=== PATIENT | male | born 1955 | race Caucasian/White ===

== ENCOUNTER → 2017-01-24 | Outpatient (CLI) | payer MEDICARE ==
[2017-01-24 07:57] LABS: Appearance,Urine Clear (Clear); Bilirubin,Urine Negative (Negative); Glucose,Urine (UA) Negative (Negative); Ketones,Urine Negative (Negative); Leukocyte Esterase,Urine Negative (Negative); Nitrite,Urine Negative (Negative); PH, Urine 7.5 (5.0-8.0); Protein,Urine Negative (Negative); Specific Gravity,Urine 1.012 (1.001-1.035); UA Billing (MACRO vs. MICRO) CHEM; Urobilinogen,Urine <2.0 mg/dL (<2.0)
[2017-01-24 08:13] LABS: Basophils # (A) 0.1 k/uL (0-0.2); Basophils % (A) 1 %; CHCM 32.8; Eosinophils # (A) 0.2 k/uL (0-0.7); Eosinophils % (A) 4 %; HCT 47.5 % (39.0-53.0); HDW 2.64; HGB 15.2 gm/dL (13.0-17.5); Luc # (Auto) 0.15; Luc % (Auto) 2; Lymphocytes # (A) 1.6 k/uL (1.0-4.8); Lymphocytes % (A) 25 %; MCH 29.4 pg (25.0-35.0); MCV 92.1 fL (80.0-100.0); Mean Platelet Volume 7.5; Monocytes # (A) 0.5 k/uL (0-1.0); Monocytes % (A) 8 %; Neutrophils # (A) 3.8 k/uL (1.3-7.7); Neutrophils % (A) 60 %; RBC 5.15 m/uL (4.30-5.90); RDW 14.4 % (11.5-15.5); WBC 6.4 k/uL (3.8-10.6); WBC (Perox) 6.49
[2017-01-24 14:11] LABS: ALT 52 U/L (21-72); AST 39 U/L (17-59); Alkaline Phosphatase 119 U/L (38-126); Anion Gap 8 mmol/L; Blood Urea Nitrogen 16 mg/dL (9-20); Calcium 9.8 mg/dL (8.4-10.2); Carbon Dioxide 30 mmol/L (22-30); Chloride 105 mmol/L (98-107); Cholesterol 129 mg/dL (<200); Glucose 84 mg/dL (74-99); HDL Cholesterol 40 mg/dL (40-60); Non-African American GFR(MDRD) >60 (>60 ml/min/1.73 sqM); Potassium 4.9 mmol/L (3.5-5.1); Sodium 143 mmol/L (137-145); Total Bilirubin 0.8 mg/dL (0.2-1.3); Total Protein 6.6 g/dL (6.3-8.2); Triglycerides 141 mg/dL (<150)
[2017-01-24 15:31] LABS: Hepatitis B Surface Ag Index 0.07
[2017-01-24 15:36] LABS: Hepatitis B Core IgM Index 0.03
[2017-01-24 15:48] LABS: Hepatitis C Virus IgG Index 0.04
[2017-01-24 15:49] LABS: Hepatitis C Virus IgG Ab Negative (Negative)
[2017-01-25 06:36] LABS: HIV-1/HIV-2 Ab Screen NONREAC (NON REAC)
== END ==
LOC: LABWHC1 06:58
PROVIDERS: ATTEND Family Medicine
DX: E29.1 Testicular hypofunction (principal); E55.9 Vitamin D deficiency, unspecified; E78.00 Pure hypercholesterolemia, unspecified; N40.0 Benign prostatic hyperplasia without lower urinary tract symptoms; I10 Essential (primary) hypertension; Z11.59 Encounter for screening for other viral diseases
CPT/HCPCS: 80061; 80053; 80074; 84443; 85025; 81003; 84402; 84403; 87389; 82306; 36415; G0103

== ENCOUNTER → 2017-12-21 | Outpatient (CLI) | payer MEDICARE ==
[2017-12-21 07:42] LABS: Appearance,Urine Clear (Clear); Basophils # (A) 0.1 k/uL (0-0.2); Basophils % (A) 1 %; Bilirubin,Urine Negative (Negative); Blood,Urine Negative (Negative); Color,Urine Yellow; Eosinophils # (A) 0.3 k/uL (0-0.7); Eosinophils % (A) 3 %; Glucose,Urine (UA) Negative (Negative); HCT 48.9 % (39.0-53.0); HGB 15.9 gm/dL (13.0-17.5); Ketones,Urine Negative (Negative); Leukocyte Esterase,Urine Negative (Negative); Lymphocytes # (A) 1.9 k/uL (1.0-4.8); Lymphocytes % (A) 24 %; MCH 29.7 pg (25.0-35.0); MCHC 32.5 g/dL (31.0-37.0); MCV 91.3 fL (80.0-100.0); Mean Platelet Volume 7.5; Monocytes # (A) 0.5 k/uL (0-1.0); Monocytes % (A) 6 %; Neutrophils # (A) 4.9 k/uL (1.3-7.7); Neutrophils % (A) 63 %; PH, Urine 7.5 (5.0-8.0); Platelet Count 201 k/uL (150-450); Protein,Urine Negative (Negative); RBC 5.36 m/uL (4.30-5.90); RDW 13.8 % (11.5-15.5); Specific Gravity,Urine 1.014 (1.001-1.035); Urobilinogen,Urine <2.0 mg/dL (<2.0); WBC 7.8 k/uL (3.8-10.6)
[2017-12-21 10:47] LABS: Iron Saturation 32.69 (15.00-50.00)
[2017-12-21 11:01] LABS: Erythrocyte Sedimentation Rate 3 mm/hr (0-15)
[2017-12-21 11:25] LABS: ALT 44 U/L (21-72); AST 35 U/L (17-59); Albumin 3.8 g/dL (3.5-5.0); Alkaline Phosphatase 118 U/L (38-126); Anion Gap 10 mmol/L; Blood Urea Nitrogen 16 mg/dL (9-20); Calcium 9.9 mg/dL (8.4-10.2); Carbon Dioxide 29 mmol/L (22-30); Chloride 104 mmol/L (98-107); Cholesterol 138 mg/dL (<200); Creatine Kinase 51 U/L (55-170); Glucose 89 mg/dL (74-99); HDL Cholesterol 36 mg/dL (40-60); LDL Cholesterol,Calculated 68 mg/dL (0-99); Potassium 4.9 mmol/L (3.5-5.1); Sodium 143 mmol/L (137-145); Total Bilirubin 0.7 mg/dL (0.2-1.3); Total Protein 6.7 g/dL (6.3-8.2); Triglycerides 170 mg/dL (<150)
[2017-12-21 11:33] LABS: T4, Free (Free Thyroxine) 0.69 ng/dL (0.78-2.19)
[2017-12-21 11:47] LABS: Prostate Specific Antigen 1.11 ng/mL (0.00-4.00)
== END | disposition home or self-care (01) ==
LOC: LABWHC1 06:48
PROVIDERS: ATTEND Family Medicine
DX: N40.1 Benign prostatic hyperplasia with lower urinary tract symptoms (principal); E78.9 Disorder of lipoprotein metabolism, unspecified; D50.9 Iron deficiency anemia, unspecified; I10 Essential (primary) hypertension; E29.1 Testicular hypofunction
CPT/HCPCS: 36415; 80053; 80061; 81003; 82550; 82607; 82728; 83540; 83550; 84153; 84402; 84403; 84439; 84443; 85025; 85652

== ENCOUNTER → 2018-05-05 | Outpatient (CLI) | payer MEDICARE ==
--- NOTE | 2018-05-05 08:51 | US ---
EXAMINATION TYPE: US duplex aorta DATE OF EXAM: 05/05/2018 COMPARISON: NONE CLINICAL HISTORY: Z13.6 Screening for cardiovascular disorder. EXAM MEASUREMENTS: Abdominal Aorta: Proximal: 2.7 x 2.1 cm Mid: 2.1 x 2.1 cm Distal: 2.0 x 1.9 cm Bifurcation: rt, 1.7 x 1.7 cm lt, 1.5 x 1.4 cm aorta wnl. IMPRESSION: Visualized portions of the abdominal aorta demonstrate no evidence of abdominal aortic an eurysm.
== END | disposition home or self-care (01) ==
LOC: RADUSWWP 08:04
PROVIDERS: ATTEND Family Medicine
DX: Z13.6 Encounter for screening for cardiovascular disorders (principal)
CPT/HCPCS: 93979

== ENCOUNTER → 2019-04-07 | Outpatient (CLI) | payer MEDICARE | END | disposition home or self-care (01) | LOC: RADMRIMAIN 11:46 | PROVIDERS: ATTEND Family Medicine | DX: Z53.9 Procedure and treatment not carried out, unspecified reason (principal) ==

== ENCOUNTER 2021-03-23 06:31 | Emergency (ER) | payer MEDICARE ==
[2021-03-23 06:36] VITALS: TEMP 98.7
[2021-03-23] MEDS ORDERED: diphenhydrAMINE 50 MG/ML 1 ML VIAL IVP STA (06:45)
[2021-03-23] MEDS ORDERED: METOCLOPRAMIDE 5 MG/ML 2 ML VIAL IVP STA (06:45)
[2021-03-23] MEDS ORDERED: SODIUM CHLORIDE 0.9% 1,000 ML IV STA (06:47)
[2021-03-23] MEDS ORDERED: KETOROLAC 15 MG/ML 1 ML VIAL IVP STA (06:47)
--- NOTE | 2021-03-23 06:51 | ED ---
Abdominal Pain HPI - General Chief Complaint: Headache Stated Complaint: Vomiting Time Seen by Provider: 03/23/21 06:45 Source: patient Mode of arrival: wheelchair Limitations: no limitations - History of Present Illness Initial Comments: 66 -year-old male with history of migraines presents emergency Department with chief complaint of migraine nausea vomiting. Patient states this feels like his typical migraine headache that was gradual onset and not the worst headache of his life. States it is mostly localized to the left side of his head. He rep orts nausea with multiple episodes of nonbilious and nonbloody vomiting. States he typically has forceful vomiting when his migraines are not aborted with Imitrex.. Patient states he typically takes Imitrex at the onset of the headaches but did not catch it on time last night so he has been vomiting since. Reports mild photophobia but denies any visual changes. states a migraine cocktail typically works well for him. Denies any neck stiffness or pain. Denies any chest pain or shortness of breath. Denies one-sided weakness paresthesias. Patient states his current hypertensive because he did not take his lisinopril and clonidine due to the vomiting. - Related Data Home Medications Medication Instructions Recorded Confirmed Simvastatin [Zocor] 40 mg PO HS 01/28/15 03/23/21 Tamsulosin HCl [Flomax] 0.4 mg PO HS 01/28/15 03/23/21 cloNIDine HCL [Catapres] 0.1 mg PO TID 01/28/15 03/23/21 lisinopriL [Zestril] 10 mg PO DAILY 01/28/15 03/23/21 traMADol HCl [Ultram] 50 mg PO Q6H PRN 11/25/15 03/23/21 HYDROcodone/APAP 10-325MG [[place] 1 tab PO TID 03/23/21 03/23/21 10-325] QUEtiapine FUMARATE [SEROquel XR] 50 mg PO HS 03/23/21 03/23/21 SUMAtriptan SUCCINATE [Imitrex] 100 mg PO DAILY PRN 03/23/21 03/23/21 Previous Rx's Medication Instructions Recorded Ondansetron Odt [Zofran Odt] 4 mg PO Q8HR PRN #10 tab 03/23/21 Allergies Allergy/AdvReac Type Severity Reaction Status Date / Time No Known Allergies Allergy Verified 03/23/21 09:30 Review of Systems ROS Statement: Those systems with pertinent positive or pertinent negative responses have been documented in the HPI. ROS Other: All systems not noted in ROS Statement are negative. Past Medical History Past Medical History: Hyperlipidemia, Hypertension, Musculoskeletal Disorder, Osteoarthritis (OA), Prostate Disorder Additional Past Medical History / Comment(s): current cold sx. History of Any Multi-Drug Resistant Organisms: None Reported Past Surgical History: Back Surgery, Orthopedic Surgery, Tonsillectomy Additional Past Surgical History / Comment(s): left clavicle repaired, right ring finger tendon re-attached, left thumb surg. Past Anesthesia/Blood Transfusion Reactions: No Reported Reaction Past Psychological History: Depression Smoking Status: Never smoker Past Alcohol Use History: None Reported Past Drug Use History: None Reported - Past Family History Father Family Medical History: Cancer General Exam Limitations: no limitations General appearance: alert, in no apparent distress Head exam: Present: atraumatic, normocephalic, normal inspection Eye exam: Present: normal appearance, PERRL, EOMI Pupils: Present: normal accommodation ENT exam: Present: normal exam, normal oropharynx, mucous membranes moist, TM's normal bilaterally, normal external ear exam Neck exam: Present: normal inspection, full ROM. Absent: tenderness Respiratory exam: Present: normal lung sounds bilaterally. Absent: respiratory distress, wheezes, rales, rhonchi, stridor, chest wall tenderness, accessory muscle use Cardiovascular Exam: Present: regular rate, normal rhythm, normal heart sounds. Absent: systolic murmur GI/Abdominal exam: Present: soft. Absent: distended, tenderness, guarding, rebound, rigid Extremities exam: Present: normal inspection, full ROM, normal capillary refill. Absent: tenderness, pedal edema, joint swelling Back exam: Present: normal inspection, full ROM. Absent: tenderness, CVA tenderness (R), CVA tenderness (L), muscle spasm, paraspinal tenderness, vertebral tenderness Neurological exam: Present: alert, oriented X3, CN II-XII intact, normal gait Psychiatric exam: Present: normal affect, normal mood Skin exam: Present: warm, dry, intact, normal color Course Vital Signs 03/23/21 03/23/21 03/23/21 06:32 07:26 08:27 Temperature 98.7 F Pulse Rate 101 H 101 H 85 Respiratory 20 16 16 Rate Blood Pressure 214/99 217/99 210/96 O2 Sat by Pulse 98 98 96 Oximetry 03/23/21 09:25 Temperature Pulse Rate 80 Respiratory 16 Rate Blood Pressure 215/94 O2 Sat by Pulse 99 Oximetry Medical Decision Making - Medical Decision Making 66 -year-old male with history of migraines presents emergency Department with chief complaint of migraine nausea vomiting. She was initially hypertensive because he has not taken his lisinopril and clonidine due to the vomiting. Patient was given Reglan, Benadryl, Zofran and IV fluids. CT of the brain was initially obtained which showed no acute finding. He was given morphine for pain as well. CBC shows leukocytosis of 23K which I suspect is reactive to the forceful vomiting. Patient reassured me that it is typical for him to symptoms like this when the migraine is not reported on time. On reevaluation, he reports improvement of symptoms. He did request injectable Imitrex which was given to him. The rest of the laboratory work was unremarkable. His blood pressure still remained elevated but he denied any other symptoms. Patient was comfortable going home and will follow-up if his symptoms return. Return parameters were discussed with him who is understanding and agreeable. Case discussed with Dr. Brown. - Lab Data Result diagrams: 03/23/21 07:01 03/23/21 07:01 Lab Results 03/23/21 03/23/21 Range/Units 07:01 07:01 WBC 23.1 H (3.8-10.6) k/uL RBC 5.56 (4.30-5.90) m/uL Hgb 16.6 (13.0-17.5) gm/dL Hct 48.4 (39.0-53.0) % MCV 87.0 (80.0-100.0) fL MCH 29.8 (25.0-35.0) pg MCHC 34.3 (31.0-37.0) g/dL RDW 13.5 (11.5-15.5) % Plt Count 293 (150-450) k/uL MPV 7.8 Neutrophils % 89 % Lymphocytes % 5 % Monocytes % 4 % Eosinophils % 2 % Basophils % 0 % Neutrophils # 20.5 H (1.3-7.7) k/uL Lymphocytes # 1.2 (1.0-4.8) k/uL Monocytes # 0.9 (0-1.0) k/uL Eosinophils # 0.4 (0-0.7) k/uL Basophils # 0.1 (0-0.2) k/uL Sodium 143 (137-145) mmol/L Potassium 4.2 (3.5-5.1) mmol/L Chloride 106 (98-107) mmol/L Carbon Dioxide 23 (22-30) mmol/L Anion Gap 14 mmol/L BUN 19 (9-20) mg/dL Creatinine 0.95 (0.66-1.25) mg/dL Est GFR (CKD-EPI)AfAm >90 (>60 ml/min/1.73 sqM) Est GFR (CKD-EPI)NonAf 82 (>60 ml/min/1.73 sqM) Glucose 188 H (74-99) mg/dL Calcium 9.7 (8.4-10.2) mg/dL Total Bilirubin 0.7 (0.2-1.3) mg/dL AST 37 (17-59) U/L ALT 28 (4-49) U/L Alkaline Phosphatase 153 H (38-126) U/L Total Protein 7.8 (6.3-8.2) g/dL Albumin 4.8 (3.5-5.0) g/dL Lipase 71 (23-300) U/L Disposition Clinical Impression: Headache Disposition: HOME SELF-CARE Condition: Stable Instructions (If sedation given, give patient instructions): Acute Headache (ED) Additional Instructions: Please return to the Emergency Department if symptoms worsen or any other concerns. Prescriptions: Ondansetron Odt [Zofran Odt] 4 mg PO Q8HR PRN #10 tab PRN Reason: Nausea Is patient prescribed a controlled substance at d/c from ED?: No Referrals: Richi Clements MD [Primary Care Provider] - 1-2 days Time of Disposition: 09:41
[2021-03-23 07:12] LABS: Basophils # (A) 0.1 k/uL (0-0.2); Basophils % (A) 0 %; Eosinophils # (A) 0.4 k/uL (0-0.7); Eosinophils % (A) 2 %; HCT 48.4 % (39.0-53.0); HGB 16.6 gm/dL (13.0-17.5); Lymphocytes # (A) 1.2 k/uL (1.0-4.8); Lymphocytes % (A) 5 %; MCH 29.8 pg (25.0-35.0); MCHC 34.3 g/dL (31.0-37.0); Mean Platelet Volume 7.8; Monocytes # (A) 0.9 k/uL (0-1.0); Monocytes % (A) 4 %; Neutrophils # (A) 20.5 k/uL (1.3-7.7); Neutrophils % (A) 89 %; Platelet Count 293 k/uL (150-450); RBC 5.56 m/uL (4.30-5.90); RDW 13.5 % (11.5-15.5); WBC 23.1 k/uL (3.8-10.6)
[2021-03-23] MEDS ORDERED: ONDANSETRON 4 MG/2 ML VIAL IVP STA (07:20)
--- NOTE | 2021-03-23 07:25 | CT ---
EXAMINATION TYPE: CT brain wo con DATE OF EXAM: 03/23/2021 COMPARISON: None HISTORY: THOMAS CT DLP: 1094.4 mGycm, helical imaging through the brain. Automated exposure control for dose reduction was used. FINDINGS: There is no hemorrhage or hydrocephalus. The calvarium is intact. Mild inflammatory change present in the right maxillary sinus, ethmoid air cells. There are cerebral vascular calcifications present. Or bits show symmetric appearance. IMPRESSION: NO ACUTE BRAIN ABNORMALITY. SINUS DISEASE.
[2021-03-23 07:26] LABS: AST 37 U/L (17-59); African American GFR (CKD) >90 (>60 ml/min/1.73 sqM); Albumin 4.8 g/dL (3.5-5.0); Alkaline Phosphatase 153 U/L (38-126); Anion Gap 14 mmol/L; Blood Urea Nitrogen 19 mg/dL (9-20); Calcium 9.7 mg/dL (8.4-10.2); Carbon Dioxide 23 mmol/L (22-30); Chloride 106 mmol/L (98-107); Glucose 188 mg/dL (74-99); Lipase 71 U/L (23-300); Non-African American GFR(CKD) 82 (>60 ml/min/1.73 sqM); Potassium 4.2 mmol/L (3.5-5.1); Sodium 143 mmol/L (137-145); Total Bilirubin 0.7 mg/dL (0.2-1.3); Total Protein 7.8 g/dL (6.3-8.2)
[2021-03-23 07:27] VITALS: RESP 16
[2021-03-23 07:32] LABS: ALT 28 U/L (4-49)
[2021-03-23] MEDS ORDERED: MORPHINE SULFATE 4 MG/ML SYRINGE IVP STA (07:41)
[2021-03-23] MEDS ORDERED: lisinopriL 10 MG TAB PO STA (08:17)
[2021-03-23] MEDS ORDERED: cloNIDine HCL 0.1 MG TAB PO STA (08:18)
[2021-03-23] MEDS ORDERED: SUMAtriptan succinate 6 MG/0.5 ML VIAL SQ STA (08:55)
[2021-03-23] MEDS ORDERED: ONDANSETRON 4 MG ODT STARTER PACK 2 TAB BTL PO STA (08:56)
[2021-03-23 09:25] VITALS: BP 215/94; PULSE 80
== END 2021-03-23 09:55 | disposition home or self-care (01) ==
LOC: EC 06:31
DX: R51.9 Headache, unspecified (principal); E78.5 Hyperlipidemia, unspecified; I10 Essential (primary) hypertension; M19.90 Unspecified osteoarthritis, unspecified site; Z79.899 Other long term (current) drug therapy
CPT/HCPCS: 36415; 80053; 83690; 85025; 70450; 99284; 96374; 96375 ×3; 96376; 96361; 96372; J3030; J2270; J1200; J2765; J2405; S0119

== ENCOUNTER 2021-03-28 01:45 | Emergency (ER) | payer MEDICARE ==
[2021-03-28] MEDS ORDERED: METOCLOPRAMIDE 5 MG/ML 2 ML VIAL IVP STA (02:08)
[2021-03-28] MEDS ORDERED: diphenhydrAMINE 50 MG/ML 1 ML VIAL IVP STA (02:08)
[2021-03-28] MEDS ORDERED: DEXAMETHASONE SOD PHOSPHATE 10 MG/ML 1 ML VIAL IV STA (02:08)
[2021-03-28] MEDS ORDERED: KETOROLAC 15 MG/ML 1 ML VIAL IVP STA (02:08)
[2021-03-28] MEDS ORDERED: SODIUM CHLORIDE 0.9% 1,000 ML IV ONE (02:09)
--- NOTE | 2021-03-28 02:13 | ED ---
Headache HPI - General Chief Complaint: Headache Stated Complaint: Migraine Time Seen by Provider: 03/28/21 02:02 Mode of arrival: ambulatory Limitations: no limitations - History of Present Illness Initial Comments: 66 year-old male patient presents to the emergency department for evaluation of migraine headache with vomiting. States that he has had this particular headache on and off for the last week. States he does have history of migraines does have imitrex but feels that it does not work for him anymore. States he is generally able to relieve the headaches by going to the chiropractor which he did yesterday morning, but it did not help this time. States tonight the headache seemed to worsen and he again developed vomiting. He states the pain goes up through his neck and into the back of his head. Denies any light or sound sensitivity. Denies numbness, tingling, or weakness to the extremities. States symptoms are typical of his usual migraine pattern. Reports gradual onset and denies this being the worst headache of his life. Denies any recent head injury. Was seen in the ED for this last Tuesday, had negative CT scan, labs showed elevated WBC count, remainder of labs were unremarkable. Patient denies any recent rash, fever, chills, cough, shortness of breath, chest pain, abdominal pain, diarrhea, constipation, back pain, numbness, tingling, dizziness, w eakness, hematuria, dysuria, urinary urgency, urinary frequency, or any other complaints. - Related Data Home Medications Medication Instructions Recorded Confirmed Simvastatin [Zocor] 40 mg PO HS 01/28/15 03/23/21 Tamsulosin HCl [Flomax] 0.4 mg PO HS 01/28/15 03/23/21 cloNIDine HCL [Catapres] 0.1 mg PO TID 01/28/15 03/23/21 lisinopriL [Zestril] 10 mg PO DAILY 01/28/15 03/23/21 traMADol HCl [Ultram] 50 mg PO Q6H PRN 11/25/15 03/23/21 HYDROcodone/APAP 10-325MG [[place] 1 tab PO TID 03/23/21 03/23/21 10-325] QUEtiapine FUMARATE [SEROquel XR] 50 mg PO HS 03/23/21 03/23/21 SUMAtriptan SUCCINATE [Imitrex] 100 mg PO DAILY PRN 03/23/21 03/23/21 Previous Rx's Medication Instructions Recorded Ondansetron Odt [Zofran Odt] 4 mg PO Q8HR PRN #10 tab 03/23/21 Allergies Allergy/AdvReac Type Severity Reaction Status Date / Time No Known Allergies Allergy Verified 03/28/21 01:57 Review of Systems ROS Statement: Those systems with pertinent positive or pertinent negative responses have been documented in the HPI. ROS Other: All systems not noted in ROS Statement are negative. Past Medical History Past Medical History: Hyperlipidemia, Hypertension, Musculoskeletal Disorder, Osteoarthritis (OA), Prostate Disorder Additional Past Medical History / Comment(s): current cold sx. History of Any Multi-Drug Resistant Organisms: None Reported Past Surgical History: Back Surgery, Orthopedic Surgery, Tonsillectomy Additional Past Surgical History / Comment(s): left clavicle repaired, right ring finger tendon re-attached, left thumb surg. Past Anesthesia/Blood Transfusion Reactions: No Reported Reaction Past Psychological History: Depression Smoking Status: Never smoker Past Alcohol Use History: None Reported Past Drug Use History: None Reported - Past Family History Father Family Medical History: Cancer General Exam Limitations: no limitations General appearance: alert, in no apparent distress Eye exam: Present: normal appearance, PERRL, EOMI. Absent: scleral icterus, conjunctival injection, nystagmus, periorbital swelling ENT exam: Present: normal exam, normal oropharynx, mucous membranes moist Respiratory exam: Present: normal lung sounds bilaterally. Absent: respiratory distress, wheezes, rales, rhonchi, stridor Cardiovascular Exam: Present: regular rate, normal rhythm, normal heart sounds. Absent: systolic murmur, diastolic murmur, rubs, gallop, clicks GI/Abdominal exam: Present: soft, normal bowel sounds. Absent: distended, tenderness, guarding, rebound, rigid Neurological exam: Present: alert, oriented X3, CN II-XII intact Expanded Speech: Present: fluid speech Cranial nerves: EOM's Intact: Normal, Nystagmus: Normal Motor strength exam: RUE: 5, LUE: 5, RLE: 5, LLE: 5 Psychiatric exam: Present: normal affect, normal mood Skin exam: Present: warm, dry, intact, normal color. Absent: rash Course Vital Signs 03/28/21 01:55 Temperature 98.9 F Pulse Rate 69 Respiratory 18 Rate Blood Pressure 191/101 O2 Sat by Pulse 95 Oximetry Medical Decision Making - Medical Decision Making 66 year-old male patient presented with migraine headache. Upon arrival exhibited elevated blood pressure. Does have history of migraines. States symptoms are consistent with his usual migraine pattern. Did try zofran and imitrex at home. Physical exam was unremarkable. No neuro deficits. IV was started, he was given IV fluids, toradol reglan, benadryl, and decadron. Upon re-evaluation states headache is resolved, he feels much better. BP remains elevated. States he did take his BP meds today, but unsure if he kept them down due to vomiting. Will give dose of catapres 0.1mg. He will be discharged to follow up with the primary care physician. Instructed to follow-up with neurologist. Return parameters were discussed in detail. He verbalizes understanding and agrees with this plan. Case discussed with my attending Dr. Aviles. Disposition Clinical Impression: Migraine headache Disposition: HOME SELF-CARE Condition: Good Instructions (If sedation given, give patient instructions): Migraine Headache (ED) Additional Instructions: Follow-up with your primary care physician for recheck in 1-2 days. Consider following up with neurologist. Return for any new, worsening, or concerning symptoms. Is patient prescribed a controlled substance at d/c from ED?: No Referrals: Richi Clements MD [Primary Care Provider] - 1-2 days Time of Disposition: 03:31
[2021-03-28] MEDS ORDERED: cloNIDine HCL 0.1 MG TAB PO STA (03:30)
[2021-03-28 03:55] VITALS: BP 183/101; PULSE 84; RESP 17; TEMP 98.3
== END 2021-03-28 03:55 | disposition home or self-care (01) ==
LOC: EC 01:45
DX: G43.909 Migraine, unspecified, not intractable, without status migrainosus (principal); E78.5 Hyperlipidemia, unspecified; I10 Essential (primary) hypertension; M19.90 Unspecified osteoarthritis, unspecified site; F32.9 Major depressive disorder, single episode, unspecified
CPT/HCPCS: 99283; 96374; 96375 ×3; 96361 ×2; J1200; J1100; J2765; J1885

== ENCOUNTER → 2021-07-01 | Outpatient (CLI) | payer MEDICARE ==
[2021-07-01 09:15] VITALS: BP 137/96; PULSE 65; RESP 18; TEMP 98
--- NOTE | 2021-07-01 09:30 | P.PAINCN ---
History of Present Illness - Reason for Consult Consult date: 07/01/21 - History of Present Illness This 66 years old male with a chronic history of severe neck mostly on the left side he is diagnosed with left-sided occipital neuralgia, patient was evaluated by Dr. Parkinson and he was referred to [facility] for left-sided occipital nerve block, she reported that he had more than 20 years history of headache but the intensity of the headache increases over the last 6 months, mainly on the left side , he denies any visual changes he denies any motor or sensory deficit, tried different medication and he is currently on Imitrex and [place], patient had multiple admissions to the emergency room secondary to the headache, Past Medical History Past Medical History: Hyperlipidemia, Hypertension, Musculoskeletal Disorder, Osteoarthritis (OA), Prostate Disorder Additional Past Medical History / Comment(s): frequent headaches usually left side History of Any Multi-Drug Resistant Organisms: None Reported Past Surgical History: Back Surgery, Orthopedic Surgery, Tonsillectomy Additional Past Surgical History / Comment(s): left clavicle repaired, right ring finger tendon re-attached, left thumb surg. Past Anesthesia/Blood Transfusion Reactions: No Reported Reaction Past Psychological History: Depression Smoking Status: Never smoker Past Alcohol Use History: None Reported Past Drug Use History: None Reported - Past Family History Father Family Medical History: Cancer Medications and Allergies Home Medications Medication Instructions Recorded Confirmed Type Simvastatin [Zocor] 40 mg PO HS 01/28/15 06/24/21 History Tamsulosin HCl [Flomax] 0.4 mg PO HS 01/28/15 06/24/21 History cloNIDine HCL [Catapres] 0.1 mg PO HS 01/28/15 06/24/21 History lisinopriL [Zestril] 10 mg PO HS 01/28/15 06/24/21 History HYDROcodone/APAP 10-325MG [[place] 1 tab PO TID 03/23/21 06/24/21 History 10-325] Ondansetron Odt [Zofran Odt] 4 mg PO Q8HR PRN #10 tab 03/23/21 06/24/21 Rx QUEtiapine FUMARATE [SEROquel XR] 50 mg PO HS 03/23/21 06/24/21 History SUMAtriptan SUCCINATE [Imitrex] 100 mg PO DAILY PRN 03/23/21 06/24/21 History Allergies Allergy/AdvReac Type Severity Reaction Status Date / Time No Known Allergies Allergy Verified 06/24/21 15:48 Physical Exam Vitals: Vital Signs Temp Pulse Resp BP Pulse Ox 07/01/21 09:11 98.0 F 65 18 137/96 99 Physical Examinations : -Constitutiona : Cooperative , not in acute distress . -HEENT : nech : supple , no Lymphadenopathy , normal thyroid size . : eyes : no ptosis , no icterus, no photophobia . - neurologic : Cranial nerve II to XII intact , no focal neurological deffecit . -psychatric : alert , oriented X 3 , appropriate affect , intact judgment and insight . -Lymphatic : no Lymphadenopathy . - musculoskeltal : Cervical Spine motor stregnth in the deltoid and biceps, normal right side , normal Left side motor stregnth biceps and the wrist extensors normal right side ,normal left side . motor stregnth in the triceps muscle . normal Right side , normal Left side deep tendon reflexes normal at the biceps , normal at Brachioradialis , normal at triceps. cervical facet loading test: Positive Bilaterally Underlays over the occipital nerve bilaterally, Left > Right Lumber spine moter stegnth lower extremities ,thigh and legs 5/5 Right side , 5/5 Left side Results Comments: MRI of the brain= minimal nonspecific white matter changes and mild to moderate chronic right ethmoids sinusitis Assessment and Plan Plan: Assessment and plan=1-occipital neuralgia. 2-cervical spondylosis. Patient could benefit from left-sided occipital nerve block, seizures risks and benefits and alternatives discussed with the patient he agreed with proceeding Time with Patient: Greater than 30 PQRS Measure Charge Sheet Measure #130: Documentation of Current Meds in Medical Chart: Patient's medications documented in chart Measure #226: Tobacco Use: Screen & Cessation Intervention: Pt not a tobacco user Measure #111: Pneumonia Vaccination: Pneumococcal vaccine NOT administered or previously given Measure #47: Advance Care Plan: Advance care planning discussed & documented, pt chose/unable to give Measure #412: Opioid Treatment Agreement: No documentation of signed opioid treatment agreement Measure #408: Opioid Therapy Follow-up Evaluation: Patient had NO f/u eval minimum every 3 months during opioid therapy Measure #317: Preventitive Care & Scrn High Bld Press & F/U: Normal blood pressure, f/u not required Measure #128: Body Mass Index (BMI) Screening & Follow-up: BMI documented ABOVE normal parameters - f/u documented Measure #131: Pain Assessment & Follow-up: Pain positive & plan documented, Follow-up scheduled Measure #431: Unhealthy Alcohol Use Preventative Care & Scrn: Patient not identified as an unhealthy alcohol user PQRS Narrative: Smoking Status Never smoker Blood Pressure 137/96 Pain Intensity [Left Neck] 2 Scale Used Numeric (1 - 10) Hx Alcohol Use (MH) No Home Medications: Ambulatory Orders Simvastatin [Zocor] 40 mg PO HS 01/28/15 Tamsulosin HCl [Flomax] 0.4 mg PO HS 01/28/15 cloNIDine HCL [Catapres] 0.1 mg PO HS 01/28/15 lisinopriL [Zestril] 10 mg PO HS 01/28/15 HYDROcodone/APAP 10-325MG [[place] 10-325] 1 tab PO TID 03/23/21 Ondansetron Odt [Zofran Odt] 4 mg PO Q8HR PRN #10 tab 03/23/21 QUEtiapine FUMARATE [SEROquel XR] 50 mg PO HS 03/23/21 SUMAtriptan SUCCINATE [Imitrex] 100 mg PO DAILY PRN 03/23/21
== END ==
LOC: PNWHC3 08:54
PROVIDERS: ATTEND Specialist
DX: M54.81 Occipital neuralgia (principal); M47.812 Spondylosis without myelopathy or radiculopathy, cervical region; E78.5 Hyperlipidemia, unspecified; I10 Essential (primary) hypertension; M19.90 Unspecified osteoarthritis, unspecified site; F32.9 Major depressive disorder, single episode, unspecified; Z79.899 Other long term (current) drug therapy
CPT/HCPCS: 99211

== ENCOUNTER 2021-07-28 12:34 | Day surgery (SDC) | payer MEDICARE ==
[2021-07-27 09:59] VITALS: BMI 28.7
[2021-07-28 12:52] VITALS: TEMP 98.1
[2021-07-28] MEDS ORDERED: LACTATED RINGERS 1,000 ML IV ONE (12:56)
[2021-07-28] MEDS ORDERED: MIDAZOLAM 2 MG/2 ML VIAL ONE (13:49)
[2021-07-28] MEDS ORDERED: TRIAMCINOLONE ACETONIDE 40 MG/ML 1 ML VIAL ONE (13:49)
[2021-07-28] MEDS ORDERED: fentaNYL (PF) 50 MCG/ML 2 ML AMP ONE (13:49)
[2021-07-28] MEDS ORDERED: ROPIVACAINE 5MG/ML 20ML VIAL ONE (13:49)
[2021-07-28] MEDS ORDERED: IV FLUID CONTINUATION 800 ML IV ONE (14:03)
--- NOTE | 2021-07-28 14:07 | P.PCN ---
Date of Procedure: 07/28/21 Description of Procedure: PREOPERATIVE DIAGNOSIS: Occipital neuralgia, and headaches POSTOPERATIVE DIAGNOSIS: Occipital neuralgia, and headaches PROCEDURES: 1. left-sided Greater occipital nerve block SURGEON: Arcelia Dawson ANESTHESIA: Local and IV sedation : Versed 1 mg, and fentanyl 50 g EBL: None. Specimen removed: None PROCEDURE INDICATIONS: This patient with a history of chronic headaches, and occipital neuralgia. Patient tried conservative therapy. Came here for intervention management. Procedure and Findings: The patient was seen and examined and written informed consent was obtained after explaining the risks, benefits and alternative of the procedure to the patient. As per patient request for anxiety IV was started in the preoperative holding area for sedation. The patient was positioned in the sitting position with the head slightly flexed and forehead rested on a pillow. By palpation, the external occipital protuberance and mastoid process were identified and mid point in between was located. The target point for greater occipital nerve was just medial to the occipital artery pulsation. The skin preparation was done with ChloraPrep X1 and sterile technique was observed throughout the procedure. A 25-guage, 1.5 inch needle was used for the procedure. A 25-gauge 1.5 inch needle was placed vertically downward, bony contact was obtained, negative aspiration was confirmed and 8 ml solution was injected. The needle was redirected little medially and laterally in a fanning fashion and addition medication was injected after negative aspiration. The block solution containing 0.5% preservative-free bupivacaine 7 mL +40 MG of Depo-Medrol. The needle was removed, needle puncture sites were cleaned and pressure was applied. The patient tolerated the procedure very well. COMPLICATIONS: None. DISPOSITION / PLANS: The patient was placed in a supine position and transferred to the recovery area in a stable condition for observation and was discharged from the recovery room after meeting discharge criteria. Home discharge instructions given to the patient by the staff. The patient was reexamined prior to discharge. The patient will schedule for follow-up visit with the pain clinic in 2-4 weeks duration
[2021-07-28 14:08] VITALS: RESP 20
[2021-07-28] MEDS ORDERED: LACTATED RINGERS 1,000 ML IV SCH (14:15)
[2021-07-28 14:24] VITALS: BP 142/84; PULSE 59
== END 2021-07-28 14:33 | disposition home or self-care (01) ==
LOC: ORPAIN 12:34
DX: M54.81 Occipital neuralgia (principal); I10 Essential (primary) hypertension; M19.90 Unspecified osteoarthritis, unspecified site; G62.9 Polyneuropathy, unspecified
CPT/HCPCS: 64405; J2250; J3301; J3010; J2795

== ENCOUNTER → 2021-07-28 | Outpatient (CLI) | payer MEDICARE ==
[2021-07-28 08:51] LABS: Appearance,Urine Clear (Clear); Bilirubin,Urine Negative (Negative); Blood,Urine Negative (Negative); Color,Urine Yellow; Glucose,Urine (UA) Negative (Negative); Ketones,Urine Negative (Negative); Leukocyte Esterase,Urine Negative (Negative); Nitrite,Urine Negative (Negative); Protein,Urine Negative (Negative); Specific Gravity,Urine 1.022 (1.001-1.035); Urobilinogen,Urine <2.0 mg/dL (<2.0)
[2021-07-28 11:10] LABS: Basophils # (A) 0.07 X 10*3/uL (0.00-0.10); Basophils % (A) 0.7 %; Eosinophils # (A) 0.27 X 10*3/uL (0.04-0.35); Eosinophils % (A) 2.9 %; HCT 47.6 % (39.6-50.0); HGB 15.7 g/dL (13.0-17.0); Lymphocytes # (A) 2.28 X 10*3/uL (0.90-5.00); Lymphocytes % (A) 24.3 %; MCH 29.5 pg (27.0-32.0); MCV 89.3 fL (80.0-97.0); Mean Platelet Volume 10.9 fL (9.5-12.2); Monocytes # (A) 0.81 X 10*3/uL (0.20-1.00); Monocytes % (A) 8.6 %; Neutrophils # (A) 5.92 X 10*3/uL (1.80-7.70); Platelet Count 239 X 10*3/uL (140-440); RBC 5.33 X 10*6/uL (4.40-5.60); RDW 13.9 % (11.5-14.5)
[2021-07-28 13:54] LABS: Erythrocyte Sedimentation Rate 6 mm/Hr (0-20)
[2021-07-28 18:02] LABS: Prostate Specific Antigen 0.9 ng/mL (0.00-4.50)
[2021-07-28 18:28] LABS: African American GFR (CKD) 111.7 (60.0-200.0); Albumin 4.4 g/dL (3.8-4.9); Albumin/Globulin Ratio 1.68 (1.60-3.17); Anion Gap 14.9 mmol/L (4.00-12.00); BUN/Creat Ratio 21.66 Ratio (12.00-20.00); Blood Urea Nitrogen 15.4 mg/dL (9.0-27.0); Calcium 9.7 mg/dL (8.7-10.3); Carbon Dioxide 22.2 mmol/L (21.6-31.8); Globulin 2.6 g/dL (1.6-3.3); Non-African American GFR(CKD) 96.4 (60.0-200.0); Potassium 5.1 mmol/L (3.5-5.5); Total Bilirubin 0.7 mg/dL (0.30-1.20)
== END | disposition home or self-care (01) ==
LOC: LABWHC1 07:05
PROVIDERS: ATTEND Family Medicine
DX: Z12.5 Encounter for screening for malignant neoplasm of prostate (principal); I10 Essential (primary) hypertension
CPT/HCPCS: 36415; 80053; 81003; 82306; 82607; 84153; 84439; 84443; 85025; 85652

== ENCOUNTER → 2021-08-26 | Outpatient (CLI) | payer MEDICARE ==
[2021-08-26 10:38] VITALS: BP 164/96; PULSE 64; RESP 18; TEMP 97.8
--- NOTE | 2021-08-26 11:00 | P.PN ---
Subjective Progress Note Date: 08/26/21 Principal diagnosis: Occipital neuritis Hai is a 66-year-old male presenting to clinic today for follow-up appointment after a left occipital nerve block in July. 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 He reports today that he's had 100% relief with the nerve block. P rior to the injection and only has had headaches he had left-sided neck pain which has completely resolved. Reports now that he is significant decrease in headaches their frequency and severity. He has not had a headache since his intervention. He denies adverse effects or complications from the intervention. Objective - Vital Signs Vital signs: Vital Signs Temp 97.8 F 08/26/21 10:34 Pulse 64 08/26/21 10:34 Resp 18 08/26/21 10:34 BP 164/96 08/26/21 10:34 Pulse Ox 100 08/26/21 10:34 Intake & Output 08/25/21 08/26/21 08/26/21 18:59 06:59 18:59 Weight 88.451 kg - Exam Physical Examinations : -Constitutiona : Cooperative , not in acute distress . -HEENT : nech : supple , no Lymphadenopathy , normal thyroid size . : eyes : no ptosis , no icterus, no photophobia . - neurologic : Cranial nerve II to XII intact , no focal neurological deffecit . -psychatric : alert , oriented X 3 , appropriate affect , intact judgment and insight . -Lymphatic : no Lymphadenopathy . - musculoskeltal : Cervical Spine motor stregnth in the deltoid and biceps, normal right side , normal Left side motor stregnth biceps and the wrist extensors normal right side ,normal left side . motor stregnth in the triceps muscle . normal Right side , normal Left side deep tendon reflexes normal at the biceps , normal at Brachioradialis , normal at triceps. Assessment and Plan Assessment: Assessment and plan Assessment: Occipital neuritis Plan: Patient was advised to return to clinic as needed for repeat left-sided occipital nerve block if his headaches return. - PQRS measures = - Patient's medications are documented in the chart. -Tobacco use is negative -Patient's has not received pneumococcal vaccine. -Advanced care planning discussed, patient not eligible. -Opiate contract not signed. -Pain positive and follow-up visit/procedure is scheduled. -Patient's blood pressure measured [164/96 ] , and documented in the record ,and patient will follow up with the primary care. -Patient was not identified as an unhealthy alcohol user Time with Patient: Less than 30
== END ==
LOC: PNWHC3 10:15
PROVIDERS: ATTEND Student in an Organized Health Care Education/Training Program
DX: M54.81 Occipital neuralgia (principal)
CPT/HCPCS: 99211

== ENCOUNTER 2022-01-24 09:31 | Observation (INO) | payer MEDICARE ==
[2022-01-24] MEDS ORDERED: ONDANSETRON 4 MG/2 ML VIAL IVP STA (10:26)
[2022-01-24] MEDS ORDERED: HYDROmorphone 0.5 MG/0.5 ML SYRINGE IVP STA (10:26)
--- NOTE | 2022-01-24 10:37 | ED ---
General Adult HPI - General Chief complaint: Head Injury Stated complaint: Fall/NVD Time Seen by Provider: 01/24/22 10:10 Source: patient, family, RN notes reviewed, old records reviewed Mode of arrival: wheelchair Limitations: no limitations - History of Present Illness Initial comments: This is a 67-year-old male who resents to the emergency department today complaining of headache and nausea. Patient states on Tuesday he was running around some children he fell over and hit his head on the ground he states he did not lose consciousness he was not days. Patient states that time he had some neck pain in the next morning he woke up and started having pretty significant headache and started becoming nauseated and vomiting. Patient states he continues to have a headache at about 4-5 out of 10 neck pain is improved but is still a little bit on the right side. Patient also states he is very nauseated and can't stop vomiting. Patient denies any abdominal pain whatsoever. Patient denies any blood thinners. Patient denies any extremity injuries. Patient denies any other complaints at this time - Related Data Home Medications Medication Instructions Recorded Confirmed Simvastatin [Zocor] 40 mg PO HS 01/28/15 08/26/21 Tamsulosin HCl [Flomax] 0.4 mg PO HS 01/28/15 08/26/21 cloNIDine HCL [Catapres] 0.1 mg PO HS 01/28/15 08/26/21 lisinopriL [Zestril] 10 mg PO HS 01/28/15 08/26/21 HYDROcodone/APAP 10-325MG [[place] 1 tab PO TID 03/23/21 08/26/21 10-325] QUEtiapine FUMARATE [SEROquel XR] 50 mg PO HS 03/23/21 08/26/21 SUMAtriptan SUCCINATE [Imitrex] 100 mg PO DAILY PRN 03/23/21 08/26/21 Previous Rx's Medication Instructions Recorded Ondansetron Odt [Zofran Odt] 4 mg PO Q8HR PRN #10 tab 03/23/21 Allergies Allergy/AdvReac Type Severity Reaction Status Date / Time No Known Allergies Allergy Verified 01/24/22 10:09 Review of Systems ROS Statement: Those systems with pertinent positive or pertinent negative responses have been documented in the HPI. ROS Other: All systems not noted in ROS Statement are negative. Past Medical History Past Medical History: Hyperlipidemia, Hypertension, Musculoskeletal Disorder, Osteoarthritis (OA), Prostate Disorder Additional Past Medical History / Comment(s): Frequent headaches, usually left side. History of Any Multi-Drug Resistant Organisms: None Reported Past Surgical History: Back Surgery, Orthopedic Surgery, Tonsillectomy Additional Past Surgical History / Comment(s): Left clavicle repaired, right ring finger tendon re-attached, left thumb surgery, pain clinic procedures. Past Anesthesia/Blood Transfusion Reactions: No Reported Reaction Past Psychological History: Anxiety, Depression Smoking Status: Former smoker Past Alcohol Use History: None Reported Past Drug Use History: None Reported - Past Family History Father Family Medical History: Cancer General Exam - General Exam Comments Initial Comments: GENERAL: Patient is well-developed and well-nourished. Patient is nontoxic and well- hydrated and is in mild distress. ENT: Neck is soft and supple. No significant lymphadenopathy is noted. Oropharynx is clear. Moist mucous membranes. Patient has full range of motion of his neck with some pain to palpation in the right trapezius area. EYES: The sclera were anicteric and conjunctiva were pink and moist. Extraocular movements were intact and pupils were equal round and reactive to light. Eyelids were unremarkable. PULMONARY: Unlabored respirations. Good breath sounds bilaterally. No audible rales rhonchi or wheezing was noted. CARDIOVASCULAR: There is a regular rate and rhythm without any murmurs gallops or rubs. ABDOMEN: Soft and nontender with normal bowel sounds. SKIN: Patient has some scabs that are healing over with out any signs of infection on his face. NEUROLOGIC: Patient is alert and oriented x3. Cranial nerves II through XII are grossly intact. Motor and sensory are also intact. Normal speech, volume and content. Symmetrical smile. MUSCULOSKELETAL: Normal extremities with adequate strength and full range of motion. No lower extremity swelling or edema. No calf tenderness. LYMPHATICS: No significant lymphadenopathy is noted PSYCHIATRIC: Normal psychiatric evaluation. Limitations: no limitations Course Vital Signs 01/24/22 01/24/22 01/24/22 10:05 11:09 11:54 Temperature 99.0 F Pulse Rate 87 80 90 Respiratory 18 18 18 Rate Blood Pressure 207/121 174/90 213/122 O2 Sat by Pulse 97 98 98 Oximetry 01/24/22 01/24/22 11:59 14:27 Temperature 98.0 F Pulse Rate 117 H Respiratory 21 Rate Blood Pressure 183/106 179/107 O2 Sat by Pulse 96 Oximetry Medical Decision Making - Medical Decision Making CT of the brain shows no acute abnormality. CT of the C-spine shows no acute abnormality. EKG shows sinus rhythm with occasional PAC at 82 bpm [place] interval 232 QRS is 91 QT interval 408 QTC is 446. Patient's EKG shows no ST segment elevation or ST segment depression. I was called back into the room at 12:15 because the patient was having difficulty seeing. Patient appeared to have visual neglect when looking to the left. Patient's blood pressure came down after 20 hydralazine and the patient stated that his headache was improved however he continued to have a neglect when looking to the left at this time I called a code stroke. I also ordered a CT angiogram of head and neck. I spoke with Dr. Vasquez and he did not want to give any [place]ase for an NIH of 2 and also the patient didn't qualify because he recently had head trauma [address] angiogram of the head and neck show no acute abnormality. I went back in the room to reevaluate the patient he no longer had any symptoms. His NIH was 0 I spoke with sounds physicians and they agreed to admit the patient admitted the patient I wrote admitting orders I consult cardiology as well as neurology. - Lab Data Result diagrams: 01/24/22 11:49 01/24/22 11:48 Lab Results 01/24/22 01/24/22 01/24/22 Range/Units 11:48 11:48 11:49 WBC 18.7 H (3.8-10.6) k/uL RBC 5.60 (4.30-5.90) m/uL Hgb 17.0 (13.0-17.5) gm/dL Hct 50.8 (39.0-53.0) % MCV 90.6 (80.0-100.0) fL MCH 30.4 (25.0-35.0) pg MCHC 33.5 (31.0-37.0) g/dL RDW 14.9 (11.5-15.5) % Plt Count 300 (150-450) k/uL MPV 8.2 Neutrophils % 88 % Lymphocytes % 6 % Monocytes % 5 % Eosinophils % 0 % Basophils % 0 % Neutrophils # 16.4 H (1.3-7.7) k/uL Lymphocytes # 1.2 (1.0-4.8) k/uL Monocytes # 0.9 (0-1.0) k/uL Eosinophils # 0.0 (0-0.7) k/uL Basophils # 0.0 (0-0.2) k/uL Sodium 140 (137-145) mmol/L Potassium 4.3 (3.5-5.1) mmol/L Chloride 103 (98-107) mmol/L Carbon Dioxide 22 (22-30) mmol/L Anion Gap 15 mmol/L BUN 21 H (9-20) mg/dL Creatinine 1.01 (0.66-1.25) mg/dL Est GFR (CKD-EPI)AfAm 88 (>60 ml/min/1.73 sqM) Est GFR (CKD-EPI)NonAf 76 (>60 ml/min/1.73 sqM) Glucose 178 H (74-99) mg/dL Calcium 9.5 (8.4-10.2) mg/dL Magnesium 2.0 (1.6-2.3) mg/dL Total Bilirubin 1.0 (0.2-1.3) mg/dL AST 36 (17-59) U/L ALT 22 (4-49) U/L Alkaline Phosphatase 120 (38-126) U/L Troponin I 0.109 H* (0.000-0.034) ng/mL Total Protein 8.1 (6.3-8.2) g/dL Albumin 4.7 (3.5-5.0) g/dL Disposition Clinical Impression: Facial abrasion, Head injury, Thyroid nodule, Hypertensive urgency, Homonymous hemianopsia, Elevated troponin Disposition: ADMITTED IP TO THIS HOSP Referrals: Richi Clements MD [Primary Care Provider] - 1-2 days Time of Disposition: 14:31
--- NOTE | 2022-01-24 11:14 | CT ---
EXAMINATION TYPE: CT brain cspine wo con DATE OF EXAM: 01/24/2022 COMPARISON: Brain 03/23/2021 HISTORY: 67-year-old male with pain after Fall, trauma. Headache and vomiting, neck pain. CT DLP: 1522 mGycm Automated exposure control for dose reduction was used. Technique: Examination of the head was done in axial plane without intravenous contrast. Coronal and sagittal reconstructions performed. CT of the cervical spine was obtained in axial plane without intravenous injection of contrast mater ial. Coronal and sagittal reformatted images were obtained from the axial views for evaluation of f ractures, spinal alignment and canal. FINDINGS: Head: There is no evidence of acute intracranial hemorrhage, acute ischemic changes, mass, mass-effect, or extra-axial fluid collection. There is no effacement of cerebral sulci or basal subarachnoid cister ns. There is no hydrocephalus. There is no midline shift. Riddle-white matter distinction is preserv ed. Leftward nasal septal deviation. Mild mucosal thickening right maxillary sinus and moderate within th e ethmoid air cells. Orbits and globes appear intact. Mastoid air cells well pneumatized. No calvaria l fracture seen. Incidental dominant left vertebral artery. Either prominent perivascular space or old lacunar infarct right basal ganglia. There is 3 mm of right-sided cerebellar tonsillar ectopia without any tonsillar beaking. Findings sug gest benign tonsillar ectopia. Cervical spine: Prior plate and screw fixation of the left clavicular shaft. Emphysematous change in the visualized l ungs. There appears to be a 1.1 cm nodule left thyroid lobe that should be further evaluated with thyroid u ltrasound. No craniocervical junction abnormality, predental space widening, or prevertebral soft tissue swellin g. Some degenerative change of the C1 dens articulation. There is preserved alignment of the cervical spine. No acute fracture of the cervical spine. Moderate disc/endplate degenerative changes especially from C3 through T1 levels with disc space narr owing, endplate sclerosis/irregularity, and disc osteophyte complex formation. There appear to be jackelyn iable mild narrowing of the spinal canal especially mid to lower cervical spine. Assessment of the sp inal canal from C5-C6 and below is limited due to artifact from the patient's shoulders. Moderate to severe right neuroforaminal stenosis C4-C5 and C5-C6. Variable mild to moderate elsewhere in the cervical spine. Sagittal and coronal reformatted images confirm above findings. COMBINED IMPRESSION: 1. No acute intracranial abnormality seen. Incidental benign cerebellar tonsillar ectopia. Mild to mo derate chronic ethmoid and right maxillary sinus disease. 2. No acute fracture or malalignment of the cervical spine. Moderate multilevel spondylotic change as outlined above. 3. Nonemergent thyroid ultrasound recommended to assess the 1.1 cm nodule of the left thyroid gland. 4. COPD in the visualized upper lungs. Old plate and screw fixation of the left clavicle.
[2022-01-24] MEDS ORDERED: KETOROLAC 15 MG/ML 1 ML VIAL IVP STA (11:37)
[2022-01-24] MEDS ORDERED: METOCLOPRAMIDE 5 MG/ML 2 ML VIAL IVP STA (11:37)
[2022-01-24] MEDS ORDERED: diphenhydrAMINE 50 MG/ML 1 ML VIAL IVP STA (11:37)
[2022-01-24] MEDS ORDERED: hydrALAZINE HCL 20 MG/ML 1 ML VIAL IVP STA ×2 (11:45→15:12)
[2022-01-24 12:30] LABS: Albumin 4.7 g/dL (3.5-5.0); Calcium 9.5 mg/dL (8.4-10.2); Potassium 4.3 mmol/L (3.5-5.1); Total Protein 8.1 g/dL (6.3-8.2)
[2022-01-24 12:40] LABS: Basophils % (A) 0 %; Eosinophils % (A) 0 %; HCT 50.8 % (39.0-53.0); Lymphocytes # (A) 1.2 k/uL (1.0-4.8); Lymphocytes % (A) 6 %; MCH 30.4 pg (25.0-35.0); MCHC 33.5 g/dL (31.0-37.0); MCV 90.6 fL (80.0-100.0); Mean Platelet Volume 8.2; Monocytes # (A) 0.9 k/uL (0-1.0); Monocytes % (A) 5 %; Neutrophils # (A) 16.4 k/uL (1.3-7.7); Neutrophils % (A) 88 %; Platelet Count 300 k/uL (150-450); RDW 14.9 % (11.5-15.5); WBC 18.7 k/uL (3.8-10.6)
--- NOTE | 2022-01-24 14:00 | CT ---
EXAMINATION TYPE: CT angio head neck DATE OF EXAM: 01/24/2022 COMPARISON: CT brain same day HISTORY: 67-year-old male with left eye vision loss, acute neurologic deficit, head injury 2 days ago . TECHNIQUE: Contiguous axial scanning of the head and neck performed with IV Contrast, patient injecte d with 65 mL of Isovue 370. Coronal/sagittal MIP reconstructions performed. 3-D reconstructions gener ated on a dedicated independent workstation. CT DLP: 655.9 mGycm Automated exposure control for dose reduction was used. FINDINGS: NECK: There is conventional arterial vessel branching anatomy. Left thyroid lobe nodule described on CT cer vical spine today. Dominant left vertebral artery. Both vertebral arteries are patent throughout the course. Only minimal atherosclerotic change of the bilateral carotid bulbs. The right common and right internal carotid arteries are widely patent by NASCET criteria. There is s ome tortuosity of the upper cervical ICA. The left common and left internal carotid artery are widely patent by NASCET criteria. Tortuosity of the upper cervical ICA. HEAD: Again, right vertebral artery is nondominant. The V4 segment becomes diminutive and hypoplastic and a ppears to terminate as a right PICA branch. Otherwise, both vertebral and basilar arteries are patent. There is persistent origin of the left posterior cerebral artery. The P1 segment left TURN SUPERVISOR is ap lastic. Bilateral internal carotid arteries are patent. There is opacification seen within the bilateral common carotid arteries as well as the superior opht halmic veins. Remainder of the anterior circulation appears patent. No aneurysmal change is identified. IMPRESSION: 1. NECK: ONLY MINIMAL ATELECTATIC CHANGE AT THE BILATERAL CAROTID BULBS. DOMINANT LEFT VERTEBRAL KARISSA RY. OTHERWISE, WIDELY PATENT CAROTID AND VERTEBRAL ARTERIES OF THE NECK. 2. HEAD: SOME CONGENITAL VARIATION TO THE INTRACRANIAL ARTERIAL CIRCULATION MENTIONED ABOVE. NO LA RGE VESSEL INTRACRANIAL ARTERIAL OCCLUSION, SIGNIFICANT STENOSIS, OR ANEURYSMAL CHANGE IS SEEN.
--- NOTE | 2022-01-24 14:06 | XR ---
EXAMINATION TYPE: XR chest 2V DATE OF EXAM: 01/24/2022 COMPARISON: Thoracic spine radiograph 11/18/2015, chest radiograph 11/01/2011. HISTORY: Fall, nausea, vomiting, diarrhea TECHNIQUE: Frontal and lateral views of the chest are obtained. FINDINGS: There is no focal air space opacity, pleural effusion, or pneumothorax seen. The cardiac silhouette size is within normal limits. Stable postsurgical changes of the left clavicle. Multilevel degenerative changes of the thoracic spine. IMPRESSION: No acute cardiopulmonary process.
[2022-01-24] MEDS ORDERED: ASPIRIN 325 MG TAB PO STA (14:37)
[2022-01-24] MEDS ORDERED: cloNIDine HCL 0.1 MG TAB PO STA (15:15)
[2022-01-24] MEDS ORDERED: ONDANSETRON ODT 4 MG TAB PO PRN (15:52)
[2022-01-24] MEDS ORDERED: SUMAtriptan succinate 50 MG TAB PO PRN (15:52)
[2022-01-24] MEDS ORDERED: hydrALAZINE HCL 10 MG TAB PO PRN (15:54)
[2022-01-24] MEDS ORDERED: PROCHLORPERAZINE INJ 10 MG/2 ML VIAL IVP PRN (16:15)
--- NOTE | 2022-01-24 16:16 | P.HPIM ---
History of Present Illness H&P Date: 01/24/22 Chief Complaint: Syncopal episode, nausea, vomiting 67-year-old man with medical history of depression, hypertension, hyperlipidemia, insomnia, migraines, BPH presented for evaluation of syncopal episode as well as nausea and vomiting. Patient tells me that he had an episode where he fell onto his face on Tuesday causing damage to his right side of his face. Since that time, he's had nausea and vomiting, and could not keep anything down over the weekend. He denies any associated abdominal pain, constipation, diarrhea. He further denies fevers, chills, chest pain, pa lpitations, cough, dyspnea, abdominal pain, constipation, diarrhea, dysuria, dyschezia, numbness/weakness of extremities. In the emergency room, patient was afebrile, hypertensive to 213/122, heart rate 90, 98% on room air. Patient was given IV hydralazine for this reason, which improved his blood pressure to 183/106, however, patient then developed hemianopsia, prompting a code stroke to be called while in the room. The neuro logistics planning engineer advised against TPA. At this point, patient had already had a CT of the head which was negative, CT of the head and neck with IV contrast was also negative except for chronic changes. Labs demonstrated an elevated white blood cell count of 18.7. Chemistries show mild BUN elevation to 21. LFTs are otherwise unremarkable. Troponin initial is 0.109. EKG demonstrates normal sinus rhythm with short AR interval as well as multiple premature atrial co ntractions. Chest x-ray was negative for an acute cardiopulmonary process. All Systems reviewed and pertinent positives and negatives noted in HPI, all other symptoms are negative Gen: awake, alert HEENT: normocephalic, atraumatic, good hearing acuity, moist mucous membranes Resp: good air exchange, breathing comfortably with no accessory muscle use, clear to auscultation bilaterally CVS: good distal perfusion x 4, regular rate and rhythm without murmurs GI: soft, NTTP, ND : no SPT, no CVAT, flanagan catheter not present MSK: no pitting edema, no clubbing Neuro: non-focal, moving all extremities, 5 out of 5 motor strength in all ha, no sensory deficits, cranial nerves II through XII are intact Psych: cooperative, euthymic mood Labs and imaging reviewed as above Assessment/plan: Hypertensive urgency Syncope Elevated troponin -Admit to inpatient, telemetry -Restart patient's home blood pressure medications -Hydralazine when necessary by mouth for SBP greater than 160 or DBP greater than 100 -Cardiology consulted by ER -Trend troponins -PT consult -Orthostatics twice a day -Echo, pending Brief episode of Hemianopsia -Neurology consult -Aspirin, statin -TSH, A1c, lipid panel -MRI of the brain without, pending -Echo as above -Neurochecks Nausea and vomiting -Zofran/Compazine when necessary -Patient says this is improved Hyperlipidemia Insomnia Migraines BPH -Home medications reviewed and reconciled, changes noted above Patient is a DO NOT RESUSCITATE/DO NOT INTUBATE DVT prophylaxis with enoxaparin Past Medical History Past Medical History: Hyperlipidemia, Hypertension, Musculoskeletal Disorder, Osteoarthritis (OA), Prostate Disorder Additional Past Medical History / Comment(s): Frequent headaches, usually left side. History of Any Multi-Drug Resistant Organisms: None Reported Past Surgical History: Back Surgery, Orthopedic Surgery, Tonsillectomy Additional Past Surgical History / Comment(s): Left clavicle repaired, right ring finger tendon re-attached, left thumb surgery, pain clinic procedures. Past Anesthesia/Blood Transfusion Reactions: No Reported Reaction Past Psychological History: Anxiety, Depression Smoking Status: Former smoker Past Alcohol Use History: None Reported Past Drug Use History: None Reported - Past Family History Father Family Medical History: Cancer Medications and Allergies Home Medications Medication Instructions Recorded Confirmed Type Simvastatin [Zocor] 40 mg PO HS 01/28/15 01/24/22 History Tamsulosin HCl [Flomax] 0.8 mg PO HS 01/28/15 01/24/22 History cloNIDine HCL [Catapres] 0.1 mg PO TID 01/28/15 01/24/22 History lisinopriL [Zestril] 10 mg PO HS 01/28/15 01/24/22 History HYDROcodone/APAP 10-325MG [[place] 1 tab PO TID 03/23/21 01/24/22 History 10-325] Ondansetron Odt [Zofran Odt] 4 mg PO Q8HR PRN #10 tab 03/23/21 01/24/22 Rx QUEtiapine FUMARATE [SEROquel XR] 100 mg PO HS 03/23/21 01/24/22 History SUMAtriptan SUCCINATE [Imitrex] 50 mg PO DAILY PRN 03/23/21 01/24/22 History RX: Citalopram Hydrobromide 20 mg PO HS 01/24/22 01/24/22 History [CeleXA] Rizatriptan Odt [[employer]isher] 10 mg PO DAILY PRN 01/24/22 01/24/22 History Allergies Allergy/AdvReac Type Severity Reaction Status Date / Time No Known Allergies Allergy Verified 01/24/22 15:31 Physical Exam Osteopathic Statement: *. No significant issues noted on an osteopathic struct ural exam other than those noted in the History and Physical/Consult. Vitals: Vital Signs Temp Pulse Resp BP Pulse Ox 01/24/22 15:35 98.7 F 98 20 189/105 98 01/24/22 14:30 99 18 186/105 97 01/24/22 14:27 98.0 F 117 H 21 179/107 96 01/24/22 14:00 96 20 190/110 98 01/24/22 13:30 95 20 189/110 97 01/24/22 13:00 87 20 178/96 97 01/24/22 12:30 90 18 168/95 99 01/24/22 12:00 108 H 20 178/99 98 01/24/22 11:59 183/106 01/24/22 11:54 90 18 213/122 98 01/24/22 11:09 80 18 174/90 98 01/24/22 10:05 99.0 F 87 18 207/121 97 Intake and Output 01/24/22 01/24/22 01/24/22 06:59 14:59 22:59 Other: Weight 95.254 kg Results CBC & Chem 7: 01/24/22 11:49 01/24/22 11:48 Labs: Abnormal Lab Results - Last 24 Hours (Table) 01/24/22 01/24/22 01/24/22 Range/Units 11:48 11:48 11:49 WBC 18.7 H (3.8-10.6) k/uL Neutrophils # 16.4 H (1.3-7.7) k/uL BUN 21 H (9-20) mg/dL Glucose 178 H (74-99) mg/dL Troponin I 0.109 H* (0.000-0.034) ng/mL
[2022-01-24] MEDS: cloNIDine HCL 0.1 MG TAB PO SCH ×2 (19:26→22:47)
[2022-01-24] MEDS: HYDROcodone/APAP 10-325MG 1 EACH TAB PO SCH ×2 (19:26→22:46)
[2022-01-24] MEDS: SUMAtriptan succinate 50 MG TAB PO PRN (19:27)
[2022-01-24] MEDS: TAMSULOSIN 0.4 MG CAP.ER.24H PO SCH (20:46)
[2022-01-24] MEDS: CITALOPRAM HYDROBROMIDE 20 MG TAB PO SCH (20:46)
[2022-01-24] MEDS: lisinopriL 10 MG TAB PO SCH (20:46)
[2022-01-24] MEDS: QUEtiapine 50 MG TAB PO SCH (20:46)
[2022-01-24] MEDS: ATORVASTATIN 20 MG TAB PO SCH (20:46)
[2022-01-25] MEDS: SUMAtriptan succinate 50 MG TAB PO PRN (06:24)
[2022-01-25] MEDS: ENOXAPARIN 40 MG/0.4 ML SYRINGE SQ SCH (08:52)
[2022-01-25] MEDS: cloNIDine HCL 0.1 MG TAB PO SCH ×3 (08:53→21:24)
[2022-01-25] MEDS: ASPIRIN 81 MG PO SCH (08:53)
[2022-01-25] MEDS: QUEtiapine 50 MG TAB PO SCH ×2 (08:53→19:58)
[2022-01-25] MEDS: HYDROcodone/APAP 10-325MG 1 EACH TAB PO SCH ×3 (08:53→21:24)
[2022-01-25] MEDS ORDERED: ASPIRIN 325 MG TAB PO SCH (09:00)
--- NOTE | 2022-01-25 11:09 | P.CRDCN ---
History of Present Illness History of present illness: HISTORY OF PRESENTING ILLNESS This is a pleasant 67-year-old male past medical history significant for hypertension, dyslipidemia, former smoker, anxiety/depression, Migraine headaches. He used to follow with Dr. Phoeinx in 2014, does not currently follow with a maintenance helper. We have been asked to see in consultation for elevated troponin and hypertensive urgency. Patient presents emergency department with complaints of headache and nausea. Recent mechanical fall while playing with kids next door, he states he was running around with his kids, he tripped avoiding to fall on one of the kids and fell on his right side of his face. He woke up the next morning with significant headache, nausea, vomiting, could not keep anything down over the weekend. He did not lose consciousness. He denies any lightheadedness, dizziness, syncope, palpitations. No chest pain, shortness of breath, symptoms of orthopnea or PND. He states he has been missing couple doses of his mid day clonidine due to forgetting to take it. He does frequently get migraine headaches with nausea and vomiting and takes PRN Imitrex. Denies history of CAD, VT, Stroke or diabetes. He is currently a non-smoker. No family history of CAD. In the ER yesterday patient had difficulty seeing, which was new. Patient a pparently appeared to have visual neglect when looking to the left. Patient's blood pressure came down after 20 hydralazine and the patient headache improved however he continued to have a neglect when looking to the left. Code stroke called and Neurology consulted. Patient's BP was elevated with BP 200/100s. DIAGNOSTICS EKG reveals sinus rhythm, PACs, heart rate 82, nonspecific ST ST-T wave ab normalities in inferior lateral leads. No Prior EKG to compare Telemetry tracings indicate sinus mechanism heart rate 60s/80s Most recent stress test known was in 2013 Cardiolyte in the office which was negative for reversible ischemia. Most recent echocardiogram 09/2011- Normal LV size and function. No significant wall motion abnormalities Chest xray no acute cardiopulmonary process CT brain with no acute intracranial process CT angiography of head and neck revealed only minimal atelectatic change at the bilateral carotid bulbs, no large vessel intracranial artery occlusion, no significant stenosis no aneurysm changes seen Laboratory reviewed, WBC 2.7, hemoglobin 17, platelets 300, troponin 0.1 0.0 0.14, sodium 140, potassium 4.3, P1 21, serum creatinine 1.0, magnesium 2.0, TSH within normal limits Current home medications include lisinopril 10 mg nightly, clonidine 0.1 mg 3 times a day, simvastatin 40 mg nightly, Imitrex, REVIEW OF SYSTEMS At the time of my exam: CONSTITUTIONAL: Denies fever or chills. CARDIOVASCULAR: Denies chest pain, shortness of breath, orthopnea, PND or p alpitations. RESPIRATORY: Denies cough. GASTROINTESTINAL: Denies abdominal pain, diarrhea, constipation, nausea or vomiting. MUSCULOSKELETAL: Denies myalgias. NEUROLOGIC: Denies numbness, tingling, headache or weakness. ENDOCRINE: Denies fatigue, weight change, polydipsia or polyurina. GENITOURINARY: Denies burning, hematuria or urgency with micturation. HEMATOLOGIC: Denies history of anemia or bleeding. PHYSICAL EXAMINATION Blood pressure 131/73, heart rate 80, afebrile, oxygen saturation greater than 90% room air CONSTITUTIONAL: No apparent distress. HEENT: Scab and some bruising right orbital. Head is normocephalic. Pupils are equal, round. Sclerae anicteric. Mucous membranes of the mouth are moist. No JVD. No carotid bruit. CHEST EXAMINATION: Lungs are clear to auscultation. No chest wall tenderness is noted on palpation or with deep breathing. HEART EXAMINATION: Regular rate and rhythm. S1, S2 heard. No murmurs, gallops or rub. ABDOMEN: Soft, nontender. Positive bowel sounds. EXTREMITIES: 2+ peripheral pulses, no lower extremity edema and no calf tenderness. SKIN: Warm, dry NEUROLOGIC EXAMINATION: Patient is awake, alert and oriented x3. ASSESSMENT Hypertensive urgency Nausea, Vomiting Mechanical Fall at home Headache Episode of Hemianopsia History of hypertension History of migraines PLAN Repeat troponin Obtain 2D echocardiogram and doppler study to assess cardiac structure and function. Continue current antihypertensives with lisinopril, clonidine. Continue aspirin and statin NPO after midnight for possible stress testing tomorrow vs intervention based on above workup Neurology consulted Further recommendations based medical collections clinical course Thank you kindly for this consultation. Nurse practitioner note has been reviewed by physician. Signing provider agrees with the documented findings, assessment, and plan of care. Past Medical History Past Medical History: Hyperlipidemia, Hypertension, Musculoskeletal Disorder, Osteoarthritis (OA), Prostate Disorder Additional Past Medical History / Comment(s): Frequent headaches, usually left side. History of Any Multi-Drug Resistant Organisms: None Reported Past Surgical History: Back Surgery, Orthopedic Surgery, Tonsillectomy Additional Past Surgical History / Comment(s): Left clavicle repaired, right ring finger tendon re-attached, left thumb surgery, pain clinic procedures. Past Anesthesia/Blood Transfusion Reactions: No Reported Reaction Past Psychological History: Anxiety, Depression Smoking Status: Former smoker Past Alcohol Use History: None Reported Past Drug Use History: None Reported - Past Family History Father Family Medical History: Cancer Medications and Allergies Home Medications Medication Instructions Recorded Confirmed Type Simvastatin [Zocor] 40 mg PO HS 01/28/15 01/24/22 History Tamsulosin HCl [Flomax] 0.8 mg PO HS 01/28/15 01/24/22 History cloNIDine HCL [Catapres] 0.1 mg PO TID 01/28/15 01/24/22 History lisinopriL [Zestril] 10 mg PO HS 01/28/15 01/24/22 History HYDROcodone/APAP 10-325MG [Camp 1 tab PO TID 03/23/21 01/24/22 History 10-325] Ondansetron Odt [Zofran Odt] 4 mg PO Q8HR PRN #10 tab 03/23/21 01/24/22 Rx QUEtiapine FUMARATE [SEROquel XR] 100 mg PO HS 03/23/21 01/24/22 History SUMAtriptan SUCCINATE [Imitrex] 50 mg PO DAILY PRN 03/23/21 01/24/22 History Citalopram Hydrobromide [CeleXA] 20 mg PO HS 01/24/22 01/24/22 History Rizatriptan Odt [Maxalt Box Printing Machine Operator] 10 mg PO DAILY PRN 01/24/22 01/24/22 History Allergies Allergy/AdvReac Type Severity Reaction Status Date / Time No Known Allergies Allergy Verified 01/24/22 15:31 Physical Exam Vitals: Vital Signs Temp Pulse Pulse Pulse Resp BP BP 01/25/22 04:00 98.4 F 72 18 105/64 01/24/22 23:49 98.4 F 71 16 108/55 01/24/22 20:00 98.2 F 84 18 180/91 01/24/22 16:21 99.1 F 85 16 186/86 01/24/22 15:55 99.1 F 85 16 186/86 01/24/22 15:35 98.7 F 98 20 189/105 01/24/22 14:30 99 18 186/105 01/24/22 14:27 98.0 F 117 H 21 179/107 01/24/22 14:00 96 20 190/110 01/24/22 13:30 95 20 189/110 01/24/22 13:00 87 20 178/96 01/24/22 12:30 90 18 168/95 01/24/22 12:00 108 H 20 178/99 01/24/22 11:59 183/106 01/24/22 11:54 90 18 213/122 01/24/22 11:09 80 18 174/90 01/24/22 10:05 99.0 F 87 18 207/121 Pulse Ox 01/25/22 04:00 96 01/24/22 23:49 94 L 01/24/22 20:00 96 01/24/22 16:21 95 01/24/22 15:55 95 01/24/22 15:35 98 01/24/22 14:30 97 01/24/22 14:27 96 01/24/22 14:00 98 01/24/22 13:30 97 01/24/22 13:00 97 01/24/22 12:30 99 01/24/22 12:00 98 01/24/22 11:59 01/24/22 11:54 98 01/24/22 11:09 98 01/24/22 10:05 97 Intake and Output 01/24/22 01/25/22 01/25/22 22:59 06:59 14:59 Intake Total 360 240 Balance 360 240 Intake: Oral 360 240 Other: # Voids 1 2 Weight 95.254 kg Results 01/24/22 11:49 01/24/22 11:48 Cardiac Enzymes 01/24/22 01/24/22 01/24/22 Range/Units 11:48 11:48 18:10 AST 36 (17-59) U/L Troponin I 0.109 H* 0.148 H* (0.000-0.034) ng/mL CBC 01/24/22 Range/Units 11:49 WBC 18.7 H (3.8-10.6) k/uL RBC 5.60 (4.30-5.90) m/uL Hgb 17.0 (13.0-17.5) gm/dL Hct 50.8 (39.0-53.0) % Plt Count 300 (150-450) k/uL Comprehensive Metabolic Panel 01/24/22 Range/Units 11:48 Sodium 140 (137-145) mmol/L Potassium 4.3 (3.5-5.1) mmol/L Chloride 103 (98-107) mmol/L Carbon Dioxide 22 (22-30) mmol/L BUN 21 H (9-20) mg/dL Creatinine 1.01 (0.66-1.25) mg/dL Glucose 178 H (74-99) mg/dL Calcium 9.5 (8.4-10.2) mg/dL AST 36 (17-59) U/L ALT 22 (4-49) U/L Alkaline Phosphatase 120 (38-126) U/L Total Protein 8.1 (6.3-8.2) g/dL Albumin 4.7 (3.5-5.0) g/dL Current Medications Generic Name Dose Route Start Last Admin Trade Name Freq PRN Reason Stop Dose Admin Hydrocodone Bitart/Acetaminophen 1 each 01/24/22 16:00 01/24/22 22:46 Hydrocodone/Apap 10-325mg 1 Each Tab PO 1 each TID PARRISH Administration Aspirin 81 mg 01/25/22 09:00 Aspirin 81 Mg PO DAILY PARRISH Atorvastatin Calcium 20 mg 01/24/22 21:00 01/24/22 20:46 Atorvastatin 20 Mg Tab PO 20 mg HS PARRISH Administration Citalopram Hydrobromide 20 mg 01/24/22 21:00 01/24/22 20:46 Citalopram Hydrobromide 20 Mg Tab PO 20 mg HS PARRISH Administration Clonidine 0.1 mg 01/24/22 16:00 01/24/22 22:47 Clonidine Hcl 0.1 Mg Tab PO Not Given TID PARRISH Enoxaparin Sodium 40 mg 01/25/22 09:00 Enoxaparin 40 Mg/0.4 Ml Syringe SQ DAILY PARRISH Hydralazine HCl 20 mg 01/24/22 15:54 01/24/22 20:53 Hydralazine Hcl 10 Mg Tab PO 20 mg QID PRN Administration Blood Pressure - High Lisinopril 10 mg 01/24/22 21:00 01/24/22 20:46 Lisinopril 10 Mg Tab PO 10 mg HS PARRISH Administration Ondansetron HCl 4 mg 01/24/22 15:52 01/24/22 20:53 Ondansetron Odt 4 Mg Tab PO 4 mg Q8HR PRN Administration Nausea Prochlorperazine Edisylate 5 mg 01/24/22 16:15 Prochlorperazine Inj 10 Mg/2 Ml Vial IVP Q4HR PRN Nausea And Vomiting Quetiapine Fumarate 50 mg 01/24/22 21:00 01/24/22 20:46 Quetiapine 50 Mg Tab PO 50 mg BID PARRISH Administration Sumatriptan Succinate 50 mg 01/24/22 15:52 01/25/22 06:24 Sumatriptan Succinate 50 Mg Tab PO 50 mg DAILY PRN Administration Migraine Headache Tamsulosin HCl 0.8 mg 01/24/22 21:00 01/24/22 20:46 Tamsulosin 0.4 Mg Cap.Er.24h PO 0.8 mg HS PARRISH Administration Intake and Output 01/24/22 01/25/22 01/25/22 22:59 06:59 14:59 Intake Total 360 240 Balance 360 240 Intake: Oral 360 240 Other: # Voids 1 2 Weight 95.254 kg 01/24/22 11:49 01/24/22 11:48
--- NOTE | 2022-01-25 11:16 | P.PN ---
Subjective Progress Note Date: 01/25/22 Pt is doing well today. No further complaints. BPs now well controlled on home meds. PT consult, echo, MRI are pending. NPO at midnight for ischemic eval tomorrow AM per cardiology. Gen: awake, alert HEENT: normocephalic, atraumatic, good hearing acuity, moist mucous membranes Resp: good air exchange, breathing comfortably with no accessory muscle use, clear to auscultation bilaterally CVS: good distal perfusion x 4, regular rate and rhythm without murmurs GI: soft, NTTP, ND : no SPT, no CVAT, flanagan catheter not present MSK: no pitting edema, no clubbing Neuro: non-focal, moving all extremities, 5 out of 5 motor strength in all ha, no sensory deficits, cranial nerves II through XII are intact Psych: cooperative, euthymic mood Assessment/plan: Hypertensive urgency Syncope Elevated troponin -Admit to inpatient, telemetry -Restart patient's home blood pressure medications -Hydralazine when necessary by mouth for SBP greater than 160 or DBP greater than 100 -Cardiology consulted by ER -Trend troponins -PT consult -Orthostatics twice a day -Echo, pending Brief episode of Hemianopsia -Neurology consult -Aspirin, statin -TSH, A1c, lipid panel -MRI of the brain without, pending -Echo as above -Neurochecks Nausea and vomiting -Zofran/Compazine when necessary -Patient says this is improved Hyperlipidemia Insomnia Migraines BPH -Home medications reviewed and reconciled, changes noted above Patient is a DO NOT RESUSCITATE/DO NOT INTUBATE DVT prophylaxis with enoxaparin Objective - Vital Signs Vital signs: Vital Signs Temp 98.4 F 01/25/22 08:00 Pulse 80 01/25/22 08:00 Resp 18 01/25/22 08:00 BP 131/73 01/25/22 08:00 Pulse Ox 96 01/25/22 08:00 Intake & Output 01/24/22 01/25/22 01/25/22 18:59 06:59 18:59 Intake Total 600 120 Balance 600 120 Weight 95.254 kg Intake: Oral 600 120 Other: # Voids 2 - Labs CBC & Chem 7: 01/24/22 11:49 01/24/22 11:48 Labs: Abnormal Lab Results - Last 24 Hours (Table) 01/24/22 01/24/22 01/24/22 Range/Units 11:48 11:48 11:49 WBC 18.7 H (3.8-10.6) k/uL Neutrophils # 16.4 H (1.3-7.7) k/uL BUN 21 H (9-20) mg/dL Glucose 178 H (74-99) mg/dL Troponin I 0.109 H* (0.000-0.034) ng/mL 01/24/22 Range/Units 18:10 WBC (3.8-10.6) k/uL Neutrophils # (1.3-7.7) k/uL BUN (9-20) mg/dL Glucose (74-99) mg/dL Troponin I 0.148 H* (0.000-0.034) ng/mL
--- NOTE | 2022-01-25 12:01 | ECHOF ---
Referral Reason:TIA MEASUREMENTS -------- HEIGHT: 177.8 cm WEIGHT: 95.3 kg BP: 105/64 RVIDd: 2.8 cm (< 3.3) IVSd: 1.6 cm (0.6 - 1.1) LVIDd: 4.3 cm (3.9 - 5.3) LVPWd: 1.6 cm (0.6 - 1.1) IVSs: 2.2 cm LVIDs: 2.9 cm LVPWs: 1.8 cm LAESV Index (A-L): 34.96 ml/m Ao Diam: 3.7 cm (2.0 - 3.7) AV Cusp: 2.4 cm (1.5 - 2.6) LA Diam: 3.8 cm (2.7 - 3.8) MV EXCURSION: 18.162 mm (> 18.000) MV EF SLOPE: 58 mm/s (70 - 150) EPSS: 0.5 cm MV E Andres: 0.64 m/s MV DecT: 268 ms MV A Andres: 0.75 m/s MV E/A Ratio: 0.86 RAP: 5.00 mmHg RVSP: 26.04 mmHg FINDINGS -------- Sinus rhythm. This was a technically adequate study. The left ventricular size is normal. There is moderate concentric left ventricular hypertrophy. O verall left ventricular systolic function is normal with, an EF between 55 - 60 %. The diastolic fi lling pattern is normal for the age of the patient 12.07. The right ventricle is normal in size. LA is midly dilated 29-33ml/m2. The right atrial size is normal. Interatrial and interventricular septum intact. The aortic valve is trileaflet, and appears structurally normal. No aortic stenosis or regurgitation. The mitral valve is normal. Mild mitral regurgitation is present. The tricuspid valve appears structurally normal. Mild tricuspid regurgitation present. Right vent ricular systolic pressure is normal at < 35 mmHg. The right ventricular systolic pressure, as measu red by Doppler, is 26.04mmHg. There is no pulmonic regurgitation present. The aortic root size is normal. IVC Not well visulized. There is no pericardial effusion. CONCLUSIONS -------- 1. There is moderate concentric left ventricular hypertrophy. 2. Overall left ventricular systolic function is normal with, an EF between 55 - 60 %. 3. The diastolic filling pattern is normal for the age of the patient 12.07 4. LA is midly dilated 29-33ml/m2. 5. The aortic valve is trileaflet, and appears structurally normal. No aortic stenosis or regurgitati on. 6. Mild mitral regurgitation is present. 7. Mild tricuspid regurgitation present. TRADING FLOOR OPERATOR: Dalila Luong RDCS
[2022-01-25] MEDS ORDERED: BUTALB/APAP/CAFF 50-325-40MG TAB PO PRN (12:37)
--- NOTE | 2022-01-25 14:03 | P.CNNES ---
History of Present Illness Consult date: 01/25/22 Requesting physician: Errol Leiva Reason for Consult: Hemianopsia History of Present Illness: Patient is a 67-year-old male came to the hospital yesterday at 9:31 AM for evaluation of headache nausea and vomiting that started after a fall due to tripping. Patient has long-standing history of migraine since he was very young. He remembers that his first migraine occurred when he was a teenager. Then did not happen until he was in late 20s, when he started having migraine headaches more regularly. Sometimes it may not occur for 6-8 months, and then sometimes may happen on a weekly basis. Patient follows up with Dr. Everett, and receives Imitrex or Maxalt as needed. Patient states that on Tuesday, 2 days prior to arrival, at 4 PM patient fell forward on his face. He was playing tag with a cane and when he tripped on the kid and fell forwards, striking his front and right side of the head on the floor. He was fine afterwards. The next day on Tuesday he started having headaches at 9 AM. He was having a throbbing headache rating 10/10 involving back of the head and he vomited many times. As the headache persisted, therefore he came to the hospital yesterday which is Tuesday. While he was in the ER, he started having dizziness, with visual disturbance as he was having loss of peripheral vision both sides, left worse than right. He could not count fingers well, could not see his sitting on the right side of his visual field. Even when the nurse was taking him to the bathroom, she felt that he was helping "a blind person". Patient's dizziness and visual disturbance resolved within 1 hour. Patient underwent workup as below. Patient was started on medications to control the blood pressure and aspirin 325 mg loading dose and started on aspirin 81 mg. Patient was not taking any antiplatelet medication at home prior to arrival. He denied any slurred speech facial droop or any focal numbness tingling. At present the headache is gone, although symptoms have resolved. Vital signs on arrival blood pressure 207/121, pulse rate 87 temperature 99.0. The blood pressure improved to 174/90 but then went up to 213/122. Most recent blood pressure is 131/73. Computed tomography scan of head showed no acute intracranial process. Incidental benign cerebellar tonsillar ectopia. Mild to moderate chronic ethmoid and right maxillary sinus disease. On my review, there is no acute intracranial process noted. CT of the cervical spine showed no acute process. Moderate multilevel spondylotic changes. Thyroid nodule, which will be addressed by IM. COPD. 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 No large vessel intracranial arterial occlusion, significant stenosis or aneurysmal changes. CTA of the neck showed only minimal atelectatic change at the bilateral carotid bulbs. Dominant left vertebral artery. Otherwise widely patent carotid and vertebral arteries of the neck. Chest x-ray showed no acute cardio Judith process. EKG with sinus rhythm with occasional's supraventricular premature complexes. Patient has history of hypertension for 30 years, denies diabetes. He does have hyperlipidemia. Nonsmoker and does not drink alcohol. Current medications include Maxalt, Celexa 20 mg, Zofran, [place] 10, Seroquel XR 100 mg at bedtime, Imitrex as needed, lisinopril 10 mg, simvastatin 40 mg, clonidine 0.1 mg 3 times a day and Flomax. Patient does not take any antiplatelet medication. Patient states that he usually takes Imitrex for the migraine, but if he vomits, that he takes ODT Maxalt tablet. Patient says his he has undergone occipital nerve block for bed migraine. It did help for couple months then the headaches came back. Review of Systems As mentioned above in detail. Patient denies any chest pain shortness of breath wheezing or cough. Denies abdominal pain or bowel control issues. He did have some nausea vomiting, which now has resolved. All other 14 point of review of systems reviewed and remarkable. Past Medical History Past Medical History: Hyperlipidemia, Hypertension, Musculoskeletal Disorder, Osteoarthritis (OA), Prostate Disorder Additional Past Medical History / Comment(s): Frequent headaches, usually left side. History of Any Multi-Drug Resistant Organisms: None Reported Past Surgical History: Back Surgery, Orthopedic Surgery, Tonsillectomy Additional Past Surgical History / Comment(s): Left clavicle repaired, right ring finger tendon re-attached, left thumb surgery, pain clinic procedures. Past Anesthesia/Blood Transfusion Reactions: No Reported Reaction Past Psychological History: Anxiety, Depression Smoking Status: Former smoker Past Alcohol Use History: None Reported Past Drug Use History: None Reported - Past Family History Father Family Medical History: Cancer Medications and Allergies Home Medications Medication Instructions Recorded Confirmed Type Simvastatin [Zocor] 40 mg PO HS 01/28/15 01/24/22 History Tamsulosin HCl [Flomax] 0.8 mg PO HS 01/28/15 01/24/22 History cloNIDine HCL [Catapres] 0.1 mg PO TID 01/28/15 01/24/22 History lisinopriL [Zestril] 10 mg PO HS 01/28/15 01/24/22 History HYDROcodone/APAP 10-325MG [[place] 1 tab PO TID 03/23/21 01/24/22 History 10-325] Ondansetron Odt [Zofran Odt] 4 mg PO Q8HR PRN #10 tab 03/23/21 01/24/22 Rx QUEtiapine FUMARATE [SEROquel XR] 100 mg PO HS 03/23/21 01/24/22 History SUMAtriptan SUCCINATE [Imitrex] 50 mg PO DAILY PRN 03/23/21 01/24/22 History Citalopram Hydrobromide [CeleXA] 20 mg PO HS 01/24/22 01/24/22 History Rizatriptan Odt [Maxalt Hair Machine Operator] 10 mg PO DAILY PRN 01/24/22 01/24/22 History Allergies Allergy/AdvReac Type Severity Reaction Status Date / Time No Known Allergies Allergy Verified 01/24/22 15:31 Physical Examination - Vital Signs Vital Signs: Vital Signs Temp Pulse Pulse Pulse Resp BP BP 01/25/22 08:00 98.4 F 80 18 131/73 01/25/22 04:00 98.4 F 72 18 105/64 01/24/22 23:49 98.4 F 71 16 108/55 01/24/22 20:00 98.2 F 84 18 180/91 01/24/22 16:21 99.1 F 85 16 186/86 01/24/22 15:55 99.1 F 85 16 186/86 01/24/22 15:35 98.7 F 98 20 189/105 01/24/22 14:30 99 18 186/105 01/24/22 14:27 98.0 F 117 H 21 179/107 01/24/22 14:00 96 20 190/110 01/24/22 13:30 95 20 189/110 01/24/22 13:00 87 20 178/96 01/24/22 12:30 90 18 168/95 01/24/22 12:00 108 H 20 178/99 01/24/22 11:59 183/106 01/24/22 11:54 90 18 213/122 01/24/22 11:09 80 18 174/90 Pulse Ox 01/25/22 08:00 96 01/25/22 04:00 96 01/24/22 23:49 94 L 01/24/22 20:00 96 01/24/22 16:21 95 01/24/22 15:55 95 01/24/22 15:35 98 01/24/22 14:30 97 01/24/22 14:27 96 01/24/22 14:00 98 01/24/22 13:30 97 01/24/22 13:00 97 01/24/22 12:30 99 01/24/22 12:00 98 01/24/22 11:59 01/24/22 11:54 98 01/24/22 11:09 98 Intake and Output 01/24/22 01/25/22 01/25/22 22:59 06:59 14:59 Intake Total 360 240 120 Balance 360 240 120 Intake: Oral 360 240 120 Other: # Voids 1 2 Weight 95.254 kg Patient is an elderly male, very pleasant, in no acute distress. Patient does have some scabs from the fall over the right bridge of the nose and right cheek region. Patient is alert awake oriented to time place and person. Speech and language functions are normal. Patient can name and repeat very well. Attention, con centration and fund of knowledge is adequate. On cranial examination, pupils are equal, round and reacting to light, visual ha are full on confrontation in both eyes in all 9 quadrants. There is no neglect on double simultaneous stimulation. His extraocular muscles are intact with no nystagmus. Face is symmetric, tongue protrudes to the midline. Palatal elevation and sensation normal, hearing and shoulder shrug normal, facial sensation normal. Shoulder shrug normal. On muscle strength testing, there is no pronator drift and the strength is normal in arms and legs distally and proximally. Deep tendon reflexes are 1+ in the upper limbs at biceps, brachioradialis, 1+ at the knee, 1 at ankles and plantars downgoing bilaterally. Sensory to touch is equal with no neglect. Cerebellar function showed no ataxia for [id number] testing. No dysdiadochokinesia. Tone and bulk of muscles normal. Gait normal. On general examination, there is no carotid bruit or murmur, S1-S2 audible. Abdomen is soft nontender. Bowel sounds present. No organomegaly. Chest is clear. Peripheral pulses are present. Mild peripheral edema. Results - Laboratory Findings CBC and BMP: 01/26/22 08:49 01/24/22 11:48 Abnormal Lab Findings: Abnormal Labs 01/24/22 01/24/22 01/24/22 11:48 11:48 11:49 WBC 18.7 H Neutrophils # 16.4 H BUN 21 H Glucose 178 H Troponin I 0.109 H* 01/24/22 18:10 WBC Neutrophils # BUN Glucose Troponin I 0.148 H* Assessment and Plan Assessment: * Transient episode of visual disturbance, dizziness, that lasted for about 1 hour. Rule out TIA versus related to uncontrolled blood pressure. Current examination is normal. All symptoms have resolved. * Status post fall due to tripping on 01/22/2022 with subsequent headache, which appears like his usual migraine. * Long-standing history of migraine headaches. * Hypertension, recently uncontrolled. * Hyperlipidemia * Mildly elevated cardiac enzymes, cardiology on board. Plan: * Agree with starting aspirin 81 mg daily for stroke prevention. Patient has received aspirin 325 mg in the ER. * CTA of head and neck showed no significant stenosis. * 2-D echo showed moderate concentric LVH. Overall left ventricular systolic function is normal with EF between 55-60%. Left atrium is mildly dilated. Mi ld MR. * Fasting a.m. lipid panel and hemoglobin A1c still pending. * Discontinue Imitrex and Maxalt, as these medications are contraindicated with uncontrolled blood pressure. Patient states that his blood pressure always goes high with his migraines. Patient was recommended to follow up with the n eurologist to try alternate medication, which do not have cardiovascular risk factors. Such medications like Ubrelvy or Nurtec ODT. He may be a candidate for preventative medication. * Optimize control of blood pressure to target <130/80. Cardiology on board for elevated cardiac enzymes. * Awaiting MRI of the brain to rule out acute CVA. If negative, will be clear for discharge. * Continue telemetry monitoring for now. * Thank you for the consult. Time with Patient: Greater than 30
--- NOTE | 2022-01-25 14:59 | MR ---
EXAMINATION TYPE: MR brain wo con DATE OF EXAM: 01/25/2022 COMPARISON: CT brain 1 day earlier. HISTORY: Possible stroke. Acute onset neuro deficit on admission 1 day earlier, left-sided vision los s. TECHNIQUE: Multiplanar, multisequence imaging of the brain and brainstem is performed without IV cont rast. FINDINGS: Diffusion weighted images demonstrate no evidence of a recent infarct or other diffusion abnormality. The ventricular system and cisternal spaces are normal in size and appearance. The brain volume is a ge appropriate. Occasional scattered focus of T2 hyperintensity seen throughout the white matter bila terally. Lesions are nonspecific in appearance and distribution. Slightly more prominent T2 signal wi th sulcal effacement over the bilateral occipital lobes axial image 19 for reference. In addition the re is heterogeneous increased T2-weighted and FLAIR signal in the bhupendra, there is mass effect along th e right ventral surface near site of prominent basilar artery. T2*weighted images show no suspicious intraparenchymal blood product. Midline structures demonstrate normal morphology. The craniocervical junction appears within normal limits. Normal vascular flow voids are present. [id number] mucosal thickening involving ethmoid sinuses bilaterally and right maxillary sinus. Nasal septum is deviated to left of midline. IMPRESSION: 1. No MRI evidence for a recent infarct. 2. Moderate nonspecific white matter changes given MRI appearance posterior reversible encephalopathy syndrome must be considered among possible etiologies.
[2022-01-25 15:23] LABS: Chol/HDL Ratio 3.75 Ratio
[2022-01-25] MEDS: TAMSULOSIN 0.4 MG CAP.ER.24H PO SCH (19:58)
[2022-01-25] MEDS: ATORVASTATIN 20 MG TAB PO SCH (19:58)
[2022-01-25] MEDS: CITALOPRAM HYDROBROMIDE 20 MG TAB PO SCH (19:58)
[2022-01-25] MEDS: lisinopriL 10 MG TAB PO SCH (19:58)
[2022-01-26 03:41] VITALS: RESP 16
[2022-01-26] MEDS: ENOXAPARIN 40 MG/0.4 ML SYRINGE SQ SCH (08:44)
[2022-01-26] MEDS: HYDROcodone/APAP 10-325MG 1 EACH TAB PO SCH (08:44)
[2022-01-26] MEDS: QUEtiapine 50 MG TAB PO SCH (08:45)
[2022-01-26] MEDS: cloNIDine HCL 0.1 MG TAB PO SCH (08:45)
[2022-01-26] MEDS: ASPIRIN 81 MG PO SCH (08:45)
[2022-01-26 09:16] LABS: Basophils # (A) 0.1 k/uL (0-0.2); Basophils % (A) 1 %; Eosinophils # (A) 0.2 k/uL (0-0.7); Eosinophils % (A) 2 %; HCT 44.2 % (39.0-53.0); HGB 14.3 gm/dL (13.0-17.5); Lymphocytes # (A) 1.9 k/uL (1.0-4.8); Lymphocytes % (A) 20 %; MCH 30.2 pg (25.0-35.0); MCHC 32.5 g/dL (31.0-37.0); MCV 93.1 fL (80.0-100.0); Mean Platelet Volume 7.9; Monocytes # (A) 0.7 k/uL (0-1.0); Monocytes % (A) 7 %; Neutrophils # (A) 6.4 k/uL (1.3-7.7); Neutrophils % (A) 68 %; Platelet Count 184 k/uL (150-450); RBC 4.74 m/uL (4.30-5.90); RDW 14.5 % (11.5-15.5); WBC 9.3 k/uL (3.8-10.6)
[2022-01-26 10:03] LABS: African American GFR (CKD) >90 (>60 ml/min/1.73 sqM); Anion Gap 6 mmol/L; Blood Urea Nitrogen 26 mg/dL (9-20); Calcium 8.4 mg/dL (8.4-10.2); Carbon Dioxide 29 mmol/L (22-30); Chloride 106 mmol/L (98-107); Glucose 94 mg/dL (74-99); Magnesium 2.4 mg/dL (1.6-2.3); Non-African American GFR(CKD) 83 (>60 ml/min/1.73 sqM); Potassium 4.2 mmol/L (3.5-5.1); Sodium 141 mmol/L (137-145)
[2022-01-26] MEDS ORDERED: CAFFEINE CITRATE 60 MG/3 ML VIAL IV PRN (10:12)
[2022-01-26] MEDS ORDERED: REGADENOSON 0.4 MG/5 ML SYRINGE IV PRN (10:12)
[2022-01-26] MEDS ORDERED: AMINOPHYLLINE 500 MG/20 ML VIAL IV PRN (10:12)
--- NOTE | 2022-01-26 13:24 | P.PN ---
Subjective This is a pleasant 67-year-old male past medical history significant for hypertension, dyslipidemia, former smoker, anxiety/depression, Migraine head aches. He used to follow with Dr. Phoenix in 2015, does not currently follow with a mobile equipment mechanic. We have been asked to see in consultation for elevated troponin and hypertensive urgency. Patient presents emergency department with complaints of headache and nausea. Recent mechanical fall while playing with kids next door, he states he was running around with his kids, he tripped avoiding to fall on one of the kids and fell on his right side of his face. He woke up the next morning with significant headache, nausea, vomiting, could not keep anything down over the weekend. He did not lose consciousness. He denies any lightheadedness, dizziness, syncope, palpitations. No chest pain, shortness of breath, symptoms of orthopnea or PND. He states he has been missing couple doses of his mid day clonidine due to forgetting to take it. He does frequently get migraine headaches with nausea and vomiting and takes PRN Imitrex. Denies history of CAD, [place], Stroke or diabetes. He is currently a non-smoker. No family history of CAD. In the ER yesterday patient had difficulty seeing, which was new. Patient apparently appeared to have visual neglect when looking to the left. Patient's blood pressure came down after 20 hydralazine and the patient headache improved however he continued to have a neglect when looking to the left. Code stroke called and Neurology consulted. Patient's BP was elevated with BP 200/100s. DIAGNOSTICS EKG reveals sinus rhythm, PACs, heart rate 82, nonspecific ST ST-T wave abnormalities in inferior lateral leads. No Prior EKG to compare Laboratory reviewed, troponin 0.1 0.0 0.14 Most recent stress test known was in 2013 Cardiolyte in the office which was negative for reversible ischemia. Most recent echocardiogram 09/2011- Normal LV size and function. No significant wall motion abnormalities CT brain with no acute intracranial process CT angiography of head and neck revealed only minimal atelectatic change at the bilateral carotid bulbs, no large vessel intracranial artery occlusion, no significant stenosis no aneurysm changes seen 01/26/2022 Patient seen and examined at bedside, no acute distress. No complaints. No chest pain or shortness of breath. No further visual changes. Vitals are stable. BP 127/76. HR 98. Currently is maintained on his home cardiac medications, aspirin 80 mg daily, atorvastatin 20 mg nightly, clonidine 0.1 mg 3 times a day, lisinopril 10 mg nightly PHYSICAL EXAMINATION Vitals reviewed CONSTITUTIONAL: No apparent distress. HEENT: Neck Supple. No JVD. CHEST EXAMINATION: Lungs are clear to auscultation. No chest wall tenderness is noted on palpation or with deep breathing. HEART EXAMINATION: Regular rate and rhythm. S1, S2 heard. No murmurs, gallops or rub. ABDOMEN: Soft, nontender. Positive bowel sounds. EXTREMITIES: 2+ peripheral pulses, no lower extremity edema and no calf tender ness. SKIN: Warm, dry NEUROLOGIC EXAMINATION: Patient is awake, alert and oriented x3. ASSESSMENT Hypertensive urgency Elevated troponins, rule out ischemia Nausea, Vomiting Mechanical Fall at home Headache Episode of Hemianopsia History of hypertension History of migraines PLAN Repeat troponin 0.06. Echo revealed 55-60%, with no significant wall motion abnormalities. Continue current antihypertensives with lisinopril, clonidine. Continue aspirin and statin Plan for cardiolyte stress test to rule out ischemia given elevated troponins. If stress test is abnormal will consider angiography. If stress test is negative, ok to discharge from a cardiology standpoint. Nurse practitioner note has been reviewed by physician. Signing provider agrees with the documented findings, assessment, and plan of care. Objective - Vital Signs Vital signs: Vital Signs Temp 97.8 F 01/26/22 08:00 Pulse 98 01/26/22 08:00 Resp 16 01/26/22 08:00 BP 127/76 01/26/22 08:00 Pulse Ox 98 01/26/22 08:00 Intake & Output 01/25/22 01/26/22 01/26/22 18:59 06:59 18:59 Intake Total 600 Output Total 200 Balance 600 -200 Weight 95.25 kg Intake: Oral 600 Output: Urine 200 Other: # Voids 1 1 - Labs CBC & Chem 7: 01/26/22 08:49 01/26/22 08:49 Labs: Abnormal Lab Results - Last 24 Hours (Table) 01/25/22 01/25/22 01/26/22 Range/Units 09:27 15:42 08:49 BUN 26 H (9-20) mg/dL Magnesium 2.4 H (1.6-2.3) mg/dL Troponin I 0.061 H* (0.000-0.034) ng/mL HDL Cholesterol 35.20 L (40.00-60.00) mg/dL
--- NOTE | 2022-01-26 14:18 | NM ---
EXAMINATION TYPE: NM stress cardiolite complete DATE OF EXAM: 01/26/2022 COMPARISON: NONE HISTORY: Elevated troponin, rule out ischemia TECHNIQUE: After the intravenous administration of 11.0 mCi Tc 99m Sestamibi - Cardiolite resting SP ECT images acquired 60 minutes post injection. At peak stress 24.3 mCi Tc 99m Sestamibi - Stress images obtained 30 minutes post injection The patient was stressed with 0.4mg Lexiscan. FINDINGS: No fixed defects are evident No reversible stress defects on Spect images There is some dyskinesia of the cardiac apex Ejection fraction is calculated to be 53 %. IMPRESSION: 1. No stress-induced ischemic changes. 2. Dyskinesia of the cardiac apex
--- NOTE | 2022-01-26 14:59 | P.DS ---
Providers Date of admission: 01/24/22 14:32 Expected date of discharge: 01/26/22 Attending physician: Prateek Castillo MD Consults: 01/24/22 14:34 Consult Physician Routine Consulting Provider: Paul Champagne Consult Reason/Comments: Hemianopsia Do you want consulting provider notified?: Yes Consult Physician Routine Consulting Provider: [facility] Consult Reason/Comments: Elevated troponin, hypertensive urgency Do you want consulting provider notified?: Yes Primary care physician: Richi Clements MD Hospital Course: 67-year-old man with medical history of depression, hypertension, hyperlipidemia, insomnia, migraines, BPH presented for evaluation of syncopal episode as well as nausea and vomiting. In the emergency room, patient was afebrile, hypertensive to 213/122, heart rate 90, 98% on room air. Patient was given IV hydralazine for this reason, which improved his blood pressure to 183/106, however, patient then developed hemianopsia, prompting a code stroke to be called while in the room. The neuro editor farm journal advised against TPA. At this point, patient had already had a CT of the head which was negative, CT of the head and neck with IV contrast was also negative except for chronic changes. Labs demonstrated an elevated white blood cell count of 18.7. Chemistries show mild BUN elevation to 21. LFTs are otherwise unremarkable. Troponin initial is 0.109. EKG demonstrates normal sinus rhythm with short IL interval as well as multiple premature atrial contractions. Chest x-ray was negative for an acute cardiopulmonary process. Hypertensive urgency Syncope Elevated troponin -Admitted to inpatient, telemetry. Restarted patient's home blood pressure medications, which resolved patient's hypertension. He did have elevated troponin due to hypertensive urgency, cardiology was consulted. They recommended stress test, which was completed on 01/26 and was negative. Echo showed good EF without WMA. Brief episode of Hemianopsia -Neurology consulted, treated with Aspirin, statin. MRI brain was negative for stroke. Echo as above. TSH, A1c were normal. Pt was on atorvastatin. -TSH, A1c, lipid panel -MRI of the brain without, pending -Echo as above -Neurochecks Nausea and vomiting -Zofran/Compazine when necessary. Patient's N/V resolved Hyperlipidemia Insomnia Migraines BPH -Home medications reviewed and reconciled, changes noted above I spent 38 minutes coordinating this complex discharge. Gen: awake, alert HEENT: normocephalic, atraumatic, good hearing acuity, moist mucous membranes Resp: good air exchange, breathing comfortably with no accessory muscle use, clear to auscultation bilaterally CVS: good distal perfusion x 4, regular rate and rhythm without murmurs GI: soft, NTTP, ND : no SPT, no CVAT, flanagan catheter not present MSK: no pitting edema, no clubbing Neuro: non-focal, moving all extremities, 5 out of 5 motor strength in all ha, no sensory deficits, cranial nerves II through XII are intact Psych: cooperative, euthymic mood Patient Condition at Discharge: Good Plan - Discharge Summary Discharge Rx Participant: No New Discharge Prescriptions: New Aspirin 81 mg PO DAILY #30 Continue Tamsulosin HCl [Flomax] 0.8 mg PO HS cloNIDine HCL [Catapres] 0.1 mg PO TID Simvastatin [Zocor] 40 mg PO HS lisinopriL [Zestril] 10 mg PO HS SUMAtriptan SUCCINATE [Imitrex] 50 mg PO DAILY PRN PRN Reason: Migraine Headache Citalopram Hydrobromide [CeleXA] 20 mg PO HS Rizatriptan Odt [Maxalt FLOW SPECIALIST] 10 mg PO DAILY PRN PRN Reason: Migraine Headache QUEtiapine FUMARATE [SEROquel XR] 100 mg PO HS HYDROcodone/APAP 10-325MG [[place] 10-325] 1 tab PO TID Ondansetron Odt [Zofran ODT] 4 mg PO Q8HR PRN #10 tab PRN Reason: Nausea Discharge Medication List Simvastatin [Zocor] 40 mg PO HS 01/28/15 [History] Tamsulosin HCl [Flomax] 0.8 mg PO HS 01/28/15 [History] cloNIDine HCL [Catapres] 0.1 mg PO TID 01/28/15 [History] lisinopriL [Zestril] 10 mg PO HS 01/28/15 [History] HYDROcodone/APAP 10-325MG [[place] 10-325] 1 tab PO TID 03/23/21 [History] Ondansetron Odt [Zofran ODT] 4 mg PO Q8HR PRN #10 tab 03/23/21 [Rx] QUEtiapine FUMARATE [SEROquel XR] 100 mg PO HS 03/23/21 [History] SUMAtriptan SUCCINATE [Imitrex] 50 mg PO DAILY PRN 03/23/21 [History] Citalopram Hydrobromide [CeleXA] 20 mg PO HS 01/24/22 [History] Rizatriptan Odt [Maxalt FLOW SPECIALIST] 10 mg PO DAILY PRN 01/24/22 [History] Aspirin 81 mg PO DAILY #30 01/26/22 [Rx] Follow up Appointment(s)/Referral(s): Richi Clements MD [Primary Care Provider] - 1-2 days Kathleen Mark MD [STAFF PHYSICIAN] - 1 Week Discharge Disposition: HOME SELF-CARE
[2022-01-26 15:11] VITALS: BP 127/80; PULSE 72; TEMP 97.7
--- NOTE | 2022-01-26 15:56 | EST ---
EXERCISE STRESS AGE: 67 SEX: M HT: 5'10" WT: 209 lbs. PROTOCOL: Nando STAGE: 3 DURATION OF EXERCISE: 7:20 HEART RATE REST: 55 BLOOD PRESSURE REST: 124/87 MAXIMUM HEART RATE ACHIEVED: 144 MAXIMUM BLOOD PRESSURE: 165/93 85% MPHR: 128 100% MPHR: 151 METS: 9.5 INDICATIONS: Elevated Troponin CLINICAL INFORMATION: Baseline rhythm is sinus mechanism, rate of 55, normal axis and intervals, normal electrocardiogram. Baseline blood pressure 124/87 mmHg. Patient exercised on Nando protocol for 7 minutes 20 seconds, reaching a peak rate of 144 beats per minute, which is equal to 95% of maximum predicted heart rate. Peak blood pressure 165/93 mmHg. Test for terminated secondary to fatigue. There was no chest pain. Electrocardiograph monitoring revealed occasional PVCs. There was 0.[address]-segment depression that resolved gradually in recovery. FINDINGS: 1. Average exercise tolerance with occasional PVCs. 2. Borderline positive electrocardiographic stress testing with 0.[address]-segment depression that resolved in recovery. If clinically indicated, an imaging stress test will be helpful. MMODL / IJN: [id number] /
--- NOTE | 2022-02-01 12:16 | P.PN ---
Subjective Progress Note Date: 01/26/22 Patient was seen for a follow-up. Patient denies any neurological symptoms. Patient is sitting in the recliner. Denies headache. No visual symptoms. Objective - Vital Signs Vital signs: Vital Signs Temp 97.8 F 01/26/22 08:00 Pulse 98 01/26/22 08:00 Resp 16 01/26/22 08:00 BP 127/76 01/26/22 08:00 Pulse Ox 98 01/26/22 08:00 Intake & Output 01/25/22 01/26/22 01/26/22 18:59 06:59 18:59 Intake Total 600 Output Total 200 Balance 600 -200 Intake: Oral 600 Output: Urine 200 Other: # Voids 1 1 - Exam Patient's mental status, speech and language functions are normal. Cranial nerves are normal. Visual ha are full. Face is symmetric. Sensations equal. Muscle strength normal. - Labs CBC & Chem 7: 01/26/22 08:49 01/26/22 08:49 Labs: Abnormal Lab Results - Last 24 Hours (Table) 01/25/22 01/25/22 01/26/22 Range/Units 09:27 15:42 08:49 BUN 26 H (9-20) mg/dL Magnesium 2.4 H (1.6-2.3) mg/dL Troponin I 0.061 H* (0.000-0.034) ng/mL HDL Cholesterol 35.20 L (40.00-60.00) mg/dL Assessment and Plan Assessment: * Transient episode of visual disturbance, dizziness, that lasted for about 1 hour. Rule out TIA versus related to uncontrolled blood pressure. Current examination is normal. All symptoms have resolved. * Status post fall due to tripping on 01/22/2022 with subsequent headache, which appears like his usual migraine. * Long-standing history of migraine headaches. * Hypertension, recently uncontrolled. * Hyperlipidemia * Mildly elevated cardiac enzymes, cardiology on board. Plan: * Agree with starting aspirin 81 mg daily for stroke prevention. Patient has received aspirin 325 mg in the ER. * CTA of head and neck showed no significant stenosis. * 2-D echo showed moderate concentric LVH. Overall left ventricular systolic function is normal with EF between 55-60%. Left atrium is mildly dilated. Mild MR. * Fasting a.m. lipid panel with cholesterol 132, LDL 69, HDL 35 and triglycerides 139. Continue Zocor 40 mg. * Hemoglobin A1c normal 5.7. * Discontinue Imitrex and Maxalt, as these medications are contraindicated with uncontrolled blood pressure. Patient states that his blood pressure always goes high with his migraines. Patient was recommended to follow up with the neurologist to try alternate medication, which do not have cardiovascular risk factors. Such medications like Ubrelvy or Nurtec ODT. He may be a candidate for preventative medication. * Optimize control of blood pressure to target <130/80. Most recent blood pressure 127/80. * Cardiac Stress test revealed no stress induced ischemic changes. Dyskinesia of the cardiac apex. Exercise stress test showed borderline positive electrocardiographic stress test with 0.[address] segment depression that resolved in recovery. Cardiology on board. * MRI of the brain revealed no acute infarct. Moderate nonspecific white matter changes. Given MRI appearance posterior reversible encephalopathy syndrome must be considered among possible etiologies. I personally reviewed MRI of the brain, agree with evidence of abnormal flare signal in the occipital region bilaterally consistent with PRES. No abnormal signal noted on DWI. * Neurologically clear for discharge.
== END 2022-01-26 15:40 | disposition home or self-care (01) ==
LOC: EC 09:31 → 3SCARD 14:32 → INTOOBSV 14:32 → 3SCARD 15:01 → UNDODISIN 01-26 15:40
PROVIDERS: ADMIT Internal Medicine; ATTEND Internal Medicine
DX: I16.0 Hypertensive urgency (principal); R55 Syncope and collapse; R77.8 Other specified abnormalities of plasma proteins; G43.909 Migraine, unspecified, not intractable, without status migrainosus; H53.469 Homonymous bilateral field defects, unspecified side; E04.1 Nontoxic single thyroid nodule; E78.5 Hyperlipidemia, unspecified; F32.A Depression, unspecified; G47.00 Insomnia, unspecified; N40.0 Benign prostatic hyperplasia without lower urinary tract symptoms; I49.1 Atrial premature depolarization; F41.9 Anxiety disorder, unspecified; M19.90 Unspecified osteoarthritis, unspecified site; S00.81XA Abrasion of other part of head, initial encounter; I08.1 Rheumatic disorders of both mitral and tricuspid valves; J43.9 Emphysema, unspecified; I10 Essential (primary) hypertension; J32.2 Chronic ethmoidal sinusitis; J32.0 Chronic maxillary sinusitis; R74.8 Abnormal levels of other serum enzymes; R42 Dizziness and giddiness; M54.2 Cervicalgia; D72.829 Elevated white blood cell count, unspecified; Z66 Do not resuscitate; Z87.891 Personal history of nicotine dependence; Y93.02 Activity, running; W01.0XXA Fall on same level from slipping, tripping and stumbling without subsequent striking against object, initial encounter; Z79.899 Other long term (current) drug therapy; Z79.891 Long term (current) use of opiate analgesic; Y92.009 Unspecified place in unspecified non-institutional (private) residence as the place of occurrence of the external cause
CPT/HCPCS: 96372 ×2; 96374; 96375; 99285; 36415; 93005; 93017; 93306; 97161; 80061; 80053; 80048; 84443; 83735 ×2; 84484 ×2; 85025 ×2; 83036; 71046; 72125; 70496; 70450; 70498; 70551; 78452; G0378 ×3; A9500; J0360; J1200; J2765; J2405; J1650 ×2; J1885; J1170; Q9967

== ENCOUNTER 2022-09-19 14:12 | Inpatient (IN) | payer MEDICARE ==
[2022-09-19] MEDS ORDERED: SODIUM CHLORIDE 0.9% 1,000 ML IV STA (14:38)
[2022-09-19] MEDS ORDERED: FAMOTIDINE 20 MG/2 ML VIAL IV STA (14:39)
[2022-09-19] MEDS ORDERED: ONDANSETRON 4 MG/2 ML VIAL IVP STA (14:39)
[2022-09-19] MEDS ORDERED: MORPHINE SULFATE 4 MG/ML SYRINGE IVP STA ×2 (14:39→15:34)
[2022-09-19] MEDS ORDERED: LABETALOL SYRINGE 5 MG/ML IVP STA (14:40)
--- NOTE | 2022-09-19 14:46 | ED ---
General Adult HPI - General Chief complaint: Back Pain/Injury Stated complaint: Covid+, back pain,High BP Time Seen by Provider: 09/19/22 14:31 Source: patient, RN notes reviewed Mode of arrival: ambulatory Limitations: no limitations - History of Present Illness Initial comments: Patient is a pleasant 67-year-old male presenting to the emergency department with concerns with upper back pain. Onset of symptoms was just the past hour or so. Discomfort is somewhat severe and in the middle. Patient took a positive home test diagnosed for COVID-19 infection yesterday. Patient did have fatigue and nausea and vomiting onset of yesterday. No dyspnea. No chest pain. Patient does have history of hypertension however states normally is well controlled. - Related Data Home Medications Medication Instructions Recorded Confirmed Simvastatin [Zocor] 40 mg PO HS 01/28/15 01/24/22 Tamsulosin HCl [Flomax] 0.8 mg PO HS 01/28/15 01/24/22 cloNIDine HCL [Catapres] 0.1 mg PO TID 01/28/15 01/24/22 lisinopriL [Zestril] 10 mg PO HS 01/28/15 01/24/22 HYDROcodone/APAP 10-325MG [[place] 1 tab PO TID 03/23/21 01/24/22 10-325] QUEtiapine FUMARATE [SEROquel XR] 100 mg PO HS 03/23/21 01/24/22 SUMAtriptan succinate [Imitrex] 50 mg PO DAILY PRN 03/23/21 01/24/22 Citalopram Hydrobromide [CeleXA] 20 mg PO HS 01/24/22 01/24/22 Rizatriptan Odt [Maxalt DEPUTY COMMISSIONER] 10 mg PO DAILY PRN 01/24/22 01/24/22 Previous Rx's Medication Instructions Recorded Ondansetron Odt [Zofran ODT] 4 mg PO Q8HR PRN #10 tab 03/23/21 Aspirin 81 mg PO DAILY #30 01/26/22 Allergies Allergy/AdvReac Type Severity Reaction Status Date / Time No Known Allergies Allergy Verified 09/19/22 16:23 Review of Systems ROS Statement: Those systems with pertinent positive or pertinent negative responses have been documented in the HPI. ROS Other: All systems not noted in ROS Statement are negative. Constitutional: Denies: fever Eyes: Denies: eye pain ENT: Denies: ear pain Respiratory: Denies: cough, dyspnea Cardiovascular: Denies: chest pain Endocrine: Denies: fatigue Gastrointestinal: Reports: nausea, vomiting. Denies: abdominal pain Genitourinary: Denies: dysuria Musculoskeletal: Reports: as per HPI Skin: Denies: rash Neurological: Reports: headache Past Medical History Past Medical History: Hyperlipidemia, Hypertension, Musculoskeletal Disorder, Osteoarthritis (OA), Prostate Disorder Additional Past Medical History / Comment(s): Frequent headaches, usually left side. History of Any Multi-Drug Resistant Organisms: None Reported Past Surgical History: Back Surgery, Orthopedic Surgery, Tonsillectomy Additional Past Surgical History / Comment(s): Left clavicle repaired, right ring finger tendon re-attached, left thumb surgery, pain clinic procedures. Past Anesthesia/Blood Transfusion Reactions: No Reported Reaction Past Psychological History: Anxiety, Depression Smoking Status: Former smoker Past Alcohol Use History: None Reported Past Drug Use History: None Reported - Past Family History Father Family Medical History: Cancer General Exam Limitations: no limitations General appearance: alert Head exam: Present: normocephalic Eye exam: Present: normal appearance Neck exam: Present: normal inspection Respiratory exam: Present: normal lung sounds bilaterally Cardiovascular Exam: Present: tachycardia, irregular rhythm Expanded Peripheral pulses: 2+: Radial (R), Radial (L), Posterior Tibialis (R), Posterior Tibialis (L), Dorsalis Pedis (R), Dorsalis Pedis (L) GI/Abdominal exam: Present: soft. Absent: tenderness Extremities exam: Present: normal inspection Back exam: Present: normal inspection, other (No tenderness and area of discomfort of the upper thoracic region). Absent: tenderness Neurological exam: Present: alert. Absent: motor sensory deficit Psychiatric exam: Present: normal affect, normal mood Skin exam: Present: normal color Course Vital Signs 09/19/22 09/19/22 09/19/22 14:24 14:40 15:15 Temperature 98.6 F Pulse Rate 117 H 107 H 80 Respiratory 24 24 20 Rate Blood Pressure 219/118 199/131 159/103 O2 Sat by Pulse 96 97 95 Oximetry 09/19/22 09/19/22 09/19/22 15:30 15:45 16:00 Temperature 98.8 F Pulse Rate 78 86 79 Respiratory 20 20 16 Rate Blood Pressure 153/104 177/118 194/129 O2 Sat by Pulse 95 95 95 Oximetry 09/19/22 16:15 Temperature Pulse Rate 78 Respiratory 16 Rate Blood Pressure 188/129 O2 Sat by Pulse 95 Oximetry EKG Findings - EKG Results: EKG: interpreted by ERMD, sinus rhythm, normal axis, normal QRS, normal ST/T Medical Decision Making - Medical Decision Making Patient reevaluated. Patient states discomfort has improved however still having pain. Blood pressure had improved previously however starting to creep up again. Patient will be ordered additional medication. Patient and family updated on results and plan. Case was discussed in detail with Dr. concepcion, who will admit covering Dr. Quevedo. - Lab Data Result diagrams: 09/19/22 14:42 09/19/22 14:42 Lab Results 09/19/22 09/19/22 09/19/22 Range/Units 14:42 14:42 14:42 WBC 20.3 H (3.8-10.6) k/uL RBC 5.81 (4.30-5.90) m/uL Hgb 17.9 H (13.0-17.5) gm/dL Hct 50.9 (39.0-53.0) % MCV 87.5 (80.0-100.0) fL MCH 30.9 (25.0-35.0) pg MCHC 35.3 (31.0-37.0) g/dL RDW 13.6 (11.5-15.5) % Plt Count 275 (150-450) k/uL MPV 8.4 Neutrophils % 87 % Lymphocytes % 5 % Monocytes % 6 % Eosinophils % 1 % Basophils % 0 % Neutrophils # 17.7 H (1.3-7.7) k/uL Lymphocytes # 0.9 L (1.0-4.8) k/uL Monocytes # 1.3 H (0-1.0) k/uL Eosinophils # 0.1 (0-0.7) k/uL Basophils # 0.1 (0-0.2) k/uL PT 11.1 (9.0-12.0) sec INR 1.0 (<1.2) APTT 22.7 (22.0-30.0) sec Sodium 140 (137-145) mmol/L Potassium 4.1 (3.5-5.1) mmol/L Chloride 102 (98-107) mmol/L Carbon Dioxide 21 L (22-30) mmol/L Anion Gap 17 mmol/L BUN 24 H (9-20) mg/dL Creatinine 1.08 (0.66-1.25) mg/dL Est GFR (CKD-EPI)AfAm 81 (>60 ml/min/1.73 sqM) Est GFR (CKD-EPI)NonAf 70 (>60 ml/min/1.73 sqM) Glucose 243 H (74-99) mg/dL Calcium 9.6 (8.4-10.2) mg/dL Magnesium 1.9 (1.6-2.3) mg/dL Total Bilirubin 0.6 (0.2-1.3) mg/dL AST 56 (17-59) U/L ALT 35 (4-49) U/L Alkaline Phosphatase 163 H (38-126) U/L Troponin I (0.000-0.034) ng/mL Total Protein 7.9 (6.3-8.2) g/dL Albumin 4.8 (3.5-5.0) g/dL TSH 2.050 (0.465-4.680) mIU/L Free T4 0.90 (0.78-2.19) ng/dL Free T3 pg/mL 3.4 (2.8-5.3) pg/ml 09/19/22 Range/Units 14:42 WBC (3.8-10.6) k/uL RBC (4.30-5.90) m/uL Hgb (13.0-17.5) gm/dL Hct (39.0-53.0) % MCV (80.0-100.0) fL MCH (25.0-35.0) pg MCHC (31.0-37.0) g/dL RDW (11.5-15.5) % Plt Count (150-450) k/uL MPV Neutrophils % % Lymphocytes % % Monocytes % % Eosinophils % % Basophils % % Neutrophils # (1.3-7.7) k/uL Lymphocytes # (1.0-4.8) k/uL Monocytes # (0-1.0) k/uL Eosinophils # (0-0.7) k/uL Basophils # (0-0.2) k/uL PT (9.0-12.0) sec INR (<1.2) APTT (22.0-30.0) sec Sodium (137-145) mmol/L Potassium (3.5-5.1) mmol/L Chloride (98-107) mmol/L Carbon Dioxide (22-30) mmol/L Anion Gap mmol/L BUN (9-20) mg/dL Creatinine (0.66-1.25) mg/dL Est GFR (CKD-EPI)AfAm (>60 ml/min/1.73 sqM) Est GFR (CKD-EPI)NonAf (>60 ml/min/1.73 sqM) Glucose (74-99) mg/dL Calcium (8.4-10.2) mg/dL Magnesium (1.6-2.3) mg/dL Total Bilirubin (0.2-1.3) mg/dL AST (17-59) U/L ALT (4-49) U/L Alkaline Phosphatase (38-126) U/L Troponin I 0.088 H* (0.000-0.034) ng/mL Total Protein (6.3-8.2) g/dL Albumin (3.5-5.0) g/dL TSH (0.465-4.680) mIU/L Free T4 (0.78-2.19) ng/dL Free T3 pg/mL (2.8-5.3) pg/ml - Radiology Data Radiology results: report reviewed (Computed tomography scan of the aorta shows no aneurysm or dissection. That he liver. Pericolic fluid or wall bladder thickening. No pulmonary embolism.) Critical Care Time Critical Care Time: Yes Total Critical Care Time: 34 Disposition Clinical Impression: Hypertensive urgency, Back pain, Vomiting, COVID-19 Disposition: ADMITTED IP TO THIS [facility] Condition: Serious Is patient prescribed a controlled substance at d/c from ED?: No Referrals: Tyler Quevedo MD [Primary Care Provider] - 1-2 days Time of Disposition: 16:30
[2022-09-19 14:53] LABS: Basophils # (A) 0.1 k/uL (0-0.2); Basophils % (A) 0 %; Eosinophils # (A) 0.1 k/uL (0-0.7); Eosinophils % (A) 1 %; HCT 50.9 % (39.0-53.0); HGB 17.9 gm/dL (13.0-17.5); Lymphocytes # (A) 0.9 k/uL (1.0-4.8); Lymphocytes % (A) 5 %; MCH 30.9 pg (25.0-35.0); MCHC 35.3 g/dL (31.0-37.0); MCV 87.5 fL (80.0-100.0); Mean Platelet Volume 8.4; Monocytes # (A) 1.3 k/uL (0-1.0); Monocytes % (A) 6 %; Neutrophils # (A) 17.7 k/uL (1.3-7.7); Neutrophils % (A) 87 %; Platelet Count 275 k/uL (150-450); RBC 5.81 m/uL (4.30-5.90); RDW 13.6 % (11.5-15.5); WBC 20.3 k/uL (3.8-10.6)
[2022-09-19 15:07] LABS: Albumin 4.8 g/dL (3.5-5.0); Calcium 9.6 mg/dL (8.4-10.2); Magnesium 1.9 mg/dL (1.6-2.3); Potassium 4.1 mmol/L (3.5-5.1); Total Bilirubin 0.6 mg/dL (0.2-1.3); Total Protein 7.9 g/dL (6.3-8.2)
[2022-09-19 15:13] LABS: Partial Thromboplastin Time 22.7 sec (22.0-30.0); Prothrombin Time 11.1 sec (9.0-12.0)
[2022-09-19 15:23] LABS: T4, Free (Free Thyroxine) 0.9 ng/dL (0.78-2.19)
--- NOTE | 2022-09-19 15:29 | CT ---
EXAMINATION TYPE: CT angio thor/abd pel aorta DATE OF EXAM: 09/19/2022 COMPARISON: None HISTORY: high bp, chest and back pain CT DLP: 1695.5 mGycm Automated exposure control for dose reduction was used. CONTRAST: Performed with IV Contrast, patient injected with 100ml mL of Isovue 370. Images obtained from the thoracic inlet to the floor the pelvis without and with the IV contrast. The re are Three-D postprocessed images. The lungs are clear of infiltrate. Liver spleen and stomach pancreas appear intact. There is some flu id around the gallbladder. There is likely gallbladder wall thickening. There is no adrenal mass. Kidneys show satisfactory contrast opacification. No hydronephrosis. No ret roperitoneal adenopathy. There is a 4 cm fat-containing umbilical hernia. Bladder distends smoothly. There is fat-containing left inguinal hernia. No evidence of a pelvic mass. No mesenteric edema. No ascites or free air. No sign of a bowel obstruction. There is decreased densi ty in the liver consistent with fatty infiltration. The thoracic aorta is intact. No aneurysm or dissection. The ascending aorta measures 3.9 cm. Abdominal aorta is intact. There is arterial flow in the celiac artery and superior mesenteric artery . There is arterial flow in the renal and iliac and femoral arteries. No evidence of hemodynamic mary rial stenosis. No aneurysm or neovascularity. No evidence of contrast extravasation. IMPRESSION: No evidence of arterial aneurysm or dissection. Fatty infiltration of the liver. Fat-containing umbilical hernia. Pericholecystic fluid or wall thick ening suggestive of cholecystitis. No evidence of pulmonary embolism.
[2022-09-19] MEDS ORDERED: LABETALOL 5 MG/ML VIAL MDV IVP STA (15:34)
[2022-09-19] MEDS ORDERED: ENALAPRILAT 1.25 MG/ML 1 ML VIAL IVP STA (16:24)
[2022-09-19] MEDS ORDERED: NALOXONE 0.4 MG/ML 1 ML VIAL IV PRN (16:30)
[2022-09-19] MEDS: SODIUM CHLORIDE 0.9% 1,000 ML IV SCH ×2 (17:12→19:44)
[2022-09-19] MEDS: PANTOPRAZOLE 40 MG/10 ML VIAL IV SCH (17:19)
[2022-09-19] MEDS: hydrALAZINE HCL 20 MG/ML 1 ML VIAL IVP PRN ×2 (17:20→21:15)
[2022-09-19] MEDS ORDERED: HYDROmorphone 1 MG/ML 1 ML SYRINGE IVP STA (17:41)
--- NOTE | 2022-09-19 17:46 | US ---
EXAMINATION TYPE: US gallbladder DATE OF EXAM: 09/19/2022 COMPARISON: CLINICAL HISTORY: back pain. Back pain. CT showed wall thickening and fluid around GB. TECHNIQUE: Multiple sonographic images of the right upper quadrant are obtained. FINDINGS: EXAM MEASUREMENTS: Liver Length: 19.3 cm Gallbladder Wall: 0.4 cm CBD: 0.4 cm Right Kidney: 11.1 x 4.4 x 5.2 cm STORES DESPATCH HAND NOTES: Limited due to bowel gas Pancreas: Obscured by bowel gas Liver: Increased attenuation, decreased visualization of vessels suggestive of fatty infiltrate. En larged in size. Coarse. Gallbladder: Wall thickening visualized. No stones seen. Trace amount of fluid seen adjacent to GB . Evidence for sonographic Galeano's sign: neg CBD: Limited visualization due to bowel gas Right Kidney: No hydronephrosis or masses seen IMPRESSION: No gallstones. Gallbladder wall thickening suggestive of cholecystitis. No dilated ducts. Mild perich olecystic fluid.
[2022-09-19] MEDS: MORPHINE SULFATE 4 MG/ML SYRINGE IV PRN ×2 (17:54→21:57)
[2022-09-19] MEDS ORDERED: ASPIRIN 81 MG PO STA (18:37)
[2022-09-19] MEDS: ACETAMINOPHEN TAB 325 MG TAB PO PRN (20:47)
[2022-09-19] MEDS: ONDANSETRON 4 MG/2 ML VIAL IVP PRN (21:16)
[2022-09-20] MEDS: MORPHINE SULFATE 4 MG/ML SYRINGE IV PRN ×2 (02:03→07:59)
[2022-09-20] MEDS: ACETAMINOPHEN TAB 325 MG TAB PO PRN (03:39)
[2022-09-20] MEDS: hydrALAZINE HCL 20 MG/ML 1 ML VIAL IVP PRN ×3 (03:42→20:16)
[2022-09-20] MEDS ORDERED: HYDROmorphone 1 MG/ML 1 ML SYRINGE IVP STA (04:35)
[2022-09-20] MEDS: ONDANSETRON 4 MG/2 ML VIAL IVP PRN (07:55)
[2022-09-20] MEDS: PANTOPRAZOLE 40 MG/10 ML VIAL IV SCH (07:59)
[2022-09-20] MEDS ORDERED: ONDANSETRON ODT 4 MG TAB PO PRN (08:06)
[2022-09-20] MEDS: TAMSULOSIN 0.4 MG CAP.ER.24H PO SCH (08:12)
[2022-09-20] MEDS: cloNIDine HCL 0.1 MG TAB PO SCH ×3 (08:12→21:07)
[2022-09-20] MEDS ORDERED: lisinopriL 10 MG TAB PO STA (08:30)
[2022-09-20] MEDS ORDERED: lisinopriL 10 MG TAB PO SCH (09:00)
[2022-09-20] MEDS ORDERED: NON FORMULARY DRUG (Omeprazole [Omeprazole] 40 MG Capsule.Dr) PO SCH (09:00)
[2022-09-20 10:14] LABS: Basophils # (A) 0.1 k/uL (0-0.2); Basophils % (A) 0 %; Eosinophils % (A) 0 %; HCT 49.7 % (39.0-53.0); HGB 16.3 gm/dL (13.0-17.5); Lymphocytes # (A) 1.5 k/uL (1.0-4.8); Lymphocytes % (A) 6 %; MCH 29.3 pg (25.0-35.0); MCHC 32.9 g/dL (31.0-37.0); MCV 89.2 fL (80.0-100.0); Mean Platelet Volume 8.6; Monocytes # (A) 1.7 k/uL (0-1.0); Monocytes % (A) 7 %; Neutrophils # (A) 19.9 k/uL (1.3-7.7); Neutrophils % (A) 84 %; Platelet Count 281 k/uL (150-450); RBC 5.57 m/uL (4.30-5.90); RDW 14.3 % (11.5-15.5); WBC 23.7 k/uL (3.8-10.6)
[2022-09-20 10:20] LABS: Albumin 4.2 g/dL (3.5-5.0); Calcium 8.9 mg/dL (8.4-10.2); Potassium 4.4 mmol/L (3.5-5.1); Total Bilirubin 0.6 mg/dL (0.2-1.3)
[2022-09-20 11:57] LABS: Glucose,Whole Blood 131 mg/dL (70-110)
[2022-09-20] MEDS: traMADol 50 MG TAB PO PRN ×2 (12:01→21:55)
[2022-09-20] MEDS: SUMAtriptan succinate 50 MG TAB PO PRN (12:51)
[2022-09-20] MEDS: HYDROmorphone 0.5 MG/0.5 ML SYRINGE IVP PRN ×3 (13:07→21:07)
[2022-09-20] MEDS: CYCLOBENZAPRINE 5 MG TAB PO PRN (14:01)
--- NOTE | 2022-09-20 15:06 | P.CRDCN ---
History of Present Illness Consult date: 09/20/22 History of present illness: HISTORY OF PRESENTING ILLNESS This is a 67-year-old male patient [facility] with past medical history significant for hypertension, dyslipidemia, former smoker, anxiety/depression, Migraine headaches. Patient states that he had onset of headache on Tuesday with vomiting and unable to take any of his blood pressure medications on the weekend. He presented with blood pressure of 219/118 with continued vomiting. He was provided IV Vasotec, labetalol as well as morphine and Dilaudid for headache. Patient is also complaining of some upper back pain between shoulder blades rating to his neck and urinary retention. He denies any chest pain or shortness of breath. He denies any abdominal pain, no diarrhea. Patient states that he did a home Covid testing which was positive. DIAGNOSTICS EKG reveals sinus rhythm, heart rate 99 CT angiogram of the thorax abdomen and pelvis aortogram revealed no evidence of arterial aneurysm or dissection. Fatty infiltration of the liver. Fat- containing umbilical hernia.. Cholecystic fluid or wall thickening suggestive cholecystitis. No evidence of pulmonary embolism. Gallbladder ultrasound revealed no gallstones. Gallbladder wall thickening suggestive cholecystitis. No dilated ducts. Mild. Cholecystic fluid. Most recent Cardiolite stress test 01/2022 revealed no stress-induced ischemic changes. Most recent echocardiogram 01/2022 revealed moderate concentric left hypertrophy, EF 5560 percent, mild aortic regurgitation, mild tricuspid regurgitation. Laboratory studies: Troponin is 0.088, 0.135, 0.178. WBC 23.7, hemoglobin 16.3, platelet count 281. BUN 26 and creatinine 1.04.Coronavirus PCR positive Current home medications include lisinopril 10 mg nightly, clonidine 0.1 mg 3 times a day, simvastatin 40 mg nightly, Imitrex, REVIEW OF SYSTEMS At the time of my exam: CONSTITUTIONAL: Denies fever or chills. Reports headache. CARDIOVASCULAR: Denies chest pain, shortness of breath, orthopnea, PND or palpitations. RESPIRATORY: Denies cough. GASTROINTESTINAL: Denies abdominal pain, denies diarrhea, constipation, reports mild nausea, vomiting improved. MUSCULOSKELETAL: Denies myalgias. NEUROLOGIC: Denies numbness, tingling, headache or weakness. ENDOCRINE: Denies fatigue, weight change, polydipsia or polyurina. GENITOURINARY: Denies burning, hematuria or urgency with micturation. Reports urinary retention HEMATOLOGIC: Denies history of anemia or bleeding. PHYSICAL EXAMINATION Blood pressure 173/96, heart rate 104, afebrile, pulse ox 93% on room air CONSTITUTIONAL: Mild generalized discomfort/distress. HEENT: Scab and some bruising right orbital. Head is normocephalic. Pupils are equal, round. Sclerae anicteric. Mucous membranes of the mouth are moist. No JVD. No carotid bruit. CHEST EXAMINATION: Lungs are clear to auscultation. No chest wall tenderness is noted on palpation or with deep breathing. HEART EXAMINATION: Regular rate and rhythm. S1, S2 heard. No murmurs, gallops or rub. ABDOMEN: Soft. EXTREMITIES: 2+ peripheral pulses, no lower extremity edema and no calf tenderness. SKIN: Warm, dry NEUROLOGIC EXAMINATION: Patient is awake, alert and oriented x3. ASSESSMENT Hypertensive urgency Nausea, Vomiting Headache Elevated troponins not consistent with acute coronary syndrome but will consider stress testing once patient's condition is stable History of hypertension History of migraines PLAN Continue current antihypertensives with lisinopril increased to 20 mg daily, continue clonidine 0.1 mg 3 times daily. Continue statin Further recommendations based vocational psychologist clinical course Thank you kindly for this consultation. Nurse practitioner note has been reviewed by physician. Signing provider agrees with the documented findings, assessment, and plan of care. Past Medical History Past Medical History: Hyperlipidemia, Hypertension, Musculoskeletal Disorder, Osteoarthritis (OA), Prostate Disorder Additional Past Medical History / Comment(s): Frequent headaches, usually left side. History of Any Multi-Drug Resistant Organisms: None Reported Past Surgical History: Back Surgery, Orthopedic Surgery, Tonsillectomy Additional Past Surgical History / Comment(s): Left clavicle repaired, right ring finger tendon re-attached, left thumb surgery, pain clinic procedures. Past Anesthesia/Blood Transfusion Reactions: No Reported Reaction Past Psychological History: Anxiety, Depression Smoking Status: Former smoker Past Alcohol Use History: None Reported Additional Past Alcohol Use History / Comment(s): Quit smoking at age 21. Past Drug Use History: None Reported - Past Family History Father Family Medical History: Cancer Medications and Allergies Home Medications Medication Instructions Recorded Confirmed Type Simvastatin [Zocor] 40 mg PO HS 01/28/15 09/19/22 History Tamsulosin HCl [Flomax] 0.8 mg PO HS 01/28/15 09/19/22 History cloNIDine HCL [Catapres] 0.1 mg PO TID 01/28/15 09/19/22 History lisinopriL [Zestril] 10 mg PO HS 01/28/15 09/19/22 History Ondansetron Odt [Zofran ODT] 4 mg PO Q8HR PRN #10 tab 03/23/21 09/19/22 Rx QUEtiapine FUMARATE [SEROquel XR] 50 mg PO HS 03/23/21 09/19/22 History Citalopram Hydrobromide [CeleXA] 20 mg PO HS 01/24/22 09/19/22 History Omeprazole 40 mg PO DAILY 09/19/22 09/19/22 History SUMAtriptan succinate [Imitrex] 50 mg PO DAILY PRN 09/19/22 09/19/22 History traMADol HCL 50 mg PO Q8H PRN 09/19/22 09/19/22 History Allergies Allergy/AdvReac Type Severity Reaction Status Date / Time No Known Allergies Allergy Verified 09/19/22 16:42 Physical Exam Vitals: Vital Signs Temp Pulse Pulse Resp BP BP Pulse Ox 09/20/22 04:45 90 18 157/76 94 L 09/20/22 03:44 88 18 159/96 93 L 09/20/22 02:06 90 18 157/74 93 L 09/20/22 01:25 18 09/19/22 23:40 89 18 156/77 95 09/19/22 21:10 87 18 164/96 94 L 09/19/22 20:00 18 09/19/22 19:46 97.8 F 87 18 152/82 95 09/19/22 19:15 98.4 F 84 12 149/97 95 09/19/22 19:10 86 18 155/96 94 L 09/19/22 19:00 88 12 171/108 95 09/19/22 18:45 93 12 162/102 95 09/19/22 18:30 89 12 160/104 95 09/19/22 18:15 92 12 181/122 93 L 09/19/22 18:00 101 H 12 190/125 95 09/19/22 17:50 96 14 190/125 93 L 09/19/22 17:40 93 19 186/119 94 L 09/19/22 17:30 20 176/117 95 09/19/22 17:10 86 22 183/121 94 L 09/19/22 17:00 156/95 09/19/22 16:50 92 18 187/124 93 L 09/19/22 16:20 81 17 177/123 95 09/19/22 16:15 78 16 188/129 95 09/19/22 16:00 79 16 194/129 95 09/19/22 15:45 98.8 F 86 20 177/118 95 09/19/22 15:30 78 20 153/104 95 09/19/22 15:15 80 20 159/103 95 09/19/22 14:40 107 H 24 199/131 97 09/19/22 14:24 98.6 F 117 H 24 219/118 96 Intake and Output 09/19/22 09/20/22 09/20/22 22:59 06:59 14:59 Other: Voiding Method Toilet Toilet # Voids 1 2 Weight 98.883 kg Results 09/20/22 09:47 09/20/22 09:47 Cardiac Enzymes 09/19/22 09/19/22 09/19/22 Range/Units 14:42 14:42 17:49 AST 56 (17-59) U/L Troponin I 0.088 H* 0.135 H* (0.000-0.034) ng/mL 09/19/22 Range/Units 20:41 AST (17-59) U/L Troponin I 0.178 H* (0.000-0.034) ng/mL Coagulation 09/19/22 Range/Units 14:42 PT 11.1 (9.0-12.0) sec APTT 22.7 (22.0-30.0) sec CBC 09/19/22 Range/Units 14:42 WBC 20.3 H (3.8-10.6) k/uL RBC 5.81 (4.30-5.90) m/uL Hgb 17.9 H (13.0-17.5) gm/dL Hct 50.9 (39.0-53.0) % Plt Count 275 (150-450) k/uL Comprehensive Metabolic Panel 09/19/22 Range/Units 14:42 Sodium 140 (137-145) mmol/L Potassium 4.1 (3.5-5.1) mmol/L Chloride 102 (98-107) mmol/L Carbon Dioxide 21 L (22-30) mmol/L BUN 24 H (9-20) mg/dL Creatinine 1.08 (0.66-1.25) mg/dL Glucose 243 H (74-99) mg/dL Calcium 9.6 (8.4-10.2) mg/dL AST 56 (17-59) U/L ALT 35 (4-49) U/L Alkaline Phosphatase 163 H (38-126) U/L Total Protein 7.9 (6.3-8.2) g/dL Albumin 4.8 (3.5-5.0) g/dL Current Medications Generic Name Dose Route Start Last Admin Trade Name Freq PRN Reason Stop Dose Admin Acetaminophen 650 mg 09/19/22 16:30 09/20/22 03:39 Acetaminophen Tab 325 Mg Tab PO 650 mg Q6HR PRN Administration Mild Pain or Fever > 100.5 Hydralazine HCl 20 mg 09/19/22 16:24 09/20/22 03:42 Hydralazine Hcl 20 Mg/Ml 1 Ml Vial IVP 20 mg Q4HR PRN Administration Blood Pressure - High Sodium Chloride 1,000 mls @ 75 mls/hr 09/19/22 16:30 09/19/22 19:44 Saline 0.9% IV 75 mls/hr .[id number] PARRISH Administration Morphine Sulfate 4 mg 09/19/22 16:30 09/20/22 07:59 Morphine Sulfate 4 Mg/Ml Syringe IV 4 mg Q4HR PRN Administration Severe Pain (Scale 7 to 10) Naloxone HCl 0.2 mg 09/19/22 16:30 Naloxone 0.4 Mg/Ml 1 Ml Vial IV Q2M PRN Opioid Reversal Ondansetron HCl 4 mg 09/19/22 16:30 09/20/22 07:55 Ondansetron 4 Mg/2 Ml Vial IVP 4 mg Q8HR PRN Administration Nausea And Vomiting Pantoprazole Sodium 40 mg 09/19/22 16:45 09/20/22 07:59 Pantoprazole 40 Mg/10 Ml Vial IV 40 mg DAILY PARRISH Administration Intake and Output 09/19/22 09/20/22 09/20/22 22:59 06:59 14:59 Other: Voiding Method Toilet Toilet # Voids 1 2 Weight 98.883 kg 09/19/22 14:42 09/19/22 14:42
[2022-09-20] MEDS: SODIUM CHLORIDE 0.9% 1,000 ML IV SCH (15:47)
[2022-09-20 17:08] LABS: Glucose,Whole Blood 133 mg/dL (70-110)
[2022-09-20] MEDS: CITALOPRAM HYDROBROMIDE 20 MG TAB PO SCH (20:16)
[2022-09-20] MEDS: ATORVASTATIN 20 MG TAB PO SCH (20:16)
[2022-09-20] MEDS: QUEtiapine 25 MG TAB PO SCH (20:16)
[2022-09-20] MEDS: METOPROLOL SUCCINATE (ER) 50 MG TAB.ER.24H PO SCH (21:55)
[2022-09-20] MEDS: VALSARTAN 160 MG TAB PO SCH (22:00)
[2022-09-21] MEDS: CYCLOBENZAPRINE 5 MG TAB PO PRN (00:04)
[2022-09-21] MEDS ORDERED: NITROGLYCERIN SL TABS 0.4 MG TAB SUBLINGUAL ONE (00:32)
[2022-09-21] MEDS: HYDROmorphone 0.5 MG/0.5 ML SYRINGE IVP PRN (00:46)
[2022-09-21] MEDS: HYDROcodone/APAP 10-325MG 1 EACH TAB PO PRN ×4 (01:24→20:03)
[2022-09-21] MEDS: AMPICILLIN-SULBACTAM 3 GM in SODIUM CHLORIDE 0.9% 100 ML IVPB SCH ×4 (01:26→18:51)
[2022-09-21 02:58] LABS: Basophils % (A) 0 %; Eosinophils % (A) 0 %; HGB 15.4 gm/dL (13.0-17.5); Lymphocytes # (A) 1.1 k/uL (1.0-4.8); Lymphocytes % (A) 6 %; MCH 29.4 pg (25.0-35.0); MCHC 32.8 g/dL (31.0-37.0); MCV 89.7 fL (80.0-100.0); Mean Platelet Volume 8.2; Monocytes # (A) 1.2 k/uL (0-1.0); Monocytes % (A) 6 %; Neutrophils # (A) 15.7 k/uL (1.3-7.7); Neutrophils % (A) 85 %; Platelet Count 244 k/uL (150-450); RBC 5.24 m/uL (4.30-5.90); RDW 14.5 % (11.5-15.5); WBC 18.6 k/uL (3.8-10.6)
[2022-09-21 03:01] LABS: ALT 51 U/L (4-49); AST 130 U/L (17-59); African American GFR (CKD) >90 (>60 ml/min/1.73 sqM); Albumin 3.9 g/dL (3.5-5.0); Alkaline Phosphatase 107 U/L (38-126); Amylase 120 U/L (30-110); Anion Gap 8 mmol/L; Blood Urea Nitrogen 25 mg/dL (9-20); Calcium 8.6 mg/dL (8.4-10.2); Carbon Dioxide 23 mmol/L (22-30); Chloride 106 mmol/L (98-107); Glucose 134 mg/dL (74-99); LDH 914 U/L (313-618); Lipase 55 U/L (23-300); Non-African American GFR(CKD) 90 (>60 ml/min/1.73 sqM); Potassium 4.1 mmol/L (3.5-5.1); Sodium 137 mmol/L (137-145); Total Bilirubin 0.6 mg/dL (0.2-1.3); Total Protein 6.6 g/dL (6.3-8.2)
[2022-09-21] MEDS: HYDROmorphone 1 MG/ML 1 ML SYRINGE IVP PRN ×5 (04:20→21:25)
[2022-09-21 06:12] LABS: Glucose,Whole Blood 113 mg/dL (70-110)
[2022-09-21] MEDS: SODIUM CHLORIDE 0.9% 1,000 ML IV SCH (07:42)
[2022-09-21] MEDS: QUEtiapine 25 MG TAB PO SCH ×2 (07:51→20:02)
[2022-09-21] MEDS: cloNIDine HCL 0.1 MG TAB PO SCH ×3 (07:51→21:26)
[2022-09-21] MEDS: ENOXAPARIN 40 MG/0.4 ML SYRINGE SQ SCH (07:51)
[2022-09-21] MEDS: TAMSULOSIN 0.4 MG CAP.ER.24H PO SCH (07:51)
[2022-09-21] MEDS: PANTOPRAZOLE 40 MG/10 ML VIAL IV SCH (07:51)
[2022-09-21] MEDS: VALSARTAN 160 MG TAB PO SCH ×2 (07:54→20:02)
[2022-09-21] MEDS: amLODIPine 5 MG TAB PO SCH (08:39)
[2022-09-21] MEDS ORDERED: lisinopriL 20 MG TAB PO SCH (09:00)
[2022-09-21 09:22] LABS: Basophils % (A) 0 %; Eosinophils # (A) 0.1 k/uL (0-0.7); Eosinophils % (A) 0 %; HCT 45.7 % (39.0-53.0); HGB 15.1 gm/dL (13.0-17.5); Lymphocytes # (A) 1.2 k/uL (1.0-4.8); Lymphocytes % (A) 8 %; MCH 29.5 pg (25.0-35.0); MCV 89.3 fL (80.0-100.0); Mean Platelet Volume 8.2; Monocytes % (A) 6 %; Neutrophils # (A) 12.6 k/uL (1.3-7.7); Neutrophils % (A) 84 %; Platelet Count 232 k/uL (150-450); RBC 5.11 m/uL (4.30-5.90); WBC 15.1 k/uL (3.8-10.6)
[2022-09-21 09:33] LABS: ALT 53 U/L (4-49); AST 124 U/L (17-59); African American GFR (CKD) >90 (>60 ml/min/1.73 sqM); Albumin 3.6 g/dL (3.5-5.0); Alkaline Phosphatase 94 U/L (38-126); Anion Gap 9 mmol/L; Blood Urea Nitrogen 24 mg/dL (9-20); Calcium 8.2 mg/dL (8.4-10.2); Carbon Dioxide 23 mmol/L (22-30); Chloride 105 mmol/L (98-107); Glucose 132 mg/dL (74-99); Non-African American GFR(CKD) >90 (>60 ml/min/1.73 sqM); Sodium 137 mmol/L (137-145); Total Bilirubin 0.7 mg/dL (0.2-1.3); Total Protein 6.3 g/dL (6.3-8.2)
[2022-09-21] MEDS: hydrALAZINE HCL 20 MG/ML 1 ML VIAL IVP PRN (10:55)
[2022-09-21 12:06] LABS: Glucose,Whole Blood 107 mg/dL (70-110)
--- NOTE | 2022-09-21 12:21 | P.GSCN ---
History of Present Illness Consult date: 09/21/22 History of present illness: CHIEF COMPLAINT: Upper back pain HISTORY OF PRESENT ILLNESS: This is a 67-year-old male who initially presented to the ER with complaints of upper and mid back pain. He had a positive Covid at home test. Patient had elevated blood pressure with hypertensive urgency. He has been evaluated by cardiology. Blood pressure medications adjusted. Patient reports having nausea and vomiting that started Tuesday with a fever of 102. He reports she did have some epigastric pain after the vomiting. At this time he has no abdominal pain. And he is tolerating a regular diet. He denies any right upper quadrant abdominal pain. Patient does have an umbilical hernia that is soft and reducible. It is tender with palpation. Patient had a CAT scan and gallbladder ultrasound had shown evidence of pericholecystic fluid with gallbladder wall thickening suggestive cholecystitis. Surgical service consulted in regards to possible cholecystitis. Patient does have mildly elevated LFTs. Did have elevated white count on admission. He is currently on antibiotics. Patient does report having flatus. It has been a couple days since last bowel movement. Today he complains mostly of neck and upper back pain. Denies any abdominal surgical history. PAST MEDICAL HISTORY: See below and migraines PAST SURGICAL HISTORY: See below MEDICATIONS: See below ALLERGIES: See below SOCIAL HISTORY: No illicit drug use. REVIEW OF SYSTEMS: CONSTITUTIONAL: Denies fever or chills. HEENT: Denies blurred vision, vision changes, or eye pain. Denies hemoptysis CARDIOVASCULAR: Denies chest pain or pressure. RESPIRATORY: No shortness of breath. GASTROINTESTINAL: See HPI for pertinent findings HEMATOLOGIC: Denies bleeding disorders. GENITOURINARY: Denies any blood in urine or increased urinary frequency. SKIN: Denies pruitis. Denies rash. PHYSICAL EXAM: VITAL SIGNS: Reviewed GENERAL: Well-developed in no acute distress. HEENT: No sclera icterus. Extraocular movements grossly intact. Moist buccal mucosa. Head is atraumatic, normocephalic. No nasal drainage. ABDOMEN: Soft. Nondistended. Nontender in the right upper quadrant. Umbilical hernia soft, reducible. hernia tender with palpation. NEUROLOGIC: Alert and oriented. Cranial nerves II through XII grossly intact. LABORATORY DATA: WBC 23.7 down to 15.1 hgb 15.1 platelets 232 Sodium 137 potassium 4.0 creatinine 0.77 Lactic acid 1.1 Total bilirubin 0.7 AST elevated at 124 ALT up at 53 LDH 914 troponins 0.178 0.093 Lipase 55 COVID-19 detected IMAGING: Thoracic aorta CT no evidence of arterial aneurysm or dissection. Fatty infiltration of the liver. Fat-containing umbilical hernia. Pericholecystic fluid or wall thickening suggestive cholecystitis. No evidence of PE. Gallbladder ultrasound no gallstones. Gallbladder wall thickening suggestive cholecystitis. No dilated ducts. Mild pericholecystic fluid. ASSESSMENT: 1. Gallbladder wall thickening with pericholecystic fluid noted on abdominal ultrasound and CT. Denies RUQ abdominal pain 2. Covid 19 positive 3. Fat-containing umbilical hernia 4. Hypertensive urgency managed by cardiology PLAN: -Further recommendations forthcoming per surgeon -Continue antibiotics -Continue regular, low fat diet -Continue supportive care Thank you for this consultation Physician Bobbin Hauler note has been reviewed by physician. Signing provider agrees with the documented findings, assessment, and plan of care. I have personally seen and examined the patient, reviewed the [employer] /PAs history, exam and MDM and agree with the assessment and plan as written. Based on total visit time, I have performed more than 50% of the visit. As above: We were consulted to see this patient for possible cholecystitis. Patient has no tenderness on examination and denies abdominal pain. He was nauseated but that has resolved. Ultrasound and CAT scan reviewed. Mild gallbladder wall thickening noted without obvious stones seen. The patient is having back pain however the pain is in the upper back and it hurts when he moves his neck forward. This does not seem consistent with cholecystitis. Findings could be on the basis of acute viral illness with the underlying Covid diagnosis. Continue to follow with you. Continue diet as tolerated. Past Medical History Past Medical History: Hyperlipidemia, Hypertension, Musculoskeletal Disorder, Osteoarthritis (OA), Prostate Disorder Additional Past Medical History / Comment(s): Frequent headaches, usually left side. History of Any Multi-Drug Resistant Organisms: None Reported Past Surgical History: Back Surgery, Orthopedic Surgery, Tonsillectomy Additional Past Surgical History / Comment(s): Left clavicle repaired, right ring finger tendon re-attached, left thumb surgery, pain clinic procedures. Past Anesthesia/Blood Transfusion Reactions: No Reported Reaction Past Psychological History: Anxiety, Depression Smoking Status: Former smoker Past Alcohol Use History: None Reported Additional Past Alcohol Use History / Comment(s): Quit smoking at age 21. Past Drug Use History: None Reported - Past Family History Father Family Medical History: Cancer Medications and Allergies Home Medications Medication Instructions Recorded Confirmed Type RX: Simvastatin [Zocor] 40 mg PO HS 01/28/15 09/19/22 History RX: Tamsulosin HCl [Flomax] 0.8 mg PO HS 01/28/15 09/19/22 History RX: cloNIDine HCL [Catapres] 0.1 mg PO TID 01/28/15 09/19/22 History RX: lisinopriL [Zestril] 10 mg PO HS 01/28/15 09/19/22 History RX: Ondansetron Odt [Zofran ODT] 4 mg PO Q8HR PRN #10 tab 03/23/21 09/19/22 Rx RX: QUEtiapine FUMARATE [SEROquel 50 mg PO HS 03/23/21 09/19/22 History XR] RX: Citalopram Hydrobromide 20 mg PO HS 01/24/22 09/19/22 History [CeleXA] RX: Omeprazole 40 mg PO DAILY 09/19/22 09/19/22 History RX: traMADol HCL 50 mg PO Q8H PRN 09/19/22 09/19/22 History SUMAtriptan succinate [Imitrex] 50 mg PO DAILY PRN 09/19/22 09/19/22 History Allergies Allergy/AdvReac Type Severity Reaction Status Date / Time No Known Allergies Allergy Verified 09/19/22 16:42 Surgical - Exam Vital Signs Temp Pulse Resp BP Pulse Ox 98.6 F 117 H 24 219/118 96 09/19/22 14:24 09/19/22 14:24 09/19/22 14:24 09/19/22 14:24 09/19/22 14:24 Results - Labs 09/21/22 08:52 09/21/22 08:52 Abnormal Lab Results - Last 24 Hours (Table) 09/20/22 09/20/22 09/20/22 Range/Units 11:56 12:00 17:07 WBC (3.8-10.6) k/uL Neutrophils # (1.3-7.7) k/uL Monocytes # (0-1.0) k/uL BUN (9-20) mg/dL Glucose (74-99) mg/dL POC Glucose (mg/dL) 131 H 133 H (70-110) mg/dL Calcium (8.4-10.2) mg/dL AST (17-59) U/L ALT (4-49) U/L Lactate Dehydrogenase (313-618) U/L Troponin I (0.000-0.034) ng/mL Amylase (30-110) U/L Coronavirus (PCR) Detected A (Not Detectd) 09/21/22 09/21/22 09/21/22 Range/Units 01:58 01:58 01:58 WBC 18.6 H (3.8-10.6) k/uL Neutrophils # 15.7 H (1.3-7.7) k/uL Monocytes # 1.2 H (0-1.0) k/uL BUN 25 H (9-20) mg/dL Glucose 134 H (74-99) mg/dL POC Glucose (mg/dL) (70-110) mg/dL Calcium (8.4-10.2) mg/dL AST 130 H (17-59) U/L ALT 51 H (4-49) U/L Lactate Dehydrogenase 914 H (313-618) U/L Troponin I 0.093 H* (0.000-0.034) ng/mL Amylase 120 H (30-110) U/L Coronavirus (PCR) (Not Detectd) 09/21/22 09/21/22 09/21/22 Range/Units 06:10 08:52 08:52 WBC 15.1 H (3.8-10.6) k/uL Neutrophils # 12.6 H (1.3-7.7) k/uL Monocytes # (0-1.0) k/uL BUN 24 H (9-20) mg/dL Glucose 132 H (74-99) mg/dL POC Glucose (mg/dL) 113 H (70-110) mg/dL Calcium 8.2 L (8.4-10.2) mg/dL AST 124 H (17-59) U/L ALT 53 H (4-49) U/L Lactate Dehydrogenase (313-618) U/L Troponin I (0.000-0.034) ng/mL Amylase (30-110) U/L Coronavirus (PCR) (Not Detectd) Diabetes panel 09/21/22 09/21/22 Range/Units 01:58 08:52 Sodium 137 137 (137-145) mmol/L Potassium 4.1 4.0 (3.5-5.1) mmol/L Chloride 106 105 (98-107) mmol/L Carbon Dioxide 23 23 (22-30) mmol/L BUN 25 H 24 H (9-20) mg/dL Creatinine 0.83 0.77 (0.66-1.25) mg/dL Glucose 134 H 132 H (74-99) mg/dL Calcium 8.6 8.2 L (8.4-10.2) mg/dL AST 130 H 124 H (17-59) U/L ALT 51 H 53 H (4-49) U/L Alkaline Phosphatase 107 94 (38-126) U/L Total Protein 6.6 6.3 (6.3-8.2) g/dL Albumin 3.9 3.6 (3.5-5.0) g/dL Calcium panel 09/21/22 09/21/22 Range/Units 01:58 08:52 Calcium 8.6 8.2 L (8.4-10.2) mg/dL Albumin 3.9 3.6 (3.5-5.0) g/dL Pituitary panel 09/21/22 09/21/22 Range/Units 01:58 08:52 Sodium 137 137 (137-145) mmol/L Potassium 4.1 4.0 (3.5-5.1) mmol/L Chloride 106 105 (98-107) mmol/L Carbon Dioxide 23 23 (22-30) mmol/L BUN 25 H 24 H (9-20) mg/dL Creatinine 0.83 0.77 (0.66-1.25) mg/dL Glucose 134 H 132 H (74-99) mg/dL Calcium 8.6 8.2 L (8.4-10.2) mg/dL Adrenal panel 09/21/22 09/21/22 Range/Units 01:58 08:52 Sodium 137 137 (137-145) mmol/L Potassium 4.1 4.0 (3.5-5.1) mmol/L Chloride 106 105 (98-107) mmol/L Carbon Dioxide 23 23 (22-30) mmol/L BUN 25 H 24 H (9-20) mg/dL Creatinine 0.83 0.77 (0.66-1.25) mg/dL Glucose 134 H 132 H (74-99) mg/dL Calcium 8.6 8.2 L (8.4-10.2) mg/dL Total Bilirubin 0.6 0.7 (0.2-1.3) mg/dL AST 130 H 124 H (17-59) U/L ALT 51 H 53 H (4-49) U/L Alkaline Phosphatase 107 94 (38-126) U/L Total Protein 6.6 6.3 (6.3-8.2) g/dL Albumin 3.9 3.6 (3.5-5.0) g/dL
--- NOTE | 2022-09-21 12:38 | P.PN ---
Subjective Progress Note Date: 09/21/22 HISTORY OF PRESENTING ILLNESS This is a 67-year-old male patient [facility] with past medical history significant for hypertension, dyslipidemia, former smoker, anxiety/depression, Migraine headaches. Patient states that he had onset of headache on Tuesday with vomiting and unable to take any of his blood pressure medications on the weekend. He presented with blood pressure of 219/118 with continued vomiting. He was provided IV Vasotec, labetalol as well as morphine and Dilaudid for headache. Patient is also complaining of some upper back pain between shoulder blades rating to his neck and urinary retention. He denies any chest pain or shortness of breath. He denies any abdominal pain, no diarrhea. Patient states that he did a home Covid testing which was positive. DIAGNOSTICS EKG reveals sinus rhythm, heart rate 99 CT angiogram of the thorax abdomen and pelvis aortogram revealed no evidence of arterial aneurysm or dissection. Fatty infiltration of the liver. Fat- containing umbilical hernia.. Cholecystic fluid or wall thickening suggestive cholecystitis. No evidence of pulmonary embolism. Gallbladder ultrasound revealed no gallstones. Gallbladder wall thickening suggestive cholecystitis. No dilated ducts. Mild. Cholecystic fluid. Most recent Cardiolite stress test 01/2022 revealed no stress-induced ischemic changes. Most recent echocardiogram 01/2022 revealed moderate concentric left hypertrophy, EF 5560 percent, mild aortic regurgitation, mild tricuspid regurgitation. Laboratory studies: Troponin is 0.088, 0.135, 0.178. WBC 23.7, hemoglobin 16.3, platelet count 281. BUN 26 and creatinine 1.04.Coronavirus PCR positive Current home medications include lisinopril 10 mg nightly, clonidine 0.1 mg 3 times a day, simvastatin 40 mg nightly, Imitrex, 09/21 Patient is seen and examined. Patient complains of continued back pain between shoulder blades radiating to his neck. He continued to have hypertension throughout the night and multiple medication changes were made by his attending. Aldactone was added this morning. Urinary retention has resolved. Repeat blood work reveals WBC 15.1, hemoglobin 15.1. BUN 24 creatinine 0.77. AST 124 and ALT 53. Echocardiogram will be ordered. Consult was added for general surgery regarding cholecystitis vital signs reviewed PHYSICAL EXAMINATION Blood pressure 173/96, heart rate 104, afebrile, pulse ox 93% on room air CONSTITUTIONAL: Mild generalized discomfort/distress. HEENT: Scab and some bruising right orbital. Head is normocephalic. Pupils are equal, round. Sclerae anicteric. Mucous membranes of the mouth are moist. No JVD. No carotid bruit. CHEST EXAMINATION: Lungs are clear to auscultation. No chest wall tenderness is noted on palpation or with deep breathing. HEART EXAMINATION: Regular rate and rhythm. S1, S2 heard. No murmurs, gallops or rub. ABDOMEN: Soft. EXTREMITIES: 2+ peripheral pulses, no lower extremity edema and no calf tenderness. SKIN: Warm, dry NEUROLOGIC EXAMINATION: Patient is awake, alert and oriented x3. ASSESSMENT Hypertensive urgency Nausea, Vomiting Headache Elevated troponins not consistent with acute coronary syndrome but will consider stress testing once patient's condition is stable History of hypertension History of migraines PLAN Continue current antihypertensives:, Valsartan 160 mg twice daily, Toprol-XL 50 mg at bedtime, amlodipine 5 mg daily clonidine 0.1 mg 3 times daily. Continue statin Further recommendations based chief of production clinical course Thank you kindly for this consultation. Nurse practitioner note has been reviewed by physician. Signing provider agrees with the documented findings, assessment, and plan of care. Objective - Vital Signs Vital signs: Vital Signs Temp 97.4 F L 09/21/22 07:48 Pulse 92 09/21/22 07:48 Resp 20 09/21/22 07:48 BP 196/96 09/21/22 07:48 Pulse Ox 96 09/21/22 07:52 FiO2 Intake & Output 09/20/22 09/21/22 09/21/22 18:59 06:59 18:59 Output Total 1450 1100 Balance -1450 -1100 Output: Urine 1450 1100 Straight 600 Other: Voiding Method Toilet Toilet - Labs CBC & Chem 7: 09/21/22 08:52 09/21/22 08:52 Labs: Abnormal Lab Results - Last 24 Hours (Table) 09/20/22 09/20/22 09/20/22 Range/Units 09:47 09:47 11:56 WBC 23.7 H (3.8-10.6) k/uL Neutrophils # 19.9 H (1.3-7.7) k/uL Monocytes # 1.7 H (0-1.0) k/uL Chloride 109 H (98-107) mmol/L BUN 26 H (9-20) mg/dL Glucose 147 H (74-99) mg/dL POC Glucose (mg/dL) 131 H (70-110) mg/dL AST 99 H (17-59) U/L ALT (4-49) U/L Lactate Dehydrogenase (313-618) U/L Troponin I (0.000-0.034) ng/mL Amylase (30-110) U/L Coronavirus (PCR) (Not Detectd) 09/20/22 09/20/22 09/21/22 Range/Units 12:00 17:07 01:58 WBC 18.6 H (3.8-10.6) k/uL Neutrophils # 15.7 H (1.3-7.7) k/uL Monocytes # 1.2 H (0-1.0) k/uL Chloride (98-107) mmol/L BUN (9-20) mg/dL Glucose (74-99) mg/dL POC Glucose (mg/dL) 133 H (70-110) mg/dL AST (17-59) U/L ALT (4-49) U/L Lactate Dehydrogenase (313-618) U/L Troponin I (0.000-0.034) ng/mL Amylase (30-110) U/L Coronavirus (PCR) Detected A (Not Detectd) 09/21/22 09/21/22 09/21/22 Range/Units 01:58 01:58 06:10 WBC (3.8-10.6) k/uL Neutrophils # (1.3-7.7) k/uL Monocytes # (0-1.0) k/uL Chloride (98-107) mmol/L BUN 25 H (9-20) mg/dL Glucose 134 H (74-99) mg/dL POC Glucose (mg/dL) 113 H (70-110) mg/dL AST 130 H (17-59) U/L ALT 51 H (4-49) U/L Lactate Dehydrogenase 914 H (313-618) U/L Troponin I 0.093 H* (0.000-0.034) ng/mL Amylase 120 H (30-110) U/L Coronavirus (PCR) (Not Detectd)
--- NOTE | 2022-09-21 15:26 | P.HPIM ---
History of Present Illness H&P Date: 09/20/22 HISTORY OF PRESENT ILLNESS This is a 67-year-old male patient with past mental history of hyperlipidemia, hypertension, enlarged prostate, migraine headaches with aura, recurrent depression, neuropathy. Patient gives history that he developed significant headache and vomiting over the weekend and was unable to take his medications and unable to control his symptoms with worsening, subsequently developed pain in his shoulder blades radiating up into his neck. Patient also presented with urinary retention.EKG reveals sinus rhythm, heart rate 99. CT angiogram of the thorax abdomen and pelvis aortogram revealed no evidence of arterial aneurysm or dissection. Fatty infiltration of the liver. Fat-containing umbilical hernia.. Cholecystic fluid or wall thickening suggestive cholecystitis. No evidence of pulmonary embolism. Gallbladder ultrasound revealed no gallstones. Gallbladder wall thickening suggestive cholecystitis. No dilated ducts. Mild. Cholecystic fluid. Laboratory studies: Troponin is 0.088, 0.135, 0.178. WBC 23.7, hemoglobin 16.3, platelet count 281. BUN 26 and creatinine 1.04.Coronavirus PCR positive Patient was started on IV pain medications as well as IV antihypertensive with only minimal brief improvement of blood pressure. He continues to have pain in the shoulder blades and neck as well as urinary retention. Home medications will be resumed as patient is now able to take oral medications after Zofran which is been effective. Cardiology consult is in place for elevated troponins. REVIEW OF SYSTEMS Constitutional: No fever, no chills, no night sweats. No weight change. No weakness, fatigue or lethargy. No daytime sleepiness. EENT: Reports headache. No blurred vision or double vision, no loss of vision. No loss of Hearing, no ringing in the ears, no dizziness. No nasal drainage or congestion. No epistaxis. No sore throat. Lungs: No shortness of breath, cough, no sputum production. No wheezing. Cardiovascular: No chest pain, no lower extremity edema. No palpitations. No paroxysmal nocturnal dyspnea. No orthopnea. No lightheadedness or dizziness. No syncopal episodes. Abdominal: No abdominal pain. Reports nausea, reports vomiting. No diarrhea. No constipation. No bloody or tarry stools. No loss of appetite. Genitourinary: No dysuria, increased frequency, urgency. Reports urinary retention. Musculoskeletal: No myalgias. No muscle weakness, no gait dysfunction, no frequent falls. Reports upper back and neck pain. Integumentary: No wounds, no lesions. No rash or pruritus. No unusual bruising. Neurologic: No aphasia. No facial droop. No change in mentation. No head injury. No headache. No paralysis. No paresthesia. Psychiatric: No depression. No anxiety. No mood swings. Endocrine: No abnormal blood sugars. No weight change. No excessive sweating or thirst. No cold intolerance. MEDICAL HISTORY Hyperlipidemia Hypertension Enlarged prostate Migraine headaches with aura Recurrent depression Neuropathy Gastroesophageal reflux disease Sinus bradycardia SURGICAL HISTORY PLDF L3-S1 2011 Colonoscopy 2017 Vasectomy Left clavicle repair Right finger tendon repair Left thumb repair after circular saw injury Tonsillectomy SOCIAL HISTORY Patient is a nonsmoker, no alcohol abuse, no illicit drug use. FAMILY HISTORY Father at age 61 from bone cancer. Mother at age 89 from heart failure. Patient has 4 brothers and one older brother had an CA at age 61 and he is now 72 years old. Patient has 2 younger brothers that are twins at age 62 with tachycardia. Patient has one daughter with scoliosis and one daughter with no major medical problems. PHYSICAL EXAMINATION Gen: This is a 67-year-old male. He sitting recliner appears to be somewhat uncomfortable. HEENT: Head is atraumatic, normocephalic. Pupils equal, round. Sclerae is anicteric. Oral mucous membranes somewhat dry. NECK: Supple. No JVD. No lymphadenopathy. No thyromegaly. LUNGS: Clear to auscultation. No wheezes or rhonchi. No intercostal retractions. HEART: Regular rate and rhythm. No murmur. ABDOMEN: Soft. Bowel sounds are present. No masses. No tenderness. Palpable bladder distention. EXTREMITIES: No pedal edema. No calf tenderness. Dorsalis pedis +2 bilaterally. NEUROLOGICAL: Patient is awake, alert and oriented x3. Cranial nerves 2 through 12 are grossly intact. ASSESSMENT AND PLAN 1. Hypertensive urgency. Patient resumed on lisinopril increased to 20 mg daily, continue patient on clonidine 0.1 mg 3 times daily, hydralazine available IV push as needed for systolic blood pressure greater than 160, cardiology consult. 2. Migraine headache with nausea and vomiting. Patient is continued on pain medication and Zofran as needed for nausea 3. Urinary retention. Patient have straight catheterization, monitor with bladder scans every shift and straight cath if greater than 300, continue Flomax 0.8 mg daily 4. Elevated troponins. Acute coronary syndrome ruled out by cardiology. Recommend possible stress testing once patient is stable. 5. Hypertension. Continue medications as in #1 6. Acute cholecystitis. Patient started on Unasyn 3 g IV piggyback every 6 hours, consult with general surgery. 7. Gastroesophageal reflux disease and GI prophylaxis. Protonix 40 mg daily. 8. DVT prophylaxis. Lovenox 40 mg subcu daily. 9. Recurrent depression. Continue Seroquel 25 mg twice daily. 10. COVID-19 testing positive. Patient will be admitted to the hospital for a minimum of 2 night stay. CODE STATUS: No code per patient request DISCHARGE PLAN Return home. Impression and plan of care have been directed as dictated by the signing physi cian. Yoselin Horner nurse practitioner acting as scribe for signing physician. Past Medical History Past Medical History: Hyperlipidemia, Hypertension, Musculoskeletal Disorder, Osteoarthritis (OA), Prostate Disorder Additional Past Medical History / Comment(s): Frequent headaches, usually left side. History of Any Multi-Drug Resistant Organisms: None Reported Past Surgical History: Back Surgery, Orthopedic Surgery, Tonsillectomy Additional Past Surgical History / Comment(s): Left clavicle repaired, right ring finger tendon re-attached, left thumb surgery, pain clinic procedures. Past Anesthesia/Blood Transfusion Reactions: No Reported Reaction Past Psychological History: Anxiety, Depression Smoking Status: Former smoker Past Alcohol Use History: None Reported Additional Past Alcohol Use History / Comment(s): Quit smoking at age 21. Past Drug Use History: None Reported - Past Family History Father Family Medical History: Cancer Medications and Allergies Home Medications Medication Instructions Recorded Confirmed Type Simvastatin [Zocor] 40 mg PO HS 01/28/15 09/19/22 History Tamsulosin HCl [Flomax] 0.8 mg PO HS 01/28/15 09/19/22 History cloNIDine HCL [Catapres] 0.1 mg PO TID 01/28/15 09/19/22 History lisinopriL [Zestril] 10 mg PO HS 01/28/15 09/19/22 History Ondansetron Odt [Zofran ODT] 4 mg PO Q8HR PRN #10 tab 03/23/21 09/19/22 Rx QUEtiapine FUMARATE [SEROquel XR] 50 mg PO HS 03/23/21 09/19/22 History Citalopram Hydrobromide [CeleXA] 20 mg PO HS 01/24/22 09/19/22 History Omeprazole 40 mg PO DAILY 09/19/22 09/19/22 History SUMAtriptan succinate [Imitrex] 50 mg PO DAILY PRN 09/19/22 09/19/22 History traMADol HCL 50 mg PO Q8H PRN 09/19/22 09/19/22 History Allergies Allergy/AdvReac Type Severity Reaction Status Date / Time No Known Allergies Allergy Verified 09/19/22 16:42 Physical Exam Vitals: Vital Signs Temp Pulse Pulse Resp BP BP Pulse Ox 09/20/22 04:45 90 18 157/76 94 L 09/20/22 03:44 88 18 159/96 93 L 09/20/22 02:06 90 18 157/74 93 L 09/20/22 01:25 18 09/19/22 23:40 89 18 156/77 95 09/19/22 21:10 87 18 164/96 94 L 09/19/22 20:00 18 09/19/22 19:46 97.8 F 87 18 152/82 95 09/19/22 19:15 98.4 F 84 12 149/97 95 09/19/22 19:10 86 18 155/96 94 L 09/19/22 19:00 88 12 171/108 95 09/19/22 18:45 93 12 162/102 95 09/19/22 18:30 89 12 160/104 95 09/19/22 18:15 92 12 181/122 93 L 09/19/22 18:00 101 H 12 190/125 95 09/19/22 17:50 96 14 190/125 93 L 09/19/22 17:40 93 19 186/119 94 L 09/19/22 17:30 20 176/117 95 09/19/22 17:10 86 22 183/121 94 L 09/19/22 17:00 156/95 09/19/22 16:50 92 18 187/124 93 L 09/19/22 16:20 81 17 177/123 95 09/19/22 16:15 78 16 188/129 95 09/19/22 16:00 79 16 194/129 95 09/19/22 15:45 98.8 F 86 20 177/118 95 09/19/22 15:30 78 20 153/104 95 09/19/22 15:15 80 20 159/103 95 09/19/22 14:40 107 H 24 199/131 97 09/19/22 14:24 98.6 F 117 H 24 219/118 96 Intake and Output 09/19/22 09/20/22 09/20/22 22:59 06:59 14:59 Other: Voiding Method Toilet Toilet # Voids 1 2 Weight 98.883 kg Results CBC & Chem 7: 09/21/22 08:52 09/21/22 08:52 Labs: Abnormal Lab Results - Last 24 Hours (Table) 09/19/22 09/19/22 09/19/22 Range/Units 14:42 14:42 14:42 WBC 20.3 H (3.8-10.6) k/uL Hgb 17.9 H (13.0-17.5) gm/dL Neutrophils # 17.7 H (1.3-7.7) k/uL Lymphocytes # 0.9 L (1.0-4.8) k/uL Monocytes # 1.3 H (0-1.0) k/uL Carbon Dioxide 21 L (22-30) mmol/L BUN 24 H (9-20) mg/dL Glucose 243 H (74-99) mg/dL Alkaline Phosphatase 163 H (38-126) U/L Troponin I 0.088 H* (0.000-0.034) ng/mL 09/19/22 09/19/22 Range/Units 17:49 20:41 WBC (3.8-10.6) k/uL Hgb (13.0-17.5) gm/dL Neutrophils # (1.3-7.7) k/uL Lymphocytes # (1.0-4.8) k/uL Monocytes # (0-1.0) k/uL Carbon Dioxide (22-30) mmol/L BUN (9-20) mg/dL Glucose (74-99) mg/dL Alkaline Phosphatase (38-126) U/L Troponin I 0.135 H* 0.178 H* (0.000-0.034) ng/mL Thrombosis Risk Factor Assmnt - Choose All That Apply Each Risk Factor Represents 2 Points: Age 61-74 years Thrombosis Risk Factor Assessment Total Risk Factor Score: 2 Thrombosis Risk Factor Assessment Level: Low Risk
--- NOTE | 2022-09-21 15:32 | P.PN ---
Subjective Progress Note Date: 09/21/22 HISTORY OF PRESENT ILLNESS This is a 67-year-old male patient with past mental history of hyperlipidemia, hypertension, enlarged prostate, migraine headaches with aura, recurrent depres robert, neuropathy. Patient gives history that he developed significant headache and vomiting over the weekend and was unable to take his medications and unable to control his symptoms with worsening, subsequently developed pain in his shoulder blades radiating up into his neck. Patient also presented with urinary retention.EKG reveals sinus rhythm, heart rate 99. CT angiogram of the thorax abdomen and pelvis aortogram revealed no evidence of arterial aneurysm or dissection. Fatty infiltration of the liver. Fat-containing umbilical hernia.. Cholecystic fluid or wall thickening suggestive cholecystitis. No evidence of pulmonary embolism. Gallbladder ultrasound revealed no gallstones. Gallbladder wall thickening suggestive cholecystitis. No dilated ducts. Mild. Cholecystic fluid. Laboratory studies: Troponin is 0.088, 0.135, 0.178. WBC 23.7, hemoglobin 16.3, platelet count 281. BUN 26 and creatinine 1.04.Coronavirus PCR positive Patient was started on IV pain medications as well as IV antihypertensive with only minimal brief improvement of blood pressure. He continues to have pain in the shoulder blades and neck as well as urinary retention. Home medications will be resumed as patient is now able to take oral medications after Zofran which is been effective. Cardiology consult is in place for elevated troponins. 09/21 Patient continued to have significant upper back pain radiating to the shoulder blades and neck as well as hypertension through the night medication changes were made to add in valsartan, discontinue lisinopril, and in Toprol-XL. We will add in amlodipine this morning. Patient has been able to void on his own and urinary retention is resolved. Repeat blood work reveals WBC 15.1, hemoglobin 15.1. BUN 24 creatinine 0.77. AST 124 and ALT 53. Patient has been seen by general surgery with plan to continue antibiotics, low-fat diet and supportive care. Patient has been afebrile, heart rate 70, blood pressure 157/94, pulse ox 97% on 2 L nasal cannula. REVIEW OF SYSTEMS Constitutional: No fever, no chills, no night sweats. No weight change. No weakness, fatigue or lethargy. No daytime sleepiness. EENT: Reports headache. No blurred vision or double vision, no loss of vision. No loss of Hearing, no ringing in the ears, no dizziness. No nasal drainage or congestion. No epistaxis. No sore throat. Lungs: No shortness of breath, cough, no sputum production. No wheezing. Cardiovascular: No chest pain, no lower extremity edema. No palpitations. No paroxysmal nocturnal dyspnea. No orthopnea. No lightheadedness or dizziness. No syncopal episodes. Abdominal: No abdominal pain. Reports nausea, reports vomiting resolved. No diarrhea. No constipation. No bloody or tarry stools. No loss of appetite. Genitourinary: No dysuria, increased frequency, urgency. Reports urinary retention, resolved. Musculoskeletal: No myalgias. No muscle weakness, no gait dysfunction, no frequent falls. Reports upper back and neck pain. Integumentary: No wounds, no lesions. No rash or pruritus. No unusual bruising. Neurologic: No aphasia. No facial droop. No change in mentation. No head injury. No headache. No paralysis. No paresthesia. Psychiatric: No depression. No anxiety. No mood swings. Endocrine: No abnormal blood sugars. No weight change. No excessive sweating or thirst. No cold intolerance. PHYSICAL EXAMINATION Gen: This is a 67-year-old male. He sitting recliner appears to be somewhat uncomfortable. HEENT: Head is atraumatic, normocephalic. Pupils equal, round. Sclerae is anicteric. Oral mucous membranes somewhat dry. NECK: Supple. No JVD. No lymphadenopathy. No thyromegaly. LUNGS: Clear to auscultation. No wheezes or rhonchi. No intercostal retractions. HEART: Regular rate and rhythm. No murmur. ABDOMEN: Soft. Bowel sounds are present. No masses. No tenderness. EXTREMITIES: No pedal edema. No calf tenderness. Dorsalis pedis +2 bilaterally. NEUROLOGICAL: Patient is awake, alert and oriented x3. Cranial nerves 2 through 12 are grossly intact. ASSESSMENT AND PLAN 1. Hypertensive urgency. Continue patient on Norvasc 5 mg daily, clonidine 0.1 mg 3 times daily, Toprol-XL 50 mg at bedtime, valsartan 160 mg twice daily, hydralazine available IV push as needed for systolic blood pressure greater than 160, cardiology consult appreciated. 2. Migraine headache with nausea and vomiting. Patient is continued on Dilaudid 1 mg every 3 hours as needed and Zofran as needed for nausea 3. Urinary retention. Patient is status post recath 1, monitor bladder scans as necessary and straight cath if greater than 300, continue Flomax 0.8 mg daily 4. Elevated troponins. Acute coronary syndrome ruled out by cardiology. Recommend possible stress testing once patient is stable. 5. Hypertension. Continue medications as in #1 6. Acute cholecystitis. Continue patient on Unasyn 3 g IV piggyback every 6 hours, consult with general surgery appreciated. 7. Gastroesophageal reflux disease and GI prophylaxis. Protonix 40 mg daily. 8. DVT prophylaxis. Lovenox 40 mg subcu daily. 9. Recurrent depression. Continue Seroquel 25 mg twice daily. 10. COVID-19 testing positive. CODE STATUS: No code per patient request DISCHARGE PLAN Return home. Impression and plan of care have been directed as dictated by the signing physician. Yoselin Horner nurse practitioner acting as scribe for signing physician. Objective - Vital Signs Vital signs: Vital Signs Temp 97.4 F L 09/21/22 07:48 Pulse 92 09/21/22 07:48 Resp 20 09/21/22 07:48 BP 196/96 09/21/22 07:48 Pulse Ox 96 09/21/22 07:52 FiO2 Intake & Output 09/20/22 09/21/22 09/21/22 18:59 06:59 18:59 Output Total 1450 1100 Balance -1450 -1100 Output: Urine 1450 1100 Straight 600 Other: Voiding Method Toilet Toilet - Labs CBC & Chem 7: 09/21/22 08:52 09/21/22 08:52 Labs: Abnormal Lab Results - Last 24 Hours (Table) 09/20/22 09/20/22 09/20/22 Range/Units 09:47 09:47 11:56 WBC 23.7 H (3.8-10.6) k/uL Neutrophils # 19.9 H (1.3-7.7) k/uL Monocytes # 1.7 H (0-1.0) k/uL Chloride 109 H (98-107) mmol/L BUN 26 H (9-20) mg/dL Glucose 147 H (74-99) mg/dL POC Glucose (mg/dL) 131 H (70-110) mg/dL AST 99 H (17-59) U/L ALT (4-49) U/L Lactate Dehydrogenase (313-618) U/L Troponin I (0.000-0.034) ng/mL Amylase (30-110) U/L Coronavirus (PCR) (Not Detectd) 09/20/22 09/20/22 09/21/22 Range/Units 12:00 17:07 01:58 WBC 18.6 H (3.8-10.6) k/uL Neutrophils # 15.7 H (1.3-7.7) k/uL Monocytes # 1.2 H (0-1.0) k/uL Chloride (98-107) mmol/L BUN (9-20) mg/dL Glucose (74-99) mg/dL POC Glucose (mg/dL) 133 H (70-110) mg/dL AST (17-59) U/L ALT (4-49) U/L Lactate Dehydrogenase (313-618) U/L Troponin I (0.000-0.034) ng/mL Amylase (30-110) U/L Coronavirus (PCR) Detected A (Not Detectd) 09/21/22 09/21/22 09/21/22 Range/Units 01:58 01:58 06:10 WBC (3.8-10.6) k/uL Neutrophils # (1.3-7.7) k/uL Monocytes # (0-1.0) k/uL Chloride (98-107) mmol/L BUN 25 H (9-20) mg/dL Glucose 134 H (74-99) mg/dL POC Glucose (mg/dL) 113 H (70-110) mg/dL AST 130 H (17-59) U/L ALT 51 H (4-49) U/L Lactate Dehydrogenase 914 H (313-618) U/L Troponin I 0.093 H* (0.000-0.034) ng/mL Amylase 120 H (30-110) U/L Coronavirus (PCR) (Not Detectd)
[2022-09-21 17:00] LABS: Glucose,Whole Blood 113 mg/dL (70-110)
[2022-09-21] MEDS: ATORVASTATIN 20 MG TAB PO SCH (20:02)
[2022-09-21] MEDS: CITALOPRAM HYDROBROMIDE 20 MG TAB PO SCH (20:02)
[2022-09-21] MEDS: METOPROLOL SUCCINATE (ER) 50 MG TAB.ER.24H PO SCH (20:03)
[2022-09-21 20:25] LABS: Glucose,Whole Blood 123 mg/dL (70-110)
[2022-09-22] MEDS: SODIUM CHLORIDE 0.9% 1,000 ML IV SCH ×2 (00:55→11:28)
[2022-09-22] MEDS: AMPICILLIN-SULBACTAM 3 GM in SODIUM CHLORIDE 0.9% 100 ML IVPB SCH ×4 (00:55→21:16)
[2022-09-22] MEDS: HYDROmorphone 1 MG/ML 1 ML SYRINGE IVP PRN ×6 (01:33→19:00)
[2022-09-22] MEDS: HYDROcodone/APAP 10-325MG 1 EACH TAB PO PRN ×4 (04:12→23:31)
[2022-09-22 06:23] LABS: Glucose,Whole Blood 114 mg/dL (70-110)
[2022-09-22] MEDS: PANTOPRAZOLE 40 MG TABLET PO SCH (06:46)
[2022-09-22] MEDS: VALSARTAN 160 MG TAB PO SCH ×2 (09:15→21:17)
[2022-09-22] MEDS: QUEtiapine 25 MG TAB PO SCH ×2 (09:15→21:17)
[2022-09-22] MEDS: cloNIDine HCL 0.1 MG TAB PO SCH ×3 (09:15→21:17)
[2022-09-22] MEDS: CYCLOBENZAPRINE 5 MG TAB PO PRN (09:15)
[2022-09-22] MEDS: amLODIPine 5 MG TAB PO SCH ×2 (09:16→21:17)
[2022-09-22] MEDS: ENOXAPARIN 40 MG/0.4 ML SYRINGE SQ SCH (09:16)
[2022-09-22] MEDS: TAMSULOSIN 0.4 MG CAP.ER.24H PO SCH (09:16)
[2022-09-22 10:14] LABS: HCT 43.1 % (39.0-53.0); HGB 14.2 gm/dL (13.0-17.5); MCH 29.5 pg (25.0-35.0); MCV 89.5 fL (80.0-100.0); Mean Platelet Volume 8.7; Platelet Count 170 k/uL (150-450); RBC 4.82 m/uL (4.30-5.90); RDW 14.3 % (11.5-15.5); WBC 10.5 k/uL (3.8-10.6)
[2022-09-22 10:37] LABS: ALT 48 U/L (4-49); AST 77 U/L (17-59); African American GFR (CKD) >90 (>60 ml/min/1.73 sqM); Albumin 3.3 g/dL (3.5-5.0); Alkaline Phosphatase 87 U/L (38-126); Anion Gap 5 mmol/L; Blood Urea Nitrogen 18 mg/dL (9-20); Calcium 7.8 mg/dL (8.4-10.2); Carbon Dioxide 25 mmol/L (22-30); Chloride 104 mmol/L (98-107); Glucose 156 mg/dL (74-99); Non-African American GFR(CKD) >90 (>60 ml/min/1.73 sqM); Sodium 134 mmol/L (137-145); Total Bilirubin 0.7 mg/dL (0.2-1.3); Total Protein 5.8 g/dL (6.3-8.2)
[2022-09-22 10:51] LABS: Potassium 3.8 mmol/L (3.5-5.1)
[2022-09-22 11:42] LABS: Glucose,Whole Blood 151 mg/dL (70-110)
--- NOTE | 2022-09-22 12:40 | P.PN ---
Subjective Progress Note Date: 09/22/22 HISTORY OF PRESENTING ILLNESS This is a 67-year-old male patient [facility] with past medical history significant for hypertension, dyslipidemia, former smoker, anxiety/depression, Migraine headaches. Patient states that he had onset of headache on Tuesday with vomiting and unable to take any of his blood pressure medications on the weekend. He presented with blood pressure of 219/118 with continued vomiting. He was provided IV Vasotec, labetalol as well as morphine and Dilaudid for headache. Patient is also complaining of some upper back pain between shoulder blades rating to his neck and urinary retention. He denies any chest pain or shortness of breath. He denies any abdominal pain, no diarrhea. Patient states that he did a home Covid testing which was positive. DIAGNOSTICS EKG reveals sinus rhythm, heart rate 99 CT angiogram of the thorax abdomen and pelvis aortogram revealed no evidence of arterial aneurysm or dissection. Fatty infiltration of the liver. Fat- containing umbilical hernia.. Cholecystic fluid or wall thickening suggestive cholecystitis. No evidence of pulmonary embolism. Gallbladder ultrasound revealed no gallstones. Gallbladder wall thickening suggestive cholecystitis. No dilated ducts. Mild. Cholecystic fluid. Most recent Cardiolite stress test 01/2022 revealed no stress-induced ischemic changes. Most recent echocardiogram 01/2022 revealed moderate concentric left hypertrophy, EF 5560 percent, mild aortic regurgitation, mild tricuspid regurgitation. Laboratory studies: Troponin is 0.088, 0.135, 0.178. WBC 23.7, hemoglobin 16.3, platelet count 281. BUN 26 and creatinine 1.04.Coronavirus PCR positive Current home medications include lisinopril 10 mg nightly, clonidine 0.1 mg 3 times a day, simvastatin 40 mg nightly, Imitrex, 09/21 Patient is seen and examined. Patient complains of continued back pain between shoulder blades radiating to his neck. He continued to have hypertension throughout the night and multiple medication changes were made by his attending. Aldactone was added this morning. Urinary retention has resolved. Repeat blood work reveals WBC 15.1, hemoglobin 15.1. BUN 24 creatinine 0.77. AST 124 and ALT 53. Echocardiogram will be ordered. Consult was added for general surgery regarding cholecystitis vital signs reviewed. 09/22 Patient continues to have significant pain between shoulder blades radiating up into his neck as well as headache for which he is on Dilaudid and started on Flexeril. He denies abdominal pain. Blood pressure remains elevated despite medication adjustments. patient monitor is a sinus rhythm. Heart rate is running in the 60s, blood pressure 181/95. Repeat blood work is normal CBC, creatinine 0.77. AST 77 other liver enzymes normal. PHYSICAL EXAMINATION CONSTITUTIONAL: Mild generalized discomfort/distress. HEENT: Scab and some bruising right orbital. Head is normocephalic. Pupils are equal, round. Sclerae anicteric. Mucous membranes of the mouth are moist. No JVD. No carotid bruit. CHEST EXAMINATION: Lungs are clear to auscultation. No chest wall tenderness is noted on palpation or with deep breathing. HEART EXAMINATION: Regular rate and rhythm. S1, S2 heard. No murmurs, gallops or rub. ABDOMEN: Soft. EXTREMITIES: 2+ peripheral pulses, no lower extremity edema and no calf tenderness. SKIN: Warm, dry NEUROLOGIC EXAMINATION: Patient is awake, alert and oriented x3. ASSESSMENT Hypertensive urgency Nausea, Vomiting Headache Elevated troponins not consistent with acute coronary syndrome but will consider stress testing once patient's condition is stable History of hypertension History of migraines PLAN Continue current antihypertensives: Valsartan 160 mg twice daily, Toprol-XL 50 mg at bedtime, clonidine 0.1 mg 3 times daily. Amlodipine has been increased by Dr. Quevedo to 5 mg twice daily Continue statin Further recommendations based on clinical course Thank you kindly for this consultation. Nurse practitioner note has been reviewed by physician. Signing provider agrees with the documented findings, assessment, and plan of care. Objective - Vital Signs Vital signs: Vital Signs Temp 98.2 F 09/22/22 08:00 Pulse 65 09/22/22 08:00 Resp 18 09/22/22 08:00 BP 181/95 09/22/22 08:00 Pulse Ox 94 L 09/22/22 08:00 FiO2 Intake & Output 09/21/22 09/22/22 09/22/22 18:59 06:59 18:59 Intake Total 540 Output Total 475 600 Balance -475 -60 Intake: Oral 540 Output: Urine 475 600 Other: Voiding Method Toilet Toilet Toilet - Labs CBC & Chem 7: 09/22/22 08:23 09/22/22 08:23 Labs: Abnormal Lab Results - Last 24 Hours (Table) 09/21/22 09/21/22 09/22/22 Range/Units 16:59 20:24 06:15 POC Glucose (mg/dL) 113 H 123 H 114 H (70-110) mg/dL
--- NOTE | 2022-09-22 12:46 | P.PN ---
Subjective Progress Note Date: 09/22/22 HISTORY OF PRESENT ILLNESS This is a 67-year-old male patient with past mental history of hyperlipidemia, hypertension, enlarged prostate, migraine headaches with aura, recurrent depres robert, neuropathy. Patient gives history that he developed significant headache and vomiting over the weekend and was unable to take his medications and unable to control his symptoms with worsening, subsequently developed pain in his shoulder blades radiating up into his neck. Patient also presented with urinary retention.EKG reveals sinus rhythm, heart rate 99. CT angiogram of the thorax abdomen and pelvis aortogram revealed no evidence of arterial aneurysm or dissection. Fatty infiltration of the liver. Fat-containing umbilical hernia.. Cholecystic fluid or wall thickening suggestive cholecystitis. No evidence of pulmonary embolism. Gallbladder ultrasound revealed no gallstones. Gallbladder wall thickening suggestive cholecystitis. No dilated ducts. Mild. Cholecystic fluid. Laboratory studies: Troponin is 0.088, 0.135, 0.178. WBC 23.7, hemoglobin 16.3, platelet count 281. BUN 26 and creatinine 1.04.Coronavirus PCR positive Patient was started on IV pain medications as well as IV antihypertensive with only minimal brief improvement of blood pressure. He continues to have pain in the shoulder blades and neck as well as urinary retention. Home medications will be resumed as patient is now able to take oral medications after Zofran which is been effective. Cardiology consult is in place for elevated troponins. 09/21 Patient continued to have significant upper back pain radiating to the shoulder blades and neck as well as hypertension through the night medication changes were made to add in valsartan, discontinue lisinopril, and in Toprol-XL. We will add in amlodipine this morning. Patient has been able to void on his own and urinary retention is resolved. Repeat blood work reveals WBC 15.1, hemoglobin 15.1. BUN 24 creatinine 0.77. AST 124 and ALT 53. Patient has been seen by general surgery with plan to continue antibiotics, low-fat diet and supportive care. Patient has been afebrile, heart rate 70, blood pressure 157/94, pulse ox 97% on 2 L nasal cannula. 09/22 Patient continues to have significant pain between shoulder blades radiating up into his neck as well as headache for which he is on Dilaudid and started on Flexeril. Flexeril will be changed to Robaxin 500 mg 3 times daily. He denies abdominal pain. Urinary retention has resolved. Blood pressure remains elevated despite medication adjustments. library monitor is a sinus rhythm. Heart rate is running in the 60s, blood pressure 181/95. Amlodipine increased to 5 mg twice daily. Repeat blood work is normal CBC, creatinine 0.77. AST 77 other liver enzymes normal. REVIEW OF SYSTEMS Constitutional: No fever, no chills, no night sweats. No weight change. No weakness, fatigue or lethargy. No daytime sleepiness. EENT: Reports headache. No blurred vision or double vision, no loss of vision. No loss of Hearing, no ringing in the ears, no dizziness. No nasal drainage or congestion. No epistaxis. No sore throat. Lungs: No shortness of breath, cough, no sputum production. No wheezing. Cardiovascular: No chest pain, no lower extremity edema. No palpitations. No paroxysmal nocturnal dyspnea. No orthopnea. No lightheadedness or dizziness. No syncopal episodes. Abdominal: No abdominal pain. Reports nausea improved, reports vomiting resolved. No diarrhea. No constipation. No bloody or tarry stools. No loss of appetite. Genitourinary: No dysuria, increased frequency, urgency. Reports urinary retention, resolved. Musculoskeletal: No myalgias. No muscle weakness, no gait dysfunction, no frequent falls. Reports upper back and neck pain. Integumentary: No wounds, no lesions. No rash or pruritus. No unusual bruising. Neurologic: No aphasia. No facial droop. No change in mentation. No head injury. No headache. No paralysis. No paresthesia. Psychiatric: No depression. No anxiety. No mood swings. Endocrine: No abnormal blood sugars. No weight change. No excessive sweating or thirst. No cold intolerance. PHYSICAL EXAMINATION Gen: This is a 67-year-old male. He resting in bed appears to be in no acute distress HEENT: Head is atraumatic, normocephalic. Pupils equal, round. Sclerae is anicteric. Oral mucous membranes somewhat dry. NECK: Supple. No JVD. LUNGS: Clear to auscultation. No wheezes or rhonchi. No intercostal retractions. HEART: Regular rate and rhythm. No murmur. ABDOMEN: Soft. Bowel sounds are present. No masses. No tenderness. EXTREMITIES: No pedal edema. No calf tenderness. Dorsalis pedis +2 bilaterally. NEUROLOGICAL: Patient is awake, alert and oriented x3. Cranial nerves 2 through 12 are grossly intact. ASSESSMENT AND PLAN 1. Hypertensive urgency. Continue patient on Norvasc 5 mg increased frequency to twice daily, clonidine 0.1 mg 3 times daily, Toprol-XL 50 mg at bedtime, valsartan 160 mg twice daily, hydralazine available IV push as needed for systolic blood pressure greater than 160, cardiology consult appreciated. 2. Upper back pain/spasm and Migraine headache with nausea and vomiting. Patient is continued on Dilaudid 1 mg every 3 hours as needed and Zofran as needed for nausea. Flexeril will be discontinued and patient started on Roxanol 500 mg 3 times daily. 3. Urinary retention, resolved. Patient is status post recath 1, monitor carolyn dder scans as necessary and straight cath if greater than 300, continue Flomax 0.8 mg daily 4. Elevated troponins. Acute coronary syndrome ruled out by cardiology. Recommend possible stress testing once patient is stable. 5. Hypertension. Continue medications as in #1 6. Acute cholecystitis. Continue patient on Unasyn 3 g IV piggyback every 6 hours, consult with general surgery appreciated. 7. Gastroesophageal reflux disease and GI prophylaxis. Protonix 40 mg daily. 8. DVT prophylaxis. Lovenox 40 mg subcu daily. 9. Recurrent depression. Continue Seroquel 25 mg twice daily. 10. COVID-19 testing positive. CODE STATUS: No code per patient request DISCHARGE PLAN Return home. Impression and plan of care have been directed as dictated by the signing physician. Yoselin Horner nurse practitioner acting as scribe for signing physician. Objective - Vital Signs Vital signs: Vital Signs Temp 98.2 F 09/22/22 08:00 Pulse 65 09/22/22 08:00 Resp 18 09/22/22 08:00 BP 181/95 09/22/22 08:00 Pulse Ox 94 L 09/22/22 08:00 FiO2 Intake & Output 09/21/22 09/22/22 09/22/22 18:59 06:59 18:59 Intake Total 540 Output Total 475 600 Balance -475 -60 Intake: Oral 540 Output: Urine 475 600 Other: Voiding Method Toilet Toilet Toilet - Labs CBC & Chem 7: 09/22/22 08:23 11/30/22 08:23 Labs: Abnormal Lab Results - Last 24 Hours (Table) 09/21/22 09/21/22 09/22/22 Range/Units 16:59 20:24 06:15 POC Glucose (mg/dL) 113 H 123 H 114 H (70-110) mg/dL
--- NOTE | 2022-09-22 12:48 | P.PN ---
Subjective Progress Note Date: 09/22/22 CHIEF COMPLAINT: Back pain HISTORY OF PRESENT ILLNESS: Surgical service is following in regards to possible cholecystitis. Patient denies any abdominal pain or right upper quadrant pain. Denies any nausea or vomiting. He tolerated sausage and pancakes for breakfast this morning. He is still complaining of a headache, neck pain and shoulder pain and upper back pain. He does report improvement and this pain with the Dilaudid. He is having flatus. Afebrile. WBC has normalized from 15.1-10.5 sodium 134 potassium 3.8 creatinine 0.77 glucose 151 AST is down from 124-77 ALT 53 down to 48 alk phos 87 total bilirubin 0.7 PHYSICAL EXAM: VITAL SIGNS: Reviewed. GENERAL: Well-developed in no acute distress. HEENT: No sclera icterus. Extraocular movements grossly intact. Moist buccal mucosa. Head is atraumatic, normocephalic. ABDOMEN: Soft. Nondistended. Nontender. NEUROLOGIC: Alert and oriented. Cranial nerves II through XII grossly intact. ASSESSMENT: 1. Gallbladder wall thickening with pericholecystic fluid noted on abdominal ultrasound and CT. Denies RUQ abdominal pain 2. Covid 19 positive 3. Fat-containing umbilical hernia 4. Hypertensive urgency managed by cardiology 5. Headache, neck, shoulder and back pain PLAN: -Patient's symptoms not consistent with cholecystitis -Continue supportive care -No surgical intervention planned Physician Activity Coordinator note has been reviewed by physician. Signing provider agrees with the documented findings, assessment, and plan of care. Patient doing well today. Denies abdominal pain. Tolerating diet. The myalgias that he was experiencing have improved somewhat. Labs are improved as well. Continue regular diet. We will follow. Objective - Vital Signs Vital signs: Vital Signs Temp 98.2 F 09/22/22 08:00 Pulse 65 09/22/22 08:00 Resp 18 09/22/22 08:00 BP 181/95 09/22/22 08:00 Pulse Ox 94 L 09/22/22 08:00 FiO2 Intake & Output 09/21/22 09/22/22 09/22/22 18:59 06:59 18:59 Intake Total 540 Output Total 475 600 Balance -475 -60 Intake: Oral 540 Output: Urine 475 600 Other: Voiding Method Toilet Toilet Toilet - Labs CBC & Chem 7: 09/22/22 08:23 09/22/22 08:23 Labs: Abnormal Lab Results - Last 24 Hours (Table) 09/21/22 09/21/22 09/22/22 Range/Units 16:59 20:24 06:15 Sodium (137-145) mmol/L Glucose (74-99) mg/dL POC Glucose (mg/dL) 113 H 123 H 114 H (70-110) mg/dL Calcium (8.4-10.2) mg/dL AST (17-59) U/L Total Protein (6.3-8.2) g/dL Albumin (3.5-5.0) g/dL 09/22/22 09/22/22 Range/Units 08:23 11:40 Sodium 134 L (137-145) mmol/L Glucose 156 H (74-99) mg/dL POC Glucose (mg/dL) 151 H (70-110) mg/dL Calcium 7.8 L (8.4-10.2) mg/dL AST 77 H (17-59) U/L Total Protein 5.8 L (6.3-8.2) g/dL Albumin 3.3 L (3.5-5.0) g/dL
[2022-09-22] MEDS: methocarbamoL 500 MG TAB PO SCH ×3 (12:50→21:42)
[2022-09-22 16:55] LABS: Glucose,Whole Blood 147 mg/dL (70-110)
[2022-09-22] MEDS: hydrALAZINE HCL 20 MG/ML 1 ML VIAL IVP PRN ×2 (19:00→23:31)
[2022-09-22 20:47] LABS: Glucose,Whole Blood 125 mg/dL (70-110)
[2022-09-22] MEDS: METOPROLOL SUCCINATE (ER) 50 MG TAB.ER.24H PO SCH (21:17)
[2022-09-22] MEDS: CITALOPRAM HYDROBROMIDE 20 MG TAB PO SCH (21:17)
[2022-09-22] MEDS: SUMAtriptan succinate 50 MG TAB PO PRN (21:17)
[2022-09-22] MEDS: ATORVASTATIN 20 MG TAB PO SCH (21:17)
[2022-09-22] MEDS: MORPHINE SULFATE 4 MG/ML SYRINGE IVP PRN (21:18)
[2022-09-23] MEDS: KETOROLAC 15 MG/ML 1 ML VIAL IVP PRN ×3 (00:20→12:38)
[2022-09-23] MEDS: diazePAM 5 MG TAB PO SCH ×3 (00:20→21:25)
[2022-09-23] MEDS: MORPHINE SULFATE 4 MG/ML SYRINGE IVP PRN ×3 (01:25→10:15)
[2022-09-23] MEDS: hydrALAZINE HCL 20 MG/ML 1 ML VIAL IVP PRN ×2 (01:26→18:30)
[2022-09-23] MEDS: SODIUM CHLORIDE 0.9% 1,000 ML IV SCH ×2 (03:43→21:32)
[2022-09-23] MEDS: AMPICILLIN-SULBACTAM 3 GM in SODIUM CHLORIDE 0.9% 100 ML IVPB SCH ×4 (04:21→21:22)
[2022-09-23 06:29] LABS: Glucose,Whole Blood 130 mg/dL (70-110)
[2022-09-23 08:08] LABS: Glucose,Whole Blood 112 mg/dL (70-110)
[2022-09-23] MEDS: TAMSULOSIN 0.4 MG CAP.ER.24H PO SCH (10:13)
[2022-09-23] MEDS: ENOXAPARIN 40 MG/0.4 ML SYRINGE SQ SCH (10:13)
[2022-09-23] MEDS: cloNIDine HCL 0.2 MG TAB PO SCH ×3 (10:14→21:21)
[2022-09-23] MEDS: QUEtiapine 25 MG TAB PO SCH ×2 (10:14→21:21)
[2022-09-23] MEDS: amLODIPine 5 MG TAB PO SCH ×2 (10:14→21:21)
[2022-09-23] MEDS: VALSARTAN 160 MG TAB PO SCH ×2 (10:16→21:23)
[2022-09-23] MEDS: PANTOPRAZOLE 40 MG TABLET PO SCH (10:18)
--- NOTE | 2022-09-23 11:24 | P.PN ---
Subjective Progress Note Date: 09/23/22 CHIEF COMPLAINT: Back pain HISTORY OF PRESENT ILLNESS: Patient reports that his neck and upper back pain are worse. He is unable to lift his left arm. Medical service has ordered an MRI of the C-spine and thoracic spine and consult for neurology. Patient denies any abdominal pain. Denies any nausea or vomiting. He is tolerating regular diet. Afebrile. PHYSICAL EXAM: VITAL SIGNS: Reviewed. GENERAL: Well-developed in no acute distress. ABDOMEN: Soft. Nondistended. Nontender. NEUROLOGIC: Alert and oriented. Cranial nerves II through XII grossly intact. ASSESSMENT: 1. Gallbladder wall thickening with pericholecystic fluid noted on abdominal ultrasound and CT. Denies RUQ abdominal pain 2. Covid 19 positive 3. Fat-containing umbilical hernia 4. Hypertensive urgency managed by cardiology 5. Headache, neck, shoulder and back pain PLAN: -Patient's symptoms are not consistent with cholecystitis -Continue supportive care -No surgical intervention planned Physician Help Desk Rep note has been reviewed by physician. Signing provider agrees with the documented findings, assessment, and plan of care. I have personally seen and examined the patient, reviewed the [employer]PAs history, exam and MDM and agree with the assessment and plan as written. Based on total visit time, I have performed more than 50% of the visit. As above: Patient today says his upper back and neck pain are worse than they were yesterday. He is now having some limited movement of the left upper extremity. Patient states it's both because of pain and weakness. Workup is ongoing. He still has no abdominal pain. Epidural abscess being evaluated for at this time. We'll follow. Objective - Vital Signs Vital signs: Vital Signs Temp 97.7 F 09/23/22 08:00 Pulse 96 09/23/22 08:00 Resp 22 09/23/22 08:00 BP 178/96 09/23/22 08:00 Pulse Ox 96 09/23/22 08:00 FiO2 Intake & Output 09/22/22 09/23/22 09/23/22 18:59 06:59 18:59 Intake Total 180 Output Total 1050 Balance -1050 180 Intake: Oral 180 Output: Urine 1050 Straight 700 Other: Voiding Method Toilet Toilet Toilet # Voids 1 - Labs CBC & Chem 7: 09/22/22 08:23 09/22/22 08:23 Labs: Abnormal Lab Results - Last 24 Hours (Table) 09/22/22 09/22/22 09/22/22 Range/Units 11:40 16:54 20:45 POC Glucose (mg/dL) 151 H 147 H 125 H (70-110) mg/dL 09/23/22 09/23/22 Range/Units 06:28 08:06 POC Glucose (mg/dL) 130 H 112 H (70-110) mg/dL
[2022-09-23 11:52] LABS: Glucose,Whole Blood 122 mg/dL (70-110)
[2022-09-23] MEDS ORDERED: LORazepam 2 MG/ML INJ IV ONE (13:20)
--- NOTE | 2022-09-23 15:08 | MR ---
EXAMINATION TYPE: MR ran/melvin wo con DATE OF EXAM: 09/23/2022 2:50 PM COMPARISON: NONE HISTORY: Neck pain into mid back and shoulder, Left upper ext weakness, Possible transverse myelitis Multiplanar MultiSpin echo imaging of the cervical spine was performed. Examination is limited by pa tient motion. Comparison: none C2-C3: No evidence for degenerative disc disease. No disc bulge/herniation or protrusion. No Canal stenosis. Foramina are patent bilaterally. C3-C4: Moderate disc desiccation. Posterior disc bulge. Patient motion limits study however I cannot exclude moderate central stenosis. C4-C5: Moderate disc desiccation. Posterior disc bulge. Patient motion limits study however I cannot exclude moderate central stenosis. C5-C6: Moderate disc desiccation. Posterior disc bulge. Patient motion limits study however I cannot exclude moderate central stenosis. C6-C7: No evidence for degenerative disc disease. No disc bulge/herniation or protrusion. No Canal stenosis. Foramina are patent bilaterally. C7-T1: No evidence for degenerative disc disease. No disc bulge/herniation or protrusion. No Canal stenosis. Foramina are patent bilaterally. Cervical segments are intact. There is normal alignment. Cervical spinal cord signal is difficult to evaluate given motion. Underlying myelopathy not excluded. Craniovertebral junction relationships ar e within normal limits. IMPRESSION: 1. Technically suboptimal study given patient motion. There appears to be central stenosis at least m oderate in degree extending from C3-4 through C5-6. Poor characterization of the cervical spinal cord signal however underlying myelopathy difficult to exclude. EXAMINATION TYPE: MR ran/melvin wo con DATE OF EXAM: 09/23/2022 2:50 PM COMPARISON: NONE HISTORY: Neck pain into mid back and shoulder, Left upper ext weakness, Possible transverse myelitis Multiplanar MultiSpin echo imaging of the thoracic spine was performed. Patient motion limits evalua tion. Disc spaces: Moderate multilevel disc desiccation noted. Posterior disc bulge noted at T9-T11-T12. Mi ld effacement ventral thecal sac. Spinal canal: No evidence for canal stenosis. No intrinsic or extrinsic lesion. Thoracic spinal cord: Limited evaluation of the thoracic spinal cord given patient motion. Paraspinal soft tissues: No evidence for paraspinal mass. No destructive lesions seen. Vertebral segments: No evidence for fracture or bony lesion. IMPRESSION: 1. Limited study given patient motion. 2. Multilevel degenerative disc disease with posterior disc bulge. Consider reevaluation of the cervical and thoracic spines following appropriate sedation.
--- NOTE | 2022-09-23 16:06 | P.CNOR ---
History of Present Illness - HPI Consult date: 09/23/22 Consult reason: other (weakness) History of present illness: 67 yo male presented with c/o feeling ill. He was admitted and found to have COVID. He states on Tuesday he started feeling ill and went to lunch. He states came back and then he was feeling very sick. He is being worked up for multiple different issues by treatment team. He was found to have possible kiarra and was planning on having this removed, however he work up this AM with essentially flaccid weakness in his LUE and profound weakness in his LLE. He states it seemed to start yesterday late and has progressively gotten worse. He states some neck pain. States fevers and chills. States SOB. No chest pain. Denies any numbness/tingling in his hand or arm. Denies any numbness tingling in leg, groin, genitals or buttock region. States no other issues. Review of Systems 16 point ROS completed and as stated in HPI All systems: negative Past Medical History Past Medical History: Hyperlipidemia, Hypertension, Musculoskeletal Disorder, Osteoarthritis (OA), Prostate Disorder Additional Past Medical History / Comment(s): Frequent headaches, usually left side. History of Any Multi-Drug Resistant Organisms: None Reported Past Surgical History: Back Surgery, Orthopedic Surgery, Tonsillectomy Additional Past Surgical History / Comment(s): Left clavicle repaired, right ring finger tendon re-attached, left thumb surgery, pain clinic procedures. Past Anesthesia/Blood Transfusion Reactions: No Reported Reaction Past Psychological History: Anxiety, Depression Smoking Status: Former smoker Past Alcohol Use History: None Reported Additional Past Alcohol Use History / Comment(s): Quit smoking at age 21. Past Drug Use History: None Reported - Past Family History Father Family Medical History: Cancer Medications and Allergies Home Medications Medication Instructions Recorded Confirmed Type Simvastatin [Zocor] 40 mg PO HS 01/28/15 09/19/22 History Tamsulosin HCl [Flomax] 0.8 mg PO HS 01/28/15 09/19/22 History cloNIDine HCL [Catapres] 0.1 mg PO TID 01/28/15 09/19/22 History lisinopriL [Zestril] 10 mg PO HS 01/28/15 09/19/22 History Ondansetron Odt [Zofran ODT] 4 mg PO Q8HR PRN #10 tab 03/23/21 09/19/22 Rx QUEtiapine FUMARATE [SEROquel XR] 50 mg PO HS 03/23/21 09/19/22 History Citalopram Hydrobromide [CeleXA] 20 mg PO HS 01/24/22 09/19/22 History Omeprazole 40 mg PO DAILY 09/19/22 09/19/22 History SUMAtriptan succinate [Imitrex] 50 mg PO DAILY PRN 09/19/22 09/19/22 History traMADol HCL 50 mg PO Q8H PRN 09/19/22 09/19/22 History Allergies Allergy/AdvReac Type Severity Reaction Status Date / Time No Known Allergies Allergy Verified 09/19/22 16:42 Physical Examination Osteopathic Statement: *. No significant issues noted on an osteopathic structural exam other than those noted in the History and Physical/Consult. PHYSICAL EXAMINATION: Vitals: febrile tachycardic General: Awake, alert, appears ill, falls asleep during exam. HEENT: No unusual neck masses around region of lateral neck triangle, thyroid, supraclavicular groove. Extremities: Skin warm and dry without no acute lesions, coloration, temperature, skin intact, no tenderness or erythema. Integument: Diaphoretic Palpation: Please see Pain drawing on Intake sheet for further detail. (Tenderness = T, Nontender = NT, Swelling = S, Ecchymosis = E) Findings on Midline and paraspinal palpation and percussion: Cervical: mild tenderness to palpation Thoracic: NT Lumbar: NT Sacral: NT VASCULAR STATUS : Wrist Pulses: [2/4 bilateral radial and ulnar] Pedal Pulses: [2/4 bilateral DP and PT] Color: [Normal] Edema: left hand 1+ NEUROLOGIC EXAMINATION: Mental Status: Awake and alert, fully oriented, with normal attention, concentration and memory, and fluent, appropriate speech. Cranial Nerves: I: Olfactory not tested. II: Visual acuity normal, no visual field deficit noted with confrontation. III,IV: Normal pupillary reflexes & intact extraocular movements without nystagmus. V,: Intact symmetrical facial sensation. VII: Intact symmetrical facial motor movement VIII: Hearing intact. IX,X: Intact gag, swallow, & normal voice. XI: Sternocleidomastoid, trapezius function intact. XII: Tongue midline with normal movements. Special Tests: L'hermitte's Sign: Absent Spurling'Sign: Absent Bilateral Cubital percussion test: Absent Bilateral Lalo-Tinel sign - Carpal region: Absent Bilateral Straight Leg Raising: Absent Bilateral Motor Exam (0-5/5, N/T) STRENGTH UPPER EXTREMITY [5]/5 in all major muscle groups of the UE b/l except for left upper extremity in which she has 2 out of 5 strength in shoulder abduction biceps triceps wrist extension and intrinsics with 3 out of 5 stationary engineer apprentice strength LOWER EXTREMITY [5]/5 in all major muscle groups of the LE b/l left lower extremity 3/5 strength in all major muscle groups including knee flexion extension dorsif lexion plantar flexion and hip flexion which is only 2 out of 5 REFLEXES Upper Extremity: diminished bilaterally 1 out of 4 Lower Extremity: diminished bilaterally 1 out of 4 Pathological Reflexes Frazier's: RIGHT [Absent] LEFT [Absent] Babinski: RIGHT [Absent] LEFT [Absent] Clonus: RIGHT [None] LEFT [None] SENSORY Pain and LT sense [Intact C5-T1 and L2-S1] Dermatomal deficit [None] Gait and Functional Evaluation: Ambulatory aids: walker at this time acutely Results MRIs completed without contrast of the cervical spine which is essentially nondiagnostic as the motion artifact. When looking at the sagittal at C2 C3 C4 C5 C5 C6 there is what appears to be stenotic lesions with possible myomalacia changes which would account for the patient's weakness. Still difficult to tell secondary to begin the artifact and motion. Epidural abscess or epidural mass is not ruled out at this time and a MRI with sedation with and without contrast needs to be completed stat. Stat CT at stat MRI with and without contrast are ordered of the cervical spine - Labs Labs: Abnormal Lab Results - Last 24 Hours (Table) 09/22/22 09/22/22 09/23/22 Range/Units 16:54 20:45 06:28 POC Glucose (mg/dL) 147 H 125 H 130 H (70-110) mg/dL 09/23/22 09/23/22 Range/Units 08:06 11:51 POC Glucose (mg/dL) 112 H 122 H (70-110) mg/dL H & H 09/19/22 09/20/22 09/21/22 Range/Units 14:42 09:47 01:58 Hgb 17.9 H 16.3 15.4 (13.0-17.5) gm/dL Hct 50.9 49.7 47.0 (39.0-53.0) % 09/21/22 09/22/22 Range/Units 08:52 08:23 Hgb 15.1 14.2 (13.0-17.5) gm/dL Hct 45.7 43.1 (39.0-53.0) % Coagulation 09/19/22 Range/Units 14:42 INR 1.0 (<1.2) Result Diagrams: 09/22/22 08:23 09/22/22 08:23 Assessment and Plan Assessment: 67-year-old male with acute left upper extremity and left lower extremity weakness COVID+ complex medical patient Plan: - stat MRI with and without contrast cervical spine - stat CT cervical spine - nothing by mouth - await stat imaging to determine if cervical spine is the cause of his acute upper showing lower extremity weakness. Patient is very ill appearing on the differential diagnosis is epidural abscess given his acute weakness neck pain and clinical status. We will await imaging to make final decision
--- NOTE | 2022-09-23 17:01 | CT ---
EXAMINATION TYPE: CT cervical spine wo con DATE OF EXAM: 09/23/2022 COMPARISON: 01/24/2022 HISTORY: acute RUE weakness CT DLP: 633.1 mGycm Automated exposure control for dose reduction was used. Images obtained from the skull base to T1 vertebra with no contrast. The cervical vertebra have normal alignment. There is degenerative disc space narrowing from C3 to T1 with spurring of the endplates. The facet joints are intact no compression fracture. The prevertebra l soft tissues are intact. The skull base is intact. There is normal aeration of the mastoid sinuses. IMPRESSION: Multilevel mild spondylotic changes. No fracture. No change compared to the old exam.
--- NOTE | 2022-09-23 19:33 | P.PN ---
Progress Note - Text Progress Note Date: 09/23/22 Attempted new MRI w/wo contrast C spine. Pt was unable to lay still once again. He was given 10 of IV valium, 2 of IV dilaudid and PO sedative meds and still was unable to lay still for MRI. CT was done. There is a shadow behind C4 that is poorly characterized on CT scan. Comparing to MRI there is question of mass behind C4 extending from C3 down to C6. Sagittal T2 and T1 however do not provide enough visualization of this. We do not have sedation MRI capabilities as this facility and pt needs a STAT MRI brain and C spine w/wo contrast with sedation. Due to this the pt needs to be immediately transferred to a facility that has Ortho spine or Neurosx along with these MRI capabilities. Per report and pt, he started with weakness in his LUE and LLE which has rapidly progressed since this AM. He was able to lift his shoulder this AM and now he has essentially flaccid paralysis of the LUE with only 2/5 wrist extension and dry heat room attendant. His LLE is also progressively become weaker with 3/5 strength in all major muscle groups except HF which is 2/5. DTR are diminished through 10/27. NO clonus. Neg babinski and neg hoffmans b/l Sensation is still intact at this time C5-T1 and L2-S2 with some minor changes in LUE around C4-5. Due to this clinical presentation, the fact that he was septic when he arrived and continues to appear very ill with these progressive neurologic changes there is suspicion for epidural abscess or mass causing severe stenosis and myelopathy. Recommend immediate transfer to tertiary facility for eval. I spoke with the pt again about this and what to expect and he is on board with plan for transfer, MRI sedated and possibility of surgical intervention.
[2022-09-23 20:25] LABS: Glucose,Whole Blood 98 mg/dL (70-110)
--- NOTE | 2022-09-23 20:44 | PN ---
PROGRESS NOTE HISTORY OF PRESENT ILLNESS: This is a 67-year-old gentleman who is admitted to hospital with coronavirus infection that we were consulted on because of elevated blood pressures. The patient's predominant symptom is in the form of discomfort in the interscapular area and pain involving left upper extremity and not feeling well. The patient had right upper abdominal discomfort and had an abdominal ultrasound for the same. On his initial presentation, he underwent a CT scan of the aorta that was negative for pulmonary embolism and there was no evidence of aortic aneurysm or dissection. PHYSICAL EXAMINATION: VITAL SIGNS: This morning, he is afebrile. Heart rate is 90 beats per minute, blood pressure is 160/70, respiratory rate is 20, O2 saturation is 95% on room air. NECK: There is no jugular venous distention. CHEST: Reveals good air entry bilaterally. HEART: Reveals first and second heart sounds. No gallop. No murmur. ABDOMEN: Soft. EXTREMITIES: Did not reveal any edema. Peripheral pulses are palpable. LABORATORY DATA: Show potassium of 3.8, creatinine is 0.7, hemoglobin is 14.2, platelet count is 170. ASSESSMENT AND PLAN: 1. Neck and left arm pain and interscapular discomfort, management per primary. 2. Uncontrolled hypertension. I am going to increase the dose of Catapres to 0.2 t.i.d. and continue rest of the medications. MMODL / IJN: [id number] /
[2022-09-23] MEDS: METOPROLOL SUCCINATE (ER) 50 MG TAB.ER.24H PO SCH (21:21)
[2022-09-23] MEDS: ATORVASTATIN 20 MG TAB PO SCH (21:21)
[2022-09-23] MEDS: CITALOPRAM HYDROBROMIDE 20 MG TAB PO SCH (21:22)
[2022-09-23 21:36] LABS: Basophils % (A) 0 %; Eosinophils % (A) 0 %; HCT 42.5 % (39.0-53.0); HGB 14.7 gm/dL (13.0-17.5); Lymphocytes # (A) 0.9 k/uL (1.0-4.8); Lymphocytes % (A) 9 %; MCH 30.2 pg (25.0-35.0); MCHC 34.6 g/dL (31.0-37.0); MCV 87.4 fL (80.0-100.0); Mean Platelet Volume 8.7; Monocytes # (A) 0.7 k/uL (0-1.0); Monocytes % (A) 6 %; Neutrophils # (A) 8.4 k/uL (1.3-7.7); Neutrophils % (A) 82 %; Platelet Count 150 k/uL (150-450); RBC 4.87 m/uL (4.30-5.90); WBC 10.2 k/uL (3.8-10.6)
[2022-09-23 22:10] LABS: ALT 41 U/L (4-49); AST 42 U/L (17-59); African American GFR (CKD) >90 (>60 ml/min/1.73 sqM); Albumin 3.2 g/dL (3.5-5.0); Alkaline Phosphatase 85 U/L (38-126); Anion Gap 7 mmol/L; Blood Urea Nitrogen 23 mg/dL (9-20); C Reactive Protein 4.6 mg/dL (<1.0); Carbon Dioxide 25 mmol/L (22-30); Chloride 102 mmol/L (98-107); Glucose 99 mg/dL (74-99); Non-African American GFR(CKD) >90 (>60 ml/min/1.73 sqM); Potassium 3.1 mmol/L (3.5-5.1); Sodium 134 mmol/L (137-145); Total Bilirubin 0.9 mg/dL (0.2-1.3); Total Protein 5.6 g/dL (6.3-8.2)
--- NOTE | 2022-09-23 22:46 | P.CNNES ---
History of Present Illness Consult date: 09/23/22 Requesting physician: Tyler Quevedo Reason for Consult: Increasing left upper extremity weakness History of Present Illness: Patient is a 67-year-old right-handed male with history of lower back surgery in 2011, states that he developed neck pain involving base of the neck extending across the shoulder, that started on 08/30/2022 at 2 PM. The pain was quite sudden. The pain started radiating to both arms, left arm much worse started. Yesterday around noon, he developed weakness of the arms, left side much worse than right. Patient states his left arm pain is 10/10, and he cannot move it at all. The right arm pain is 6/10. Patient states that his both arms feels numb. Denies any symptoms in the lower extremities. Patient has developed bladder control problem. Patient was recently diagnosed with Covid infection. He also complained of fatigue, nausea and vomiting. Patient was also having uncontrolled blood pressure, diagnosed with hypertensive urgency. Patient underwent MRI of the cervical spine without contrast, which revealed technically limited study because of patient motion. There appears to be central stenosis at least moderate in degree extending from C3 4 through C5 6. Poor characterization of the cervical spinal cord, however underlying myelopathy difficult to exclude. MRI of the thoracic spine was limited study given patient motion. Multilevel degenerative disc disease with posterior disc bulge. Patient's blood test shows normal CBC with differential. Sodium is 134, renal functions are normal. AST 77, ALT 48. Troponin was mildly elevated 0.093 TFTs normal. Thoracic aortic CTA revealed no evidence of arterial aneurysm or dissection. Fatty infiltration of the liver. Fat-containing plical hernia. Pericholecystic fluid or wall thickening suggestive of cholecystitis. No evidence of PE. Patient at present appears very uncomfortable, laying in the bed, diagonally. He wants to get up, but his left arm is almost flaccid. Patient has been catheterized. Orthopedic surgery has seen the patient. Review of Systems Not able to assess details because of severe pain, patient uncomfortable, did not cooperate. Most of the review of systems positives mentioned in HPI. Patient denies any symptoms in the lower extremities or genital region. Past Medical History Past Medical History: Hyperlipidemia, Hypertension, Musculoskeletal Disorder, Osteoarthritis (OA), Prostate Disorder Additional Past Medical History / Comment(s): Frequent headaches, usually left side. History of Any Multi-Drug Resistant Organisms: None Reported Past Surgical History: Back Surgery, Orthopedic Surgery, Tonsillectomy Additional Past Surgical History / Comment(s): Left clavicle repaired, right ring finger tendon re-attached, left thumb surgery, pain clinic procedures. Past Anesthesia/Blood Transfusion Reactions: No Reported Reaction Past Psychological History: Anxiety, Depression Smoking Status: Former smoker Past Alcohol Use History: None Reported Additional Past Alcohol Use History / Comment(s): Quit smoking at age 21. Past Drug Use History: None Reported - Past Family History Father Family Medical History: Cancer Medications and Allergies Home Medications Medication Instructions Recorded Confirmed Type Simvastatin [Zocor] 40 mg PO HS 01/28/15 09/19/22 History Tamsulosin HCl [Flomax] 0.8 mg PO HS 01/28/15 09/19/22 History cloNIDine HCL [Catapres] 0.1 mg PO TID 01/28/15 09/19/22 History lisinopriL [Zestril] 10 mg PO HS 01/28/15 09/19/22 History Ondansetron Odt [Zofran ODT] 4 mg PO Q8HR PRN #10 tab 03/23/21 09/19/22 Rx QUEtiapine FUMARATE [SEROquel XR] 50 mg PO HS 03/23/21 09/19/22 History Citalopram Hydrobromide [CeleXA] 20 mg PO HS 01/24/22 09/19/22 History Omeprazole 40 mg PO DAILY 09/19/22 09/19/22 History SUMAtriptan succinate [Imitrex] 50 mg PO DAILY PRN 09/19/22 09/19/22 History traMADol HCL 50 mg PO Q8H PRN 09/19/22 09/19/22 History Allergies Allergy/AdvReac Type Severity Reaction Status Date / Time No Known Allergies Allergy Verified 09/19/22 16:42 Physical Examination - Vital Signs Vital Signs: Vital Signs Temp Pulse Resp BP BP Pulse Ox 09/23/22 18:55 156/86 09/23/22 16:15 98.8 F 95 20 191/101 96 09/23/22 12:00 98.0 F 93 20 177/86 96 09/23/22 08:00 97.7 F 96 22 178/96 96 09/23/22 04:00 98.1 F 91 24 160/79 95 09/23/22 02:00 88 22 09/22/22 23:23 97.9 F 88 22 188/90 95 Intake and Output 09/23/22 09/23/22 09/23/22 06:59 14:59 22:59 Intake Total 360 Output Total 1050 650 Balance -1050 -290 Intake: Oral 360 Output: Urine 1050 650 Straight 700 Uretheral (Wu) 650 Other: Voiding Method Toilet Indwelling Catheter Patient is an elderly male, appears to be in moderate distress because of pain and acute weakness of the left arm. Patient is alert awake oriented to time place and person. Speech and language functions are normal. Patient can name and repeat very well. No aphasia or dysarthria. Attention, concentration is slightly decreased and fund of knowledge is adequate. On cranial nerve examination, pupils are equal, round and reacting to light, visual ha are full on confrontation, with no neglect on double simultaneous stimulation. Extraocular muscles are intact with no nystagmus. Face is symmetr ic, tongue protrudes to the midline. Palatal elevation and sensation normal, hearing and shoulder shrug normal, facial sensation normal. On muscle strength testing, his left arm is flaccid. Muscle strength is (right/left) deltoid 2/0, biceps 3+/1-2, triceps 4+/1-2, turkey egg gatherer 4+5/1, hip flexion 5/4-, knee extension 5/5, ankle dorsiflexion 5/5 adduction 5/5, abduction 5/5. Deep tendon reflexes are symmetric biceps 0, brachioradialis 0, knees 3, ankles 1 and plantars are flat bilaterally. Sensory to touch is decreased in bilateral upper limbs, left worse than right. Sensations equal in the lower limbs. Cerebellar function could not be performed, because of patient's noncooperation. Tone is decreased in the left arm and bulk of muscles normal. Gait deferred.. On general examination, there is no carotid bruit or murmur, S1-S2 audible. Chest is clear on consultation. Abdomen is soft nontender. No organomegaly, bowel sounds present. Peripheral pulses are present. No edema. Results - Laboratory Findings CBC and BMP: 09/23/22 20:36 09/23/22 20:36 Abnormal Lab Findings: Abnormal Labs 1109/19/22 09/19/22 14:42 14:42 14:42 WBC 20.3 H Hgb 17.9 H Neutrophils # 17.7 H Lymphocytes # 0.9 L Monocytes # 1.3 H Sodium Chloride Carbon Dioxide 21 L BUN 24 H Glucose 243 H POC Glucose (mg/dL) Calcium AST ALT Alkaline Phosphatase 163 H Lactate Dehydrogenase Troponin I 0.088 H* Total Protein Albumin Amylase Coronavirus (PCR) 09/19/22 09/19/22 09/20/22 17:49 20:41 09:47 WBC 23.7 H Hgb Neutrophils # 19.9 H Lymphocytes # Monocytes # 1.7 H Sodium Chloride Carbon Dioxide BUN Glucose POC Glucose (mg/dL) Calcium AST ALT Alkaline Phosphatase Lactate Dehydrogenase Troponin I 0.135 H* 0.178 H* Total Protein Albumin Amylase Coronavirus (PCR) 09/20/22 09/20/22 09/20/22 09:47 11:56 12:00 WBC Hgb Neutrophils # Lymphocytes # Monocytes # Sodium Chloride 109 H Carbon Dioxide BUN 26 H Glucose 147 H POC Glucose (mg/dL) 131 H Calcium AST 99 H ALT Alkaline Phosphatase Lactate Dehydrogenase Troponin I Total Protein Albumin Amylase Coronavirus (PCR) Detected A 09/20/22 09/21/22 09/21/22 17:07 01:58 01:58 WBC 18.6 H Hgb Neutrophils # 15.7 H Lymphocytes # Monocytes # 1.2 H Sodium Chloride Carbon Dioxide BUN 25 H Glucose 134 H POC Glucose (mg/dL) 133 H Calcium AST 130 H ALT 51 H Alkaline Phosphatase Lactate Dehydrogenase 914 H Troponin I Total Protein Albumin Amylase 120 H Coronavirus (PCR) 09/21/22 09/21/22 09/21/22 01:58 06:10 08:52 WBC 15.1 H Hgb Neutrophils # 12.6 H Lymphocytes # Monocytes # Sodium Chloride Carbon Dioxide BUN Glucose POC Glucose (mg/dL) 113 H Calcium AST ALT Alkaline Phosphatase Lactate Dehydrogenase Troponin I 0.093 H* Total Protein Albumin Amylase Coronavirus (PCR) 09/21/22 09/21/22 09/21/22 08:52 16:59 20:24 WBC Hgb Neutrophils # Lymphocytes # Monocytes # Sodium Chloride Carbon Dioxide BUN 24 H Glucose 132 H POC Glucose (mg/dL) 113 H 123 H Calcium 8.2 L AST 124 H ALT 53 H Alkaline Phosphatase Lactate Dehydrogenase Troponin I Total Protein Albumin Amylase Coronavirus (PCR) 09/22/22 09/22/22 09/22/22 06:15 08:23 11:40 WBC Hgb Neutrophils # Lymphocytes # Monocytes # Sodium 134 L Chloride Carbon Dioxide BUN Glucose 156 H POC Glucose (mg/dL) 114 H 151 H Calcium 7.8 L AST 77 H ALT Alkaline Phosphatase Lactate Dehydrogenase Troponin I Total Protein 5.8 L Albumin 3.3 L Amylase Coronavirus (PCR) 09/22/22 09/22/22 09/23/22 16:54 20:45 06:28 WBC Hgb Neutrophils # Lymphocytes # Monocytes # Sodium Chloride Carbon Dioxide BUN Glucose POC Glucose (mg/dL) 147 H 125 H 130 H Calcium AST ALT Alkaline Phosphatase Lactate Dehydrogenase Troponin I Total Protein Albumin Amylase Coronavirus (PCR) 09/23/22 09/23/22 09/23/22 08:06 11:51 20:36 WBC Hgb Neutrophils # 8.4 H Lymphocytes # 0.9 L Monocytes # Sodium Chloride Carbon Dioxide BUN Glucose POC Glucose (mg/dL) 112 H 122 H Calcium AST ALT Alkaline Phosphatase Lactate Dehydrogenase Troponin I Total Protein Albumin Amylase Coronavirus (PCR) Assessment and Plan Assessment: * Acute onset of neck pain and bilateral shoulder pain followed by progressive muscle weakness of bilateral upper limbs, left much worse than right. Reflexes are diminished in the upper limbs. MRI of the cervical spine without contrast revealed significant cord edema extending from middle of the body of C2 vertebra down to the lower level of C7 vertebra. Possibility of secondary syrinx also noticed. Imaging is highly suggestive of possible epidural abscess versus epidural hematoma versus transverse myelitis. Patient's temperature and WBC count are normal, which are against infectious process. * History of back surgery. * Acute Covid-19 infection. * Hypertension * Hyperlipidemia * History of migraines Plan: * Patient needs stat MRI of the cervical spine with and without contrast. Patient may need MRI under sedation. Orthopedic surgery has seen the patient, recommending transfer to a higher level of care for MRI under sedation, and for neurosurgical consultation. * Patient currently on Unasyn 3 g IV PB every 6 hours. * ESR, CRP * Suggest urgent consultation with infectious disease. * Discussed with Dr. Hampton. As patient not able to have MRI of the cervical spine with and without contrast, he wants to transfer patient to high er level of care. Discussed about adding vancomycin and possibility of Decadron. * Checked axillary temperature, was 98.8, with oral temperature 97.6. We will empirically give Decadron 10 mg stat and then 4 mg every 6 hours. This is because of significant cord swelling noted on the MRI, and benefits outweigh the risks. Will add vancomycin, pharmacy to dose. * Patient is a high fall risk. * DVT prophylaxis: Patient on Lovenox. * Patient awaiting transfer to higher level of care. Neurology will follow. Thank you for the consult. Time with Patient: Greater than 30
[2022-09-23] MEDS ORDERED: DEXAMETHASONE SOD PHOSPHATE 10 MG/ML 1 ML VIAL IVP STA (22:50)
[2022-09-23] MEDS ORDERED: VANCOMYCIN 1,500 MG in SODIUM CHLORIDE 0.9% 500 ML 500 ML IVPB ONE (23:00)
[2022-09-23] MEDS ORDERED: VANCOMYCIN IV PER PHARMACY 1 EACH MISC MISCELLANE SCH (23:00)
[2022-09-24] MEDS: AMPICILLIN-SULBACTAM 3 GM in SODIUM CHLORIDE 0.9% 100 ML IVPB SCH ×3 (02:08→14:04)
[2022-09-24] MEDS: MORPHINE SULFATE 4 MG/ML SYRINGE IVP PRN ×3 (04:35→17:41)
[2022-09-24 06:09] LABS: Glucose,Whole Blood 112 mg/dL (70-110)
[2022-09-24] MEDS: SODIUM CHLORIDE 0.9% 1,000 ML IV SCH ×2 (06:26→19:00)
[2022-09-24] MEDS: DEXAMETHASONE SOD PHOSPHATE 4 MG/ML 1 ML VIAL IVP SCH ×3 (06:33→17:41)
[2022-09-24] MEDS: PANTOPRAZOLE 40 MG TABLET PO SCH (06:35)
[2022-09-24 08:19] LABS: ALT 42 U/L (4-49); AST 40 U/L (17-59); African American GFR (CKD) >90 (>60 ml/min/1.73 sqM); Albumin 3.2 g/dL (3.5-5.0); Alkaline Phosphatase 81 U/L (38-126); Anion Gap 7 mmol/L; Blood Urea Nitrogen 21 mg/dL (9-20); Calcium 7.8 mg/dL (8.4-10.2); Carbon Dioxide 24 mmol/L (22-30); Chloride 104 mmol/L (98-107); Creatine Kinase 83 U/L (55-170); Glucose 113 mg/dL (74-99); Non-African American GFR(CKD) >90 (>60 ml/min/1.73 sqM); Potassium 3.3 mmol/L (3.5-5.1); Sodium 135 mmol/L (137-145); Total Bilirubin 0.9 mg/dL (0.2-1.3); Total Protein 5.6 g/dL (6.3-8.2)
[2022-09-24 08:40] LABS: Basophils % (A) 0 %; Eosinophils % (A) 0 %; HCT 42.4 % (39.0-53.0); HGB 14.6 gm/dL (13.0-17.5); Lymphocytes # (A) 0.6 k/uL (1.0-4.8); Lymphocytes % (A) 8 %; MCHC 34.4 g/dL (31.0-37.0); MCV 87.2 fL (80.0-100.0); Mean Platelet Volume 8.4; Monocytes # (A) 0.2 k/uL (0-1.0); Monocytes % (A) 3 %; Neutrophils # (A) 6.8 k/uL (1.3-7.7); Neutrophils % (A) 88 %; Platelet Count 164 k/uL (150-450); RBC 4.86 m/uL (4.30-5.90); RDW 13.9 % (11.5-15.5); WBC 7.7 k/uL (3.8-10.6)
--- NOTE | 2022-09-24 10:06 | P.PN ---
Subjective Progress Note Date: 09/24/22 Principal diagnosis: mid/low back pain Left upper extremity weakness Left lower extremity weakness Patient seen and examined at bedside. Patient is resting in bed. He states bre t he feels his symptoms have progressed, unable to lift left arm and unable to tell if he is gripping your hand. He is able to bring left knee up in bed, but unable to lift leg off of bed. Patient does confirm sensation to both left upper and left lower extremities. Patient states that he was notified he was being transferred to [facility], currently awaiting bed. Patient denies any fever/chills, nausea/vomiting, or chest pain. Objective - Vital Signs Vital signs: Vital Signs Temp 98.7 F 09/24/22 04:00 Pulse 82 09/24/22 04:00 Resp 22 09/24/22 04:00 BP 165/89 09/24/22 04:00 Pulse Ox 94 L 09/24/22 04:00 FiO2 Intake & Output 09/23/22 09/24/22 09/24/22 18:59 06:59 18:59 Intake Total 360 Output Total 650 800 Balance -290 -800 Intake: Oral 360 Output: Urine 650 800 Uretheral (Wu) 650 Other: Voiding Method Indwelling Catheter Indwelling Catheter - Exam Patient states he started with weakness in his LUE and LLE which has rapidly progressed since yesterday morning 09/23/22. He is unable to lift his shoulder this AM and now he has essentially flaccid paralysis of the LUE with only 1/5 wrist extension and senior field engineer. His LLE is also progressively become weaker with 3/5 strength in all major muscle groups except HF which is 2/5. DTR are diminished through 10/27. NO clonus, Neg babinski, and Neg hoffmans bilateral. Sensation is still intact at this time C5-T1 and L2-S2 with some minor changes in LUE around C4-5. - Labs CBC & Chem 7: 09/24/22 07:33 09/24/22 07:33 Labs: Abnormal Lab Results - Last 24 Hours (Table) 09/23/22 09/23/22 09/23/22 Range/Units 11:51 20:36 20:36 Neutrophils # 8.4 H (1.3-7.7) k/uL Lymphocytes # 0.9 L (1.0-4.8) k/uL Sodium 134 L (137-145) mmol/L Potassium 3.1 L (3.5-5.1) mmol/L BUN 23 H (9-20) mg/dL Glucose (74-99) mg/dL POC Glucose (mg/dL) 122 H (70-110) mg/dL Calcium 8.0 L (8.4-10.2) mg/dL C-Reactive Protein 4.6 H (<1.0) mg/dL Total Protein 5.6 L (6.3-8.2) g/dL Albumin 3.2 L (3.5-5.0) g/dL 09/24/22 09/24/22 Range/Units 06:07 07:33 Neutrophils # (1.3-7.7) k/uL Lymphocytes # (1.0-4.8) k/uL Sodium 135 L (137-145) mmol/L Potassium 3.3 L (3.5-5.1) mmol/L BUN 21 H (9-20) mg/dL Glucose 113 H (74-99) mg/dL POC Glucose (mg/dL) 112 H (70-110) mg/dL Calcium 7.8 L (8.4-10.2) mg/dL C-Reactive Protein (<1.0) mg/dL Total Protein 5.6 L (6.3-8.2) g/dL Albumin 3.2 L (3.5-5.0) g/dL Assessment and Plan Assessment: Mid to low back pain Left upper extremity weakness Left lower extremity weakness Plan: Plan: -Appreciate clothing consultant and team management. -Pain control: Adequate at this time -Dispo: Recommend immediate transfer to tertiary facility for evaluation *I reviewed and discussed this case with my attending Dr. Hampton, whom has reviewed this chart and films and is in agreement with assessment and plan of care as outlined above. I have personally seen and examined the patient, performed the documentation and the assessment and plan as written. Number of minutes spent on the visit: 15m.
[2022-09-24] MEDS: VALSARTAN 160 MG TAB PO SCH ×2 (10:21→21:05)
[2022-09-24] MEDS: TAMSULOSIN 0.4 MG CAP.ER.24H PO SCH (10:21)
[2022-09-24] MEDS: cloNIDine HCL 0.2 MG TAB PO SCH ×3 (10:21→21:04)
[2022-09-24] MEDS: diazePAM 5 MG TAB PO SCH ×2 (10:21→21:12)
[2022-09-24] MEDS: amLODIPine 5 MG TAB PO SCH ×2 (10:21→21:04)
[2022-09-24] MEDS: ENOXAPARIN 40 MG/0.4 ML SYRINGE SQ SCH (10:22)
[2022-09-24] MEDS: VANCOMYCIN 1,500 MG in SODIUM CHLORIDE 0.9% 500 ML 500 ML IVPB SCH ×2 (10:22→21:03)
[2022-09-24] MEDS: QUEtiapine 25 MG TAB PO SCH ×2 (10:22→21:04)
--- NOTE | 2022-09-24 11:01 | P.PN ---
Subjective Progress Note Date: 09/24/22 CHIEF COMPLAINT: Back pain HISTORY OF PRESENT ILLNESS: Patient reports worsening neck and back pain. He has difficulty neck and back pain. He continues to have worsening mobility in the left arm. He is now having difficulty moving the left leg. Patient has been seen by spinal service. They're recommending transfer to a tertiary care center due to possible epidural abscess/mass. Patient denies any abdominal pain. Denies any nausea or vomiting. Afebrile. WBC is 7.7 Hgb 14.6 platelets 164 sodium is 135 potassium 3.3 creatinine 0.71 PHYSICAL EXAM: VITAL SIGNS: Reviewed. GENERAL: Well-developed in no acute distress. ABDOMEN: Soft. Nondistended. Nontender. NEUROLOGIC: Alert and oriented. Cranial nerves II through XII grossly intact. ASSESSMENT: 1. Gallbladder wall thickening with pericholecystic fluid noted on abdominal ultrasound and CT. Denies RUQ abdominal pain 2. Covid 19 positive 3. Fat-containing umbilical hernia 4. Hypertensive urgency managed by cardiology 5. Headache, neck, shoulder and back pain PLAN: -Agree with transfer to tertiary care center -Appreciate spinal service recommendations -Patient's symptoms are not consistent with cholecystitis -Continue supportive care -No surgical intervention planned Physician Dye And Chemical Coordinator note has been reviewed by physician. Signing provider agrees with the documented findings, assessment, and plan of care. I have personally seen and examined the patient, reviewed the BODY DIE MAKER /PAs history, exam and MDM and agree with the assessment and plan as written. Based on total visit time, I have performed more than 50% of the visit. As above: Patient's MRI yesterday and unfortunately was nondiagnostic. [facility] advising tertiary care transfer. No abdominal discomfort. No general surgery intervention required at this time. We'll sign off. Please call if needed. Objective - Vital Signs Vital signs: Vital Signs Temp 98.7 F 09/24/22 04:00 Pulse 82 09/24/22 04:00 Resp 22 09/24/22 04:00 BP 165/89 09/24/22 04:00 Pulse Ox 94 L 09/24/22 04:00 FiO2 Intake & Output 09/23/22 09/24/22 09/24/22 18:59 06:59 18:59 Intake Total 360 Output Total 650 800 Balance -290 -800 Intake: Oral 360 Output: Urine 650 800 Uretheral (Wu) 650 Other: Voiding Method Indwelling Catheter Indwelling Catheter - Labs CBC & Chem 7: 09/24/22 07:33 09/24/22 07:33 Labs: Abnormal Lab Results - Last 24 Hours (Table) 09/23/22 09/23/22 09/23/22 Range/Units 11:51 20:36 20:36 Neutrophils # 8.4 H (1.3-7.7) k/uL Lymphocytes # 0.9 L (1.0-4.8) k/uL Sodium 134 L (137-145) mmol/L Potassium 3.1 L (3.5-5.1) mmol/L BUN 23 H (9-20) mg/dL Glucose (74-99) mg/dL POC Glucose (mg/dL) 122 H (70-110) mg/dL Calcium 8.0 L (8.4-10.2) mg/dL C-Reactive Protein 4.6 H (<1.0) mg/dL Total Protein 5.6 L (6.3-8.2) g/dL Albumin 3.2 L (3.5-5.0) g/dL 09/24/22 09/24/22 09/24/22 Range/Units 06:07 07:33 07:33 Neutrophils # (1.3-7.7) k/uL Lymphocytes # 0.6 L (1.0-4.8) k/uL Sodium 135 L (137-145) mmol/L Potassium 3.3 L (3.5-5.1) mmol/L BUN 21 H (9-20) mg/dL Glucose 113 H (74-99) mg/dL POC Glucose (mg/dL) 112 H (70-110) mg/dL Calcium 7.8 L (8.4-10.2) mg/dL C-Reactive Protein (<1.0) mg/dL Total Protein 5.6 L (6.3-8.2) g/dL Albumin 3.2 L (3.5-5.0) g/dL
[2022-09-24 11:46] LABS: Glucose,Whole Blood 108 mg/dL (70-110)
[2022-09-24 16:25] LABS: Glucose,Whole Blood 102 mg/dL (70-110)
[2022-09-24] MEDS: cloNIDine HCL 0.1 MG TAB PO SCH (19:00)
[2022-09-24 20:08] LABS: Glucose,Whole Blood 103 mg/dL (70-110)
[2022-09-24] MEDS: METOPROLOL SUCCINATE (ER) 50 MG TAB.ER.24H PO SCH (21:04)
[2022-09-24] MEDS: ATORVASTATIN 20 MG TAB PO SCH (21:04)
[2022-09-24] MEDS: CITALOPRAM HYDROBROMIDE 20 MG TAB PO SCH (21:04)
[2022-09-24] MEDS: KETOROLAC 15 MG/ML 1 ML VIAL IVP PRN (21:04)
--- NOTE | 2022-09-24 23:19 | P.CONS ---
History of Present Illness - Reason for Consult Consult date: 09/24/22 - History of Present Illness Patient is a 67-year-old male presenting to the ER 6 days ago on 09/19/2022 with concern for neck pain and left arm pain radiation patient also complaining of feeling fatigued did have an episode of nausea vomiting and apparently the patient also have a positive COVID test at home with the symptom the patient was evaluated by ER physician on arrival to the ER the patient was afebrile and the patient did not have any fever afterwards patient did have white count of 20,000 on admission however the patient white count has subsequent normalized did have elevated BUN/creatinine was normal liver enzymes are normal did have a positive COVID test no blood culture was done patient did have thoracic aorta CT no evidence of arterial aneurysm or dissection gallbladder ultrasound no gallstones or gallbladder wall thickening suggestive cholecystitis no dilated duct patient has been evaluated by general surgery with no surgical intervention planned patient noticed to have worsening left upper extremity weakness and start developing weakness to the right arm for the patient was evaluated by neurology and spine surgery patient did have a cervical and thoracic spine MRI however was limited because of motion artifact multilevel degenerative disc disease cervical spine CT multilevel mild spondylitic changes no fracture patient is currently empirically treated with Unasyn and vancomycin infectious disease was consulted with concern for possible cervical spine hematoma versus abscess, patient mention his symptoms started the day of presentation to the hospital and denies having any history of any trauma never have similar episode in the past, mostly complaining of pain to the neck radiating to the left upper arm along with weakness to the left arm describing the pain to be more of a dull aching to sharp almost 7-8 out of 10 on a blood work the patient did have a sed rate of 6 and a CRP of 4.6 Past Medical History Past Medical History: Hyperlipidemia, Hypertension, Musculoskeletal Disorder, Osteoarthritis (OA), Prostate Disorder Additional Past Medical History / Comment(s): Frequent headaches, usually left side. History of Any Multi-Drug Resistant Organisms: None Reported Past Surgical History: Back Surgery, Orthopedic Surgery, Tonsillectomy Additional Past Surgical History / Comment(s): Left clavicle repaired, right ring finger tendon re-attached, left thumb surgery, pain clinic procedures. Past Anesthesia/Blood Transfusion Reactions: No Reported Reaction Past Psychological History: Anxiety, Depression Smoking Status: Former smoker Past Alcohol Use History: None Reported Additional Past Alcohol Use History / Comment(s): Quit smoking at age 21. Past Drug Use History: None Reported - Past Family History Father Family Medical History: Cancer Medications and Allergies Home Medications Medication Instructions Recorded Confirmed Type Simvastatin [Zocor] 40 mg PO HS 01/28/15 09/19/22 History Tamsulosin HCl [Flomax] 0.8 mg PO HS 01/28/15 09/19/22 History cloNIDine HCL [Catapres] 0.1 mg PO TID 01/28/15 09/19/22 History lisinopriL [Zestril] 10 mg PO HS 01/28/15 09/19/22 History Ondansetron Odt [Zofran ODT] 4 mg PO Q8HR PRN #10 tab 03/23/21 09/19/22 Rx QUEtiapine FUMARATE [SEROquel XR] 50 mg PO HS 03/23/21 09/19/22 History Citalopram Hydrobromide [CeleXA] 20 mg PO HS 01/24/22 09/19/22 History Omeprazole 40 mg PO DAILY 09/19/22 09/19/22 History SUMAtriptan succinate [Imitrex] 50 mg PO DAILY PRN 09/19/22 09/19/22 History traMADol HCL 50 mg PO Q8H PRN 09/19/22 09/19/22 History Allergies Allergy/AdvReac Type Severity Reaction Status Date / Time No Known Allergies Allergy Verified 09/19/22 16:42 Physical Exam Vitals: Vital Signs Temp Pulse Resp BP Pulse Ox 09/24/22 04:00 98.7 F 82 22 165/89 94 L 09/24/22 02:00 26 H 09/24/22 00:00 80 26 H 161/78 96 09/23/22 22:49 97.9 F 09/23/22 20:00 98.2 F 80 26 H 170/77 95 09/23/22 18:55 156/86 09/23/22 16:15 98.8 F 95 20 191/101 96 Intake and Output 09/23/22 09/24/22 09/24/22 22:59 06:59 14:59 Output Total 800 500 Balance -800 -500 Output: Urine 800 500 Other: Voiding Method Indwelling Catheter Indwelling Catheter Results CBC & Chem 7: 09/24/22 07:33 09/24/22 07:33 Labs: Abnormal Lab Results - Last 24 Hours (Table) 09/23/22 09/23/22 09/24/22 Range/Units 20:36 20:36 06:07 Neutrophils # 8.4 H (1.3-7.7) k/uL Lymphocytes # 0.9 L (1.0-4.8) k/uL Sodium 134 L (137-145) mmol/L Potassium 3.1 L (3.5-5.1) mmol/L BUN 23 H (9-20) mg/dL Glucose (74-99) mg/dL POC Glucose (mg/dL) 112 H (70-110) mg/dL Calcium 8.0 L (8.4-10.2) mg/dL C-Reactive Protein 4.6 H (<1.0) mg/dL Total Protein 5.6 L (6.3-8.2) g/dL Albumin 3.2 L (3.5-5.0) g/dL 09/24/22 09/24/22 Range/Units 07:33 07:33 Neutrophils # (1.3-7.7) k/uL Lymphocytes # 0.6 L (1.0-4.8) k/uL Sodium 135 L (137-145) mmol/L Potassium 3.3 L (3.5-5.1) mmol/L BUN 21 H (9-20) mg/dL Glucose 113 H (74-99) mg/dL POC Glucose (mg/dL) (70-110) mg/dL Calcium 7.8 L (8.4-10.2) mg/dL C-Reactive Protein (<1.0) mg/dL Total Protein 5.6 L (6.3-8.2) g/dL Albumin 3.2 L (3.5-5.0) g/dL Assessment and Plan Plan: 1patient presented to hospital with a neck pain with radiation to the left arm and now with development of left arm weakness concerning for possible cervical spine disease possible compression could be related to mass hematoma in this patient clinically not behaving as an abscess with no fever patient did have a normal sed rate and CRP not significantly elevated. 2patient will benefit from urgent surgery for the patient is currently awaiting transfer to [facility] as per discussion with the patient nurse as well as admitting physician. 3we will obtain blood cultures and may continue empiric antibiotics while waiting for the work-up to be completed. We will follow on clinical condition and cultures to further adjust medication if needed Thank you for this consultation will follow this patient along with you Time with Patient: Greater than 30
--- NOTE | 2022-09-24 23:42 | PN ---
PROGRESS NOTE SUBJECTIVE: Hai is a 67-year-old gentleman who is awaiting transfer to [facility] for possible epidural abscess, they have not been able to do an MRI because of sedation related issues. Blood pressure is still poorly controlled, but seems to be mostly related to pain. If necessary, increase the dose of Catapres to 0.3 t.i.d. I am going to follow the patient on an as-needed basis at this time. MMODL / IJN: [id number] /
[2022-09-25] MEDS: DEXAMETHASONE SOD PHOSPHATE 4 MG/ML 1 ML VIAL IVP SCH ×4 (00:01→17:40)
[2022-09-25] MEDS: AMPICILLIN-SULBACTAM 3 GM in SODIUM CHLORIDE 0.9% 100 ML IVPB SCH ×4 (00:01→13:36)
[2022-09-25] MEDS: KETOROLAC 15 MG/ML 1 ML VIAL IVP PRN ×3 (02:59→15:12)
[2022-09-25 04:31] VITALS: RESP 18
[2022-09-25 06:14] LABS: Glucose,Whole Blood 116 mg/dL (70-110)
[2022-09-25] MEDS ORDERED: Potassium Replacement Protocol 1 EACH MISC MISCELLANE PRN (06:36)
[2022-09-25] MEDS: SODIUM CHLORIDE 0.9% 1,000 ML IV SCH (06:42)
[2022-09-25] MEDS: PANTOPRAZOLE 40 MG TABLET PO SCH (06:42)
[2022-09-25] MEDS: amLODIPine 5 MG TAB PO SCH (08:33)
[2022-09-25] MEDS: ENOXAPARIN 40 MG/0.4 ML SYRINGE SQ SCH (08:33)
[2022-09-25] MEDS: TAMSULOSIN 0.4 MG CAP.ER.24H PO SCH (08:33)
[2022-09-25] MEDS: POTASSIUM CHLORIDE ER 20 MEQ TAB.ER PO SCH ×2 (08:33→09:25)
[2022-09-25] MEDS: VALSARTAN 160 MG TAB PO SCH (08:33)
[2022-09-25] MEDS: cloNIDine HCL 0.2 MG TAB PO SCH ×2 (08:33→15:13)
[2022-09-25] MEDS: QUEtiapine 25 MG TAB PO SCH (08:33)
[2022-09-25] MEDS: diazePAM 5 MG TAB PO SCH (08:33)
[2022-09-25] MEDS: MORPHINE SULFATE 4 MG/ML SYRINGE IVP PRN ×3 (09:24→17:40)
[2022-09-25] MEDS: VANCOMYCIN 1,500 MG in SODIUM CHLORIDE 0.9% 500 ML 500 ML IVPB SCH (09:25)
--- NOTE | 2022-09-25 10:54 | P.PN ---
Subjective Progress Note Date: 09/23/22 HISTORY OF PRESENT ILLNESS This is a 67-year-old male patient with past mental history of hyperlipidemia, hypertension, enlarged prostate, migraine headaches with aura, recurrent depres robert, neuropathy. Patient gives history that he developed significant headache and vomiting over the weekend and was unable to take his medications and unable to control his symptoms with worsening, subsequently developed pain in his shoulder blades radiating up into his neck. Patient also presented with urinary retention.EKG reveals sinus rhythm, heart rate 99. CT angiogram of the thorax abdomen and pelvis aortogram revealed no evidence of arterial aneurysm or dissection. Fatty infiltration of the liver. Fat-containing umbilical hernia.. Cholecystic fluid or wall thickening suggestive cholecystitis. No evidence of pulmonary embolism. Gallbladder ultrasound revealed no gallstones. Gallbladder wall thickening suggestive cholecystitis. No dilated ducts. Mild. Cholecystic fluid. Laboratory studies: Troponin is 0.088, 0.135, 0.178. WBC 23.7, hemoglobin 16.3, platelet count 281. BUN 26 and creatinine 1.04.Coronavirus PCR positive Patient was started on IV pain medications as well as IV antihypertensive with only minimal brief improvement of blood pressure. He continues to have pain in the shoulder blades and neck as well as urinary retention. Home medications will be resumed as patient is now able to take oral medications after Zofran which is been effective. Cardiology consult is in place for elevated troponins. 09/21 Patient continued to have significant upper back pain radiating to the shoulder blades and neck as well as hypertension through the night medication changes were made to add in valsartan, discontinue lisinopril, and in Toprol-XL. We will add in amlodipine this morning. Patient has been able to void on his own and urinary retention is resolved. Repeat blood work reveals WBC 15.1, hemoglobin 15.1. BUN 24 creatinine 0.77. AST 124 and ALT 53. Patient has been seen by general surgery with plan to continue antibiotics, low-fat diet and supportive care. Patient has been afebrile, heart rate 70, blood pressure 157/94, pulse ox 97% on 2 L nasal cannula. 09/22 Patient continues to have significant pain between shoulder blades radiating up into his neck as well as headache for which he is on Dilaudid and started on Flexeril. Flexeril will be changed to Robaxin 500 mg 3 times daily. He denies abdominal pain. Urinary retention has resolved. Blood pressure remains elevated despite medication adjustments. cardiac monitor technician is a sinus rhythm. Heart rate is running in the 60s, blood pressure 181/95. Amlodipine increased to 5 mg twice daily. Repeat blood work is normal CBC, creatinine 0.77. AST 77 other liver enzymes normal. 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 Hampton which he feels that the patient need to be moved out as soon as possible patient was seen in consultation by infectious disease Dr. Mercado who recommended to continue vancomycin along with Unasyn and he was seen in consultation by neurology who started the patient on Decadron 6 g IV push 1 followed by 6 mg IV push every 6 hours, unfortunately patient is getting worse, he had a Wu catheter placed and due to his urinary retention as well, REVIEW OF SYSTEMS Constitutional: No fever, no chills, no night sweats. No weight change. significant weakness in the left upper and lower extremities fatigue or lethargy. No daytime sleepiness. HEENT: Reports headache. No blurred vision or double vision, no loss of vision. No loss of Hearing, no ringing in the ears, no dizziness. No nasal drainage or congestion. No epistaxis. No sore throat. Lungs: No shortness of breath, cough, no sputum production. No wheezing. Cardiovascular: No chest pain, positive for lower extremity edema. No palpitations. No paroxysmal nocturnal dyspnea. No orthopnea. No lightheadedness or dizziness. No syncopal episodes. Abdominal: No abdominal pain. Reports nausea improved, reports vomiting resolved. No diarrhea. positive for constipation. No bloody or tarry stools. No loss of appetite. Genitourinary: No dysuria, increased frequency, urgency. Reports urinary retention, resolved. Musculoskeletal: No myalgias. left upper extremity and left lower extremity weakness, positive for gait dysfunction, no frequent falls. Reports upper back and neck pain. Integumentary: No wounds, no lesions. No rash or pruritus. No unusual bruising. Neurologic: No aphasia. No facial droop. No change in mentation. No head injury. No headache. No paralysis. No paresthesia. Psychiatric: positive for depression. No anxiety. No mood swings. Endocrine: No abnormal blood sugars. No weight change. No excessive sweating or thirst. No cold intolerance. PHYSICAL EXAMINATION Gen: This is a 67-year-old male. He resting in bed appears to be in mild distress HEENT: Head is atraumatic, normocephalic. Pupils equal, round. Sclerae is anicteric. Oral mucous membranes somewhat dry. NECK: Supple. No JVD. LUNGS: Decreased breath sounds at the bases, few rhonchi, no expiratory wheezes, no chest wall tenderness, no intercostal retractions. HEART: first heart sound is depressed, second heart sound is normal, there is no gallop. ABDOMEN: Soft, moderate distention, no significant tenderness, no rebound or guarding, positive bowel sounds. EXTREMITIES: +1 pedal edema. No calf tenderness. Dorsalis pedis +2 bilaterally. NEUROLOGICAL: Patient is awake, alert and oriented x3, left upper extremity weakness, left lower extremity weakness, decreased if tender flexes, right upper extremity weakness right lower extremity with good muscle strength 5 out of 5, ASSESSMENT AND PLAN 1. Accelerated Hypertension. Continue patient on Norvasc 5 mg twice daily, clonidine 0.1 mg 3 times daily, Toprol-XL 50 mg at bedtime, valsartan 160 mg twice daily, hydralazine available IV push as needed for systolic blood pressure greater than 160, cardiology consult appreciated. 2. Cervical spine cord edema between C2 and C7 and possible epidural abscess versus hematoma. With secondary syrinx. Continue patient on Decadron 6 mg IV push every 6 hours, continue vancomycin with pharmacy to dose its peak and trough, continue Unasyn 3 g IV piggyback every 6 hours, a consultation with the [facility] neurosurgery was obtained over the last 48 hours, patient will need to be moved as soon as possible to a tertiary care center for intervention since he would need to be seen by spine surgeon based on the recommendation of our local physician we are still awaiting the bed availability at this time. 3. Urinary retention. 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 Continue Wu catheter for now. 4. type II myocardial injury likely related to sepsis due to possible epidural abscess versus COVID-19 .patient was seen in consultation by cardiology continue patient on Toprol XL 50 mg orally once every day, patient will need to be seen as an outpatient for possible stress testing. 5. Acute cholecystitis. Continue patient on Unasyn 3 g IV piggyback every 6 hours, patient was seen by general surgery Dr. Whitehead at this point patient is not requiring any surgical intervention. 6. Gastroesophageal reflux disease. Continue Protonix 40 mg orally once every day. 7. DVT prophylaxis. Lovenox 40 mg subcu daily. 8. Recurrent depression. Continue Seroquel 25 mg twice daily along with citalopram 20 mg orally once every day. 9. COVID-19 testing positive. patient does not have any significant respiratory distress due to that. 10. Patient is no code per his request. Objective - Vital Signs Vital signs: Vital Signs Temp 98.8 F 09/23/22 16:15 Pulse 95 09/23/22 16:15 Resp 20 09/23/22 16:15 BP 156/86 09/23/22 18:55 Pulse Ox 96 09/23/22 16:15 FiO2 Intake & Output 09/23/22 09/23/22 09/24/22 06:59 18:59 06:59 Intake Total 360 Output Total 1050 650 Balance -1050 -290 Intake: Oral 360 Output: Urine 1050 650 Straight 700 Uretheral (Wu) 650 Other: Voiding Method Toilet Indwelling Catheter # Voids 1 - Labs CBC & Chem 7: 09/24/22 07:33 09/24/22 07:33 Labs: Abnormal Lab Results - Last 24 Hours (Table) 09/22/22 09/23/22 09/23/22 Range/Units 20:45 06:28 08:06 POC Glucose (mg/dL) 125 H 130 H 112 H (70-110) mg/dL 09/23/22 Range/Units 11:51 POC Glucose (mg/dL) 122 H (70-110) mg/dL
--- NOTE | 2022-09-25 10:56 | P.PN ---
Subjective Progress Note Date: 09/24/22 HISTORY OF PRESENT ILLNESS This is a 67-year-old male patient with past mental history of hyperlipidemia, hypertension, enlarged prostate, migraine headaches with aura, recurrent depres robert, neuropathy. Patient gives history that he developed significant headache and vomiting over the weekend and was unable to take his medications and unable to control his symptoms with worsening, subsequently developed pain in his shoulder blades radiating up into his neck. Patient also presented with urinary retention.EKG reveals sinus rhythm, heart rate 99. CT angiogram of the thorax abdomen and pelvis aortogram revealed no evidence of arterial aneurysm or dissection. Fatty infiltration of the liver. Fat-containing umbilical hernia.. Cholecystic fluid or wall thickening suggestive cholecystitis. No evidence of pulmonary embolism. Gallbladder ultrasound revealed no gallstones. Gallbladder wall thickening suggestive cholecystitis. No dilated ducts. Mild. Cholecystic fluid. Laboratory studies: Troponin is 0.088, 0.135, 0.178. WBC 23.7, hemoglobin 16.3, platelet count 281. BUN 26 and creatinine 1.04.Coronavirus PCR positive Patient was started on IV pain medications as well as IV antihypertensive with only minimal brief improvement of blood pressure. He continues to have pain in the shoulder blades and neck as well as urinary retention. Home medications will be resumed as patient is now able to take oral medications after Zofran which is been effective. Cardiology consult is in place for elevated troponins. 09/21 Patient continued to have significant upper back pain radiating to the shoulder blades and neck as well as hypertension through the night medication changes were made to add in valsartan, discontinue lisinopril, and in Toprol-XL. We will add in amlodipine this morning. Patient has been able to void on his own and urinary retention is resolved. Repeat blood work reveals WBC 15.1, hemoglobin 15.1. BUN 24 creatinine 0.77. AST 124 and ALT 53. Patient has been seen by general surgery with plan to continue antibiotics, low-fat diet and supportive care. Patient has been afebrile, heart rate 70, blood pressure 157/94, pulse ox 97% on 2 L nasal cannula. 09/22 Patient continues to have significant pain between shoulder blades radiating up into his neck as well as headache for which he is on Dilaudid and started on Flexeril. Flexeril will be changed to Robaxin 500 mg 3 times daily. He denies abdominal pain. Urinary retention has resolved. Blood pressure remains elevated despite medication adjustments. animal stunner is a sinus rhythm. Heart rate is running in the 60s, blood pressure 181/95. Amlodipine increased to 5 mg twice daily. Repeat blood work is normal CBC, creatinine 0.77. AST 77 other liver enzymes normal. 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 Hampton which he feels that the patient need to be moved out as soon as possible patient was seen in consultation by infectious disease Dr. Mercado who recommended to continue vancomycin along with Unasyn and he was seen in consultation by neurology who started the patient on Decadron 6 g IV push 1 followed by 6 mg IV push every 6 hours, unfortunately patient is getting worse, he had a Wu catheter placed and due to his urinary retention as well. 09/24: I had a long conversation with Dr. Martino intervention of neurosurgery at yesterday and we had accelerated the transfer process and he is going to the ICU intervention of neurology hopefully in the next 24 hours according to the transfer team, patient meanwhile will be maintained on Unasyn and vancomycin, he has been followed by spine surgery and infectious disease, and neurology, continue with current treatment plan with Decadron 64 mg IV push every 6 hours, continue to monitor the patient very closely, patient does appear to have a significant weakness of the right upper extremity along with his flaccid paralysis of the left upper and lower extremities at this time, patient is getting worse by the minute and I expressed my concern to to the transfer team but unfortunately there is no bed as of yet. REVIEW OF SYSTEMS Constitutional: No fever, no chills, no night sweats. No weight change. significant weakness in the left upper and lower extremities fatigue or lethargy. No daytime sleepiness. HEENT: Reports headache. No blurred vision or double vision, no loss of vision. No loss of Hearing, no ringing in the ears, no dizziness. No nasal drainage or congestion. No epistaxis. No sore throat. Lungs: No shortness of breath, cough, no sputum production. No wheezing. Cardiovascular: No chest pain, positive for lower extremity edema. No palpitations. No paroxysmal nocturnal dyspnea. No orthopnea. No lighthead edness or dizziness. No syncopal episodes. Abdominal: No abdominal pain. Reports nausea improved, reports vomiting resolved. No diarrhea. positive for constipation. No bloody or tarry stools. No loss of appetite. Genitourinary: No dysuria, increased frequency, urgency. Reports urinary retention, resolved. Musculoskeletal: No myalgias. left upper extremity and left lower extremity weakness, positive for gait dysfunction, no frequent falls. Reports upper back and neck pain. Integumentary: No wounds, no lesions. No rash or pruritus. No unusual bruising. Neurologic: No aphasia. No facial droop. No change in mentation. No head injury. No headache. No paralysis. No paresthesia. Psychiatric: positive for depression. No anxiety. No mood swings. Endocrine: No abnormal blood sugars. No weight change. No excessive sweating or thirst. No cold intolerance. PHYSICAL EXAMINATION Gen: This is a 67-year-old male. He resting in bed appears to be in m ild distress HEENT: Head is atraumatic, normocephalic. Pupils equal, round. Sclerae is anicteric. Oral mucous membranes somewhat dry. NECK: Supple. No JVD. LUNGS: Decreased breath sounds at the bases, few rhonchi, no expiratory wheezes, no chest wall tenderness, no intercostal retractions. HEART: first heart sound is depressed, second heart sound is normal, there is no gallop. ABDOMEN: Soft, moderate distention, no significant tenderness, no rebound or guarding, positive bowel sounds. EXTREMITIES: +1 pedal edema. No calf tenderness. Dorsalis pedis +2 bilaterally. NEUROLOGICAL: Patient is awake, alert and oriented x3, , flaccid paralysis of the left upper and lower extremity decreased if tender flexes, right upper extremity weakness right lower extremity with good muscle strength 5 out of 5, ASSESSMENT AND PLAN 1. Accelerated Hypertension. Continue patient on Norvasc 5 mg twice daily, clonidine 0.1 mg 3 times daily, Toprol-XL 50 mg at bedtime, valsartan 160 mg twice daily, hydralazine available IV push as needed for systolic blood pressure greater than 160, cardiology consult appreciated. 2. Cervical spine cord edema between C2 and C7 and possible epidural abscess versus hematoma. With secondary syrinx. Continue patient on Decadron 6 mg IV push every 6 hours, continue vancomycin with pharmacy to dose its peak and trough, continue Unasyn 3 g IV piggyback every 6 hours, a consultation with the [facility] was obtained over the last 48 hours, patient will need to be moved as soon as possible to a tertiary care center for intervention since he would need to be seen by spine surgeon based on the recommendation of our local physician we are still awaiting the bed availability at this time. 3. Urinary retention. 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 Continue Wu catheter for now. 4. type II myocardial injury likely related to sepsis due to possible epidural abscess versus COVID-19 .patient was seen in consultation by cardiology continue patient on Toprol XL 50 mg orally once every day, patient will need to be seen as an outpatient for possible stress testing. 5. Acute cholecystitis. Continue patient on Unasyn 3 g IV piggyback every 6 hours, patient was seen by general surgery Dr. Whitehead at this point patient is not requiring any surgical intervention. 6. Gastroesophageal reflux disease. Continue Protonix 40 mg orally once every day. 7. DVT prophylaxis. Lovenox 40 mg subcu daily. 8. Recurrent depression. Continue Seroquel 25 mg twice daily along with c italopram 20 mg orally once every day. 9. COVID-19 testing positive. patient does not have any significant respiratory distress due to that. 10. Patient is no code per his request. Objective - Vital Signs Vital signs: Vital Signs Temp 98.7 F 09/24/22 04:00 Pulse 82 09/24/22 04:00 Resp 22 09/24/22 04:00 BP 165/89 09/24/22 04:00 Pulse Ox 94 L 09/24/22 04:00 FiO2 Intake & Output 09/23/22 09/24/22 09/24/22 18:59 06:59 18:59 Intake Total 360 Output Total 650 800 500 Balance -290 -800 -500 Intake: Oral 360 Output: Urine 650 800 500 Uretheral (Wu) 650 Other: Voiding Method Indwelling Catheter Indwelling Catheter - Labs CBC & Chem 7: 09/24/22 07:33 09/24/22 07:33 Labs: Abnormal Lab Results - Last 24 Hours (Table) 09/23/22 09/23/22 09/24/22 Range/Units 20:36 20:36 06:07 Neutrophils # 8.4 H (1.3-7.7) k/uL Lymphocytes # 0.9 L (1.0-4.8) k/uL Sodium 134 L (137-145) mmol/L Potassium 3.1 L (3.5-5.1) mmol/L BUN 23 H (9-20) mg/dL Glucose (74-99) mg/dL POC Glucose (mg/dL) 112 H (70-110) mg/dL Calcium 8.0 L (8.4-10.2) mg/dL C-Reactive Protein 4.6 H (<1.0) mg/dL Total Protein 5.6 L (6.3-8.2) g/dL Albumin 3.2 L (3.5-5.0) g/dL 09/24/22 09/24/22 Range/Units 07:33 07:33 Neutrophils # (1.3-7.7) k/uL Lymphocytes # 0.6 L (1.0-4.8) k/uL Sodium 135 L (137-145) mmol/L Potassium 3.3 L (3.5-5.1) mmol/L BUN 21 H (9-20) mg/dL Glucose 113 H (74-99) mg/dL POC Glucose (mg/dL) (70-110) mg/dL Calcium 7.8 L (8.4-10.2) mg/dL C-Reactive Protein (<1.0) mg/dL Total Protein 5.6 L (6.3-8.2) g/dL Albumin 3.2 L (3.5-5.0) g/dL
[2022-09-25 11:11] LABS: Basophils % (A) 0 %; Eosinophils % (A) 0 %; HCT 44.7 % (39.0-53.0); HGB 15.3 gm/dL (13.0-17.5); Lymphocytes # (A) 0.8 k/uL (1.0-4.8); Lymphocytes % (A) 7 %; MCH 29.9 pg (25.0-35.0); MCHC 34.3 g/dL (31.0-37.0); MCV 87.3 fL (80.0-100.0); Mean Platelet Volume 9.5; Monocytes # (A) 0.5 k/uL (0-1.0); Monocytes % (A) 4 %; Neutrophils # (A) 10.4 k/uL (1.3-7.7); Neutrophils % (A) 88 %; Platelet Count 189 k/uL (150-450); RBC 5.12 m/uL (4.30-5.90); RDW 13.6 % (11.5-15.5); WBC 11.9 k/uL (3.8-10.6)
--- NOTE | 2022-09-25 11:16 | P.PN ---
Subjective Progress Note Date: 09/24/22 Patient was seen for a follow-up. Patient states his left arm and left leg are completely weak. He states the right arm is fine. Still has pain, but not as severe. Objective - Vital Signs Vital signs: Vital Signs Temp 98.5 F 09/24/22 12:00 Pulse 89 09/24/22 16:00 Resp 18 09/24/22 16:00 BP 167/90 09/24/22 16:00 Pulse Ox 95 09/24/22 16:00 FiO2 Intake & Output 09/24/22 09/24/22 09/25/22 06:59 18:59 06:59 Output Total 800 500 Balance -800 -500 Output: Urine 800 500 Other: Voiding Method Indwelling Catheter Indwelling Catheter - Exam Patient's mental status, speech and language functions, cranial nerves are normal. On muscle strength testing: Left upper extremity is entirely 0. Right upper extremity deltoid 1-2, biceps 4, triceps 4+, wildlife protector 4+5-. Lower extremities (right/left) hip flexion 5/3 to 3-, ankle dorsiflexion 5/5. - Labs CBC & Chem 7: 09/24/22 07:33 09/24/22 07:33 Labs: Abnormal Lab Results - Last 24 Hours (Table) 09/23/22 09/23/22 09/24/22 Range/Units 20:36 20:36 06:07 Neutrophils # 8.4 H (1.3-7.7) k/uL Lymphocytes # 0.9 L (1.0-4.8) k/uL Sodium 134 L (137-145) mmol/L Potassium 3.1 L (3.5-5.1) mmol/L BUN 23 H (9-20) mg/dL Glucose (74-99) mg/dL POC Glucose (mg/dL) 112 H (70-110) mg/dL Calcium 8.0 L (8.4-10.2) mg/dL C-Reactive Protein 4.6 H (<1.0) mg/dL Total Protein 5.6 L (6.3-8.2) g/dL Albumin 3.2 L (3.5-5.0) g/dL 09/24/22 09/24/22 Range/Units 07:33 07:33 Neutrophils # (1.3-7.7) k/uL Lymphocytes # 0.6 L (1.0-4.8) k/uL Sodium 135 L (137-145) mmol/L Potassium 3.3 L (3.5-5.1) mmol/L BUN 21 H (9-20) mg/dL Glucose 113 H (74-99) mg/dL POC Glucose (mg/dL) (70-110) mg/dL Calcium 7.8 L (8.4-10.2) mg/dL C-Reactive Protein (<1.0) mg/dL Total Protein 5.6 L (6.3-8.2) g/dL Albumin 3.2 L (3.5-5.0) g/dL Assessment and Plan Assessment: * Acute onset of lower neck and upper thoracic pain and bilateral shoulder pain followed by progressive muscle weakness of bilateral upper limbs, left much worse than right. Reflexes are diminished in the upper limbs. MRI of the cervical spine without contrast revealed significant cord edema extending from middle of the body of C2 vertebra down to the lower level of C7 vertebra. Possibility of secondary syrinx also noticed. Imaging is highly suggestive of possible epidural abscess versus epidural hematoma versus transverse myelitis. Patient's temperature, WBC count and ESR are all normal, which are against infectious process. * History of back surgery. * Acute Covid-19 infection. * Hypertension * Hyperlipidemia * History of migraines Plan: * Await transferred to higher level of care for neurosurgical consultation. * Patient needs stat MRI of the cervical spine with and without contrast. Patient may need MRI under sedation. Orthopedic surgery has seen the patient, recommending transfer to a higher level of care for MRI under sedation, and for neurosurgical consultation. * Patient currently on Unasyn 3 g IV PB every 6 hours, and also on vancomycin. * * ESR 11, CRP borderline 4.6. WBC count is completely normal 7.7 with no left shift. Patient continues to be completely afebrile. Does not appear epidural abscess with lack of signs of infection. Possible epidural hematoma versus transverse myelitis. * Infectious disease input appreciated. * Orthopedic spine also closely following the patient. * Patient is a high fall risk. * DVT prophylaxis: Patient on Lovenox. * Patient awaiting transfer to higher level of care. Discussed with primary physician in detail.
[2022-09-25 11:22] LABS: ALT 32 U/L (4-49); AST 26 U/L (17-59); African American GFR (CKD) >90 (>60 ml/min/1.73 sqM); Albumin 2.7 g/dL (3.5-5.0); Alkaline Phosphatase 73 U/L (38-126); Anion Gap 4 mmol/L; Blood Urea Nitrogen 33 mg/dL (9-20); Calcium 7.4 mg/dL (8.4-10.2); Carbon Dioxide 24 mmol/L (22-30); Chloride 104 mmol/L (98-107); Glucose 259 mg/dL (74-99); Non-African American GFR(CKD) 89 (>60 ml/min/1.73 sqM); Potassium 3.4 mmol/L (3.5-5.1); Sodium 132 mmol/L (137-145); Total Bilirubin 0.7 mg/dL (0.2-1.3); Total Protein 5.2 g/dL (6.3-8.2)
[2022-09-25 11:52] LABS: Glucose,Whole Blood 241 mg/dL (70-110)
[2022-09-25] MEDS: HYDROcodone/APAP 10-325MG 1 EACH TAB PO PRN (11:59)
[2022-09-25 13:10] LABS: Erythrocyte Sedimentation Rate 10 mm/hr (0-15)
[2022-09-25] MEDS ORDERED: POTASSIUM CHLORIDE ER 20 MEQ TAB.ER PO STA (14:55)
--- NOTE | 2022-09-25 14:57 | P.PN ---
Subjective Progress Note Date: 09/25/22 HISTORY OF PRESENT ILLNESS This is a 67-year-old male patient with past mental history of hyperlipidemia, hypertension, enlarged prostate, migraine headaches with aura, recurrent depres robert, neuropathy. Patient gives history that he developed significant headache and vomiting over the weekend and was unable to take his medications and unable to control his symptoms with worsening, subsequently developed pain in his shoulder blades radiating up into his neck. Patient also presented with urinary retention.EKG reveals sinus rhythm, heart rate 99. CT angiogram of the thorax abdomen and pelvis aortogram revealed no evidence of arterial aneurysm or dissection. Fatty infiltration of the liver. Fat-containing umbilical hernia.. Cholecystic fluid or wall thickening suggestive cholecystitis. No evidence of pulmonary embolism. Gallbladder ultrasound revealed no gallstones. Gallbladder wall thickening suggestive cholecystitis. No dilated ducts. Mild. Cholecystic fluid. Laboratory studies: Troponin is 0.088, 0.135, 0.178. WBC 23.7, hemoglobin 16.3, platelet count 281. BUN 26 and creatinine 1.04.Coronavirus PCR positive Patient was started on IV pain medications as well as IV antihypertensive with only minimal brief improvement of blood pressure. He continues to have pain in the shoulder blades and neck as well as urinary retention. Home medications will be resumed as patient is now able to take oral medications after Zofran which is been effective. Cardiology consult is in place for elevated troponins. 09/21 Patient continued to have significant upper back pain radiating to the shoulder blades and neck as well as hypertension through the night medication changes were made to add in valsartan, discontinue lisinopril, and in Toprol-XL. We will add in amlodipine this morning. Patient has been able to void on his own and urinary retention is resolved. Repeat blood work reveals WBC 15.1, hemoglobin 15.1. BUN 24 creatinine 0.77. AST 124 and ALT 53. Patient has been seen by general surgery with plan to continue antibiotics, low-fat diet and supportive care. Patient has been afebrile, heart rate 70, blood pressure 157/94, pulse ox 97% on 2 L nasal cannula. 09/22 Patient continues to have significant pain between shoulder blades radiating up into his neck as well as headache for which he is on Dilaudid and started on Flexeril. Flexeril will be changed to Robaxin 500 mg 3 times daily. He denies abdominal pain. Urinary retention has resolved. Blood pressure remains elevated despite medication adjustments. wellness director is a sinus rhythm. Heart rate is running in the 60s, blood pressure 181/95. Amlodipine increased to 5 mg twice daily. Repeat blood work is normal CBC, creatinine 0.77. AST 77 other liver enzymes normal. 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 Hampton which he feels that the patient need to be moved out as soon as possible patient was seen in consultation by infectious disease Dr. Mercado who recommended to continue vancomycin along with Unasyn and he was seen in consultation by neurology who started the patient on Decadron 6 g IV push 1 followed by 6 mg IV push every 6 hours, unfortunately patient is getting worse, he had a Wu catheter placed and due to his urinary retention as well. 09/24: I had a long conversation with Dr. Martino intervention of neurosurgery at [facility] yesterday and we had accelerated the transfer process and he is going to the ICU intervention of neurology hopefully in the next 24 hours according to the transfer team, patient meanwhile will be maintained on Unasyn and vancomycin, he has been followed by spine surgery and infectious disease, and neurology, continue with current treatment plan with Decadron 64 mg IV push every 6 hours, continue to monitor the patient very closely, patient does appear to have a significant weakness of the right upper extremity along with his flaccid paralysis of the left upper and lower extremities at this time, patient is getting worse by the minute and I expressed my concern to to the transfer team but unfortunately there is no bed as of yet. 09/25: Patient is sitting up in bed he continues to have pain in the cervical spine area, he continues to be flaccid in the left upper extremity, he is having some movement in the left lower extremity, he does appear to be weaker on the right upper extremity, is able to swallow his food at this time, he continues to retain the urine he continues to have a Wu catheter in place, his labs were reviewed except for mild hypokalemia is about the same he is having significant swelling in the left upper extremity at this time, I spoke with his daughter at the bedside and they were updated about the current situation, I'm still awaiting for [facility] to accept the patient at this time, so far no called back yet, I've made numerous attempts to try to push the patient to go down to [facility] unfortunately so far no beds available, trying to [place] search for different hospitals that have a neurosurgery program. REVIEW OF SYSTEMS Constitutional: No fever, no chills, no night sweats. No weight change. significant weakness in the left upper and lower extremities fatigue or lethargy. No daytime sleepiness. HEENT: Reports headache. No blurred vision or double vision, no loss of vision. No loss of Hearing, no ringing in the ears, no dizziness. No nasal drainage or congestion. No epistaxis. No sore throat. Lungs: No shortness of breath, cough, no sputum production. No wheezing. Cardiovascular: No chest pain, positive for lower extremity edema. No palpitations. No paroxysmal nocturnal dyspnea. No orthopnea. No lightheadedness or dizziness. No syncopal episodes. Abdominal: No abdominal pain. Reports nausea improved, reports vomiting resolved. No diarrhea. positive for constipation. No bloody or tarry stools. No loss of appetite. Genitourinary: No dysuria, increased frequency, urgency. Reports urinary retention, resolved. Musculoskeletal: No myalgias. left upper extremity and left lower extremity weakness, positive for gait dysfunction, no frequent falls. Reports upper back and neck pain. Integumentary: No wounds, no lesions. No rash or pruritus. No unusual bruis ing. Neurologic: No aphasia. No facial droop. No change in mentation. No head injury. No headache. No paralysis. No paresthesia. Psychiatric: positive for depression. No anxiety. No mood swings. Endocrine: No abnormal blood sugars. No weight change. No excessive sweating or thirst. No cold intolerance. PHYSICAL EXAMINATION Gen: This is a 67-year-old male. He resting in bed appears to be in mild distress HEENT: Head is atraumatic, normocephalic. Pupils equal, round. Sclerae is anicteric. Oral mucous membranes somewhat dry. NECK: Supple. No JVD. LUNGS: Decreased breath sounds at the bases, few rhonchi, no expiratory wheezes, no chest wall tenderness, no intercostal retractions. HEART: first heart sound is depressed, second heart sound is normal, there is no gallop. ABDOMEN: Soft, moderate distention, no significant tenderness, no rebound or guarding, positive bowel sounds. EXTREMITIES: +1 pedal edema. No calf tenderness. Dorsalis pedis +2 bilaterally. NEUROLOGICAL: Patient is awake, alert and oriented x3, , flaccid paralysis of the left upper and lower extremity decreased if tender flexes, right upper extremity weakness right lower extremity with good muscle strength 5 out of 5, ASSESSMENT AND PLAN 1. Accelerated Hypertension. Continue patient on Norvasc 5 mg twice daily, clonidine 0.1 mg 3 times daily, Toprol-XL 50 mg at bedtime, valsartan 160 mg twice daily, hydralazine available IV push as needed for systolic blood pressure greater than 160, cardiology consult appreciated. 2. Cervical spine cord edema between C2 and C7 and possible epidural abscess versus hematoma. With secondary syrinx. Continue patient on Decadron 4 mg IV push every 6 hours, continue vancomycin with pharmacy to dose its peak and trough, continue Unasyn 3 g IV piggyback every 6 hours, a consultation with the [facility] neurosurgery was obtained over the last 48 hours, patient will need to be moved as soon as possible to a tertiary care center for intervention since he would need to be seen by spine surgeon based on the recommendation of our local physician we are still awaiting the bed availability at this time. 3. Urinary retention. 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 Con tinue Wu catheter for now. 4. type II myocardial injury likely related to sepsis due to possible epidural abscess versus COVID-19 .patient was seen in consultation by cardiology continue patient on Toprol XL 50 mg orally once every day, patient will need to be seen as an outpatient for possible stress testing. 5. Acute cholecystitis. Continue patient on Unasyn 3 g IV piggyback every 6 hours, patient was seen by general surgery Dr. Whitehead at this point patient is not requiring any surgical intervention. 6. Gastroesophageal reflux disease. Continue Protonix 40 mg orally once every day. 7. DVT prophylaxis. Lovenox 40 mg subcu daily. 8. Recurrent depression. Continue Seroquel 25 mg twice daily along with citalopram 20 mg orally once every day. 9. COVID-19 testing positive. patient does not have any significant respiratory distress due to that. 10. Patient is no code per his request. Objective - Vital Signs Vital signs: Vital Signs Temp 97.6 F 09/25/22 08:00 Pulse 75 09/25/22 08:00 Resp 18 09/25/22 08:00 BP 126/80 09/25/22 08:00 Pulse Ox 96 09/25/22 08:00 FiO2 Intake & Output 09/24/22 09/25/22 09/25/22 18:59 06:59 18:59 Intake Total 700 Output Total 500 1000 Balance -500 -1000 700 Intake: Oral 700 Output: Urine 500 1000 Other: Voiding Method Indwelling Catheter Indwelling Catheter Indwelling Catheter - Labs CBC & Chem 7: 09/25/22 10:50 09/25/22 10:50 Labs: Abnormal Lab Results - Last 24 Hours (Table) 09/24/22 09/25/22 Range/Units 23:23 06:10 POC Glucose (mg/dL) 116 H (70-110) mg/dL C-Reactive Protein 4.8 H (<1.0) mg/dL
[2022-09-25 16:38] VITALS: BP 103/66; PULSE 63; TEMP 98
[2022-09-25 17:08] LABS: Glucose,Whole Blood 162 mg/dL (70-110)
[2022-09-25] MEDS ORDERED: VANCOMYCIN TROUGH DUE 1 EACH MISC MISCELLANE ONE (21:00)
--- NOTE | 2022-09-26 13:01 | P.DS ---
Providers Date of admission: 09/21/22 08:27 Expected date of discharge: 09/25/22 Attending physician: Tyler Quevedo Consults: 09/19/22 16:30 Consult Physician Urgent Consulting Provider: Froylan Acevedo Consult Reason/Comments: Hypertensive urgency, cardiac evaluation and treatment Do you want consulting provider notified?: Yes 09/23/22 08:35 Consult Physician Urgent Consulting Provider: Travis Pillai Consult Reason/Comments: INCREASING LEFT UPPER EXTREMITY WEAKNESS Do you want consulting provider notified?: Yes 09/23/22 13:29 Consult Physician Routine Consulting Provider: Desean Hampton Consult Reason/Comments: L arm pain/weakness Do you want consulting provider notified?: Yes 09/24/22 10:39 Consult Physician Urgent Consulting Provider: Jeanmarie Mercado Consult Reason/Comments: Possible epidural abscess vs ??hematoma Do you want consulting provider notified?: Yes 09/24/22 14:03 Consult Physician Stat Consulting Provider: Jeanmarie Mercado Consult Reason/Comments: possible epidural Abscess Do you want consulting provider notified?: Yes Primary care physician: Tyler Quevedo [facility] Course: HISTORY OF PRESENT ILLNESS This is a 67-year-old male patient with past mental history of hyperlipidemia, hypertension, enlarged prostate, migraine headaches with aura, recurrent depression, neuropathy. Patient gives history that he developed significant headache and vomiting over the weekend and was unable to take his medications and unable to control his symptoms with worsening, subsequently developed pain in his shoulder blades radiating up into his neck. Patient also presented with urinary retention.EKG reveals sinus rhythm, heart rate 99. CT angiogram of the thorax abdomen and pelvis aortogram revealed no evidence of arterial aneurysm or dissection. Fatty infiltration of the liver. Fat-containing umbilical hernia.. Cholecystic fluid or wall thickening suggestive cholecystitis. No evidence of pulmonary embolism. Gallbladder ultrasound revealed no gallstones. Gallbladder wall thickening suggestive cholecystitis. No dilated ducts. Mild. Cholecystic fluid. Laboratory studies: Troponin is 0.088, 0.135, 0.178. WBC 23.7, hemoglobin 16.3, platelet count 281. BUN 26 and creatinine 1.04.Coronavirus PCR positive Patient was started on IV pain medications as well as IV antihypertensive with only minimal brief improvement of blood pressure. He continues to have pain in the shoulder blades and neck as well as urinary retention. Home medications will be resumed as patient is now able to take oral medications after Zofran which is been effective. Cardiology consult is in place for elevated troponins. 09/21 Patient continued to have significant upper back pain radiating to the shoulder blades and neck as well as hypertension through the night medication changes were made to add in valsartan, discontinue lisinopril, and in Toprol-XL. We will add in amlodipine this morning. Patient has been able to void on his own and urinary retention is resolved. Repeat blood work reveals WBC 15.1, hemoglobin 15.1. BUN 24 creatinine 0.77. AST 124 and ALT 53. Patient has been seen by general surgery with plan to continue antibiotics, low-fat diet and supportive care. Patient has been afebrile, heart rate 70, blood pressure 157/94, pulse ox 97% on 2 L nasal cannula. 09/22 Patient continues to have significant pain between shoulder blades radiating up into his neck as well as headache for which he is on Dilaudid and started on Flexeril. Flexeril will be changed to Robaxin 500 mg 3 times daily. He denies abdominal pain. Urinary retention has resolved. Blood pressure remains elevated despite medication adjustments. pot fluxer is a sinus rhythm. Heart rate is running in the 60s, blood pressure 181/95. Amlodipine increased to 5 mg twice daily. Repeat blood work is normal CBC, creatinine 0.77. AST 77 other liver enzymes normal. 09/23: Patient is sitting up in bed he continues to have significant pain between his shoulder blades, he continued to have significant weakness in the left upper extremity as well as left lower extremity, he has limited range of motion of the right upper extremity as well, patient is seen in consultation by spine surgery and attempted MRI of the cervical spine and thoracic spine which was canceled because of the patient movement however it did show evidence of cervical edema between C2 and C7 and possible secondary syrinx ruing the possibility of hematoma versus epidural abscess ,we have contacted the transfer team at the [facility] regarding the acceleration of excepting the patient because he may need to be seen by neurosurgery based on the recommendation of our local spine surgeon Dr. Hampton which he feels that the patient need to be moved out as soon as possible patient was seen in consultation by infectious disease Dr. Mercado who recommended to continue vancomycin along with Unasyn and he was se en in consultation by neurology who started the patient on Decadron 6 g IV push 1 followed by 6 mg IV push every 6 hours, unfortunately patient is getting worse, he had a Wu catheter placed and due to his urinary retention as well. 09/24: I had a long conversation with Dr. Martino intervention of neurosurgery at [facility] yesterday and we had accelerated the transfer process and he is going to the ICU intervention of neurology hopefully in the next 24 hours according to the transfer team, patient meanwhile will be maintained on Unasyn and vancomycin, he has been followed by spine surgery and infectious disease, and neurology, continue with current treatment plan with Decadron 64 mg IV push every 6 hours, continue to monitor the patient very closely, patient does appear to have a significant weakness of the right upper extremity along with his flaccid paralysis of the left upper and lower extremities at this time, patient is getting worse by the minute and I expressed my concern to to the transfer team but unfortunately there is no bed as of yet. 09/25: Patient is sitting up in bed he continues to have pain in the cervical spine area, he continues to be flaccid in the left upper extremity, he is having some movement in the left lower extremity, he does appear to be weaker on the right upper extremity, is able to swallow his food at this time, he continues to retain the urine he continues to have a Wu catheter in place, his labs were reviewed except for mild hypokalemia is about the same he is having significant swelling in the left upper extremity at this time, I spoke with his daughter at the bedside and they were updated about the current situation, I'm still awaiting for [facility] to accept the patient at this time, so far no called back yet, I've made numerous attempts to try to push the patient to go down to [facility] unfortunately so far no beds available, trying to [place] search for different hospitals that have a neurosurgery program. Discharge diagnoses: 1. Accelerated Hypertension. 2. Cervical spine cord edema between C2 and C7 and possible epidural abscess versus hematoma. With secondary syrinx, rule out transverse myelitis due to COVID-19 3. Urinary retention. 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 4. type II myocardial injury likely related to sepsis due to possible epidural abscess versus COVID-19 5. Acute cholecystitis. Patient Condition at Discharge: Serious Plan - Discharge Summary Discharge Rx Participant: No New Discharge Prescriptions: No Action Tamsulosin HCl [Flomax] 0.8 mg PO HS cloNIDine HCL [Catapres] 0.1 mg PO TID Simvastatin [Zocor] 40 mg PO HS lisinopriL [Zestril] 10 mg PO HS Citalopram Hydrobromide [CeleXA] 20 mg PO HS Omeprazole 40 mg PO DAILY QUEtiapine FUMARATE [SEROquel XR] 50 mg PO HS Ondansetron Odt [Zofran ODT] 4 mg PO Q8HR PRN #10 tab PRN Reason: Nausea SUMAtriptan succinate [Imitrex] 50 mg PO DAILY PRN PRN Reason: Migraine Headache traMADol HCL 50 mg PO Q8H PRN PRN Reason: Pain Discharge Medication List Simvastatin [Zocor] 40 mg PO HS 01/28/15 [History] Tamsulosin HCl [Flomax] 0.8 mg PO HS 01/28/15 [History] cloNIDine HCL [Catapres] 0.1 mg PO TID 01/28/15 [History] lisinopriL [Zestril] 10 mg PO HS 01/28/15 [History] Ondansetron Odt [Zofran ODT] 4 mg PO Q8HR PRN #10 tab 03/23/21 [Rx] QUEtiapine FUMARATE [SEROquel XR] 50 mg PO HS 03/23/21 [History] Citalopram Hydrobromide [CeleXA] 20 mg PO HS 01/24/22 [History] Omeprazole 40 mg PO DAILY 09/19/22 [History] SUMAtriptan succinate [Imitrex] 50 mg PO DAILY PRN 09/19/22 [History] traMADol HCL 50 mg PO Q8H PRN 09/19/22 [History] Follow up Appointment(s)/Referral(s): Tyler Quevedo MD [Primary Care Provider] - 1-2 days Discharge Disposition: DC/[facility] IP HOSP W/[facility] IP READ
== END 2022-09-25 19:57 | disposition short-term general hospital (02) | DRG 280 ==
LOC: EC 14:12 → 3SCARD 16:30 → OBSVTOIN 09-21 08:27
PROVIDERS: ADMIT Internal Medicine; ATTEND Internal Medicine
DX: I16.0 Hypertensive urgency (principal); A41.9 Sepsis, unspecified organism; I21.A1 Myocardial infarction type 2; U07.1 COVID-19; G06.1 Intraspinal abscess and granuloma; I62.1 Nontraumatic extradural hemorrhage; F33.9 Major depressive disorder, recurrent, unspecified; K81.0 Acute cholecystitis; M51.04 Intervertebral disc disorders with myelopathy, thoracic region; G12.20 Motor neuron disease, unspecified; M50.023 Cervical disc disorder at C6-C7 level with myelopathy; I10 Essential (primary) hypertension; R79.89 Other specified abnormal findings of blood chemistry; R33.8 Other retention of urine; K42.9 Umbilical hernia without obstruction or gangrene; M47.892 Other spondylosis, cervical region; M19.90 Unspecified osteoarthritis, unspecified site; I08.2 Rheumatic disorders of both aortic and tricuspid valves; K76.0 Fatty (change of) liver, not elsewhere classified; E78.5 Hyperlipidemia, unspecified; G62.9 Polyneuropathy, unspecified; K21.9 Gastro-esophageal reflux disease without esophagitis; N40.1 Benign prostatic hyperplasia with lower urinary tract symptoms; G43.909 Migraine, unspecified, not intractable, without status migrainosus; F41.9 Anxiety disorder, unspecified; Z79.82 Long term (current) use of aspirin; Z79.899 Other long term (current) drug therapy; Z87.891 Personal history of nicotine dependence; Z82.49 Family history of ischemic heart disease and other diseases of the circulatory system
CPT/HCPCS: 36415; 71275; 72125; 72141; 72146; 74174; 76705; 80053; 82085; 82150; 82550; 83605; 83615; 83690; 83735; 84439; 84443; 84481; 84484; 85025; 85027; 85610; 85652; 85730; 86038; 86140; 87040; 87635; 93005; 94760; 96361; 96374; 96375; 96376; 99291

== ENCOUNTER → 2023-03-07 | Outpatient (CLI) | payer MEDICARE ==
[2023-03-08 02:16] LABS: African American GFR (CKD) 102.7 (60.0-200.0); Anion Gap 9.3 mmol/L (10.00-18.00); BUN/Creat Ratio 24.91 Ratio (12.00-20.00); Calcium 9.6 mg/dL (8.7-10.3); Carbon Dioxide 28.6 mmol/L (20.0-27.5); Magnesium 2.1 mg/dL (1.5-2.4); Non-African American GFR(CKD) 88.6 (60.0-200.0); Potassium 4.7 mmol/L (3.5-5.5)
== END | disposition home or self-care (01) ==
LOC: LABWHC1 12:21
PROVIDERS: ATTEND Internal Medicine Clinical Cardiac Electrophysiology
DX: I10 Essential (primary) hypertension (principal); R73.03 Prediabetes
CPT/HCPCS: 36415; 80048; 83036; 83735

== ENCOUNTER 2023-05-17 14:03 | Emergency (ER) | payer MEDICARE ==
[2023-05-17 14:08] VITALS: TEMP 97.9
[2023-05-17] MEDS ORDERED: MORPHINE SULFATE 4 MG/ML SYRINGE IM STA (15:08)
--- NOTE | 2023-05-17 15:13 | ED ---
Fall HPI - General Chief Complaint: Fall Stated Complaint: fall, Left arm pain Time Seen by Provider: 05/17/23 14:55 Source: patient Mode of arrival: ambulatory - History of Present Illness Initial Comments: This patient is a 68-year-old man who presents to have evaluation after a fall. The patient states she was sitting on the bed at home he attempted to stand, loss of his footing and fell landing mainly on the left shoulder but also striking his head. The patient complains of pain at the left shoulder, left forearm and headache. He states left shoulder is worse. The pain gets worse when he attempts to lift his left arm. 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 The patient states that he can usually move his left arm using the right to lift it but now he has severe pain when he attempts to move the arm. Patient denies weakness or numbness into the hand MD Complaint: fall Onset/Timin -: hour(s) Fall From: out of bed When Fall Occurred: 1-[address] FORMER [address] Fall Occurred: home Loss of Consciousness: none Prolonged Down Time?: no Symptoms Prior to Fall: none Location - Extremities: Left: Shoulder Severity: severe Quality: sharp Context: tripped/slipped Associated Symptoms: denies - Related Data Home Medications Medication Instructions Recorded Confirmed Simvastatin [Zocor] 40 mg PO HS 01/28/15 09/19/22 Tamsulosin HCl [Flomax] 0.8 mg PO HS 01/28/15 09/19/22 cloNIDine HCL [Catapres] 0.1 mg PO TID 01/28/15 09/19/22 lisinopriL [Zestril] 10 mg PO HS 01/28/15 09/19/22 QUEtiapine FUMARATE [SEROquel XR] 50 mg PO HS 03/23/21 09/19/22 Citalopram Hydrobromide [CeleXA] 20 mg PO HS 01/24/22 09/19/22 Omeprazole 40 mg PO DAILY 09/19/22 09/19/22 SUMAtriptan succinate [Imitrex] 50 mg PO DAILY PRN 09/19/22 09/19/22 traMADol HCL 50 mg PO Q8H PRN 09/19/22 09/19/22 Previous Rx's Medication Instructions Recorded Ondansetron Odt [Zofran ODT] 4 mg PO Q8HR PRN #10 tab 03/23/21 HYDROcodone/APAP 10-325MG [[place] 1 tab PO Q4HR PRN 3 Days #18 tab 05/17/23 10-325] Ibuprofen [Motrin] 600 mg PO Q8HR PRN #20 tab 05/17/23 Allergies Allergy/AdvReac Type Severity Reaction Status Date / Time No Known Allergies Allergy Verified 05/17/23 14:08 Review of Systems ROS Statement: Those systems with pertinent positive or pertinent negative responses have been documented in the HPI. ROS Other: All systems not noted in ROS Statement are negative. Constitutional: Denies: weakness Eyes: Denies: vision change ENT: Denies: hearing loss, epistaxis Respiratory: Denies: cough, dyspnea Cardiovascular: Denies: chest pain, syncope Gastrointestinal: Denies: abdominal pain, vomiting, diarrhea Genitourinary: Denies: dysuria Musculoskeletal: Reports: as per HPI, arthralgia Skin: Denies: lesions Neurological: Denies: headache, weakness, numbness Hematological/Lymphatic: Reports: other (Taking L Aquinas) Past Medical History Past Medical History: Hyperlipidemia, Hypertension, Musculoskeletal Disorder, Osteoarthritis (OA), Prostate Disorder Additional Past Medical History / Comment(s): Frequent headaches, usually left side. History of Any Multi-Drug Resistant Organisms: None Reported Past Surgical History: Back Surgery, Orthopedic Surgery, Tonsillectomy Additional Past Surgical History / Comment(s): Left clavicle repaired, right ring finger tendon re-attached, left thumb surgery, pain clinic procedures. Past Anesthesia/Blood Transfusion Reactions: No Reported Reaction Past Psychological History: Anxiety, Depression Smoking Status: Former smoker Past Alcohol Use History: None Reported Past Drug Use History: None Reported - Past Family History Father Family Medical History: Cancer General Exam Limitations: no limitations General appearance: alert, in no apparent distress Head exam: Present: atraumatic, normocephalic Eye exam: Present: normal appearance. Absent: scleral icterus, conjunctival injection Neck exam: Present: normal inspection, full ROM. Absent: tenderness, meningismus Respiratory exam: Present: normal lung sounds bilaterally. Absent: respiratory distress, wheezes, rales, rhonchi, stridor, chest wall tenderness, accessory muscle use Cardiovascular Exam: Present: regular rate, normal rhythm, normal heart sounds. Absent: systolic murmur, diastolic murmur, rubs, gallop GI/Abdominal exam: Present: soft. Absent: distended, tenderness, guarding, rebound, rigid, mass Extremities exam: Present: normal inspection, tenderness, normal capillary refill. Absent: full ROM, pedal edema Back exam: Present: normal inspection. Absent: CVA tenderness (R), CVA tenderness (L), vertebral tenderness Neurological exam: Present: alert, oriented X3, CN II-XII intact. Absent: motor sensory deficit Skin exam: Present: warm, dry, intact, normal color. Absent: rash Course Vital Signs 05/17/23 05/17/23 14:05 17:02 Temperature 97.9 F Pulse Rate 92 85 Respiratory 18 16 Rate Blood Pressure 141/85 140/80 O2 Sat by Pulse 94 L 96 Oximetry Medical Decision Making - Medical Decision Making This patient is 68-year-old man who had fall, striking head and is taking L Aquinas, therefore computed tomography scan obtained The patient had computed tomography scan of the brain which I interpreted as being negative for acute fracture/acute intracranial hemorrhage. The patient had x-ray of forearm which I interpreted as being negative for acute bony injury The patient had x-ray of the shoulder which I interpreted as showing proximal humerus fracture Was pt. sent in by a medical professional or institution (, PA, GO GO DANCER, urgent care, hospital, or intermediate...) When possible be specific @ -[No] Did you speak to anyone other than the patient for history (EMS, parent, family, police, friend...)? What history was obtained from this source @ -[No] Did you review nursing and triage notes (agree or disagree)? Why? @ -[I reviewed and agree with nursing and triage notes] Were old charts reviewed (outside hosp., previous admission, EMS record, old EKG, old radiological studies, urgent care reports/EKG's, intermediate records)? Report findings @ -[No old charts were reviewed] Differential Diagnosis (chest pain, altered mental status, abdominal pain women, abdominal pain men, vaginal bleeding, weakness, fever, dyspnea, syncope, he adache, dizziness, GI bleed, back pain, seizure, CVA, palpatations, mental health, musculoskeletal)? @ -[Differential Musculoskeletal Muscular strain, contusion, ligament sprain, fracture, arthritis, septic arthritis, bursitis, cellulitis, muscle spasm, nerve compression, DVT, arterial occlusion, herpes zoster, electrolyte abnormality, tumor.... This is not meant to be in all inclusive list EKG interpreted by me (3pts min.). @ -[As above] X-rays interpreted by me (1pt min.). @ -[As above CT interpreted by me (1pt min.). @ -[As above U/S interpreted by me (1pt. min.). @ -[None done] What testing was considered but not performed or refused? (CT, X-rays, U/S, labs)? Why? @ -[None] What meds were considered but not given or refused? Why? @ -[None] Did you discuss the management of the patient with other professionals (professionals i.e. , PA, [employer] GO D[employer]ER, lab, RT, psych nurse, social service coordinator, informix developer, teacher, public service officer, mattress spring encaser)? Give summary @ -[No] Was smoking cessation discussed for >3mins.? @ -[No] Was critical care preformed (if so, how long)? @ -[No] Were there social determinants of health that impacted care today? How? (Homelessness, low income, unemployed, alcoholism, drug addiction, transpor tation, low edu. Level, literacy, decrease access to med. care, mcc, rehab)? @ -[No] Was there de-escalation of care discussed even if they declined (Discuss DNR or withdrawal of care, Hospice)? DNR status @ -[No] What co-morbidities impacted this encounter? (DM, HTN, Smoking, COPD, CAD, Cancer, CVA, ARF, Chemo, Hep., AIDS, mental health diagnosis, sleep apnea, morbid obesity)? @ -[None] Was patient admitted / discharged? Hospital course, mention meds given and route, prescriptions, significant lab abnormalities, going to OR and other pertinent info. @ -[The patient is given shoulder immobilizer for comfort, will follow with orthopedic surgery, discussed appropriate further care and follow-up as well as return parameters. Undiagnosed new problem with uncertain prognosis? @ -[No] Drug Therapy requiring intensive monitoring for toxicity (Heparin, Nitro, Insulin, Cardizem)? @ -[No] Were any procedures done? @ -[No] Diagnosis/symptom? @ -[ Acute fall on blood thinners, with head injury Acute proximal humerus fracture, initial visit Acute, or Chronic, or Acute on Chronic? @ -[Acute Uncomplicated (without systemic symptoms) or Complicated (systemic symptoms)? @ -[Uncomplicated Side effects of treatment? @ -[No] Exacerbation, Progression, or Severe Exacerbation? @ -[No] Poses a threat to life or bodily function? How? (Chest pain, [place], [place], pneumonia, PE, COPD, DKA, ARF, appy, cholecystitis, CVA, Diverticulitis, Homicidal, Suicidal, threat to staff... and all critical care pts) @ -[No] Disposition Clinical Impression: Humerus fracture Disposition: HOME SELF-CARE Condition: Good Instructions (If sedation given, give patient instructions): Proximal Humerus Fracture (ED) Prescriptions: Ibuprofen [Motrin] 600 mg PO Q8HR PRN #20 tab PRN Reason: Pain HYDROcodone/APAP 10-325MG [[place] 10-325] 1 tab PO Q4HR PRN 3 Days #18 tab PRN Reason: Pain Is patient prescribed a controlled substance at d/c from ED?: Yes When asked, does pt state using other controlled substances?: No If prescribed controlled substance>3 days was MAPS reviewed?: Prescribed <3 Days If opioid is for acute pain is fill amount 7 days or less?: Yes If Rx opioid, was Start Talking consent form obtained?: Yes Referrals: Tyler Quevedo MD [Primary Care Provider] - 1-2 days
--- NOTE | 2023-05-17 15:35 | CT ---
EXAMINATION TYPE: CT brain wo con CT DLP: 1202.4 mGycm, Automated exposure control for dose reduction was used. DATE OF EXAM: 05/17/2023 3:28 PM COMPARISON: None. Prior CT Brain from 01/24/2022. CLINICAL INDICATION:Male, 68 years old with history of fall, Fall TECHNIQUE: Brain: Multiple axial CT images of the brain were obtained without IV contrast. Coronal and sagittal reformats reviewed. FINDINGS: Brain: Extra-axial spaces: No abnormal extra-axial fluid collections. Ventricular system: Within normal limits Cerebral parenchyma: No acute intraparenchymal hemorrhage or mass effect. The hernandez-white junction is well differentiated. Similar prominent perivascular space or remote lacunar infarct of the right bas al ganglia. Cerebellum: Incidental benign cerebellar tonsillar ectopia. Mass effect: No evidence of midline shift. Intracranial vasculature: unremarkable Soft tissues: Normal. Calvarium/osseous structures: No depressed skull fracture. Paranasal sinuses and mastoid air cells: Mastoid air cells are clear. 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 Nasal septal deviation the left. Visualized orbits: Orbital contents are intact. IMPRESSION: No acute intracranial process.
--- NOTE | 2023-05-17 15:43 | XR ---
EXAMINATION TYPE: XR forearm LT DATE OF EXAM: 05/17/2023 3:36 PM INDICATION: Patient age:Male; 68 years old; Reason for study: fall injury; PHH. COMPARISON: None TECHNIQUE: The left forearm was examined in AP and lateral projections. FINDINGS: No acute fracture or dislocation. No soft tissue edema or radiopaque foreign body. No join t effusion. Degenerative changes of the radiocarpal joint. IMPRESSION: 1. No evidence of acute fracture. 2. Degenerative changes of the radiocarpal joint.
--- NOTE | 2023-05-17 15:48 | XR ---
EXAMINATION TYPE: XR shoulder complete 3 views LT DATE OF EXAM: 05/17/2023 Comparison: None Clinical History: 68-year-old male with pain, limited range of motion, fall injury Findings: There is prior plate and screw fixation of the left clavicle. Moderate degenerative change at the AC joint. Inferior acromial spurring may been an direct sign of underlying rotator cuff tear. Suspect so me inferior pseudosubluxation of the glenohumeral joint, possibly secondary to neuromuscular insuffic iency or underlying joint effusion or bursal effusion. On the AP internal rotation view, unable to exclude a nondisplaced oblique fracture at the end just b elow the surgical neck. Marked osteopenia. Old healed fracture deformities of multiple left-sided rib s. Posterior cervical fusion hardware. Impression: 1. Unable to exclude a nondisplaced oblique fracture at and just below the level of the surgical neck . 2. Inferior spurring from the acromion may be an indirect sign of chronic rotator cuff tear. 3. Inferior pseudosubluxation at the glenohumeral joint. This could be secondary to underlying joint or bursal effusion.
[2023-05-17] MEDS ORDERED: HYDROmorphone 0.5 MG/0.5 ML SYRINGE IM STA (16:23)
[2023-05-17] MEDS ORDERED: ONDANSETRON ODT 4 MG TAB PO STA (16:35)
[2023-05-17 17:03] VITALS: BP 140/80; PULSE 85; RESP 16
== END 2023-05-17 17:03 | disposition home or self-care (01) ==
LOC: EC 14:03
DX: S42.202A Unspecified fracture of upper end of left humerus, initial encounter for closed fracture (principal); S09.90XA Unspecified injury of head, initial encounter; E78.5 Hyperlipidemia, unspecified; I10 Essential (primary) hypertension; M19.90 Unspecified osteoarthritis, unspecified site; F41.9 Anxiety disorder, unspecified; F32.A Depression, unspecified; Z87.891 Personal history of nicotine dependence; Z79.899 Other long term (current) drug therapy; W06.XXXA Fall from bed, initial encounter; Y92.009 Unspecified place in unspecified non-institutional (private) residence as the place of occurrence of the external cause
CPT/HCPCS: 73030; 73090; 70450; 99284; 96372 ×2; L3670; J2270; J1170

== ENCOUNTER → 2023-06-20 | Outpatient (CLI) | payer MEDICARE ==
--- NOTE | 2023-06-20 14:13 | NM ---
EXAMINATION TYPE: NM bone scan whole body DATE OF EXAM: 06/20/2023 COMPARISON: NONE CLINICAL INDICATION: Male, 68 years old with history of M25.512 pain L shouldere; Delayed whole-body scanning was performed following the injection of 23.2 mCi Tc 99m MDP. Images acq uired 3 hours post injection. FINDINGS: There is intense uptake of radiotracer noted about the humeral head on the left. Review of the outsid e films demonstrated underlying fracture. No additional areas of intense uptake are seen. There is de generative uptake about both shoulders, sternoclavicular joints, throughout the lumbar spine, knees a nd the great toes. IMPRESSION: There is intense uptake of radiotracer noted about the humeral head on the left. Review of the outsid e films demonstrated underlying fracture.
== END | disposition home or self-care (01) ==
LOC: RADNMMAIN 10:08
PROVIDERS: ATTEND Orthopaedic Surgery
DX: M25.512 Pain in left shoulder (principal); M85.612 Other cyst of bone, left shoulder
CPT/HCPCS: 78306; A9503

== ENCOUNTER → 2023-07-13 | Outpatient (CLI) | payer MEDICARE ==
[2023-07-13 13:15] VITALS: BP 147/90; PULSE 80; RESP 15; TEMP 98.2
--- NOTE | 2023-07-13 14:18 | P.PAINPG ---
PQRS Measure Charge Sheet Comment: A 68 yr old L paraplegic male with a history of severe and chronic L sided neck pain x > 20 yrs secondary to occipital neuralgia, cervicogenic headache presents today for evaluation. Pain level is provoked at 9/10 in intensity, constant, localized in the cervical spine, stiff, achy in character w shooting towards the L shoulder. Pain is provoked by . Pain is alleviated with PT inpatient in 2020, then outpatient PT x 16 wks in February 2023, physician guided home exercises/ stretches since February 2023, medications, repositioning and rest. He is taking Ione 10/325mg 5 times daily and wants to ween himself down from it with the help of additional medications. Oswestry axial pain score at 14. Interventional pain procedures completed include L TAYO x1 Patient is currently on Ione 10/325mg, Neurontin, Imitrex, Ibu Patient denies any side effects of the medication(s), denies excessive drowsiness or sleepiness, denies suicidal ideation and reports that the current pain medication is helping to control the pain and improve activities of daily living. Patient denies any motor or sensory deficits. Patient denies any fever or night sweats, denies any change in the bowel movements or urination. Physical Examination: -Constitutional: Cooperative. Not in acute distress . - Neurologic: Cranial nerve II to XII intact. No focal neurological deficits. - Psychatric: Alert & oriented x 3. Matching mood & appropriate affect. Judgment and insight intact. - Musculoskeletal: Cervical spine: +BL TAYO TTP Muscle bulk/ tone/ strength in the bilateral upper extremities normal Vertebral body tenderness to palpation over Spurling test positive Distraction test positive Facet loading test positive TTP Thoracic spine Muscle bulk / tone/ strength in the bilateral paraspinal muscles normal Vertebral body tender to palpation over Facet loading test positive TTP Lumbar spine: Motor bulk/ tone/ strength lower extremities , thigh and legs : 5/5 Deep tendon reflexes : Normal Knee Jerk. Normal Ankle Jerk . Vertebral body tenderness to palpation over Lumbar Facet Loading Test positive Straight Leg Raise: positive at 30 degrees right side/ left side Gaenslen's Test positive Sacral spine : Severe tenderness over the Sacroiliac joint: right side / left side Range of motion: Flexion of the lumbar spine <60 degrees Range of motion: Extension of the lumbar spine <20 degrees Gaenslen's Test positive R / L Jennifer test: positive right side / left side Thigh Thrust Test positive R / L Sacral Thrust Test positive R/ L Assessment and plan: Chronic neck pain secondary to cervical DDD, spondylosis with facet arthropathy without myelopathy Recommendation of BL TAYO injections. May need a series for optimal pain relief. Risks, benefits of procedure discussed and pt verbalized understanding. Admits to anticoagulant use or medical history of diabetes. Protocol for discontinuation/ continuation of medications brandon procedure discussed. Minimal anesthesia provided, if clinically indicated, consisting of Versed and Fentanyl. Robaxin 500mg #90 w 1 RF. Use, side effects, adverse reactions and safe storage discussed. Will not prescribe Suboxone or Norepinephrine per pt request due to severe drug interactions. All questions answered. I have spent less than 30 minutes on patient care today. Dr Shaw was available by phone for the evaluation of this patient. The time was used to review the medical records including relevant urine studies and Prescription history (MAPs), review of the available imaging, evaluation and examination of the patient, coordination of care with the medical staff and if applicable referring physicians, as well as creation of the medical record - Pain Location Bilateral Neck Non-Pharmacological Interventions: Ice, Inactivity, Position/Reposition Pharmacological Interventions: Scheduled Medication PQRS Narrative: Smoking Status Never smoker Hx Alcohol Use (MH) No Home Medications: Ambulatory Orders Simvastatin [Zocor] 40 mg PO HS 01/28/15 Tamsulosin HCl [Flomax] 0.8 mg PO HS 01/28/15 cloNIDine HCL [Catapres] 0.1 mg PO TID 01/28/15 lisinopriL [Zestril] 10 mg PO HS 01/28/15 Ondansetron Odt [Zofran ODT] 4 mg PO Q8HR PRN #10 tab 03/23/21 QUEtiapine FUMARATE [SEROquel XR] 50 mg PO HS 03/23/21 Citalopram Hydrobromide [CeleXA] 20 mg PO HS 01/24/22 Omeprazole 40 mg PO DAILY 09/19/22 SUMAtriptan succinate [Imitrex] 50 mg PO DAILY PRN 09/19/22 traMADol HCL 50 mg PO Q8H PRN 09/19/22 HYDROcodone/APAP 10-325MG [[place] 10-325] 1 tab PO Q4HR PRN 3 Days #18 tab 05/17/23 Ibuprofen [Motrin] 600 mg PO Q8HR PRN #20 tab 05/17/23 methocarbamoL [Robaxin] 1,000 mg PO QID PRN 30 Days #90 tab 07/13/23 Controlled Substance Measures - Controlled Substance Measures Is patient prescribed a controlled substance at discharge?: No
== END ==
LOC: PNWHC3 09:43
PROVIDERS: ATTEND Specialist
DX: M50.30 Other cervical disc degeneration, unspecified cervical region (principal); M47.812 Spondylosis without myelopathy or radiculopathy, cervical region; G62.9 Polyneuropathy, unspecified; G43.109 Migraine with aura, not intractable, without status migrainosus; G89.29 Other chronic pain
CPT/HCPCS: 99211

== ENCOUNTER 2023-08-02 06:44 | Day surgery (SDC) | payer MEDICARE ==
[2023-07-27 14:20] VITALS: BMI 27.9
[2023-08-02 07:25] VITALS: RESP 16; TEMP 98
[2023-08-02] MEDS ORDERED: LACTATED RINGERS 1,000 ML IV SCH (07:30)
[2023-08-02] MEDS ORDERED: TRIAMCINOLONE ACETONIDE 40 MG/ML 1 ML VIAL ONE (07:47)
[2023-08-02] MEDS ORDERED: ROPIVACAINE 5MG/ML 20ML VIAL ONE (07:47)
[2023-08-02 08:11] VITALS: BP 107/69; PULSE 69
--- NOTE | 2023-08-02 08:13 | P.PCN ---
Date of Procedure: 08/02/23 Description of Procedure: PREOPERATIVE DIAGNOSIS: Occipital neuralgia, and headaches POSTOPERATIVE DIAGNOSIS: Occipital neuralgia, and headaches PROCEDURES: 1. Bilateral Greater occipital nerve block SURGEON: Arcelia Dawson ANESTHESIA: Local and IV sedation : None EBL: None. Specimen removed: None PROCEDURE INDICATIONS: This patient with a history of chronic headaches, and occipital neuralgia. Patient tried conservative therapy. Came here for intervention management. Procedure and Findings: The patient was seen and examined and written informed consent was obtained after explaining the risks, benefits and alternative of the procedure to the patient. The patient was positioned in the sitting position with the head slightly flexed. By palpation, right side the external occipital protuberance and mastoid process were identified and mid point in between was located. The targ et point for greater occipital nerve was just medial to the occipital artery pulsation. The skin preparation was done with ChloraPrep X2 and sterile technique was observed throughout the procedure. A 25-guage, 1.5 inch needle was used for the procedure. A 25-gauge 1.5 inch needle was placed vertically downward, bony contact was obtained, negative aspiration was confirmed . The needle was redirected little medially and laterally in a fanning fashion and addition medication was injected after negative aspiration. 5 mL of block solution injected. The block solution containing 0.5% preservative-free bupivacaine 9 mL +40 MG of Kenalog . The needle was removed. Entire procedure repeated on the left side. Needle was removed intact. needle puncture sites were cleaned and pressure was applied. The patient tolerated the procedure very well. COMPLICATIONS: None. DISPOSITION / PLANS: The patient was placed in a supine position and transferred to the recovery area in a stable condition for observation and was discharged from the recovery room after meeting discharge criteria. Home discharge instructions given to the patient by the staff. The patient was reexamined prior to discharge. The patient will schedule for follow-up visit with the pain clinic in 2-4 weeks duration
== END 2023-08-02 08:11 | disposition home or self-care (01) ==
LOC: ORPAIN 06:44
DX: M54.81 Occipital neuralgia (principal)
CPT/HCPCS: 64405; J3301; J2795

== ENCOUNTER → 2023-08-29 | Outpatient (CLI) | payer MEDICARE ==
[2023-08-29 10:56] VITALS: BP 125/80; PULSE 60; RESP 16; TEMP 98.4
--- NOTE | 2023-08-29 13:48 | P.PAINPG ---
Objective - Vital Signs Vital signs: Intake & Output 08/28/23 08/29/23 08/29/23 18:59 06:59 18:59 Weight 86.183 kg PQRS Measure Charge Sheet Comment: A 68 yr old L paraplegic male with a history of severe and chronic L sided neck pain x > 20 yrs secondary to occipital neuralgia, cervicogenic headache presents today for evaluation s/p BL TAYO injections. Pt states he experienced 90% pain relief x 4 wks s/p procedure. Pain level is provoked at 6/10 in intensity, constant, localized in the upper cervical spine, stiff, achy in character w shooting towards the top of head. Pain is provoked by hyperextension. Pain is alleviated with PT inpatient in 2020, then outpatient PT x 16 wks in February 2023, physician guided home exercises/ stretches since February 2023, medications, repositioning and rest. He is taking [place] 10/325mg 5 times daily and wants to ween himself down from it with the help of additional medications. Oswestry axial pain score at 14. Interventional pain procedures completed include L TAYO x2 Patient is currently on [place] 10/325mg, Neurontin, Imitrex, Ibu Patient denies any side effects of the medication(s), denies excessive drowsiness or sleepiness, denies suicidal ideation and reports that the current pain medication is helping to control the pain and improve activities of daily living. Patient denies any motor or sensory deficits. Patient denies any fever or night sweats, denies any change in the bowel movements or urination. Physical Examination: -Constitutional: Cooperative. Not in acute distress . - Neurologic: Cranial nerve II to XII intact. No focal neurological deficits. - Psychatric: Alert & oriented x 3. Matching mood & appropriate affect. Judgment and insight intact. - Musculoskeletal: Cervical spine: +BL TAYO TTP Muscle bulk/ tone/ strength in the bilateral upper extremities normal Vertebral body tenderness to palpation over Spurling test positive Distraction test positive Facet loading test positive TTP Thoracic spine Muscle bulk / tone/ strength in the bilateral paraspinal muscles normal Vertebral body tender to palpation over Facet loading test positive TTP Lumbar spine: Motor bulk/ tone/ strength lower extremities , thigh and legs : 5/5 Deep tendon reflexes : Normal Knee Jerk. Normal Ankle Jerk . Vertebral body tenderness to palpation over Lumbar Facet Loading Test positive Straight Leg Raise: positive at 30 degrees right side/ left side Gaenslen's Test positive Sacral spine : Severe tenderness over the Sacroiliac joint: right side / left side Range of motion: Flexion of the lumbar spine <60 degrees Range of motion: Extension of the lumbar spine <20 degrees Gaenslen's Test positive R / L Jennifer test: positive right side / left side Thigh Thrust Test positive R / L Sacral Thrust Test positive R/ L Assessment and plan: Chronic neck pain secondary to cervical DDD, spondylosis with facet arthropathy without myelopathy Will manage residual pain and may RTC on an as needed basis. All questions answered. I have spent less than 30 minutes on patient care today. Dr Shaw was available by phone for the evaluation of this patient. The time was used to review the medical records including relevant urine studies and Prescription history (MAPs), review of the available imaging, evaluation and examination of the patient, coordination of care with the medical staff and if applicable referring physicians, as well as creation of the medical record PQRS Narrative: Smoking Status Never smoker Hx Alcohol Use (MH) No Home Medications: Ambulatory Orders Tamsulosin HCl [Flomax] 0.4 mg PO BID 01/28/15 lisinopriL [Zestril] 10 mg PO HS 01/28/15 QUEtiapine FUMARATE [SEROquel XR] 50 mg PO HS 03/23/21 Citalopram Hydrobromide [CeleXA] 20 mg PO HS 01/24/22 SUMAtriptan succinate [Imitrex] 50 mg PO DAILY PRN 09/19/22 Apixaban [Eliquis] 5 mg PO BID 07/27/23 Atorvastatin [Lipitor] 20 mg PO DAILY 07/27/23 Gabapentin [Neurontin] 400 mg PO TID 07/27/23 Rimegepant Sulfate [Nurtec Odt] 75 mg PO DAILY PRN 07/27/23 buprenorphine HCL [Subutex] 8 mg SL BID PRN 07/27/23 lisinopriL [Zestril] 5 mg PO QAM 07/27/23 polyethylene glycoL 3350 [Clearlax] 1 packet PO DAILY 07/27/23 Controlled Substance Measures - Controlled Substance Measures Is patient prescribed a controlled substance at discharge?: No
== END ==
LOC: PNWHC3 09:57
PROVIDERS: ATTEND Specialist
DX: M54.81 Occipital neuralgia (principal); G44.86 Cervicogenic headache; G89.29 Other chronic pain; M50.30 Other cervical disc degeneration, unspecified cervical region; M47.812 Spondylosis without myelopathy or radiculopathy, cervical region; Z79.01 Long term (current) use of anticoagulants
CPT/HCPCS: 99211

== ENCOUNTER → 2023-10-12 | Outpatient (CLI) | payer MEDICARE ==
[2023-10-12 10:29] LABS: African American GFR (CKD) >90 (>60 ml/min/1.73 sqM); Blood Urea Nitrogen 22 mg/dL (9-20); Non-African American GFR(CKD) >90 (>60 ml/min/1.73 sqM)
--- NOTE | 2023-10-12 13:04 | CT ---
EXAMINATION TYPE: CT angio chest DATE OF EXAM: 10/12/2023 COMPARISON: None HISTORY: 68-year-old male Z86.711 PERSONAL HISTORY OF PULMONARY EMBOLISM, PE TECHNIQUE: Contiguous axial scanning of the chest after the administration of 100 mL of Isovue 370. Coronal/sagittal MIP reconstructions performed. CT DLP: 413.8mGycm. Automatic exposure control utilized for a dose reduction. FINDINGS: The heart is normal size without pericardial effusion. No flattening of the interventricular septum o r reflux of contrast into the hepatic veins. Mild proximal LAD coronary artery calcifications are pre sent. Ectatic aortic root at 3.9 cm. Ectatic ascending aorta 3.7 cm. Conventional arch vessel branching doug milo. Ectatic upper descending thoracic aorta at 3.6 cm. Borderline to mildly enlarged main right and left pulmonary arteries measuring up to 2.9 cm suggestin g underlying pulmonary hypertension. There is satisfactory enhancement of the pulmonary arterial syst em. A pulmonary embolus is not identified. Prominent right hilar lymph node measuring 1.8 cm and left hilar measuring 9 mm. Nonspecific, likely reactive/post inflammatory. No other thoracic lymphadenopathy by CT size criteria. Asymmetric elevation left hemidiaphragm with prominent patchy left basilar opacity, likely predominan tly atelectasis and scarring. There is mild emphysematous change. No other samir consolidation or pleural effusion seen. Visualized upper abdomen shows no gross abnormality. Mild to moderate degenerative disc disease throu ghout the thoracic spine. IMPRESSION: 1. No pulmonary embolus identified. 2. COPD with mild emphysema. There may be underlying pulmonary arterial hypertension. 3. Prominent asymmetric elevation left hemidiaphragm. Findings may be on the basis of hemidiaphragmat ic paralysis. Consider fluoroscopic sniff test to further assess. 4. Adjacent prominent left basilar opacities, likely combination of scarring and atelectasis.
== END | disposition home or self-care (01) ==
LOC: RADCTMAIN 09:36
PROVIDERS: ATTEND Internal Medicine
DX: J43.9 Emphysema, unspecified (principal); J44.9 Chronic obstructive pulmonary disease, unspecified; R91.8 Other nonspecific abnormal finding of lung field; Z86.711 Personal history of pulmonary embolism
CPT/HCPCS: 82565; 84520; 71275; 36415; Q9967

== ENCOUNTER → 2023-10-25 | Outpatient (CLI) | payer MEDICARE | LOC: CPPFTMAIN 15:11 | PROVIDERS: ATTEND Internal Medicine | DX: I26.94 Multiple subsegmental thrombotic pulmonary emboli without acute cor pulmonale (principal); Z86.711 Personal history of pulmonary embolism | CPT/HCPCS: 94060; 94726; 94729 ==

== ENCOUNTER → 2023-10-27 | Outpatient (CLI) | payer MEDICARE ==
--- NOTE | 2023-10-27 12:40 | FL ---
Fluoroscopy INDICATION: Pain FINDINGS: There is elevation of the left diaphragm. With quiet breathing some subtle paradoxical motion is evid ent on the left diaphragm. Right diaphragm has normal excursion. With active sniffing, paradoxical motion is apparent on the left with normal excursion of the right d iaphragm. Fluoroscopy time: 0.24 seconds. Total dose area product (DAP) in uGy*m?, mGy*cm? (or similar): 152.5 to Images obtained: 1. IMPRESSION: 1. 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
== END | disposition home or self-care (01) ==
LOC: RADFLWHC 09:49
PROVIDERS: ATTEND Internal Medicine
DX: I26.94 Multiple subsegmental thrombotic pulmonary emboli without acute cor pulmonale (principal); Z86.711 Personal history of pulmonary embolism
CPT/HCPCS: 76000

== ENCOUNTER → 2023-12-14 | Outpatient (CLI) | payer MEDICARE ==
[2023-12-14 08:20] VITALS: BP 132/72; PULSE 77; RESP 15; TEMP 97.5
--- NOTE | 2023-12-14 14:46 | P.PAINPG ---
Objective - Vital Signs Vital signs: Intake & Output 12/13/23 12/14/23 12/14/23 18:59 06:59 18:59 Weight 86.183 kg PQRS Measure Charge Sheet Comment: A 68 yr old L hemiplegic male with a history of severe and chronic L sided neck pain x > 20 yrs secondary to occipital neuralgia, cervicogenic headache presents today for evaluation. Pain level is provoked at 6/10 in intensity, constant, localized in the upper cervical spine, stiff, achy in character w shooting towards the top of head. Pain is provoked by hyperextension. Pain is alleviated with PT inpatient in 2020, then outpatient PT x 6 wks which ended in Sep 2023, physician guided home exercises/ stretches since February 2023, medications, repositioning and rest. He is taking [place] 10/325mg 5 times daily and wants to ween himself down from it with the help of additional medications. Cervical disability score at 14. Interventional pain procedures completed include BL TAYO x2 Patient is currently on [place] 10/325mg, Neurontin, Imitrex, Ibu Patient denies any side effects of the medication(s), denies excessive drowsiness or sleepiness, denies suicidal ideation and reports that the current pain medication is helping to control the pain and improve activities of daily living. Patient denies any motor or sensory deficits. Patient denies any fever or night sweats, denies any change in the bowel movements or urination. Physical Examination: -Constitutional: Cooperative. Not in acute distress . - Neurologic: Cranial nerve II to XII intact. No focal neurological deficits. - Psychatric: Alert & oriented x 3. Matching mood & appropriate affect. Judgment and insight intact. - Musculoskeletal: Cervical spine: +BL TAYO TTP Muscle bulk/ tone/ strength in the bilateral upper extremities normal Vertebral body tenderness to palpation over Spurling test positive Distraction test positive Facet loading test positive TTP Thoracic spine Muscle bulk / tone/ strength in the bilateral paraspinal muscles normal Vertebral body tender to palpation over Facet loading test positive TTP Lumbar spine: Motor bulk/ tone/ strength lower extremities , thigh and legs : 5/5 Deep tendon reflexes : Normal Knee Jerk. Normal Ankle Jerk . Vertebral body tenderness to palpation over Lumbar Facet Loading Test positive Straight Leg Raise: positive at 30 degrees right side/ left side Gaenslen's Test positive Sacral spine : Severe tenderness over the Sacroiliac joint: right side / left side Range of motion: Flexion of the lumbar spine <60 degrees Range of motion: Extension of the lumbar spine <20 degrees Gaenslen's Test positive R / L Jennifer test: positive right side / left side Thigh Thrust Test positive R / L Sacral Thrust Test positive R/ L Assessment and plan: Chronic neck pain secondary to cervical DDD, spondylosis with facet arthropathy without myelopathy Recommendation of GOYO TAYO #3. A series of injections for optimal pain relief. Risks, benefits of procedure discussed and patient verbalized understanding. Protocol for discontinuation/continuation of medications surrounding procedure discussed. All questions answered. I have spent less than 30 minutes on patient care today. Dr Shaw was available by phone for the evaluation of this patient. The time was used to review the medical records including relevant urine studies and Prescription history (MAPs), review of the available imaging, evaluation and examination of the patient, coordination of care with the medical staff and if applicable referring physicians, as well as creation of the medical record PQRS Narrative: Smoking Status Never smoker Hx Alcohol Use (MH) No Home Medications: Ambulatory Orders Tamsulosin HCl [Flomax] 0.4 mg PO BID 01/28/15 lisinopriL [Zestril] 10 mg PO HS 01/28/15 QUEtiapine FUMARATE [SEROquel XR] 50 mg PO HS 03/23/21 Citalopram Hydrobromide [CeleXA] 20 mg PO HS 01/24/22 SUMAtriptan succinate [Imitrex] 50 mg PO DAILY PRN 09/19/22 Apixaban [Eliquis] 5 mg PO BID 07/27/23 Atorvastatin [Lipitor] 20 mg PO DAILY 07/27/23 Gabapentin [Neurontin] 400 mg PO TID 07/27/23 Rimegepant Sulfate [Nurtec Odt] 75 mg PO DAILY PRN 07/27/23 buprenorphine HCL [Subutex] 8 mg SL BID PRN 07/27/23 lisinopriL [Zestril] 5 mg PO QAM 07/27/23 polyethylene glycoL 3350 [Clearlax] 1 packet PO DAILY 07/27/23 Controlled Substance Measures - Controlled Substance Measures Is patient prescribed a controlled substance at discharge?: No
== END ==
LOC: PNWHC3 07:45
PROVIDERS: ATTEND Specialist
DX: M54.81 Occipital neuralgia (principal); M50.30 Other cervical disc degeneration, unspecified cervical region; M47.812 Spondylosis without myelopathy or radiculopathy, cervical region; G89.29 Other chronic pain
CPT/HCPCS: 99211

== ENCOUNTER 2023-12-20 12:02 | Day surgery (SDC) | payer MEDICARE ==
[2023-12-16 13:08] VITALS: BMI 27.3
[~2023-12-20 12:02] MED LIST: LACTATED RINGERS 1,000 ML IV SCH
[2023-12-20 12:59] VITALS: RESP 16; TEMP 98
[2023-12-20] MEDS ORDERED: methylPREDNISolone ACETATE 80 MG/ML 1 ML VIAL ONE (13:49)
[2023-12-20] MEDS ORDERED: ROPIVACAINE 5MG/ML 20ML VIAL ONE (13:49)
--- NOTE | 2023-12-20 13:53 | P.PCN ---
Description of Procedure: Preoperative diagnoses= 1- Greater occipital neuralgia Postoperative diagnoses= 1-greater occipital neuralgia Procedure= Bilateral Greater occipital nerve block Anesthesia= Local infiltration of 1% lidocaine. Continuous pulse ox, EKG, blood pressure and verbal communication was maintained with the patient in the OR. . Estimated blood loss=minimal. Procedure indication= the patient had a history of severe chronic neck pain ,and headache, diagnosed with occipital neuralgia exam was positive for severe tenderness over the occipital nerve, she will be a good candidate occipital nerve block, patient failed conservative management. Discussed with the patient the procedure, alternative, complications including infection, bleeding, nerve damage, aggravation of pain all of which could be permanent. Patient understands and QUESTIONS were answered. Procedure description= patient was placed in the sitting position or table and the neck area was prepped and draped with a sterile fashion. At the junction of right sternocleidomastoid muscle with trapezius muscle close to right superior nucheal line was identified, occipital artery was palpated. Just medial to the occipital artery 25-gauge needle attached to a syringe was introduced. Then after negative aspiration for heme and CSF and there was no paresthesia during the injection, 3 ml of Robivacaine 0.5% and 40 mg of Depo-Medrol injected total volume 4 mL after negative aspiration, the needle removed. Entire same procedure was repeated for the left Greater occipital nerve. The patient returned to supine position after the back was cleaned and a Band- Aid applied. Disposition= patient tolerated the procedure well. No complication. Discharged home in stable condition.
[2023-12-20 14:34] VITALS: BP 122/76; PULSE 85
== END 2023-12-20 14:15 | disposition home or self-care (01) ==
LOC: ORPAIN 12:02
PROVIDERS: ATTEND Pain Medicine Interventional Pain Medicine
DX: M54.81 Occipital neuralgia (principal); Z79.01 Long term (current) use of anticoagulants; Z88.6 Allergy status to analgesic agent
CPT/HCPCS: 64405

== ENCOUNTER → 2024-01-09 | Outpatient (CLI) | payer MEDICARE ==
[2024-01-09 11:44] VITALS: BP 115/77; PULSE 75; RESP 16; TEMP 98.4
--- NOTE | 2024-01-09 13:22 | P.PAINPG ---
PQRS Measure Charge Sheet Comment: A 68 yr old L hemiplegic male with a history of severe and chronic L sided neck pain x > 20 yrs secondary to occipital neuralgia, cervicogenic headache presents today for evaluation s/p BL TAYO #3. Pt states he experienced 90 % pain relief x 3 wks s/p procedure. Pain level is provoked at 1 /10 in intensity, constant, localized in the upper cervical spine, stiff, achy in character w shooting towards the top of R side of head. Pain is provoked by hyperextension. Pain is alleviated with PT inpatient in 2020, then outpatient PT x 6 wks which ended in Sep 2023, physician guided home exercises/ stretches since February 2023, medications, repositioning and rest. He is taking [place] 10/325mg 5 times daily and wants to ween himself down from it with the help of additional medications. Cervical disability score at 14. Interventional pain procedures completed include BL TAYO x3 Patient is currently on [place] 10/325mg, Neurontin, Imitrex, Ibu Patient denies any side effects of the medication(s), denies excessive drowsiness or sleepiness, denies suicidal ideation and reports that the current pain medication is helping to control the pain and improve activities of daily living. Patient denies any motor or sensory deficits. Patient denies any fever or night sweats, denies any change in the bowel movements or urination. Physical Examination: -Constitutional: Cooperative. Not in acute distress . - Neurologic: Cranial nerve II to XII intact. No focal neurological deficits. - Psychatric: Alert & oriented x 3. Matching mood & appropriate affect. Judgment and insight intact. - Musculoskeletal: Cervical spine: +R TAYO TTP Muscle bulk/ tone/ strength in the bilateral upper extremities normal Vertebral body tenderness to palpation over Spurling test positive Distraction test positive Facet loading test positive TTP Thoracic spine Muscle bulk / tone/ strength in the bilateral paraspinal muscles normal Vertebral body tender to palpation over Facet loading test positive TTP Lumbar spine: Motor bulk/ tone/ strength lower extremities , thigh and legs : 5/5 Deep tendon reflexes : Normal Knee Jerk. Normal Ankle Jerk . Vertebral body tenderness to palpation over Lumbar Facet Loading Test positive Straight Leg Raise: positive at 30 degrees right side/ left side Gaenslen's Test positive Sacral spine : Severe tenderness over the Sacroiliac joint: right side / left side Range of motion: Flexion of the lumbar spine <60 degrees Range of motion: Extension of the lumbar spine <20 degrees Gaenslen's Test positive R / L Jennifer test: positive right side / left side Thigh Thrust Test positive R / L Sacral Thrust Test positive R/ L Assessment and plan: Chronic neck pain secondary to cervical DDD, spondylosis with facet arth ropathy without myelopathy Will manage residual pain and may RTC on an as needed basis. All questions answered. I have spent less than 30 minutes on patient care today. Dr Shaw was availab le by phone for the evaluation of this patient. The time was used to review the medical records including relevant urine studies and Prescription history (MAPs), review of the available imaging, evaluation and examination of the patient, coordination of care with the medical staff and if applicable referring physicians, as well as creation of the medical record PQRS Narrative: Smoking Status Never smoker Hx Alcohol Use (MH) No Home Medications: Ambulatory Orders Tamsulosin HCl [Flomax] 0.4 mg PO BID 01/28/15 lisinopriL [Zestril] 10 mg PO HS 01/28/15 QUEtiapine FUMARATE [SEROquel XR] 50 mg PO HS 03/23/21 Citalopram Hydrobromide [CeleXA] 20 mg PO HS 01/24/22 SUMAtriptan succinate [Imitrex] 50 mg PO DAILY PRN 09/19/22 Apixaban [Eliquis] 5 mg PO BID 07/27/23 Atorvastatin [Lipitor] 20 mg PO DAILY 07/27/23 Gabapentin [Neurontin] 400 mg PO TID 07/27/23 Rimegepant Sulfate [Nurtec Odt] 75 mg PO DAILY PRN 07/27/23 lisinopriL [Zestril] 5 mg PO QAM 07/27/23 polyethylene glycoL 3350 [Clearlax] 1 packet PO DAILY 07/27/23 Controlled Substance Measures - Controlled Substance Measures Is patient prescribed a controlled substance at discharge?: No
== END ==
LOC: PNWHC3 09:47
PROVIDERS: ATTEND Specialist
DX: M50.30 Other cervical disc degeneration, unspecified cervical region (principal); M47.812 Spondylosis without myelopathy or radiculopathy, cervical region; G89.29 Other chronic pain
CPT/HCPCS: 99211

== ENCOUNTER 2024-01-28 10:27 | Inpatient (IN) | payer MEDICARE ==
[2024-01-28] MEDS ORDERED: VANCOMYCIN IV PER PHARMACY 1 EACH MISC MISCELLANE PRN (10:48)
[2024-01-28] MEDS: SODIUM CHLORIDE 0.9% 500 ML 500 ML IV SCH (11:23)
[2024-01-28 11:24] LABS: Basophils # (A) 0.1 k/uL (0-0.2); Basophils % (A) 1 %; Eosinophils # (A) 0.2 k/uL (0-0.7); Eosinophils % (A) 2 %; HCT 51.4 % (39.0-53.0); Lymphocytes # (A) 2.2 k/uL (1.0-4.8); Lymphocytes % (A) 20 %; MCH 28.8 pg (25.0-35.0); MCV 92.9 fL (80.0-100.0); Mean Platelet Volume 8.2; Monocytes # (A) 0.7 k/uL (0-1.0); Monocytes % (A) 6 %; Neutrophils # (A) 7.5 k/uL (1.3-7.7); Neutrophils % (A) 69 %; Platelet Count 265 k/uL (150-450); RBC 5.53 m/uL (4.30-5.90); RDW 13.8 % (11.5-15.5); WBC 10.9 k/uL (3.8-10.6)
--- NOTE | 2024-01-28 11:24 | ED ---
General Adult HPI - General Chief complaint: Skin/Abscess/Foreign Body Stated complaint: right foot infection Time Seen by Provider: 01/28/24 10:35 Source: patient, RN notes reviewed, old records reviewed Mode of arrival: ambulatory Limitations: no limitations - History of Present Illness Initial comments: This is a 69-year-old male who presents to the emergency department with a wound on his right foot it is above the first MTP joint. Patient states she has been on Keflex for a while and has not gotten any better and in fact is getting worse. Patient states they sent him in from urgent care because it is more red and more open than it has been. Patient is not a diabetic but he does have neuropathy. Patient denies any fever or chills. Patient [place] any pain or redness going up the leg. - Related Data Home Medications Medication Instructions Recorded Confirmed Tamsulosin HCl [Flomax] 0.4 mg PO BID 01/28/15 12/20/23 lisinopriL [Zestril] 10 mg PO HS 01/28/15 12/20/23 QUEtiapine FUMARATE [SEROquel XR] 50 mg PO HS 03/23/21 12/20/23 Citalopram Hydrobromide [CeleXA] 20 mg PO HS 01/24/22 12/20/23 SUMAtriptan succinate [Imitrex] 50 mg PO DAILY PRN 09/19/22 12/20/23 Apixaban [Eliquis] 5 mg PO BID 07/27/23 12/20/23 Atorvastatin [Lipitor] 20 mg PO DAILY 07/27/23 12/20/23 Gabapentin [Neurontin] 400 mg PO TID 07/27/23 12/20/23 Rimegepant Sulfate [Nurtec Odt] 75 mg PO DAILY PRN 07/27/23 12/20/23 lisinopriL [Zestril] 5 mg PO QAM 07/27/23 12/20/23 polyethylene glycoL 3350 [Clearlax] 1 packet PO DAILY 07/27/23 12/20/23 Allergies Allergy/AdvReac Type Severity Reaction Status Date / Time No Known Allergies Allergy Verified 01/28/24 10:34 Review of Systems ROS Statement: Those systems with pertinent positive or pertinent negative responses have been documented in the HPI. ROS Other: All systems not noted in ROS Statement are negative. 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 Frequent headaches-usually left side,BPH History of Any Multi-Drug Resistant Organisms: None Reported Past Surgical History: Back Surgery, Orthopedic Surgery, Tonsillectomy Additional Past Surgical History / Comment(s): fusion C3-C7 w/ removal blood clot off the spinal cord in neck,Left clavicle repaired, right ring finger tendon re-attached, left thumb surgery, pain clinic procedures,lumbar fusion Past Anesthesia/Blood Transfusion Reactions: No Reported Reaction Additional Past Anesthesia/Blood Transfusion Reaction / Comment(s): no hx blood transfusion Past Psychological History: Anxiety, Depression Smoking Status: Former smoker Past Alcohol Use History: None Reported Past Drug Use History: None Reported - Past Family History Father Family Medical History: Cancer General Exam - General Exam Comments Initial Comments: GENERAL: Patient is well-developed and well-nourished. Patient is nontoxic and well- hydrated and is in no acute distress. ENT: Neck is soft and supple. No significant lymphadenopathy is noted. Oropharynx is clear. Moist mucous membranes. Neck has full range of motion without eliciting any pain. EYES: The sclera were anicteric and conjunctiva were pink and moist. Extraocular movements were intact and pupils were equal round and reactive to light. Eyelids were unremarkable. SKIN: Open wound above the right first MTP joint with surrounding erythema NEUROLOGIC: Patient is alert and oriented x3. Cranial nerves II through XII are grossly in tact. Motor and sensory are also intact. Normal speech, volume and content. Symmetrical smile. MUSCULOSKELETAL: There is an open wound above the first MTP joint on the right foot it is erythematous around it patient does not have much pain because he has significant neuropathy. LYMPHATICS: No significant lymphadenopathy is noted PSYCHIATRIC: Normal psychiatric evaluation. Limitations: no limitations Course Vital Signs 01/28/24 01/28/24 01/28/24 10:33 11:28 12:15 Temperature 97.6 F 97.6 F Pulse Rate 74 69 73 Respiratory 18 18 18 Rate Blood Pressure 138/4 136/88 129/89 O2 Sat by Pulse 98 99 99 Oximetry Medical Decision Making - Medical Decision Making EKG is interpreted by myself. EKG shows sinus rhythm at 70 bpm parables 154 QRS 94 QT interval 388 QTc is 4 9. Patient's EKG shows no ST segment elevation or depression Was pt. sent in by a medical professional or institution (JAMES Chavez, MEDICAL RECORD SPECIALIST, urgent care, hospital, or fci...) When possible be specific @ -Patient was sent in by his doctor. Did you speak to anyone other than the patient for history (EMS, parent, family, police, friend...)? What history was obtained from this source @ -No Did you review nursing and triage notes (agree or disagree)? Why? @ -I reviewed and agree with nursing and triage notes Were old charts reviewed (outside hosp., previous admission, EMS record, old EKG, old radiological studies, urgent care reports/EKG's, fci records)? Report findings @ -No old charts were reviewed Differential Diagnosis (chest pain, altered mental status, abdominal pain women, abdominal pain men, vaginal bleeding, weakness, fever, dyspnea, syncope, he adache, dizziness, GI bleed, back pain, seizure, CVA, palpatations, mental health, musculoskeletal)? @ -Cellulitis, abscess, osteomyelitis, this is not an all-inclusive list EKG interpreted by me (3pts min.). @ -As above X-rays interpreted by me (1pt min.). @ -X-ray of the foot shows no acute abnormality CT interpreted by me (1pt min.). @ -None done U/S interpreted by me (1pt. min.). @ -None done What testing was considered but not performed or refused? (CT, X-rays, U/S, labs)? Why? @ -None What meds were considered but not given or refused? Why? @ -None Did you discuss the management of the patient with other professionals (professionals i.e. JAMES Chavez, MEDICAL RECORD SPECIALIST, lab, RT, psych nurse, social work instructor, continuous conveyor screen drier, teacher, security flex utility officer, casework specialist)? Give summary @ -I spoke with [facility] they agreed to admit the patient Was smoking cessation discussed for >3mins.? @ -No Was critical care preformed (if so, how long)? @ -No Were there social determinants of health that impacted care today? How? (Homelessness, low income, unemployed, alcoholism, drug addiction, transportation, low edu. Level, literacy, decrease access to med. care, fci, rehab)? @ -No Was there de-escalation of care discussed even if they declined (Discuss DNR or withdrawal of care, Hospice)? DNR status @ -No What co-morbidities impacted this encounter? (DM, HTN, Smoking, COPD, CAD, Cancer, CVA, ARF, Chemo, Hep., AIDS, mental health diagnosis, sleep apnea, morbid obesity)? @ -None Was patient admitted / discharged? Hospital course, mention meds given and route, prescriptions, significant lab abnormalities, going to OR and other pertinent info. @ -Patient received vancomycin as well as Zosyn and will be admitted to [facility] infectious disease will be consulted. Undiagnosed new problem with uncertain prognosis? @ -No Drug Therapy requiring intensive monitoring for toxicity (Heparin, Nitro, Insulin, Cardizem)? @ -No Were any procedures done? @ -No Diagnosis/symptom? @ -Infected wound foot Acute, or Chronic, or Acute on Chronic? @ -Acute Uncomplicated (without systemic symptoms) or Complicated (systemic symptoms)? @ -Complicated Side effects of treatment? @ -No Exacerbation, Progression, or Severe Exacerbation? @ -No Poses a threat to life or bodily function? How? (Chest pain, [place], [place], pneumonia, PE, COPD, DKA, ARF, appy, cholecystitis, CVA, Diverticulitis, Homicidal, Suicidal, threat to staff... and all critical care pts) @ -Yes this could lead to worsening infection sepsis and endorgan dysfunction - Lab Data Result diagrams: 01/28/24 11:05 01/28/24 11:05 Lab Results 01/28/24 01/28/24 01/28/24 Range/Units 11:05 11:05 11:05 WBC 10.9 H (3.8-10.6) k/uL RBC 5.53 (4.30-5.90) m/uL Hgb 16.0 (13.0-17.5) gm/dL Hct 51.4 (39.0-53.0) % MCV 92.9 (80.0-100.0) fL MCH 28.8 (25.0-35.0) pg MCHC 31.0 (31.0-37.0) g/dL RDW 13.8 (11.5-15.5) % Plt Count 265 (150-450) k/uL MPV 8.2 Neutrophils % 69 % Lymphocytes % 20 % Monocytes % 6 % Eosinophils % 2 % Basophils % 1 % Neutrophils # 7.5 (1.3-7.7) k/uL Lymphocytes # 2.2 (1.0-4.8) k/uL Monocytes # 0.7 (0-1.0) k/uL Eosinophils # 0.2 (0-0.7) k/uL Basophils # 0.1 (0-0.2) k/uL Sodium 139 (137-145) mmol/L Potassium 4.9 (3.5-5.1) mmol/L Chloride 110 H (98-107) mmol/L Carbon Dioxide 22 (22-30) mmol/L Anion Gap 7 mmol/L BUN 22 H (9-20) mg/dL Creatinine 0.76 (0.66-1.25) mg/dL Est GFR (CKD-EPI)AfAm >90 (>60 ml/min/1.73 sqM) Est GFR (CKD-EPI)NonAf >90 (>60 ml/min/1.73 sqM) Glucose 94 (74-99) mg/dL Plasma Lactic Acid Girish 1.1 (0.7-2.0) mmol/L Calcium 9.6 (8.4-10.2) mg/dL Total Bilirubin 0.7 (0.2-1.3) mg/dL AST 33 (17-59) U/L ALT 29 (4-49) U/L Alkaline Phosphatase 119 (38-126) U/L Total Protein 7.1 (6.3-8.2) g/dL Albumin 3.9 (3.5-5.0) g/dL Disposition Clinical Impression: Wound infection Disposition: ADMITTED IP TO THIS HOSP Referrals: Tyler Quevedo MD [Primary Care Provider] - 1-2 days Time of Disposition: 12:49
[2024-01-28] MEDS: PIPERACILLIN-TAZOBACTAM 3.375 GM in SODIUM CHLORIDE 0.9% 100 ML IVPB STA (11:25)
[2024-01-28 11:54] LABS: ALT 29 U/L (4-49); AST 33 U/L (17-59); African American GFR (CKD) >90 (>60 ml/min/1.73 sqM); Albumin 3.9 g/dL (3.5-5.0); Alkaline Phosphatase 119 U/L (38-126); Anion Gap 7 mmol/L; Blood Urea Nitrogen 22 mg/dL (9-20); Calcium 9.6 mg/dL (8.4-10.2); Carbon Dioxide 22 mmol/L (22-30); Chloride 110 mmol/L (98-107); Glucose 94 mg/dL (74-99); Non-African American GFR(CKD) >90 (>60 ml/min/1.73 sqM); Sodium 139 mmol/L (137-145); Total Bilirubin 0.7 mg/dL (0.2-1.3); Total Protein 7.1 g/dL (6.3-8.2)
[2024-01-28 12:04] LABS: Potassium 4.9 mmol/L (3.5-5.1)
[2024-01-28] MEDS: VANCOMYCIN 1,750 MG in SODIUM CHLORIDE 0.9% 500 ML 500 ML IVPB ONE (12:13)
--- NOTE | 2024-01-28 12:30 | XR ---
EXAMINATION TYPE: XR foot complete RT DATE OF EXAM: 01/28/2024 CLINICAL HISTORY: pain TECHNIQUE: Frontal, lateral and oblique images of the right foot are obtained. COMPARISON: None. FINDINGS: Severe degenerative narrowing involving the first metatarsal phalangeal joint with bony rem odeling seen and extensive spur formation. Underlying gout is not excluded. There is mild hallux valg us deformity. No bony destructive process seen. The remaining osseous structures are grossly unremark able. IMPRESSION: As above
[2024-01-28] MEDS ORDERED: NON FORMULARY DRUG (Rimegepant Sulfate [Nurtec Odt] 75 MG Tablet) PO PRN (13:37)
[2024-01-28] MEDS: GABAPENTIN 400 MG CAP PO SCH (14:59)
[2024-01-28 15:43] LABS: C Reactive Protein 0.7 mg/dL (<1.0); Uric Acid 5.1 mg/dL (3.5-8.5)
[2024-01-28] MEDS: SODIUM CHLORIDE 0.9% 1,000 ML IV ONE (16:23)
[2024-01-28] MEDS: PIPERACILLIN-TAZOBACTAM 3.375 GM in SODIUM CHLORIDE 0.9% 100 ML IVPB SCH (18:07)
[2024-01-28] MEDS: TAMSULOSIN 0.4 MG CAP.ER.24H PO SCH (20:47)
[2024-01-28] MEDS: APIXABAN 5 MG TAB PO SCH (20:47)
[2024-01-28] MEDS: QUEtiapine 50 MG TAB PO SCH (20:47)
[2024-01-28] MEDS: BACLOFEN 10 MG TAB PO SCH (20:48)
[2024-01-28] MEDS: lisinopriL 10 MG TAB PO SCH (20:48)
--- NOTE | 2024-01-28 23:02 | P.CONS ---
History of Present Illness - Reason for Consult Consult date: 01/28/24 Infected foot wound Requesting physician: Errol Leiva - Chief Complaint Worsening wound to the right foot x few days - History of Present Illness Patient is a 69-year-old male with a past medical history significant for hypertension hyperlipidemia PE prostate disorder, peripheral neuropathy presenting to the hospital with right foot wound swelling and redness patient mention he noticed the wound about a week ago likely from tight fitting shoes the area becoming swollen and right denies any foul-smelling drainage and denies having any pain because of neuropathy patient has been evaluated in the outpatient setting and has been treated with the Keflex for about a week however the patient noticed to have increasing swelling and redness concerning the patient for the patient came to the hospital patient denies high-grade fever or any chills and no fever was recorded on presentation to the hospital patient was not tachycardic hypotensive or hypoxic he did have white count of 10.9 creatinine 0.76 liver enzymes are normal local cultures obtained patient did have x-ray of the foot severe degenerative narrowing involving the first metatarsal phalangeal joint concerning for underlying gout but no bony destruction process patient was started on vancomycin infectious disease was consulted for further management of antibiotic therapy Review of Systems Positive point and negatives has been mentioned in the HPI, complete review of systems was performed and all other systems are negative Past Medical History Past Medical History: Hyperlipidemia, Hypertension, Musculoskeletal Disorder, Osteoarthritis (OA), Prostate Disorder, Pulmonary Embolus (PE) Additional Past Medical History / Comment(s): on blood thinner r/t bleed inside spinal [id number]-M2-B7 vertabra fx and 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 Frequent headaches-usually left side,BPH History of Any Multi-Drug Resistant Organisms: None Reported Past Surgical History: Back Surgery, Orthopedic Surgery, Tonsillectomy Additional Past Surgical History / Comment(s): fusion C3-C7 w/ removal blood clot off the spinal cord in neck,Left clavicle repaired, right ring finger tendon re-attached, left thumb surgery, pain clinic procedures,lumbar fusion Past Anesthesia/Blood Transfusion Reactions: No Reported Reaction Additional Past Anesthesia/Blood Transfusion Reaction / Comm: no hx blood transfusion Past Psychological History: Anxiety, Depression Smoking Status: Former smoker Past Alcohol Use History: None Reported Past Drug Use History: None Reported - Past Family History Father Family Medical History: Cancer Medications and Allergies Home Medications Medication Instructions Recorded Confirmed Type Tamsulosin HCl [Flomax] 0.8 mg PO HS 01/28/15 01/28/24 History lisinopriL [Zestril] 10 mg PO HS 01/28/15 01/28/24 History Apixaban [Eliquis] 5 mg PO BID 07/27/23 01/28/24 History Atorvastatin [Lipitor] 20 mg PO DAILY 07/27/23 01/28/24 History Gabapentin [Neurontin] 400 mg PO TID 07/27/23 01/28/24 History Rimegepant Sulfate [Nurtec Odt] 75 mg PO DAILY PRN 07/27/23 01/28/24 History lisinopriL [Zestril] 5 mg PO DAILY 07/27/23 01/28/24 History polyethylene glycoL 3350 [Clearlax] 17 gm PO DAILY 07/27/23 01/28/24 History Baclofen 5 mg PO BID 01/28/24 01/28/24 History Cholecalciferol [Vitamin D3 (25 25 mcg PO DAILY 01/28/24 01/28/24 History Mcg = 1000 Iu)] Citalopram Hydrobromide [CeleXA] 40 mg PO DAILY 01/28/24 01/28/24 History Ondansetron [Zofran] 4 mg PO TID PRN 01/28/24 01/28/24 History QUEtiapine [SEROquel] 50 mg PO HS 01/28/24 01/28/24 History SUMAtriptan succinate [Imitrex] 100 mg PO BID PRN 01/28/24 01/28/24 History Sulfamethox-Tmp 800-160Mg [Bactrim 1 tab PO Q12HR #20 tab 02/01/24 Rx DS 800-160 mg] Allergies Allergy/AdvReac Type Severity Reaction Status Date / Time No Known Allergies Allergy Verified 01/28/24 10:34 Physical Exam Vitals: Vital Signs Temp Pulse Pulse Resp BP BP Pulse Ox 01/28/24 13:50 97.5 F L 65 18 144/85 98 01/28/24 13:29 97.7 F 70 18 131/86 99 01/28/24 12:15 73 18 129/89 99 01/28/24 11:28 97.6 F 69 18 136/88 99 01/28/24 10:33 97.6 F 74 18 138/4 98 Intake and Output 01/27/24 01/28/24 01/28/24 22:59 06:59 14:59 Other: Weight 88.451 kg GENERAL DESCRIPTION: Elderly him and up in the chair, no distress. No tachypnea or accessory muscle of respiration use. HEENT: Shows Pallor , no scleral icterus. Oral mucous membrane is dry. No pharyngeal erythema or thrush NECK: Trachea central, no thyromegaly. LUNGS: Unlabored breathing. Clear to auscultation anteriorly. No wheeze or crackle. HEART: S1, S2, regular rate and rhythm. No loud murmur ABDOMEN: Soft, no tenderness , guarding or rigidity, no organomegaly EXTREMITIES: Right foot dorsum wound with slough. Surrounding redness no foul- smelling drainage SKIN: No rash, no masses palpable. NEUROLOGICAL: The patient is awake, alert, oriented x3, mood and affect normal. Results CBC & Chem 7: 01/31/24 06:45 01/31/24 06:45 Labs: Abnormal Lab Results - Last 24 Hours (Table) 01/28/24 01/28/24 Range/Units 11:05 11:05 WBC 10.9 H (3.8-10.6) k/uL Chloride 110 H (98-107) mmol/L BUN 22 H (9-20) mg/dL Assessment and Plan (1) Cellulitis of right foot Current Visit: Yes Status: Acute Code(s): L03.115 - CELLULITIS OF RIGHT LOWER LIMB SNOMED Code(s): 27903144523540664 (2) Wound infection Current Visit: Yes Status: Acute Code(s): T14.8XXA - OTHER INJURY OF UNSPECIFIED BODY REGION, INITIAL ENCOUNTER; L08.9 - LOCAL INFECTION OF THE SKIN AND SUBCUTANEOUS TISSUE, UNSP SNOMED Code(s): 87926418 (3) Wound of right foot Current Visit: Yes Status: Acute Code(s): S91.301A - UNSPECIFIED OPEN WOUND, RIGHT FOOT, INITIAL ENCOUNTER SNOMED Code(s): 472190366 Plan: 1patient presented to hospital with right diabetic foot wound and infection started as a blister from shoe failing outpatient oral Keflex therapy 2-local culture has been obtained to guide further antibiotic therapy 3-we will moe the area of the redness 4-local wound care with Medihoney followed by moist dressing change daily discussed with nursing staff 5-vancomycin pharmacy to dose target trough of 15 while watching kidney function and Vanco trough closely We will follow on clinical condition and cultures to further adjust medication if needed Thank you for this consultation we will follow the patient along with you Dictation was produced using [employer] dictation software. please excuse any grammatical, word or spelling errors. Time with Patient: Greater than 30
[2024-01-29] MEDS: VANCOMYCIN 1,500 MG in SODIUM CHLORIDE 0.9% 500 ML 500 ML IVPB SCH (00:47)
[2024-01-29 05:31] LABS: Basophils # (A) 0.1 k/uL (0-0.2); Basophils % (A) 1 %; Eosinophils # (A) 0.2 k/uL (0-0.7); Eosinophils % (A) 2 %; HCT 43.7 % (39.0-53.0); HGB 13.3 gm/dL (13.0-17.5); Lymphocytes # (A) 1.3 k/uL (1.0-4.8); Lymphocytes % (A) 16 %; MCH 28.7 pg (25.0-35.0); MCHC 30.4 g/dL (31.0-37.0); MCV 94.4 fL (80.0-100.0); Mean Platelet Volume 7.9; Monocytes # (A) 0.6 k/uL (0-1.0); Monocytes % (A) 8 %; Neutrophils # (A) 5.7 k/uL (1.3-7.7); Neutrophils % (A) 72 %; Platelet Count 202 k/uL (150-450); RBC 4.63 m/uL (4.30-5.90); RDW 13.8 % (11.5-15.5)
[2024-01-29 05:49] LABS: ALT 20 U/L (4-49); AST 22 U/L (17-59); African American GFR (CKD) >90 (>60 ml/min/1.73 sqM); Albumin 2.7 g/dL (3.5-5.0); Alkaline Phosphatase 103 U/L (38-126); Anion Gap 3 mmol/L; Blood Urea Nitrogen 16 mg/dL (9-20); Calcium 8.2 mg/dL (8.4-10.2); Carbon Dioxide 25 mmol/L (22-30); Chloride 112 mmol/L (98-107); Globulin 2.7 g/dL; Glucose 75 mg/dL (74-99); Non-African American GFR(CKD) 88 (>60 ml/min/1.73 sqM); Potassium 4.4 mmol/L (3.5-5.1); Sodium 140 mmol/L (137-145); Total Bilirubin 0.6 mg/dL (0.2-1.3); Total Protein 5.4 g/dL (6.3-8.2)
[2024-01-29] MEDS: ATORVASTATIN 20 MG TAB PO SCH (07:55)
[2024-01-29] MEDS: polyethylene glycoL 3350 17 GM POWD.PACK PO SCH (07:56)
[2024-01-29] MEDS: CHOLECALCIFEROL 25 MCG (1000 IU) TABLET PO SCH (07:56)
[2024-01-29] MEDS: CITALOPRAM HYDROBROMIDE 20 MG TAB PO SCH (07:56)
[2024-01-29] MEDS: lisinopriL 5 MG TAB PO SCH (07:56)
--- NOTE | 2024-01-29 09:54 | P.HPIM ---
History of Present Illness H&P Date: 01/28/24 History of present illness; patient is a 69-year-old gentleman with past mental history of hyperlipidemia, PE, hypertension, enlarged prostate, migraine headaches with aura, recurrent depression, neuropathy who presented to the ER for right foot wound. Patient said that he was all right 1 week back when he bought a new shoe and after being that he noticed that there was a blister on the top of his first toe. Patient denies any fever or chills. There was no complaint of lethargy or weakness. Patient noted that the blister was worsening so he went to urgent care who prescribed him Keflex and the patient has been taking it for the last week but the wound did not improve. Patient denies any discharge from the wound. The redness and swelling has worsened. Because of the symptoms, he was referred to the ER Initial lab work done in the ER showed WBC 10.9, hemoglobin 16, platelet count 265, sodium 139, potassium 4.9, BUN 22, creatinine 0.76, glucose 94, lactate 1.1, bilirubin 0.7, AST 33, ALT 29, alk phos 119 X-ray of the right foot done showed severe degenerative narrowing involving the first metatarsal phalangeal joint with bony remodeling seen and extensive spur formation. Patient admitted to internal medicine service REVIEW OF SYSTEMS: CONSTITUTIONAL: No fever, no malaise, no fatigue. HEENT: No recent visual problems or hearing problems. Denied any sore throat. CARDIOVASCULAR: No chest pain, orthopnea, PND, no palpitations, no syncope. PULMONARY: No shortness of breath, no cough, no hemoptysis. GASTROINTESTINAL: No diarrhea, no nausea, no vomiting, no abdominal pain. NEUROLOGICAL: No headaches, no weakness, no numbness. HEMATOLOGICAL: Denies any bleeding or petechiae. GENITOURINARY: Denies any burning micturition, frequency, or urgency. MUSCULOSKELETAL/RHEUMATOLOGICAL: As mentioned above ENDOCRINE: Denies any polyuria or polydipsia. The rest of the 14-point review of systems is negative. PHYSICAL EXAMINATION: GENERAL: The patient is alert and oriented x3, not in any acute distress. Well developed, well nourished. HEENT: Pupils are round and equally reacting to light. EOMI. No scleral icterus. No conjunctival pallor. Normocephalic, atraumatic. No pharyngeal erythema. No thyromegaly. CARDIOVASCULAR: S1 and S2 present. No murmurs, rubs, or gallops. PULMONARY: Chest is clear to auscultation, no wheezing or crackles. ABDOMEN: Soft, nontender, nondistended, normoactive bowel sounds. No palpable organomegaly. MUSCULOSKELETAL: Ulcer over right first metatarsophalangeal joint, erythema seen EXTREMITIES: No cyanosis, clubbing, or pedal edema. NEUROLOGICAL: Gross neurological examination did not reveal any focal deficits. SKIN: No rashes. Assessment and plan Ulcer of right metatarsophalangeal joint Right foot cellulitis History of PE Hypertension Hyperlipidemia Depression History of migraine Monitor vital signs Monitor CBC Monitor CMP Continue telemetry monitoring Ordered blood cultures Continue IV Zosyn and vancomycin Ordered uric acid levels Resume home meds Consult ID Labs and medication were reviewed.. Continue same treatment. Continue with symptomatic treatment. Resume home medication. Monitor labs and vitals. DVT and GI prophylaxis. Further recommendations as per clinical course of the patient Dictation was produced using [employer] dictation software. please excuse any grammatical, word or spelling errors. 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 Frequent headaches-usually left side,BPH History of Any Multi-Drug Resistant Organisms: None Reported Past Surgical History: Back Surgery, Orthopedic Surgery, Tonsillectomy Additional Past Surgical History / Comment(s): fusion C3-C7 w/ removal blood clot off the spinal cord in neck,Left clavicle repaired, right ring finger tendon re-attached, left thumb surgery, pain clinic procedures,lumbar fusion Past Anesthesia/Blood Transfusion Reactions: No Reported Reaction Additional Past Anesthesia/Blood Transfusion Reaction / Comment(s): no hx blood transfusion Past Psychological History: Anxiety, Depression Smoking Status: Former smoker Past Alcohol Use History: None Reported Past Drug Use History: None Reported - Past Family History Father Family Medical History: Cancer Medications and Allergies Home Medications Medication Instructions Recorded Confirmed Type Tamsulosin HCl [Flomax] 0.8 mg PO HS 01/28/15 01/28/24 History lisinopriL [Zestril] 10 mg PO HS 01/28/15 01/28/24 History Apixaban [Eliquis] 5 mg PO BID 07/27/23 01/28/24 History Atorvastatin [Lipitor] 20 mg PO DAILY 07/27/23 01/28/24 History Gabapentin [Neurontin] 400 mg PO TID 07/27/23 01/28/24 History Rimegepant Sulfate [Nurtec Odt] 75 mg PO DAILY PRN 07/27/23 01/28/24 History lisinopriL [Zestril] 5 mg PO DAILY 07/27/23 01/28/24 History polyethylene glycoL 3350 [Clearlax] 17 gm PO DAILY 07/27/23 01/28/24 History Baclofen 5 mg PO BID 01/28/24 01/28/24 History Cephalexin [Keflex] 500 mg PO Q6H 01/28/24 01/28/24 History Cholecalciferol [Vitamin D3 (25 25 mcg PO DAILY 01/28/24 01/28/24 History Mcg = 1000 Iu)] Citalopram Hydrobromide [CeleXA] 40 mg PO DAILY 01/28/24 01/28/24 History Ondansetron [Zofran] 4 mg PO TID PRN 01/28/24 01/28/24 History QUEtiapine [SEROquel] 50 mg PO HS 01/28/24 01/28/24 History SUMAtriptan succinate [Imitrex] 100 mg PO BID PRN 01/28/24 01/28/24 History Allergies Allergy/AdvReac Type Severity Reaction Status Date / Time No Known Allergies Allergy Verified 01/28/24 10:34 Physical Exam Vitals: Vital Signs Temp Pulse Resp BP Pulse Ox 01/28/24 13:29 97.7 F 70 18 131/86 99 01/28/24 12:15 73 18 129/89 99 01/28/24 11:28 97.6 F 69 18 136/88 99 01/28/24 10:33 97.6 F 74 18 138/4 98 Intake and Output 01/27/24 01/28/24 01/28/24 22:59 06:59 14:59 Other: Weight 88.451 kg Results CBC & Chem 7: 01/28/24 11:05 01/28/24 11:05 Labs: Abnormal Lab Results - Last 24 Hours (Table) 01/28/24 01/28/24 Range/Units 11:05 11:05 WBC 10.9 H (3.8-10.6) k/uL Chloride 110 H (98-107) mmol/L BUN 22 H (9-20) mg/dL
[2024-01-29] MEDS: LIDOCAINE 1% INJ 10MG/ML (20 ML MDV) ONE (13:33)
--- NOTE | 2024-01-29 13:45 | P.PN ---
Subjective Progress Note Date: 01/29/24 patient is a 69-year-old gentleman with past mental history of hyperlipidemia, PE, hypertension, enlarged prostate, migraine headaches with aura, recurrent depression, neuropathy who presented to the ER for right foot wound. Patient said that he was all right 1 week back when he bought a new shoe and after being that he noticed that there was a blister on the top of his first toe. Patient denies any fever or chills. There was no complaint of lethargy or weakness. Patient noted that the blister was worsening so he went to urgent care who prescribed him Keflex and the patient has been taking it for the last week but the wound did not improve. Patient denies any discharge from the wound. The redness and swelling has worsened. Because of the symptoms, he was referred to the ER Initial lab work done in the ER showed WBC 10.9, hemoglobin 16, platelet count 265, sodium 139, potassium 4.9, BUN 22, creatinine 0.76, glucose 94, lactate 1.1, bilirubin 0.7, AST 33, ALT 29, alk phos 119 X-ray of the right foot done showed severe degenerative narrowing involving the first metatarsal phalangeal joint with bony remodeling seen and extensive spur formation. Patient admitted to internal medicine service 01/28. Patient seen and examined. No acute overnight. Denies any right foot pain REVIEW OF SYSTEMS: CONSTITUTIONAL: No fever, no malaise,. CARDIOVASCULAR: No chest pain, no palpitations, no syncope. PULMONARY: No shortness of breath, no cough, GASTROINTESTINAL: No diarrhea, no nausea, no vomiting, no abdominal pain. NEUROLOGICAL: No headaches, no weakness, PHYSICAL EXAMINATION: GENERAL: The patient is alert and oriented x3, not in any acute distress. Well developed, well nourished. HEENT: Pupils are round and equally reacting to light. EOMI. No scleral icterus. No conjunctival pallor. Normocephalic, atraumatic. No pharyngeal erythema. No thyromegaly. CARDIOVASCULAR: S1 and S2 present. No murmurs, rubs, or gallops. PULMONARY: Chest is clear to auscultation, no wheezing or crackles. ABDOMEN: Soft, nontender, nondistended, normoactive bowel sounds. No palpable organomegaly. MUSCULOSKELETAL: Ulcer over right first metatarsophalangeal joint, erythema seen EXTREMITIES: No cyanosis, clubbing, or pedal edema. NEUROLOGICAL: Gross neurological examination did not reveal any focal deficits. SKIN: No rashes. Assessment and plan Ulcer of right metatarsophalangeal joint Right foot cellulitis History of PE Hypertension Hyperlipidemia Depression History of migraine Monitor vital signs Monitor CBC Monitor CMP Continue telemetry monitoring Follow-up on blood cultures Continue IV vancomycin Check HbA1c level Continue lisinopril for hypertension Continue Lipitor for hyperlipidemia Continue Flomax ID following Labs and medication were reviewed.. Continue same treatment. Continue with symptomatic treatment. Resume home medication. Monitor labs and vitals. DVT a nd GI prophylaxis. Further recommendations as per clinical course of the patient Dictation was produced using [employer] dictation software. please excuse any grammatical, word or spelling errors. Objective - Vital Signs Vital signs: Vital Signs Temp 98.3 F 01/29/24 07:11 Pulse 73 01/29/24 07:11 Resp 17 01/29/24 07:11 BP 130/81 01/29/24 07:11 Pulse Ox 96 01/29/24 07:11 FiO2 Intake & Output 01/28/24 01/29/24 01/29/24 18:59 06:59 18:59 Intake Total 850 590 Balance 850 590 Weight 88.451 kg Intake: Intake, IV Titration 850 Amount Piperacillin-Tazobactam 3 100 .375 gm In Sodium Chloride 0.9% 100 ml @ 200 mls/hr IVPB ONCE STA Rx#:[id number] Piperacillin-Tazobactam 3 100 .375 gm In Sodium Chloride 0.9% 100 ml @ 25 mls/hr IVPB Q8H [facility] Rx#: [id number] Sodium Chloride 0.9% 1, 150 000 ml @ 50 mls/hr IV . Q20H [facility] Rx#:[id number] Vancomycin 1,750 mg In 500 Sodium Chloride 0.9% 500 ml 500 ml @ 167 mls/hr IVPB ONCE ONE Rx#: [id number] Oral 590 Other: Voiding Method Toilet # Voids 1 2 - Labs CBC & Chem 7: 01/29/24 04:49 01/29/24 04:49 Labs: Abnormal Lab Results - Last 24 Hours (Table) 01/28/24 01/28/24 01/28/24 Range/Units 11:05 11:05 15:38 WBC 10.9 H (3.8-10.6) k/uL MCHC (31.0-37.0) g/dL ESR 38 H (0-20) mm/Hr Chloride 110 H (98-107) mmol/L BUN 22 H (9-20) mg/dL Calcium (8.4-10.2) mg/dL Total Protein (6.3-8.2) g/dL Albumin (3.5-5.0) g/dL 01/29/24 01/29/24 Range/Units 04:49 04:49 WBC (3.8-10.6) k/uL MCHC 30.4 L (31.0-37.0) g/dL ESR (0-20) mm/Hr Chloride 112 H (98-107) mmol/L BUN (9-20) mg/dL Calcium 8.2 L (8.4-10.2) mg/dL Total Protein 5.4 L (6.3-8.2) g/dL Albumin 2.7 L (3.5-5.0) g/dL
--- NOTE | 2024-01-29 13:53 | P.GSCN ---
History of Present Illness History of present illness: 69-year-old [id number] gentleman who has history of blister formation right foot who has history of blister formation right foot big toe.dorsum SPECT on 07 January big toe Doppler dorsal suspect of 7 days patient went to patient went to the urgent care and they put him on a Keflex urgent care and they put him on Keflex patient has been admitted with patient to has been admitted with the 2 x 2 centimeter wound on the dorsal aspect of the right foot big toe with marked redness and swelling 2 x 2 CM wound on the dorsal aspect of the right foot big toe with marked redness and swelling patient has no fever or chills as no fever or chills medical history history of medical history history ofnte hpatiof December Medical historymedical history history of neuropathy,y of neuropathy, hypertension, patient has history of C-spine surgery at [facility] in the pastC-spine surgery at [facility] in the past also history of PE history patient is on Eliquis 1+ bilateral1+ bilateral DP E. PT not palpable plan is deep debridement and culture Past Medical History Past Medical History: Hyperlipidemia, Hypertension, Musculoskeletal Disorder, Osteoarthritis (OA), Prostate Disorder, Pulmonary Embolus (PE) Additional Past Medical History / Comment(s): on blood thinner r/t bleed inside spinal [id number] vertabra fx and 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 Frequent headaches-usually left side,BPH History of Any Multi-Drug Resistant Organisms: None Reported Past Surgical History: Back Surgery, Orthopedic Surgery, Tonsillectomy Additional Past Surgical History / Comment(s): fusion C3-C7 w/ removal blood clot off the spinal cord in neck,Left clavicle repaired, right ring finger tendon re-attached, left thumb surgery, pain clinic procedures,lumbar fusion Past Anesthesia/Blood Transfusion Reactions: No Reported Reaction Additional Past Anesthesia/Blood Transfusion Reaction / Comm: no hx blood transfusion Past Psychological History: Anxiety, Depression Smoking Status: Former smoker Past Alcohol Use History: None Reported Past Drug Use History: None Reported - Past Family History Father Family Medical History: Cancer Medications and Allergies Home Medications Medication Instructions Recorded Confirmed Type Tamsulosin HCl [Flomax] 0.8 mg PO HS 01/28/15 01/28/24 History lisinopriL [Zestril] 10 mg PO HS 01/28/15 01/28/24 History Apixaban [Eliquis] 5 mg PO BID 07/27/23 01/28/24 History Atorvastatin [Lipitor] 20 mg PO DAILY 07/27/23 01/28/24 History Gabapentin [Neurontin] 400 mg PO TID 07/27/23 01/28/24 History Rimegepant Sulfate [Nurtec Odt] 75 mg PO DAILY PRN 07/27/23 01/28/24 History lisinopriL [Zestril] 5 mg PO DAILY 07/27/23 01/28/24 History polyethylene glycoL 3350 [Clearlax] 17 gm PO DAILY 07/27/23 01/28/24 History Baclofen 5 mg PO BID 01/28/24 01/28/24 History Cephalexin [Keflex] 500 mg PO Q6H 01/28/24 01/28/24 History Cholecalciferol [Vitamin D3 (25 25 mcg PO DAILY 01/28/24 01/28/24 History Mcg = 1000 Iu)] Citalopram Hydrobromide [CeleXA] 40 mg PO DAILY 01/28/24 01/28/24 History Ondansetron [Zofran] 4 mg PO TID PRN 01/28/24 01/28/24 History QUEtiapine [SEROquel] 50 mg PO HS 01/28/24 01/28/24 History SUMAtriptan succinate [Imitrex] 100 mg PO BID PRN 01/28/24 01/28/24 History Allergies Allergy/AdvReac Type Severity Reaction Status Date / Time No Known Allergies Allergy Verified 01/28/24 10:34 Surgical - Exam Vital Signs Temp Pulse Resp BP Pulse Ox 97.6 F 74 18 138/4 98 01/28/24 10:33 01/28/24 10:33 01/28/24 10:33 01/28/24 10:33 01/28/24 10:33 Results - Labs 01/29/24 04:49 01/29/24 04:49 Abnormal Lab Results - Last 24 Hours (Table) 01/28/24 01/29/24 01/29/24 Range/Units 15:38 04:49 04:49 MCHC 30.4 L (31.0-37.0) g/dL ESR 38 H (0-20) mm/Hr Chloride 112 H (98-107) mmol/L Calcium 8.2 L (8.4-10.2) mg/dL Total Protein 5.4 L (6.3-8.2) g/dL Albumin 2.7 L (3.5-5.0) g/dL Diabetes panel 01/29/24 Range/Units 04:49 Sodium 140 (137-145) mmol/L Potassium 4.4 (3.5-5.1) mmol/L Chloride 112 H (98-107) mmol/L Carbon Dioxide 25 (22-30) mmol/L BUN 16 (9-20) mg/dL Creatinine 0.85 (0.66-1.25) mg/dL Glucose 75 (74-99) mg/dL Calcium 8.2 L (8.4-10.2) mg/dL AST 22 (17-59) U/L ALT 20 (4-49) U/L Alkaline Phosphatase 103 (38-126) U/L Total Protein 5.4 L (6.3-8.2) g/dL Albumin 2.7 L (3.5-5.0) g/dL Calcium panel 01/29/24 Range/Units 04:49 Calcium 8.2 L (8.4-10.2) mg/dL Albumin 2.7 L (3.5-5.0) g/dL Pituitary panel 01/29/24 Range/Units 04:49 Sodium 140 (137-145) mmol/L Potassium 4.4 (3.5-5.1) mmol/L Chloride 112 H (98-107) mmol/L Carbon Dioxide 25 (22-30) mmol/L BUN 16 (9-20) mg/dL Creatinine 0.85 (0.66-1.25) mg/dL Glucose 75 (74-99) mg/dL Calcium 8.2 L (8.4-10.2) mg/dL Adrenal panel 01/29/24 Range/Units 04:49 Sodium 140 (137-145) mmol/L Potassium 4.4 (3.5-5.1) mmol/L Chloride 112 H (98-107) mmol/L Carbon Dioxide 25 (22-30) mmol/L BUN 16 (9-20) mg/dL Creatinine 0.85 (0.66-1.25) mg/dL Glucose 75 (74-99) mg/dL Calcium 8.2 L (8.4-10.2) mg/dL Total Bilirubin 0.6 (0.2-1.3) mg/dL AST 22 (17-59) U/L ALT 20 (4-49) U/L Alkaline Phosphatase 103 (38-126) U/L Total Protein 5.4 L (6.3-8.2) g/dL Albumin 2.7 L (3.5-5.0) g/dL
[2024-01-29] MEDS: SILVER NITRATE APPLICATOR 1 EACH STICK..EA. TOPICAL STA (13:54)
[2024-01-29] MEDS: COLLAGENASE 250 UNIT/GM OINTMENT 30 GM TUBE TOPICAL SCH (13:55)
--- NOTE | 2024-01-29 15:21 | P.PN ---
Subjective Progress Note Date: 01/29/24 Principal diagnosis: Reason for follow-up is right foot wound and cellulitis Patient is a 69-year-old male with a past medical history significant for diabetes mellitus hypertension hyperlipidemia PE prostate disorder presenting to the hospital with right foot wound swelling and redness failing outpatient oral Keflex consulted for diabetic foot wound infection. On today's visit that is 01/29/2024, Patient is afebrile patient is currently on room air and denies having any shortness of breath, the patient denies any chest pain or cough, the patient denies any nausea vomiting did not have any abdominal pain and no diarrhea, patient denies pain to the right foot because of neuropathy no worsening redness noticed. Patient white count of 8.0, creatinine 0.85 cultures are pending Objective - Vital Signs Vital signs: Vital Signs Temp 98.1 F 01/29/24 12:15 Pulse 64 01/29/24 12:15 Resp 17 01/29/24 12:15 BP 129/82 01/29/24 12:15 Pulse Ox 99 01/29/24 12:15 FiO2 Intake & Output 01/28/24 01/29/24 01/29/24 18:59 06:59 18:59 Intake Total 850 590 240 Balance 850 590 240 Weight 88.451 kg Intake: Intake, IV Titration 850 Amount Piperacillin-Tazobactam 3 100 .375 gm In Sodium Chloride 0.9% 100 ml @ 200 mls/hr IVPB ONCE STA Rx#:[id number] Piperacillin-Tazobactam 3 100 .375 gm In Sodium Chloride 0.9% 100 ml @ 25 mls/hr IVPB Q8H [facility] Rx#: [id number] Sodium Chloride 0.9% 1, 150 000 ml @ 50 mls/hr IV . Q20H [facility] Rx#:[id number] Vancomycin 1,750 mg In 500 Sodium Chloride 0.9% 500 ml 500 ml @ 167 mls/hr IVPB ONCE ONE Rx#: [id number] Oral 590 240 Other: Voiding Method Toilet # Voids 1 2 2 - Exam GENERAL DESCRIPTION: An elderly male up in the chair in no distress RESPIRATORY SYSTEM: Unlabored breathing , decreased breath sounds at bases HEART: S1 S2 regular rate and rhythm , ABDOMEN: Soft , no tenderness EXTREMITIES: Right foot dorsal wound with slough tissue redness slightly decreased no drainage - Labs CBC & Chem 7: 01/29/24 04:49 01/29/24 04:49 Labs: Abnormal Lab Results - Last 24 Hours (Table) 01/28/24 01/29/24 01/29/24 Range/Units 15:38 04:49 04:49 MCHC 30.4 L (31.0-37.0) g/dL ESR 38 H (0-20) mm/Hr Chloride 112 H (98-107) mmol/L Calcium 8.2 L (8.4-10.2) mg/dL Total Protein 5.4 L (6.3-8.2) g/dL Albumin 2.7 L (3.5-5.0) g/dL Assessment and Plan (1) Wound of right foot Current Visit: Yes Status: Acute Code(s): S91.301A - UNSPECIFIED OPEN WOUND, RIGHT FOOT, INITIAL ENCOUNTER SNOMED Code(s): 748096019 (2) Cellulitis of right foot Current Visit: Yes Status: Acute Code(s): L03.115 - CELLULITIS OF RIGHT LOWER LIMB SNOMED Code(s): 66972748124679134 Plan: 1patient presented to hospital with right diabetic foot wound and infection started as a blister from shoe failing outpatient oral Keflex therapy 2-local culture has been obtained to guide further antibiotic therapy 3-patient benefit from surgical debridement vascular surgery was consulted 4-local wound care with Lala followed by moist dressing change daily discussed with nursing staff 5-patient to continue with vancomycin pharmacy to dose target trough of 15 while waiting for the culture to finalize Family at the bedside questions answered Dictation was produced using [employer] dictation software. please excuse any grammatical, word or spelling errors. . Time with Patient: Less than 30
--- NOTE | 2024-01-29 20:41 | PCN ---
PROCEDURE NOTE PREOPERATIVE DIAGNOSIS: Infected wound right foot base of the big toe dorsum aspect, measurement is 2 x 2 cm. POSTOPERATIVE DIAGNOSIS: Infected wound right foot base of the big toe dorsum aspect, measurement is 2 x 2, 0.1 cm. PROCEDURE PERFORMED: Right foot was prepped and 1% lidocaine infiltrated. DESCRIPTION OF PROCEDURE: Using knife, we excised the devitalized tissue down to the fascia. Tissue was sent for deep culture. There were some bleeding points which was controlled with silver nitrate stick, excess silver applied to the wound. Pressure dressing applied. The patient tolerated the procedure well. MMODL / IJN: [id number] /
--- NOTE | 2024-01-29 22:52 | CT ---
EXAMINATION TYPE: CT foot RT w con DATE OF EXAM: 01/29/2024 3:11 PM COMPARISON: Foot radiographs 01/28/2024 CLINICAL INDICATION:Male, 69 years old with history of infection; PHH, RT foot infection TECHNIQUE: CT through the right foot was obtained after IV contrast administration. Multiplanar reformats genera escobar in soft tissue and bone window. Contrast used:100ml mL of Isovue 300 with IV Contrast, Oral contrast used: None CT DLP: 284.50 mGycm, Automated exposure control for dose reduction was used. FINDINGS: Beginning in the distal calf there is moderate generalized soft tissue edema which extends into the f oot, greatest dorsally and laterally. No focal fluid collection is seen. Distally overlying the great toe MTP joint especially dorsally there is soft tissue density with poss ible overlying skin ulceration, and this density extends deeper abutting and surrounding the great to e MTP joint. There is moderate to severe chronic change of the MTP joint, with significant narrowing of the joint space, marginal osteophytes, and multiple subcortical relatively well-defined small cystic structures in both the metatarsal head and base of the proximal phalanx, mostly intra-articular. None of the le sions seen demonstrate the classic "rat-bite" appearance. I see no periarticular osteopenia. No defin ite acute cortical destruction is seen. There are milder similar changes suggested involving the grea t toe interphalangeal joint, however without much in the way of cystic changes. There is mild hallux valgus deformity. The other bones of the foot appear relatively normal, without significant joint space narrowing, joaquín ical destruction, fracture, or dislocation. There is a small accessory navicular noted. Some bones ap pear mildly osteopenic, especially the calcaneus. There is minimal dorsal calcaneal spurring. Mild ch ronic degenerative changes of the ankle joint. The distal lateral malleolus shows somewhat of a rat-b ite appearance at its tip, but this appears fairly marginated and probably not acute. While not a typ ical location, gout involvement cannot be excluded. IMPRESSION: 1. 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 2. Superimposed infection/septic joint cannot be excluded. However, there is no overt osseous destru ction seen at this time to suggest active osteomyelitis. 3. Please correlate clinically, with patient history and overall clinical picture.
[2024-01-30] MEDS: SUMAtriptan succinate 50 MG TAB PO PRN (07:38)
[2024-01-30 08:51] LABS: Basophils # (A) 0.04 X 10*3/uL (0.00-0.10); Basophils % (A) 0.4 %; Eosinophils # (A) 0.23 X 10*3/uL (0.04-0.35); Eosinophils % (A) 2.5 %; HCT 43.4 % (39.6-50.0); HGB 13.9 g/dL (13.0-17.0); Lymphocytes # (A) 1.56 X 10*3/uL (0.90-5.00); Lymphocytes % (A) 17.2 %; MCH 29.4 pg (27.0-32.0); MCV 91.8 FL (80.0-97.0); Mean Platelet Volume 10.7 FL (9.5-12.2); Monocytes # (A) 0.72 X 10*3/uL (0.20-1.00); NRBC Per 100 WBC 0 X 10*3/uL (0.00-0.01); Neutrophils # (A) 6.46 X 10*3/uL (1.80-7.70); Neutrophils % (A) 71.5 %; Platelet Count 226 X 10*3/uL (140-440); RBC 4.73 X 10*6/uL (4.40-5.60); RDW 14.3 % (11.5-14.5); WBC 9.05 X 10*3/uL (4.50-10.00)
[2024-01-30 09:04] LABS: ALT 17 U/L (10-49); AST 18 U/L (14-35); Albumin 3.4 g/dL (3.8-4.9); Albumin/Globulin Ratio 1.42 Ratio (1.60-3.17); Alkaline Phosphatase 119 U/L (41-126); BUN/Creat Ratio 13.88 Ratio (12.00-20.00); Blood Urea Nitrogen 11.1 mg/dL (9.0-27.0); Carbon Dioxide 24.8 mmol/L (21.6-31.8); Chloride 110 mmol/L (96-109); Globulin 2.4 g/dL (1.6-3.3); Glucose 79 mg/dL (70-110); Potassium 4.3 mmol/L (3.5-5.5); Sodium 142 mmol/L (135-145); Total Bilirubin 0.4 mg/dL (0.3-1.2); Total Protein 5.8 g/dL (6.2-8.2)
--- NOTE | 2024-01-30 11:02 | CDI ---
Documentation Clarification Form Date: 01/30/2024 10:48:01 AM From: Shahnaz Rojas RN CCDS Phone: [phone] Admit Date: 01/28/2024 12:49:00 PM Patient Name: Hai Cruz Visit Number: [id number] Discharge Date: ATTENTION: The Clinical Documentation Specialists (CDI) and [facility] Coding Staff appreciate your assistance in clarifying documentation. Please respond to the clarification below the line at the bottom and electronically sign. The CDI & [facility] Coding staff will review the response and follow-up if needed. Please note: Queries are made part of the Legal Health Record. If you have any questions, please contact the author of this message via ITS. Dr. Tyler Quevedo Diabetes is documented 01/27 ID consult which may lack sufficient clinical evidence/support in the medical record. Additional clarification is requested. History/Risk Factors: 69-year-old male presents to the ED with right foot wound. Patient said that he was all right one week back when he bought a new shoe and after being that he noticed that there was a blister on the top of his toe. The patient went to urgent care and was stated on Keflex but did not improve. Medical history: HLD, HTN, Musculoskeletal disorder, OA and PE. 01/27, H & P. Clinical Indicators: ED Note, 01/27: Patient is not a diabetic but he does have neuropathy. ID Consult, 01/27: Patient presented to hospital with right diabetic foot wound and infection started as a blister from shoe failing outpatient treatment oral Keflex therapy. Lab results, Blood Glucose: 01/27 94; 01/28 75; 01/29 79 Treatment: Morning blood glucose lab Please clarify if diabetes is a valid diagnosis? [ ] Yes, diabetes is present as evidence by Type (additional clinical support): Treatment [ X ] No, diabetes is ruled out [ ] Other (please specify diagnosis) [ ] Unable to determine (Template Last Revised: December 2020) MTDD
[2024-01-30] MEDS: VANCOMYCIN TROUGH DUE 1 EACH MISC MISCELLANE ONE (11:21)
--- NOTE | 2024-01-30 12:37 | P.PN ---
Progress Note - Text 69-year-old [id number] gentleman who has marked who has marked swelling of the swelling of the big toe big toe with open wound we did debridement and cultureen wound we did the debridement and culture patient is an IV antibiotic and catheter infectious disease an IV antibiotic under care of infectious disease CT finding no evidence of deep CT finding no evidence of mellitusmellitus possible chronic changes of gout of chronic changes of gout today will change the dressing use Santyl cream today we have changed the dressing use Santyl cream culture is pending culture is pending
--- NOTE | 2024-01-30 12:38 | P.PN ---
Subjective Progress Note Date: 01/30/24 Principal diagnosis: Reason for follow-up is right foot wound and cellulitis Patient is a 69-year-old male with a past medical history significant for diabetes mellitus hypertension hyperlipidemia PE prostate disorder presenting to the hospital with right foot wound swelling and redness failing outpatient oral Keflex consulted for diabetic foot wound infection. Patient did have a bedside debridement of the right foot wound by vascular surgery did not mention any extension down to the wound On today's evaluation that is 01/30/2024, patient has been afebrile, patient is breathing comfortably and is currently on room air, patient denies having any significant cough no chest pain shortness of breath, patient denies nausea vomiting or diarrhea and no abdominal pain, denies pain to the right foot wound area Patient white count is 9.05, creatinine 0.8 Vanco trough is 22.3 cultures growing gram-negative bacilli Objective - Vital Signs Vital signs: Vital Signs Temp 97.7 F 01/30/24 12:21 Pulse 88 01/30/24 12:21 Resp 16 01/30/24 12:21 BP 119/75 01/30/24 12:21 Pulse Ox 96 01/30/24 12:21 FiO2 Intake & Output 01/29/24 01/30/24 01/30/24 18:59 06:59 18:59 Intake Total 840 Balance 840 Intake: Intake, IV Titration 600 Amount Piperacillin-Tazobactam 3 100 .375 gm In Sodium Chloride 0.9% 100 ml @ 25 mls/hr IVPB Q8H [facility] Rx#: [id number] Vancomycin 1,500 mg In 500 Sodium Chloride 0.9% 500 ml 500 ml @ 167 mls/hr IVPB Q12H [facility] Rx#: [id number] Oral 240 Other: Voiding Method Toilet Toilet # Voids 2 3 - Exam GENERAL DESCRIPTION: An elderly male up in the chair in no distress RESPIRATORY SYSTEM: Unlabored breathing , decreased breath sounds at bases HEART: S1 S2 regular rate and rhythm , ABDOMEN: Soft , no tenderness EXTREMITIES: Right foot dorsal wound currently dressed - Labs CBC & Chem 7: 01/30/24 06:08 01/30/24 06:08 Labs: Abnormal Lab Results - Last 24 Hours (Table) 01/30/24 Range/Units 06:08 Chloride 110 H (96-109) mmol/L Total Protein 5.8 L (6.2-8.2) g/dL Albumin 3.4 L (3.8-4.9) g/dL Albumin/Globulin Ratio 1.42 L (1.60-3.17) Ratio Microbiology - Last 24 Hours (Table) 01/28/24 11:03 Blood Culture - Preliminary Blood 01/28/24 10:50 Blood Culture - Preliminary Blood 01/28/24 11:30 Gram Stain - Preliminary Foot - Right Wound Culture - Preliminary Gram Neg Bacilli Assessment and Plan (1) Wound of right foot Current Visit: Yes Status: Acute Code(s): S91.301A - UNSPECIFIED OPEN WOUND, RIGHT FOOT, INITIAL ENCOUNTER SNOMED Code(s): 561017543 (2) Cellulitis of right foot Current Visit: Yes Status: Acute Code(s): L03.115 - CELLULITIS OF RIGHT LOWER LIMB SNOMED Code(s): 09120903285354091 Plan: 1patient presented to hospital with right diabetic foot wound and infection started as a blister from shoe failing outpatient oral Keflex therapy 2-local culture has been obtained which are currently growing gram-negative bacilli patient also have by surgical debridement vascular surgery and cultures are pending 3-local wound care per surgery 4-we will discontinue vancomycin and start the patient on Zosyn while waiting for ID sensitivity on the gram-negative Dictation was produced using [employer] dictation software. please excuse any grammatical, word or spelling errors. . Time with Patient: Less than 30
[2024-01-30] MEDS: PIPERACILLIN-TAZOBACTAM 3.375 GM in SODIUM CHLORIDE 0.9% 100 ML IVPB SCH (16:55)
[2024-01-30] MEDS ORDERED: VANCOMYCIN 1,250 MG in SODIUM CHLORIDE 0.9% 250 ML IVPB SCH (18:00)
--- NOTE | 2024-01-30 19:15 | P.PN ---
Subjective Progress Note Date: 01/30/24 HISTORY OF PRESENT ILLNESS: patient is a 69-year-old gentleman with past mental history of hyperlipidemia, PE, hypertension, enlarged prostate, migraine headaches with aura, recurrent depression, neuropathy who presented to the ER for right foot wound. Patient said that he was all right 1 week back when he bought a new shoe and after being that he noticed that there was a blister on the top of his first toe. Patient denies any fever or chills. There was no complaint of lethargy or weakness. Patient noted that the blister was worsening so he went to urgent care who prescribed him Keflex and the patient has been taking it for the last week but the wound did not improve. Patient denies any discharge from the wound. The redness and swelling has worsened. Because of the symptoms, he was referred to the ER Initial lab work done in the ER showed WBC 10.9, hemoglobin 16, platelet count 265, sodium 139, potassium 4.9, BUN 22, creatinine 0.76, glucose 94, lactate 1.1, bilirubin 0.7, AST 33, ALT 29, alk phos 119 X-ray of the right foot done showed severe degenerative narrowing involving the first metatarsal phalangeal joint with bony remodeling seen and extensive spur formation. Patient admitted to internal medicine service 01/28. Patient seen and examined. No acute overnight. Denies any right foot pain 01/29: Patient sitting up in the chair in no apparent distress, he denies any chest pain, shortness of breath, he has no abdominal pain, no fever or chills he has no diarrhea either patient underwent yesterday a debridement of the wound at the base of the right big toe on the dorsal aspect with Dr. Ayers, he has been seen in consultation by vascular surgery along with infectious disease he has been maintained on IV antibiotic in the form of vancomycin, with pharmacy to dose its peak and trough, patient's pain a lot better today, he denies any unusual symptoms, he would like to be discharged home in the next 24 hours after obtaining the final results of culture. REVIEW OF SYSTEMS: Constitutional: No documented fever, no chills, no night sweats. No weight change. No weakness, fatigue or lethargy. No daytime sleepiness. EENT: No headache. No blurred vision or double vision, no loss of vision. No loss of Hearing, no ringing in the ears, no dizziness. No nasal drainage or congestion. No epistaxis. No sore throat. Lungs: No shortness of breath, no cough, no sputum production. No wheezing. Reports dyspnea with activity. Cardiovascular: No chest pain, no lower extremity edema. No palpitations. No paroxysmal nocturnal dyspnea. No orthopnea. No lightheadedness or dizziness. No syncopal episodes. Abdominal: Reports no abdominal pain. No nausea, vomiting. No diarrhea. No constipation. No bloody or tarry stools reports loss of appetite. Genitourinary: No dysuria, increased frequency, urgency. No urinary retention. Musculoskeletal: No myalgias. No muscle weakness, no gait dysfunction, no frequent falls. No back pain. No neck pain. Integumentary: right base of big toe wound covered with dressing , no lesions. No rash or pruritus. No unusual bruising. No change in hair or nails. Neurologic: No aphasia. No facial droop. No change in mentation. No head injury. No headache. No paralysis. No paresthesia. Psychiatric: positive for depression. No anxiety. No mood swings. Endocrine: No abnormal blood sugars. No weight change. PHYSICAL EXAMINATION: General: 69-year-old male sitting up in bed in no apparent distress. HEENT: Head is atraumatic, normocephalic, pupils were equal round reactive to light and recommendation, extraocular muscle movement were intact, sclera nonicteric, conjunctivae were pale, mucous membranes of the mouth are somewhat dry. Neck: Supple, no JVP, normal carotid upstroke bilaterally, no lymphadenopathy. Chest: Decreased breath sounds at the bases, few rhonchi, no expiratory wheezes, no chest wall tenderness, no intercostal retractions. Heart: First heart sound is normal, second heart sounds normal there is systolic ejection murmur 2/6 located in the left sternal border. Abdomen: Soft, nontender, nondistended, positive bowel sounds. Extremities: There is no edema no calf tenderness DP +2 bilaterally. Neurologic examination: Patient is awake alert and oriented x3, cranial nerves II-12 appear grossly intact, there is weakness in the left upper extremity as well as left lower extremity, has been chronic gait dysfunction, uses walker for ambulation. ASSESSMENT AND PLAN: 1. Infected ulcer of the base of the right big toe on the dorsal aspect status postdebridement continue patient on IV antibiotic in the form of vancomycin, patient's culture is showing evidence of gram-negative bacilli therefore vancomycin was discontinued and he was placed on Zosyn 3.375 g IV piggyback every 8 hours, infectious disease and vascular surgery is following hopefully the patient will be able to be switched to oral antibiotic and discharge home in the next 24 hours. 2. History of pulmonary embolism. Patient is currently on Eliquis 5 mg orally twice every day. 3. Hypertension and hypertensive cardiovascular disease continue patient on lisinopril 10 mg in the evening as well as 5 mg in the morning monitor the patient blood pressure very closely. 4. Mixed hyperlipidemia. Continue atorvastatin 20 mg once every day, monitor lipid panel, keep LDL 55-70. 5. 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 Continue gabapentin 400 mg orally 3 times every day. 6. History of migraine headaches continue patient on Nurtec 75 mg orally once every day as needed. May use sumatriptan as needed as well. 7. Constipation. Continue MiraLAX 17 g in 8 ounce of water once every day. 8. Depression. Continue patient on citalopram 40 mg once every day. 9. Insomnia. Continue Seroquel 50 mg at bedtime. 10. DVT prophylaxis. Continue Eliquis 5 mg orally twice every day. 11. Likely home tomorrow morning. Objective - Vital Signs Vital signs: Vital Signs Temp 97.7 F 01/30/24 12:21 Pulse 88 01/30/24 12:21 Resp 16 01/30/24 12:21 BP 119/75 01/30/24 12:21 Pulse Ox 96 01/30/24 12:21 FiO2 Intake & Output 01/30/24 01/30/24 01/31/24 06:59 18:59 06:59 Intake Total 350 Balance 350 Intake: Intake, IV Titration 350 Amount Piperacillin-Tazobactam 3 100 .375 gm In Sodium Chloride 0.9% 100 ml @ 25 mls/hr IVPB Q8HR [facility] Rx# :[id number] Vancomycin 1,250 mg In 250 Sodium Chloride 0.9% 250 ml @ 125 mls/hr IVPB Q12H [facility] Rx#:[id number] Other: Voiding Method Toilet Toilet # Voids 3 - Labs CBC & Chem 7: 01/30/24 06:08 01/30/24 06:08 Labs: Abnormal Lab Results - Last 24 Hours (Table) 01/30/24 Range/Units 06:08 Chloride 110 H (96-109) mmol/L Total Protein 5.8 L (6.2-8.2) g/dL Albumin 3.4 L (3.8-4.9) g/dL Albumin/Globulin Ratio 1.42 L (1.60-3.17) Ratio Microbiology - Last 24 Hours (Table) 01/29/24 13:43 Gram Stain - Preliminary Toe - Right First Tissue Culture - Preliminary 01/28/24 11:03 Blood Culture - Preliminary Blood 01/28/24 10:50 Blood Culture - Preliminary Blood 01/28/24 11:30 Gram Stain - Preliminary Foot - Right Wound Culture - Preliminary Gram Neg Bacilli
[2024-01-31 07:42] LABS: ALT 22 U/L (4-49); AST 25 U/L (17-59); African American GFR (CKD) >90 (>60 ml/min/1.73 sqM); Albumin 3.2 g/dL (3.5-5.0); Albumin/Globulin Ratio 1.1; Alkaline Phosphatase 125 U/L (38-126); Anion Gap 6 mmol/L; Blood Urea Nitrogen 13 mg/dL (9-20); Carbon Dioxide 26 mmol/L (22-30); Chloride 110 mmol/L (98-107); Globulin 2.8 g/dL; Glucose 97 mg/dL (74-99); Non-African American GFR(CKD) 86 (>60 ml/min/1.73 sqM); Potassium 4.2 mmol/L (3.5-5.1); Sodium 142 mmol/L (137-145); Total Bilirubin 0.5 mg/dL (0.2-1.3)
[2024-01-31 10:51] LABS: Basophils # (A) 0.06 X 10*3/uL (0.00-0.10); Basophils % (A) 0.7 %; Eosinophils # (A) 0.21 X 10*3/uL (0.04-0.35); Eosinophils % (A) 2.3 %; HCT 46.1 % (39.6-50.0); Lymphocytes # (A) 1.85 X 10*3/uL (0.90-5.00); Lymphocytes % (A) 20.4 %; MCH 29.9 pg (27.0-32.0); MCHC 32.5 g/dL (32.0-37.0); MCV 91.8 FL (80.0-97.0); Mean Platelet Volume 10.8 FL (9.5-12.2); Monocytes # (A) 0.72 X 10*3/uL (0.20-1.00); Monocytes % (A) 7.9 %; NRBC Per 100 WBC 0 X 10*3/uL (0.00-0.01); Neutrophils % (A) 68.3 %; Platelet Count 245 X 10*3/uL (140-440); RBC 5.02 X 10*6/uL (4.40-5.60); RDW 14.6 % (11.5-14.5); WBC 9.08 X 10*3/uL (4.50-10.00)
--- NOTE | 2024-01-31 15:10 | P.PN ---
Subjective Progress Note Date: 01/31/24 Principal diagnosis: Reason for follow-up is right foot wound and cellulitis Patient is a 69-year-old male with a past medical history significant for diabetes mellitus hypertension hyperlipidemia PE prostate disorder presenting to the hospital with right foot wound swelling and redness failing outpatient oral Keflex consulted for diabetic foot wound infection. Patient did have a bedside debridement of the right foot wound by vascular surgery did not mention any extension down to the wound On today's evaluation that is 01/31/2024,the patient denies any fever or any chills, patient is breathing comfortably on room air, the patient denies chest pain shortness of breath and no significant cough, patient denies abdominal pain, no nausea vomiting or diarrhea. Patient denies pain to the right foot wound area or any drainage. Patient white count is 9.08, creatinine 0.90 local culture with gram-negative ID sensitivities pending Objective - Vital Signs Vital signs: Vital Signs Temp 98.4 F 01/31/24 13:00 Pulse 67 01/31/24 13:00 Resp 16 01/31/24 13:00 BP 132/83 01/31/24 13:00 Pulse Ox 97 01/31/24 13:00 FiO2 Intake & Output 01/30/24 01/31/24 01/31/24 18:59 06:59 18:59 Intake Total 350 700 Balance 350 700 Intake: Intake, IV Titration 350 100 Amount Piperacillin-Tazobactam 3 100 100 .375 gm In Sodium Chloride 0.9% 100 ml @ 25 mls/hr IVPB Q8HR [facility] Rx# :[id number] Vancomycin 1,250 mg In 250 Sodium Chloride 0.9% 250 ml @ 125 mls/hr IVPB Q12H [facility] Rx#:[id number] Oral 600 Other: Voiding Method Toilet Toilet Toilet # Voids 3 - Exam GENERAL DESCRIPTION: An elderly male up in the chair in no distress RESPIRATORY SYSTEM: Unlabored breathing , decreased breath sounds at bases HEART: S1 S2 regular rate and rhythm , ABDOMEN: Soft , no tenderness EXTREMITIES: Right foot dorsal wound base with less slough tissue surrounding redness has decreased - Labs CBC & Chem 7: 01/31/24 06:45 01/31/24 06:45 Labs: Abnormal Lab Results - Last 24 Hours (Table) 01/31/24 01/31/24 Range/Units 06:45 06:45 RDW 14.6 H (11.5-14.5) % Chloride 110 H (98-107) mmol/L Total Protein 6.0 L (6.3-8.2) g/dL Albumin 3.2 L (3.5-5.0) g/dL Microbiology - Last 24 Hours (Table) 01/28/24 11:03 Blood Culture - Preliminary Blood 01/28/24 10:50 Blood Culture - Preliminary Blood 01/29/24 13:43 Gram Stain - Preliminary Toe - Right First Tissue Culture - Preliminary Assessment and Plan (1) Wound of right foot Current Visit: Yes Status: Acute Code(s): S91.301A - UNSPECIFIED OPEN WOUND, RIGHT FOOT, INITIAL ENCOUNTER SNOMED Code(s): 301346100 (2) Cellulitis of right foot Current Visit: Yes Status: Acute Code(s): L03.115 - CELLULITIS OF RIGHT LOWER LIMB SNOMED Code(s): 08200144639776038 Plan: 1patient presented to hospital with right diabetic foot wound and infection started as a blister from shoe failing outpatient oral Keflex therapy 2-local culture has been obtained which are currently growing gram-negative bacilli patient also have by surgical debridement vascular surgery and cultures are pending 3-local wound care to continue with Santyl followed by moist dressing 4-patient to continue with the Zosyn Zosyn while waiting for ID sensitivity on the gram-negative to determine discharge antibiotics Dictation was produced using [email or web address] dictation software. please excuse any grammatical, word or spelling errors. . Time with Patient: Less than 30
[2024-02-01 09:27] VITALS: TEMP 97.5
[2024-02-01 13:07] VITALS: BP 108/71; PULSE 67; RESP 16
--- NOTE | 2024-02-01 13:46 | P.PN ---
Subjective Progress Note Date: 02/01/24 Principal diagnosis: Reason for follow-up is right foot wound and cellulitis Patient is a 69-year-old male with a past medical history significant for diabetes mellitus hypertension hyperlipidemia PE prostate disorder presenting to the hospital with right foot wound swelling and redness failing outpatient oral Keflex consulted for diabetic foot wound infection. Patient did have a bedside debridement of the right foot wound by vascular surgery did not mention any extension down to the wound On today's evaluation that is 02/01/2024,the patient remains to be afebrile, patient is on room air not requiring supplemental oxygen and denies any shortness of breath no chest pain or cough.Patient denies having any nausea or vomiting, no abdominal pain and no diarrhea, denies any pain to the right foot wound daily. No lab draw today his white count was normal yesterday creatinine was 0.90 local culture growing Alcaligenes faecalis Objective - Vital Signs Vital signs: Vital Signs Temp 97.5 F L 02/01/24 12:06 Pulse 67 02/01/24 12:06 Resp 16 02/01/24 12:06 BP 108/71 02/01/24 12:06 Pulse Ox 98 02/01/24 12:06 FiO2 Intake & Output 01/31/24 02/01/24 02/01/24 18:59 06:59 18:59 Intake Total 100 Balance 100 Intake: Intake, IV Titration 100 Amount Piperacillin-Tazobactam 3 100 .375 gm In Sodium Chloride 0.9% 100 ml @ 25 mls/hr IVPB Q8HR [facility] Rx# :[id number] Other: Voiding Method Toilet Toilet Toilet # Voids 3 - Exam GENERAL DESCRIPTION: An elderly male up in the chair in no distress RESPIRATORY SYSTEM: Unlabored breathing , decreased breath sounds at bases HEART: S1 S2 regular rate and rhythm , ABDOMEN: Soft , no tenderness EXTREMITIES: Right foot dorsal wound currently dressed - Labs CBC & Chem 7: 01/31/24 06:45 01/31/24 06:45 Labs: Microbiology - Last 24 Hours (Table) 01/28/24 11:03 Blood Culture - Preliminary Blood 01/28/24 10:50 Blood Culture - Preliminary Blood 01/29/24 13:43 Gram Stain - Preliminary Toe - Right First Tissue Culture - Preliminary 01/28/24 11:30 Gram Stain - Final Foot - Right Wound Culture - Final Alcaligen. faecalis Assessment and Plan (1) Wound of right foot Current Visit: Yes Status: Acute Code(s): S91.301A - UNSPECIFIED OPEN WOUND, RIGHT FOOT, INITIAL ENCOUNTER SNOMED Code(s): 460730632 (2) Cellulitis of right foot Current Visit: Yes Status: Acute Code(s): L03.115 - CELLULITIS OF RIGHT LOWER LIMB SNOMED Code(s): 97146790659689456 Plan: 1patient presented to hospital with right diabetic foot wound and infection started as a blister from shoe failing outpatient oral Keflex therapy 2-local culture has been obtained which are currently growing Alcaligenes faecalis patient also have by surgical debridement vascular surgery and cultures are pending 3-local wound care to continue with Santyl followed by moist dressing 4-patient will be able to finish therapy with the Bactrim DS prescription sent to the pharmacy check a BMP in 1 week and close outpatient follow-up Dictation was produced using [employer] dictation software. please excuse any grammatical, word or spelling errors. . Time with Patient: Less than 30
--- NOTE | 2024-02-01 16:06 | P.PN ---
Subjective Progress Note Date: 01/31/24 HISTORY OF PRESENT ILLNESS: patient is a 69-year-old gentleman with past mental history of hyperlipidemia, PE, hypertension, enlarged prostate, migraine headaches with aura, recurrent depression, neuropathy who presented to the ER for right foot wound. Patient said that he was all right 1 week back when he bought a new shoe and after being that he noticed that there was a blister on the top of his first toe. Patient denies any fever or chills. There was no complaint of lethargy or weakness. Patient noted that the blister was worsening so he went to urgent care who prescribed him Keflex and the patient has been taking it for the last week but the wound did not improve. Patient denies any discharge from the wound. The redness and swelling has worsened. Because of the symptoms, he was referred to the ER Initial lab work done in the ER showed WBC 10.9, hemoglobin 16, platelet count 265, sodium 139, potassium 4.9, BUN 22, creatinine 0.76, glucose 94, lactate 1.1, bilirubin 0.7, AST 33, ALT 29, alk phos 119 X-ray of the right foot done showed severe degenerative narrowing involving the first metatarsal phalangeal joint with bony remodeling seen and extensive spur formation. Patient admitted to internal medicine service 01/28. Patient seen and examined. No acute overnight. Denies any right foot pain 01/29: Patient sitting up in the chair in no apparent distress, he denies any chest pain, shortness of breath, he has no abdominal pain, no fever or chills he has no diarrhea either patient underwent yesterday a debridement of the wound at the base of the right big toe on the dorsal aspect with Dr. Ayers, he has been seen in consultation by vascular surgery along with infectious disease he has been maintained on IV antibiotic in the form of vancomycin, with pharmacy to dose its peak and trough, patient's pain a lot better today, he denies any unusual symptoms, he would like to be discharged home in the next 24 hours after obtaining the final results of culture. 01/30: Patient is sitting up in a chair no apparent distress, he was switched yesterday to Zosyn because of his culture growing Alcaligen Feacalis continue with current IV antibiotic for another 24 hours, hopefully he will be switched to oral antibiotic tomorrow morning and can be sent home. REVIEW OF SYSTEMS: Constitutional: No documented fever, no chills, no night sweats. No weight change. No weakness, fatigue or lethargy. No daytime sleepiness. EENT: No headache. No blurred vision or double vision, no loss of vision. No loss of Hearing, no ringing in the ears, no dizziness. No nasal drainage or congestion. No epistaxis. No sore throat. Lungs: No shortness of breath, no cough, no sputum production. No wheezing. Reports dyspnea with activity. Cardiovascular: No chest pain, no lower extremity edema. No palpitations. No paroxysmal nocturnal dyspnea. No orthopnea. No lightheadedness or dizziness. No syncopal episodes. Abdominal: Reports no abdominal pain. No nausea, vomiting. No diarrhea. No constipation. No bloody or tarry stools reports loss of appetite. Genitourinary: No dysuria, increased frequency, urgency. No urinary retention. Musculoskeletal: No myalgias. No muscle weakness, no gait dysfunction, no frequent falls. No back pain. No neck pain. Integumentary: right base of big toe wound covered with dressing , no lesions. No rash or pruritus. No unusual bruising. No change in hair or nails. Neurologic: No aphasia. No facial droop. No change in mentation. No head injury. No headache. No paralysis. No paresthesia. Psychiatric: positive for depression. No anxiety. No mood swings. Endocrine: No abnormal blood sugars. No weight change. PHYSICAL EXAMINATION: General: 69-year-old male sitting up in bed in no apparent distress. HEENT: Head is atraumatic, normocephalic, pupils were equal round reactive to light and recommendation, extraocular muscle movement were intact, sclera nonicteric, conjunctivae were pale, mucous membranes of the mouth are somewhat dry. Neck: Supple, no JVP, normal carotid upstroke bilaterally, no lymphadenopathy. Chest: Decreased breath sounds at the bases, few rhonchi, no expiratory wheezes, no chest wall tenderness, no intercostal retractions. Heart: First heart sound is normal, second heart sounds normal there is systolic ejection murmur 2/6 located in the left sternal border. Abdomen: Soft, nontender, nondistended, positive bowel sounds. Extremities: There is no edema no calf tenderness DP +2 bilaterally. Neurologic examination: Patient is awake alert and oriented x3, cranial nerves II-12 appear grossly intact, there is weakness in the left upper extremity as well as left lower extremity, has been chronic gait dysfunction, uses walker for ambulation. ASSESSMENT AND PLAN: 1. Infected ulcer of the base of the right big toe on the dorsal aspect status postdebridement . Continue patient on Zosyn 3.375 g IV piggyback every 6 hours, hopefully will be switched to oral antibiotic and can be discharged home tomorrow morning. 2. History of pulmonary embolism. Patient is currently on Eliquis 5 mg orally twice every day. 3. Hypertension and hypertensive cardiovascular disease continue patient on lisinopril 10 mg in the evening as well as 5 mg in the morning monitor the patient blood pressure very closely. 4. Mixed hyperlipidemia. Continue atorvastatin 20 mg once every day, monitor lipid panel, keep LDL 55-70. 5. 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 Continue gabapentin 400 mg orally 3 times every day. 6. History of migraine headaches continue patient on Nurtec 75 mg orally once every day as needed. May use sumatriptan as needed as well. 7. Constipation. Continue MiraLAX 17 g in 8 ounce of water once every day. 8. Depression. Continue patient on citalopram 40 mg once every day. 9. Insomnia. Continue Seroquel 50 mg at bedtime. 10. DVT prophylaxis. Continue Eliquis 5 mg orally twice every day. 11. Likely home tomorrow morning. Objective - Vital Signs Vital signs: Vital Signs Temp 97.5 F L 02/01/24 12:06 Pulse 67 02/01/24 12:06 Resp 16 02/01/24 12:06 BP 108/71 02/01/24 12:06 Pulse Ox 98 02/01/24 12:06 FiO2 Intake & Output 01/31/24 02/01/24 02/01/24 18:59 06:59 18:59 Intake Total 100 Balance 100 Intake: Intake, IV Titration 100 Amount Piperacillin-Tazobactam 3 100 .375 gm In Sodium Chloride 0.9% 100 ml @ 25 mls/hr IVPB Q8HR [facility] Rx# :[id number] Other: Voiding Method Toilet Toilet Toilet # Voids 3 - Labs CBC & Chem 7: 01/31/24 06:45 01/31/24 06:45 Labs: Microbiology - Last 24 Hours (Table) 01/28/24 11:03 Blood Culture - Preliminary Blood 01/28/24 10:50 Blood Culture - Preliminary Blood 01/29/24 13:43 Gram Stain - Preliminary Toe - Right First Tissue Culture - Preliminary 01/28/24 11:30 Gram Stain - Final Foot - Right Wound Culture - Final Alcaligen. faecalis
--- NOTE | 2024-02-01 16:11 | P.DS ---
Providers Date of admission: 01/28/24 12:49 Expected date of discharge: 02/01/24 Attending physician: Tyler Quevedo Consults: 01/28/24 12:49 Consult Physician Urgent Consulting Provider: Jeanmarie Mercado Consult Reason/Comments: Infected foot wound Do you want consulting provider notified?: Yes 01/29/24 13:17 Consult Physician Routine Consulting Provider: Vladimir Ayers Consult Reason/Comments: possible debridement of right great toe wound Do you want consulting provider notified?: Yes [facility] Course: HISTORY OF PRESENT ILLNESS: patient is a 69-year-old gentleman with past mental history of hyperlipidemia, PE, hypertension, enlarged prostate, migraine headaches with aura, recurrent depression, neuropathy who presented to the ER for right foot wound. Patient said that he was all right 1 week back when he bought a new shoe and after being that he noticed that there was a blister on the top of his first toe. Patient denies any fever or chills. There was no complaint of lethargy or weakness. Patient noted that the blister was worsening so he went to urgent care who prescribed him Keflex and the patient has been taking it for the last week but the wound did not improve. Patient denies any discharge from the wound. The redness and swelling has worsened. Because of the symptoms, he was referred to the ER Initial lab work done in the ER showed WBC 10.9, hemoglobin 16, platelet count 265, sodium 139, potassium 4.9, BUN 22, creatinine 0.76, glucose 94, lactate 1.1, bilirubin 0.7, AST 33, ALT 29, alk phos 119 X-ray of the right foot done showed severe degenerative narrowing involving the first metatarsal phalangeal joint with bony remodeling seen and extensive spur formation. Patient admitted to internal medicine service 01/28. Patient seen and examined. No acute overnight. Denies any right foot pain 01/29: Patient sitting up in the chair in no apparent distress, he denies any chest pain, shortness of breath, he has no abdominal pain, no fever or chills he has no diarrhea either patient underwent yesterday a debridement of the wound at the base of the right big toe on the dorsal aspect with Dr. Ayers, he has been seen in consultation by vascular surgery along with infectious disease he has been maintained on IV antibiotic in the form of vancomycin, with pharmacy to dose its peak and trough, patient's pain a lot better today, he denies any unusual symptoms, he would like to be discharged home in the next 24 hours after obtaining the final results of culture. 01/30: Patient is sitting up in a chair no apparent distress, he was switched yesterday to Zosyn because of his culture growing Shu Marshall continue with current IV antibiotic for another 24 hours, hopefully he will be switched to oral antibiotic tomorrow morning and can be sent home. 01/31: Patient is doing a lot better, he denies any chest pain, shortness of breath, he has no abdominal pain, nausea vomiting or diarrhea, he has been tolerating treatment very well, he was seen by infectious disease he was cleared to be discharged home today. He was placed on a prescription of Bactrim double strength twice every day was sent orally to the pharmacy. Discharge diagnoses: 1. Infected ulcer of the base of the right big toe on the dorsal aspect status postdebridement with Lacey Marshall 2. History of pulmonary embolism. 3. Hypertension and hypertensive cardiovascular disease 4. Mixed hyperlipidemia. 5. 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 6. History of migraine headaches continue patient on Nurtec 75 mg orally once every day as needed. 7. Constipation. 8. Depression. 9. Insomnia. Patient Condition at Discharge: Stable Plan - Discharge Summary Discharge Rx Participant: No New Discharge Prescriptions: New Sulfamethox-Tmp 800-160Mg [Bactrim DS 800-160 mg] 1 tab PO Q12HR #20 tab Discontinued Cephalexin [Keflex] 500 mg PO Q6H No Action Tamsulosin HCl [Flomax] 0.8 mg PO HS lisinopriL [Zestril] 10 mg PO HS Rimegepant Sulfate [Nurtec Odt] 75 mg PO DAILY PRN PRN Reason: migraines lisinopriL [Zestril] 5 mg PO DAILY Ondansetron [Zofran] 4 mg PO TID PRN PRN Reason: Nausea And Vomiting SUMAtriptan succinate [Imitrex] 100 mg PO BID PRN PRN Reason: Migraine Headache Baclofen 5 mg PO BID QUEtiapine [SEROquel] 50 mg PO HS Citalopram Hydrobromide [CeleXA] 40 mg PO DAILY polyethylene glycoL 3350 [Clearlax] 17 gm PO DAILY Gabapentin [Neurontin] 400 mg PO TID Atorvastatin [Lipitor] 20 mg PO DAILY Apixaban [Eliquis] 5 mg PO BID Cholecalciferol [Vitamin D3 (25 Mcg = 1000 Iu)] 25 mcg PO DAILY Discharge Medication List Tamsulosin HCl [Flomax] 0.8 mg PO HS 01/28/15 [History] lisinopriL [Zestril] 10 mg PO HS 01/28/15 [History] Apixaban [Eliquis] 5 mg PO BID 07/27/23 [History] Atorvastatin [Lipitor] 20 mg PO DAILY 07/27/23 [History] Gabapentin [Neurontin] 400 mg PO TID 07/27/23 [History] Rimegepant Sulfate [Nurtec Odt] 75 mg PO DAILY PRN 07/27/23 [History] lisinopriL [Zestril] 5 mg PO DAILY 07/27/23 [History] polyethylene glycoL 3350 [Clearlax] 17 gm PO DAILY 07/27/23 [History] Baclofen 5 mg PO BID 01/28/24 [History] Cholecalciferol [Vitamin D3 (25 Mcg = 1000 Iu)] 25 mcg PO DAILY 01/28/24 [History] Citalopram Hydrobromide [CeleXA] 40 mg PO DAILY 01/28/24 [History] Ondansetron [Zofran] 4 mg PO TID PRN 01/28/24 [History] QUEtiapine [SEROquel] 50 mg PO HS 01/28/24 [History] SUMAtriptan succinate [Imitrex] 100 mg PO BID PRN 01/28/24 [History] Sulfamethox-Tmp 800-160Mg [Bactrim DS 800-160 mg] 1 tab PO Q12HR #20 tab 02/01/24 [Rx] Follow up Appointment(s)/Referral(s): Tyler Quevedo MD [Primary Care Provider] - 1-2 days (The office closed at 1pm please call and make follow up appointment.) Jeanmarie Mercado MD [STAFF PHYSICIAN] - 02/15/24 1:15 pm Ambulatory/Diagnostic Orders: Basic Metabolic Panel [LAB.AMB] Location: None Selected
== END 2024-02-01 17:37 | disposition home or self-care (01) | DRG 571 ==
LOC: EC 10:27 → 5NMEDONC 12:49
PROVIDERS: ADMIT Internal Medicine; ATTEND Internal Medicine
PROC: 0JBQ0ZZ Excision of Right Foot Subcutaneous Tissue and Fascia, Open Approach (ICD-10-PCS; principal; 2024-01-29)
DX: L97.519 Non-pressure chronic ulcer of other part of right foot with unspecified severity (principal); F33.9 Major depressive disorder, recurrent, unspecified; L03.115 Cellulitis of right lower limb; L03.031 Cellulitis of right toe; B96.89 Other specified bacterial agents as the cause of diseases classified elsewhere; G43.109 Migraine with aura, not intractable, without status migrainosus; I11.9 Hypertensive heart disease without heart failure; F41.9 Anxiety disorder, unspecified; G47.00 Insomnia, unspecified; Z86.711 Personal history of pulmonary embolism; Z79.01 Long term (current) use of anticoagulants; E78.2 Mixed hyperlipidemia; K59.00 Constipation, unspecified; N40.0 Benign prostatic hyperplasia without lower urinary tract symptoms; M47.812 Spondylosis without myelopathy or radiculopathy, cervical region; M19.90 Unspecified osteoarthritis, unspecified site; G62.9 Polyneuropathy, unspecified; Z28.21 Immunization not carried out because of patient refusal; Z98.1 Arthrodesis status; Z79.899 Other long term (current) drug therapy; Z66 Do not resuscitate
CPT/HCPCS: 36415; 80053; 80202; 83036; 83605; 84550; 85025; 85652; 86140; 87040; 87070; 87077; 87186; 87205; 93005; 94760; 96365; 96367; 99284

== ENCOUNTER → 2024-03-28 | Outpatient (CLI) | payer MEDICARE ==
--- NOTE | 2024-04-05 11:13 | XR ---
EXAMINATION TYPE: XR foot complete RT DATE OF EXAM: 03/28/2024 2:10 PM CLINICAL INDICATION:Male, 69 years old with history of L97.519 Right foot ulcer/swelling dorsal; PHH. Infection. COMPARISON: 01/28/2024 TECHNIQUE: XR foot complete RT examined in the AP, oblique, and lateral projections. FINDINGS: Large bridging periarticular osteophytes at the first MTP joint and at the IP joint of the great toe. Bone space narrowing and subchondral sclerosis No clearly evident soft tissue swelling. Remainder o f fluid is grossly unremarkable IMPRESSION: Large periarticular osteophytes as frequently seen with osteoarthritis. Infection and gout versus oth er etiologies are not excluded.
== END | disposition home or self-care (01) ==
LOC: RADXRMAIN 13:47
PROVIDERS: ATTEND Internal Medicine Infectious Disease
DX: M19.071 Primary osteoarthritis, right ankle and foot (principal); L97.519 Non-pressure chronic ulcer of other part of right foot with unspecified severity

== ENCOUNTER → 2024-06-26 | Outpatient (CLI) | payer MEDICARE ==
--- NOTE | 2024-06-26 23:00 | CT ---
EXAMINATION TYPE: CT thoracic spine wo con DATE OF EXAM: 06/26/2024 COMPARISON: 09/19/2022 HISTORY: 69-year-old male with mid thoracic pain after cervical fusion in April 2024. M54.6 PAIN IN T HORACIC SPINE, G89.18, Z98.1 TECHNIQUE: CT of the thoracic spine without contrast.. Coronal and sagittal reconstructions performed . CT DLP: 1838 mGycm Automated exposure control for dose reduction was used. FINDINGS: Partially visualized wide laminectomies throughout the cervical spine extending down to the L3 level. There appears to be a surgical drain present extending caudally into the spinal canal with tip more along the ventral aspect of the spinal canal at the T5 level. Posterior fusion hardware from C4 down through the T3 level. The orthopedic hardware appears uncomplicated. There is prominent asymmetric elevation of left hemidiaphragm with patchy atelectasis or scar at the left base. Plate and screw fixation along the left clavicular shaft. Old left-sided rib fracture defo rmities. Scattered dural calcifications throughout the spinal canal, etiology and clear. Suspect a fluid collection along the laminectomy bed opposite the C4 and C5 levels measuring 2.4 x 2. 2 cm. There is moderate degenerative disc disease mid thoracic spine and more severe degenerative disc dise ase lower thoracic and upper lumbar spine. Partially visualized posterior and interbody lumbar fusion from L2 down. Accentuated upper thoracic kyphosis. By CT, no evident spinal canal compromise of the thoracic spine. Moderate facet arthropathy especially lower thoracic spine. Changes result in moderate neuroforaminal stenosis left greater than right at T9-T10, and T11 right greater than left, and T11-T12 bilaterally . IMPRESSION: 1. WIDE LAMINECTOMIES THROUGHOUT THE CERVICAL SPINE EXTENDING DOWN TO THE T3 LEVEL. THERE IS POSTERIO R FUSION HARDWARE FROM C4 DOWN THROUGH THE T3 LEVEL. A SURGICAL DRAIN IS PRESENT EXTENDING CAUDALLY W ITHIN THE SPINAL CANAL, TIP MORE ALONG THE VENTRAL ASPECT OF THE SPINAL CANAL AT THE T5 LEVEL. Correl ate as to if this is the intended drain positioning. 2. Possible fluid collection within the laminectomy bed opposite C4 and C5 measuring 2.4 x 2.2 cm. Po stoperative seroma and infective fluid collection are both in the differential. 3. Moderate degenerative disc disease mid thoracic spine and more moderate to severe in the lower tho racic and upper lumbar spine. Facet arthropathy lower thoracic spine. 4. Moderate bilateral neuroforaminal stenoses especially from T9 through T12 levels. 5. Prominent asymmetric elevation left hemidiaphragm. If concern for hemidiaphragmatic paralysis, a f luoroscopic sniff test could be performed.
== END | disposition home or self-care (01) ==
LOC: RADCTMAIN 13:38
PROVIDERS: ATTEND Neurological Surgery
DX: M48.04 Spinal stenosis, thoracic region (principal); M51.34 Other intervertebral disc degeneration, thoracic region; M47.814 Spondylosis without myelopathy or radiculopathy, thoracic region; G89.18 Other acute postprocedural pain; Z98.1 Arthrodesis status; Z46.82 Encounter for fitting and adjustment of non-vascular catheter
CPT/HCPCS: 72128

== ENCOUNTER → 2024-09-24 | Outpatient (CLI) | payer MEDICARE ==
--- NOTE | 2024-09-25 13:44 | US ---
EXAMINATION TYPE: US venous doppler duplex LE BI DATE OF EXAM: 09/24/2024 3:09 PM COMPARISON: NONE CLINICAL INDICATION: Male, 69 years old with history of R60.0 LOCALIZED EDEMA BLE; , Pain TECHNIQUE: The lower extremity deep venous system is examined utilizing real time linear array sonog hermilo with graded compression, color doppler sonography, and spectral doppler. SIDE PERFORMED: Bilateral FINDINGS: VESSELS IMAGED: Common Femoral Vein Deep Femoral Vein Greater Saphenous Vein * Femoral Vein Popliteal Vein Small Saphenous Vein * Proximal Calf Veins (* superficial vessels) Right Leg: Appears negative for DVT Left Leg: Appears negative for DVT IMPRESSION: No ultrasound evidence for deep venous thrombosis. [facility], , 09/25/2024 1:42 PM
== END | disposition home or self-care (01) ==
LOC: RADUSWWP 14:26
PROVIDERS: ATTEND Internal Medicine
DX: N18.2 Chronic kidney disease, stage 2 (mild) (principal); R35.0 Frequency of micturition; R60.0 Localized edema
CPT/HCPCS: 93970

== ENCOUNTER → 2024-10-04 | Outpatient (CLI) | payer MEDICARE ==
--- NOTE | 2024-10-04 16:27 | US ---
EXAMINATION TYPE: US kidneys/renal and bladder DATE OF EXAM: 10/04/2024 COMPARISON: NONE CLINICAL INDICATION: Male, 69 years old with history of R35.0 FREQUENCY OF MICTURITION N18.2 CKD STAG E 2; CKD stage 2, Hx stones. TECHNIQUE: Grayscale imaging of the bilateral kidneys and urinary bladder: FINDINGS: EXAM MEASUREMENTS: Right Kidney: 12.0 x 5.2 x 4.1 cm Left Kidney: 10.9 x 4.5 x 5.6 cm Post Void Residual Volume: 104.56 mL Right Kidney: No hydronephrosis or masses seen Left Kidney: No hydronephrosis or masses seen Bladder: Anechoic. Bilateral Jets seen: Yes Normal Post Void Residual: No IMPRESSION: No evidence for obstructive uropathy or renal calculus. [facility], , 10/04/2024 4:25 PM
== END | disposition home or self-care (01) ==
LOC: RADUSWWP 15:40
PROVIDERS: ATTEND Internal Medicine
DX: N18.2 Chronic kidney disease, stage 2 (mild) (principal); R35.0 Frequency of micturition; R60.0 Localized edema
CPT/HCPCS: 76770